=== PATIENT | female | born 2000 | race Caucasian/White ===

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

== ENCOUNTER 2022-02-21 20:14 | Outpatient (REF) | payer BC, SELFPAY ==
[2022-02-21 19:06] LABS: HCT 40.5 % (36.0-46.0); HGB 13.3 g/dL (11.2-15.7); MCH 30.9 pg (27.0-33.0); MCHC 32.8 % (32.0-36.0); MCV 94 fL (80-95); MPV 10.6 fL (8.0-11.0); Platelet Count 267 10^3/uL (130-400); RBC 4.31 10^6/uL (3.93-5.22); RDW 12.2 % (11.7-14.6); RDW-SD 42.4 fL; WBC 7.74 10^3/uL (4.4-10.8)
[2022-02-21 19:49] LABS: Folate 14.8 ng/mL (8.6-20.0); Vitamin B12 447 pg/mL (193-986)
== END 2022-02-21 20:15 | disposition home or self-care (01) ==
LOC: NCHCN 20:14
PROVIDERS: Visit Provider Nurse Practitioner Family
DX: D75.89 Other specified diseases of blood and blood-forming organs (principal); N93.8 Other specified abnormal uterine and vaginal bleeding
CPT/HCPCS: 85027; 82607; 82746

== ENCOUNTER 2023-11-19 12:51 | Outpatient (REF) | payer BC, SELFPAY ==
--- NOTE | 2023-11-19 10:20 | PAPFT_PTH ---
PATIENT: Mariama Jarvis LOC: [facility] U#:[id number] AGE/SX: 23/F ROOM: RE11/19/[address]: Laura Henriquez : 2000 BED: DIS: 11/19/2023 SPEC #: [id number] RECD: 11/19/23 18:15 STATUS: ALONDRA REQ #: [id number] KEVIN: 11/19/23 10:[address]: Laura Henriquez DEPT: [facility] Cytology RECD BY: Meme Alcantar ENTERED: 11/19/23 18:15 SP TYPE: PAPFT OTHR DR: Unknown,Unknown Tissues: 1 - CX/ENDOCX FOR PAP SMEARS Procedures: PAP THIN PREP/[facility] Screening Comments: [id number] (CHLAMYDIA/GC)
[2023-11-20 13:06] LABS: Chlamydia Result Negative (Negative); GC Result Negative (Negative)
== END 2023-11-19 12:52 | disposition home or self-care (01) ==
LOC: NCHCN 12:51
PROVIDERS: Visit Provider Nurse Practitioner Family
DX: Z00.00 Encounter for general adult medical examination without abnormal findings (principal); Z12.4 Encounter for screening for malignant neoplasm of cervix; Z11.51 Encounter for screening for human papillomavirus (HPV)
CPT/HCPCS: 87491; 87591; 88142

== ENCOUNTER 2024-01-12 11:15 | Emergency (ER) | payer BC, SELFPAY ==
[2024-01-12 11:19] VITALS: BP 120/75; PULSE 57; RESP 16; TEMP 36.8; O2SAT 98
--- OUTSIDE RECORDS SUMMARY | 2024-01-12 11:35 | XMS_ITS | Encounter Summary ---
Author Organization [facility] [place] [address] Care Team Providers Care Paid Search Marketing Strategist Name Role Phone Markos Brewer DNP Primary Care Provider [phone] Encounter Details Date Type Department Care Team (Latest Contact Info) Description 12/29/2019 9:00 AM EDT TH Visit (TeleHealth) Psychiatry and [place]al [place] [address] Gisselle Hauser, PhD AWILDA (generalized anxiety disorder); Depression, unspecified depression type Social History Tobacco Use Types Packs/Day Years Used Date Smoking Tobacco: Never Assessed Sex and Gender Information Value Date Recorded Sex Assigned at Not on file Gender Identity Not on file Sexual Orientation Not on file documented as of this encounter Progress Notes * Gisselle Hauser, PhD - 12/29/2019 9:00 AM EDT INDIVIDUAL??THERAPY PROGRESS NOTE [id number] ?? Location:?Video? Time Spent:??50??minutes ? SUBJECTIVE: ?? Chief Complaint and Diagnosis:??Pt is a 19 year old female with depression and anxiety that interferes with her interpersonal and academic functioning. ?? Interval History:?Pt reported that her mood has continued to improve and she enjoys spending time with her boyfriend.? OBJECTIVE: ?? Patient's verbal /interpersonal exchanges with??this curriculum writer:??Pt??was responsive to this curriculum writer's questions and she was engaged in the session.? Interventions and patient's??responses:??Pt processed her thoughts and feelings about??some stessors.??This curriculum writer introduced some DBT emotion regulation skills and Pt demonstrated an understanding of how to use these skills during a practice exercise. This curriculum writer reinforced Pt's use of the mindfulness and distress tolerance DBT skills, and Pt responded well to this intervention.??Pt completed her homework assignment. ?? Pertinent Mental Status Exam: General appearance:??Age appropriate, well groomed, and good eye contact Speech:??Clear Mood:??Anxious Affect:??Normal range Associations:??Intact Judgment:??Good Thought process:??Linear Oriented to person, place and time:??Yes Attention:??Intact ?? ASSESSMENT:??Pt is a kind, 19 year old female with Generalized Anxiety Disorder and unspecified depression. Pt's anxiety and depressive symptoms interfere with academic and interpersonal functioning.Pt's parents are supportive of Pt and they are willing to engage in Pt's treatment. Pt's parents reported that Pt currently takes 10 mg of Buspar??and 5 mg of Lexapro, prescribed by Dr. Burns, psychiatrist at [facility]. ?? PLAN: Revised Goals: 1) Improve emotion regulation; and 2) Establish healthy boundaries? No change in estimated length of treatment. ?? Safety Risk Management:??Pt did not report any??thoughts of ,??suicidal thoughts or suicidal ideation in the session. Pt did not report any homicidal ideation in the session. Pt??did not report any thoughts of self-harm??or??self-harm in??the session.??In the 09/21/19 session, this curriculum writer assisted Pt and Pt's parents in developing the following safety plan: Pt's parents locked up all of the sharps so that Pt cannot access sharps, Pt agreed to use the DBT TIPP skills each evening before bedtime (Pt's emotional outbursts typically occur in the evening) to prevent emotional outbursts, Pt alsoagreed to remove triggers (e.g., social media) in the evenings, Pt's parents agreed to call the police if Pt is physically violent towards them or she is unwilling to go to the ED for self-harm so that the police can take Pt to the local ED for a psychiatric evaluation.??In the 09/22/19 session, the following activity was added to the safety plan: Pt's mother will monitor Pt's use of a razor for shaving.? Assigned Homework:??Pt plans to??continue to??use the TIPP skills??as needed,??and??to??practice the mindfulness skills??as well as the distress tolerance skills.??Pt's parent(s)??plan to reinforce Pt's use of these DBT??skills.??Pt also plans to continue to practice the first set of DBT emotion regulation skills. Pt plans to practice the second set of DBT emotion regulation skills. ? Patient Instruction/Education Provided:??Pt plans??to follow up with this curriculum writer for therapy next week. ?? Attendee(s)??understand the plan???Yes. documented in this encounter Plan of Treatment Not on file documented as of this encounter Visit Diagnoses Diagnosis AWILDA (generalized anxiety disorder) Generalized anxiety disorder Depression, unspecified depression type documented in this encounter Care Teams Paid Search Marketing Strategist Relationship Specialty Start Date End Date Markos Brewer DNP PCP - General Family Medicine 07/08/19 08/31/23 documented as of this encounter
--- OUTSIDE RECORDS SUMMARY | 2024-01-12 11:35 | XMS_ITS | Encounter Summary ---
Author Organization [facility] Address [facility] [place] [address] Care Team Providers Care Manager Web Application Name Role Phone Laura Henriquez APRN Primary Care Provider [phone] Reason for Visit * Reason Onset Date Comments Medication Refill 01/09/2024 Encounter Details Date Type Department Care Team (Late st Contact Info) Description 01/09/2024 Refill Dermatology at [address] [address] Marcelo Galarza MD [facility] [place] [address] Hyperhidrosis Social History Tobacco Use Types Packs/Day Years Used Date Smoking Tobacco: Never Assessed Sex and Gender Information Value Date Recorded Sex Assigned at Not on file Gender Identity Not on file Sexual Orientation Not on file documented as of this encounter Miscellaneous Notes * Telephone Encounter - Meme Schmidt LPN - 01/09/2024 10:32 AM EDT Script not sent at time of visit documented in this encounter Plan of Treatment Not on file documented as of this encounter Visit Diagnoses Diagnosis Hyperhidrosis Primary focal hyperhidrosis documented in this encounter Care Teams Manager Web Application Relationship Specialty Start Date End Date Laura Henriquez APRN [address] [place] [address] PCP - General Family Medicine 09/01/23 documented as of this encounter
--- OUTSIDE RECORDS SUMMARY | 2024-01-12 11:35 | XMS_ITS | Encounter Summary ---
Author Organization [facility] Address [facility] [place] [address] Care Team Providers Care Deputy Controller Name Role Phone Markos Brewer DNP Primary Care Provider [phone] Reason for Visit * Reason Comments Medication Refill Encounter Details Date Type Department Care Team (Late st Contact Info) Description 04/12/2020 Refill Psychiatry [place] [address] Sigifredo Burns MD [facility] [place] [address] Social History Tobacco Use Types Packs/Day Years Used Date Smoking Tobacco: Never Assessed Sex and Gender Information Value Date Recorded Sex Assigned at Not on file Gender Identity Not on file Sexual Orientation Not on file documented as of this encounter Plan of Treatment Not on file documented as of this encounter Visit Diagnoses Not on filedocumented in this encounter Care Teams Deputy Controller Relationship Specialty Start Date End Date Markos Brewer DNP PCP - General Family Medicine 07/08/19 08/31/23 documented as of this encounter
--- OUTSIDE RECORDS SUMMARY | 2024-01-12 11:35 | XMS_ITS | Encounter Summary ---
Author [place] [address] Care Team Providers Care Locomotive Supervisor Name Role Phone Markos Brewer DNP Primary Care Provider Encounter Details Date Type Department Care Team (Late st Contact Info) Description 02/15/2020 Telephone Psychiatry [place] [address] Gisselle Hauser, PhD Social History Tobacco Use Types Packs/Day Years Used Date Smoking Tobacco: Never Assessed Sex and Gender Information Value Date Recorded Sex Assigned at Not on file Gender Identity Not on file Sexual Orientation Not on file documented as of this encounter Plan of Treatment Not on file documented as of this encounter Visit Diagnoses Not on filedocumented in this encounter Care Teams Locomotive Supervisor Relationship Specialty Start Date End Date Markos Brewer DNP PCP - General Family Medicine 07/08/19 08/31/23 documented as of this encounter
--- OUTSIDE RECORDS SUMMARY | 2024-01-12 11:35 | XMS_ITS | Clinical Summary ---
Author Organization [facility] Address [facility] [place] [address] Care Team Providers Care Latex Ribbon Machine Operator Name Role Phone Laura Henriquez APRN Primary Care Provider [phone] Medications Medication Sig Dispensed Refills Start Date End Date Status busPIRone (BUSPAR) 10 mg Tablet Take 1 tablet by mouth 2 times daily. 60 tablet 3 07/08/2019 Active norethindrone-e.estr adioL-iron 1 mg-20 mcg(24) /75 mg (4) Tablet, Chewable CHEW AND SWALLOW 1 TABLET BY MOUTH ONCE DAILY 12/20/2019 Active escitalopram (Lexapro) 10 mg Tablet TAKE 1 TABLET BY MOUTH ONCE DAILY 30 tablet 04/13/2020 Active glycopyrrolate (Robinul) 1 mg tabletIndications:Hy perhidrosis Take 1 tablet by mouth 2 times daily. 180 tablet 2 01/09/2024 Active Active Problems Problem Noted Date Diagnosed Date Migraine headache 02/22/2020 Dysmenorrhea in adolescent 02/22/2020 Menorrhagia with irregular cycle 02/22/2020 Depression with anxiety 09/26/2017 Encounters Date Type Department Care Team Description 01/09/2024 Refill Dermatology at [facility] [address] [place] [phone] Marcelo Galarza MD Hyperhidrosis 01/09/2024 Telephone Dermatology at [facility] [address] [place] [id number] Marcelo Galarza MD 01/06/2024 4:00 PM EDT TH Visit (TeleHealth) Dermatology at [facility] [address] [place] [address] Marcelo Galarza MD Hyperhidrosis 10/31/2023 10:40 AM EDT Office Visit Dermatology at [facility] [address] [place] [address] Sukhdev Avila MD Hyperhidrosis (Primary Dx) 10/31/2023 Travel from Last 3 Months Social History Tobacco Use Types Packs/Day Years Used Date Smoking Tobacco: Never Assessed Sex and Gender Information Value Date Recorded Sex Assigned at Not on file Gender Identity Not on file Sexual Orientation Not on file Plan of Treatment Health Maintenance Due Date Last Done Comments Chlamydia Screening 2017 HPV vaccine (1 - 3-dose series) 2017 HIV screen 02/21/2020 Hepatitis C Screening 02/21/2020 Hepatitis B vaccine (0-59 yrs) (1) 2021 Tdap adult 2021 Tetanus vaccine 2021 Covid-19 Vaccine (1 - 2022-24 season) 2023 PAP Smear 2023 Influenza (Flu) vaccine (1 o f 1 - Influenza standard series) 01/18/2024 Care Teams Latex Ribbon Machine Operator Relationship Specialty Start Date End Date [place] [address] PCP - General Family Medicine 09/01/23
--- OUTSIDE RECORDS SUMMARY | 2024-01-12 11:35 | XMS_ITS | Encounter Summary ---
Author Organization [facility] Address [facility] [place] [address] Care Team Providers Care Autism Motor Specialist Name Role Phone MartinezLaura Jennifer SMITH Primary Care Provider [phone] Encounter Details Date Type Department Care Team (Late st Contact Info) Description 01/09/2024 Telephone Dermatology at [facility] [address] [place] [address] Marcelo Galarza MD [facility] [place] [address] Social History Tobacco Use Types Packs/Day Years Used Date Smoking Tobacco: Never Assessed Sex and Gender Information Value Date Recorded Sex Assigned at Not on file Gender Identity Not on file Sexual Orientation Not on file documented as of this encounter Miscellaneous Notes * Telephone Encounter - Beatriz Pollard - 01/09/2024 10:06 AM EDT I received a phone call from Mariama Jarvis stating Pham rukhsana told her they did not have a new Rx for her glycopyrrolate (Robinul) 1 mg tablet. I told her I would send a note to the nurse to see if she can re send it. documented in this encounter Plan of Treatment Not on file documented as of this encounter Visit Diagnoses Not on filedocumented in this encounter Care Teams Autism Motor Specialist Relationship Specialty Start Date End Date Laura Henriquez, APPLIED PSYCHOLOGY TEACHER [address] [place] [address] PCP - General Family Medicine 09/01/23 documented as of this encounter
--- OUTSIDE RECORDS SUMMARY | 2024-01-12 11:35 | XMS_ITS | Encounter Summary ---
Author Organization [place] [address] Care Team Providers Care Annual Giving Officer Name Role Phone Markos Brewer DNP Primary Care Provider [phone] Encounter Details Date Type Department Care Team (Latest Contact Info) Description 04/11/2020 3:00 PM EST TH Visit (TeleHealth) Psychiatry [place] [address] Gisselle Hauser, PhD AWILDA (generalized anxiety disorder); Depression, unspecified depression type Social History Tobacco Use Types Packs/Day Years Used Date Smoking Tobacco: Never Assessed Sex and Gender Information Value Date Recorded Sex Assigned at Not on file Gender Identity Not on file Sexual Orientation Not on file documented as of this encounter Progress Notes * Gisselle Hauser, PhD - 04/11/2020 3:00 PM EST INDIVIDUAL??THERAPY PROGRESS NOTE [id number] ?? Location:?Video? Time Spent:??50 minutes ? SUBJECTIVE: ?? Chief Complaint and Diagnosis:??Pt is an 20 year old female with depression and anxiety that interferes with her interpersonal and academic functioning. ?? Interval History:?Pt reported??that she has been eating healthy and has not purged since the last therapy session. Pt reported that she is failing several classes due to poor time management butthat she is working with her teachers on strategies to improve her grades. ? OBJECTIVE: ?? Patient's verbal /interpersonal exchanges with??this conventional underwriter:??Pt??was responsive to this conventional underwriter's questions and she was engaged in the session.? Interventions and patient's??responses:??Pt processed her thoughts and feelings about??some stressors. Cognitive-behavioral interventions were used to assist Pt with recognizing the importance of time management, and Pt was responsive to these interventions. This conventional underwriter reinforced Pt's use of the??m indfulness,??distress tolerance, and emotion regulation??DBT skills, and Pt responded well to this intervention.??Pt completed her homework assignment. ?? Pertinent Mental Status Exam: General appearance:??Age appropriate, well groomed, and good eye contact Speech:??Clear Mood:??Anxious Affect:??Blunted Associations:??Intact Judgment:??Good Thought process:??Linear Oriented to person, place and time:??Yes Attention:??Intact ?? ASSESSMENT:??Pt is an 20 year old female with Generalized Anxiety Disorder and unspecified depression. Pt's anxiety and depressive symptoms primarily interfere with interpersonal and academic functioning. Pt's parents are supportive of Pt and they are willing to engage in Pt's treatment. Pt's parents reported that Pt currently takes 10 mg of Buspar??and 5 mg of Lexapro, prescribed by ??Lisa??Chhaya, psychiatrist at [facility].??Pt is making progress in successfully using her coping skills and her mood has improved as a result of using these skills. 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 Shaver is also aware of Pt's symptoms. In the 04/11/20 session, Pt reported that she has not binged or purged since the end of January 2020. ?? PLAN: Revised Goals: 1) Improve emotion regulation; and 2) Establish healthy boundaries? No change in estimated length of treatment. ?? Safety Risk Management:??Pt did not report any??thoughts of ,??suicidal thoughts, or suicidal ideation in the session. Pt did not report any homicidal ideation in the session. Pt??did not reportany thoughts of self-harm??or??self-harm in??the session.??In the 09/21/19 session, this conventional underwriter assisted Pt and Pt's parents in developing the following safety plan: Pt's parents locked up all of the sharps so that Pt cannot access sharps, Pt agreed to use the DBT TIPP skills each evening before bedtime (Pt's emotional outbursts typically occur in the evening) to prevent emotional outbursts, Pt also agreed to remove triggers (e.g., social media) in the evenings, Pt's parents agreed to call the police if Pt is physically violent towards them or she is unwilling to go to the ED for self-harm so that the police can take Pt to the local ED for a psychiatric evaluation.??In the 09/22/19 session, thefollowing activity was added to the safety plan: Pt's mother will monitor Pt's use of a razor for shaving.? Assigned Homework:??Pt plans to??continue to??use the??DBT??mindfulness skills??and??distress tolerance skills.??Pt also plans to??continue??to??practice the DBT emotion regulation skills??to challenge negative thoughts to improve her self-confidence.? Patient Instruction/Education Provided:??Pt??has a follow up appointment scheduled with this conventional underwriter. ?? Attendee(s)??understand the plan???Yes. documented in this encounter Plan of Treatment Not on file documented as of this encounter Visit Diagnoses Diagnosis AWILDA (generalized anxiety disorder) Generalized anxiety disorder Depression, unspecified depression type documented in this encounter Care Teams Annual Giving Officer Relationship Specialty Start Date End Date Markos Brewer DNP PCP - General Family Medicine 07/08/19 08/31/23 documented as of this encounter
--- OUTSIDE RECORDS SUMMARY | 2024-01-12 11:35 | XMS_ITS | Encounter Summary ---
Author Organization [facility] [place] [address] Care Team Providers Care Search Engine Optimization Strategist Name Role Phone Markos Brewer DNP Primary Care Provider [phone] Encounter Details Date Type Department Care Team (Latest Contact Info) Description 04/26/2020 2:00 PM EST TH Visit (TeleHealth) Psychiatry [place] [address] Gisselle Hauser, PhD AWILDA (generalized anxiety disorder); Depression, unspecified depression type Social History Tobacco Use Types Packs/Day Years Used Date Smoking Tobacco: Never Assessed Sex and Gender Information Value Date Recorded Sex Assigned at Not on file Gender Identity Not on file Sexual Orientation Not on file documented as of this encounter Progress Notes * Gisselle Hauser, PhD - 04/26/2020 2:00 PM EST INDIVIDUAL??THERAPY PROGRESS NOTE [id number] ?? Location:?Video? Time Spent:??30??minutes ? SUBJECTIVE: ?? Chief Complaint and Diagnosis:??Pt is an??20??year old female with depression and anxiety that interferes with her interpersonal and academic functioning. ?? Interval History:?Pt reported??that??she has been eating healthy and has not purged since the last therapy session. Pt reported that she is no longer failing any classes.? OBJECTIVE: ?? Patient's verbal /interpersonal exchanges with??this singer songwriter:??Pt??was responsive to this singer songwriter's questions and she was engaged in the session.? Interventions and patient's??responses:??Pt processed her thoughts and feelings about??her progress. This singer songwriter reinforced Pt's use of the??DBT skills, and Pt responded well to this intervention.??Pt completed her homework assignment.? Pertinent Mental Status Exam: General appearance:??Age appropriate, well groomed, and good eye contact Speech:??Clear Mood:??Euthymic Affect:??Normal range Associations:??Intact Judgment:??Good Thought process:??Linear Oriented to person, place and time:??Yes Attention:??Intact ?? ASSESSMENT:??Pt is an??20??year old female with Generalized Anxiety Disorder and unspecified depression. Pt's anxiety and depressive symptoms primarily??interfere with interpersonal and academic functioning. Pt's parents are supportive of Pt and they are willing to engage??in Pt's treatment. Pt's pa petey reported that Pt currently takes 10 mg of Buspar??and 5 mg of Lexapro, prescribed by ??Lisa??Chhaya, psychiatrist at [facility].??Pt is making progress in successfully using her coping skills and her mood has improved as a result of using these skills. 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 PLAN: Revised Goals: 1) maintain emotion regulation; and 2) maintain healthy boundaries? No change in estimated length of treatment. ?? Safety Risk Management:??Pt did not report any??thoughts of ,??suicidal thoughts, or suicidal ideation in the session. Pt did not report any homicidal ideation in the session. Pt??did not reportany thoughts of self-harm??or??self-harm in??the session.??In the 09/21/19 session, this singer songwriter assisted Pt and Pt's parents in developing [...] a follow up appointment scheduled with this singer songwriter. ?? Attendee(s)??understand the plan???Yes. documented in this encounter Plan of Treatment Not on file documented as of this encounter Visit Diagnoses Diagnosis AWILDA (generalized anxiety disorder) Generalized anxiety disorder Depression, unspecified depression type documented in this encounter Care Teams Search Engine Optimization Strategist Relationship Specialty Start Date End Date Markos Brewer DNP PCP - General Family Medicine 07/08/19 08/31/23 documented as of this encounter
--- OUTSIDE RECORDS SUMMARY | 2024-01-12 11:35 | XMS_ITS | Encounter Summary ---
Author Organization [facility] [place] [address] Care Team Providers Care Day Camp Counselor Name Role Phone Laura Henriqeuz APRN Primary Care Provider [phone] Encounter Details Date Type Department Care Team (Latest Contact Info) Description 10/31/2023 Travel Social History Tobacco Use Types Packs/Day Years Used Date Smoking Tobacco: Never Assessed Sex and Gender Information Value Date Recorded Sex Assigned at Not on file Gender Identity Not on file Sexual Orientation Not on file documented as of this encounter Plan of Treatment Not on file documented as of this encounter Visit Diagnoses Not on filedocumented in this encounter Care Teams Day Camp Counselor Relationship Specialty Start Date End Date Laura Henriquez APRN [place] [facility] [place] [address] PCP - General Family Medicine 09/01/23 documented as of this encounter
--- OUTSIDE RECORDS SUMMARY | 2024-01-12 11:35 | XMS_ITS | Encounter Summary ---
Author Organization [facility] Address [facility] [place] [address] Care Team Providers Care Automotive Service Consultant Name Role Phone Laura Henriquez APRN Primary Care Provider [phone] Reason for Visit * Consultation (Routine) - Closed Specialty Diagnoses / Procedures Referred By Jelly che Referred To Contact Dermatology Diagnoses Generalized hyperhidrosis Laura Henriquez APRN [address] [place] [address] [facility] Dermatology [address] [place] [address] Referral ID Status Reason Start Date Expiration Date V isits Requested Visits Authorized [id number] Closed Consult, Test & Treat PCP Updated and/or Approved 09/01/2023 08/31/2024 1 1 Encounter Details Date Type Department Care Team (Latest Contact Info) Description 10/31/2023 10:40 AM EDT Office Visit Dermatology at [facility] [address] [place] [address] Sukhdev Aivla MD [facility] [address] [place] [address] Hyperhidrosis (Primary Dx) Social History Tobacco Use Types Packs/Day Years Used Date Smoking Tobacco: Never Assessed Sex and Gender Information Value Date Recorded Sex Assigned at Not on file Gender Identity Not on file Sexual Orientation Not on file documented as of this encounter Progress Notes * Sukhdev Avila MD - 10/31/2023 10:40 AM EDT Images from the original note were not included. DEPARTMENT OF DERMATOLOGY Medical Dermatology Clinic Provider: Sukhdev Avila MD Patient's preferred name Mariama Preferred contact method for results [x]Phone []myD-H []Letter Detailed phone message OK? N Are there any other people with whom we may discuss your care? 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 Patient is new and self-referred to the clinic for hyperhidrosis, patient reports: -new to us for hyperhidrosis, present ~10+ years, for which she has been given both OTC and prescription meds without benefit. -sweating is worst in axillae and palms -sweating interferes with activities of daily living -has not previously tried an oral medication to address this. -no additional concerns today. Medications: Reviewed in eD-H Allergies: Reviewed in eD-H Skin Examination: Focused skin examination of the bilateral axilla and hands was normal with the exception of the findings below. Assessment/Plan #. Primary hyperhidrosis of palms and axillae - Glistening appearance of bilateral palms consistentwith hyperhidrosis. She reports hyperhidrosis of her axillae as well. - Discussed etiology and tx options. - Reassured benign condition for which no treatment is necessary, however given that this is interfering with patient's activities of daily living and decreasing her quality of life, she elects to treat. - Joint decision to treat w/ PO glycopyrrolate. - Start RX: Glycopyrrolate 1mg PO: - start glycopyrrolate at a dosage of 1 mg once daily - after 1 week, if needed increase to 1mg twice daily - after 1 week, if needed increase to 1mg in the morning and 2mg (2 tabs) in the evening - after 1 week, if needed increase to 2mg in the morning and 2mg in the evening - Common side effects discussed including dry mouth, dry eyes, blurry visions, and palpitations. Significant improvement is seen in approximately 90% of patients taking oral glycopyrrolate (70% of patient report major improvement) and side effects are generally mild. Other: N/A RTC: 2/3 months for Hyperhidrosis []Note routed to admin secretary []Recall placed in scheduling system [x]Appointment scheduled at checkout Scribe attestation: Negar Adler [facility] has performed the documentation for this encounter inthe presence of and acting as a scribe for Sukhdev Avila MD. I performed the above scribed service and agree with the accuracy of the documentation in this encounter. Reviewed and signed by: Sukhdev Avila MD Dermatology [facility] Staff hunting sales leader: Porsha Sanchez MD Dermatology [facility] * Porsha Sanchez MD - 10/31/2023 10:40 AM EDT I was the supervising physician working with the Dermatology resident, Sukhdev Avila MD, in the care of this Dermatology patient in person. For the purposes of billing, the resident provided the care. I have reviewed the encounter note details and level of service. PORSHA SANCHEZ MD Staff Heavy Equipment Service Manager Department of Dermatology [facility] documented in this encounter Plan of Treatment Not on file documented as of this encounter Visit Diagnoses Diagnosis Hyperhidrosis- Primary Primary focal hyperhidrosis documented in this encounter Care Teams Automotive Service Consultant Relationship Specialty Start Date End Date Laura Henriquez, LUIS [place] [facility] [address] PCP - General Family Medicine 09/01/23 documented as of this encounter
--- OUTSIDE RECORDS SUMMARY | 2024-01-12 11:35 | XMS_ITS | Encounter Summary ---
Author Organization [facility] [place] [address] Care Team Providers Care Buhr Dresser Name Role Phone Markos Brewer DNP Primary Care Provider [phone] Encounter Details Date Type Department Care Team (Latest Contact Info) Description 02/15/2020 4:00 PM EDT TH Visit (TeleHealth) Psychiatry [place] [address] Gisselle Hauser, PhD AWILDA (generalized anxiety disorder); Depression, unspecified depression type Social History Tobacco Use Types Packs/Day Years Used Date Smoking Tobacco: Never Assessed Sex and Gender Information Value Date Recorded Sex Assigned at Not on file Gender Identity Not on file Sexual Orientation Not on file documented as of this encounter Progress Notes * Gisselle Hauser, PhD - 02/15/2020 4:00 PM EDT INDIVIDUAL??THERAPY PROGRESS NOTE [id number] ?? Location:?Video? Time Spent:??50??minutes ? SUBJECTIVE: ?? Chief Complaint and Diagnosis:??Pt is a 19 year old female with depression and anxiety that interferes with her interpersonal and academic functioning. ?? Interval History:?Pt reported??that her mood has been depressed over the past 3 weeks and that she has been starving herself during the day and vomiting after dinner on a daily basis. Pt specifically said I can't keep food down because a voice tells me to get it out of my body. 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 Pt reported that her parents and boyfriend know about her bulimic behavior and that they have told her to stop vomiting after meals. Pt reported that her relationship with her boyfriend is going well. ?? OBJECTIVE: ?? Patient's verbal /interpersonal exchanges with??this remote mortgage underwriter:??Pt??was responsive to this remote mortgage underwriter's questions and she was engaged in the session.? 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 This remote mortgage underwriter educated Pt on the harmful consequences of bulimia and Pt demonstrated an understanding of this information. This writeralso encouraged Pt to use the DBT distress tolerance skills to reduce and eliminate urges to vomit after meals, and Pt agreed. This remote mortgage underwriter reinforced Pt's use of the??mindfulness,??distress tolerance, and emotion regulation??DBT skills, and Pt responded well to this intervention.??Pt completed her homework assignment. ?? Pertinent Mental Status Exam: General appearance:??Age appropriate, well groomed, and good eye contact Speech:??Clear Mood:??Mildly depressed Affect:??Restricted Associations:??Intact Judgment:??Good Thought process:??Linear Oriented to person, [...] 5 mg of Lexapro, prescribed by Dr. Sigifredo Burns, psychiatrist at [facility].??Pt is making progress in successfully using her coping skills and her mood has improved as a result of using these skills. 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 In the 02/15/20 session, Pt disclosed bulimia symptoms and this remote mortgage underwriter sent Dr. Burns a Staff Message in eD-H about Pt's symptoms (e.g., includingthe voice that tells Pt to get rid of food) after the session and requested for him to contact Pt's parent(s) to schedule an appointment to review Pt's medication and per Pt's request, this remote mortgage underwriter requested for Dr. Burns to enter a referral for Pt to see a dog control officer at [facility]. ?? PLAN: Revised Goals: 1) Improve emotion regulation; and 2) Establish healthy boundaries? No change in estimated length of treatment. ?? Safety Risk Management:??Pt did not report any??thoughts of ,??suicidal thoughts or suicidal ideation in the session. Pt did not report any homicidal ideation in the session. Pt??did not report any thoughts of self-harm??or??self-harm in??the session.??In the 09/21/19 session, this remote mortgage underwriter assisted Pt and Pt's parents in [...] shaving.? Assigned Homework:??Pt plans to??continue to??use the DBT mindfulness skills??and distress tolerance skills.??Pt's parent(s)??plan to reinforce Pt's use of these DBT??skills.??Pt also plans to??continue??to??practice the DBT emotion regulation skills to challenge negative thoughts to improve her rachel f-confidence.? Patient Instruction/Education Provided:??Pt has a follow up appointment scheduled with this remote mortgage underwriter. ?? Attendee(s)??understand the plan???Yes. documented in this encounter Plan of Treatment Not on file documented as of this encounter Visit Diagnoses Diagnosis AWILDA (generalized anxiety disorder) Generalized anxiety disorder Depression, unspecified depression type documented in this encounter Care Teams Buhr Dresser Relationship Specialty Start Date End Date Markos Brewer DNP PCP - General Family Medicine 07/08/19 08/31/23 documented as of this encounter
--- OUTSIDE RECORDS SUMMARY | 2024-01-12 11:35 | XMS_ITS | Encounter Summary ---
Author Organization [facility] [place] [address] Care Team Providers Care Retail Wireless Associate Name Role Phone Markos Brewer DNP Primary Care Provider [phone] Encounter Details Date Type Department Care Team (Latest Contact Info) Description 12/07/2019 1:00 PM EDT TH Visit (TeleHealth) Psychiatry [place] [address] Gisselle Hauser, PhD AWILDA (generalized anxiety disorder); Depression, unspecified depression type Social History Tobacco Use Types Packs/Day Years Used Date Smoking Tobacco: Never Assessed Sex and Gender Information Value Date Recorded Sex Assigned at Not on file Gender Identity Not on file Sexual Orientation Not on file documented as of this encounter Progress Notes * Gisselle Hauser, PhD - 12/07/2019 1:00 PM EDT INDIVIDUAL??THERAPY PROGRESS NOTE [id number] ?? Location:?[place]? Time Spent:??43??minutes ? SUBJECTIVE: ?? Chief Complaint and Diagnosis:??Pt is a 19 year old female with depression and anxiety that interferes with her interpersonal and academic functioning. ?? Interval History:??Pt??reported that she has a new boyfriend and that she enjoys spending time withhim. Pt also reported that she has been successfully using her DBT skills. Pt reported that she hasnot received any other disturbing text messages since she changed her cell phone number. Pt reported that she has continued to adhere to this commercial loan underwriter's recommendations for safety precautions (e.g.,Pt walks her puppy with a parent) since she thinks the person who sent her the disturbing text messagesa few weeks ago might know her home address. ?? OBJECTIVE: ?? Patient's verbal /interpersonal exchanges with??this commercial loan underwriter:??Pt??was responsive to this commercial loan underwriter's questions and she was engaged in the session.? Interventions and patient's??responses:??Pt processed her thoughts and feelings about??a recent stressor and??her progress.??Cognitive restructuring was used to assist Pt with challenging negative thoughts. This commercial loan underwriter reinforced Pt's use of the DBT skills, and Pt responded well to this intervention. Pt??completed the homework assignment. ?? Pertinent Mental Status Exam: [...] Lexapro, prescribed by Dr. Burns, psychiatrist at [facility]. ?? PLAN: Revised Goals: 1) Improve emotion regulation; and 2) Establish healthy boundaries? No change in estimated length of treatment. ?? Safety Risk Management:??Pt did not report any??thoughts of ,??suicidal thoughts or suicidal ideation in the session. Pt did not report any homicidal ideation in the session. Pt??did not report any thoughts of self-harm??or??self-harm in??the session.??In the 09/21/19 session, this commercial loan underwriter assisted Pt and Pt's parents in [...] monitor Pt's use of a razor for shaving.?? In the 12/07/19 session, Pt mentioned that her feet hurt after standing for several hours at work and that it is difficult for her to walk after her shifts. This commercial loan underwriter recommended for Pt to ask her parent(s) to check her calves and ankles for edema and to contact Pt's psychiatrist if they discover any edema, and Pt agreed to this commercial loan underwriter's recommendation. ?? Assigned Homework:??Pt plans to??continue to??use the TIPP skills??as needed,??and??to??practice the mindfulness skills??as well as the distress tolerance skills.??Pt's parent(s)??plan to reinforce Pt's use of these DBT??skills.??Pt also plans to practice the first set of DBT emotion regulation skills, pleasant activities. ? Patient Instruction/Education Provided:??Pt plans??to follow up with this commercial loan underwriter for therapy. ?? Attendee(s)??understand the plan???Yes. documented in this encounter Plan of Treatment Not on file documented as of this encounter Visit Diagnoses Diagnosis AWILDA (generalized anxiety disorder) Generalized anxiety disorder Depression, unspecified depression type documented in this encounter Care Teams Retail Wireless Associate Relationship Specialty Start Date End Date Markos Brewer DNP PCP - General Family Medicine 07/08/19 08/31/23 documented as of this encounter
--- OUTSIDE RECORDS SUMMARY | 2024-01-12 11:35 | XMS_ITS | Encounter Summary ---
Author Organization [facility] Address [facility] [place] [address] Care Team Providers Care Commercial Diver Name Role Phone Laura Henriquez LUIS Primary Care Provider [phone] Encounter Details Date Type Department Care Team (Late st Contact Info) Description 01/06/2024 4:00 PM EDT TH Visit (TeleHealth) Dermatology at [address] [address] Marcelo Galarza MD [facility] [address] Hyperhidrosis Social History Tobacco Use Types Packs/Day Years Used Date Smoking Tobacco: Never Assessed Sex and Gender Information Value Date Recorded Sex Assigned at Not on file Gender Identity Not on file Sexual Orientation Not on file documented as of this encounter Progress Notes * Marcelo Galarza MD - 01/06/2024 4:00 PM EDT Images from the original note were not included. 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 Patient is new and self-referred to the clinic for hyperhidrosis, patient reports: - Significant improvement with oral glycopyrrolate 1mg BID Medications: Reviewed in eD-H Allergies: Reviewed in eD-H Skin Examination: TeleHealth examination. Patient is aware that assessment may be limited by the TeleHealth video resolution. Assessment/Plan #. Primary hyperhidrosis of palms and axillae - Limited exam through telehealth, patient reports overall significant improvement of symptoms on current regimen - Started on oral glycopyrrolate on 10/31/23, titrated up to 1mg BID - Tolerating very well without side effects and significant improvement of symptoms - Continue RX: Glycopyrrolate 1mg BID - Common side effects discussed including dry mouth, dry eyes, blurry visions, and palpitations. Significant improvement is seen in approximately 90% of patients taking oral glycopyrrolate (70% of patient report major improvement) and side effects are generally mild. Other: N/A RTC: 1 year follow-up as needed []Note routed to scientific software engineer []Recall placed in scheduling system [x]Appointment scheduled at checkout Scribe attestation: Marcleo Galarza MD has performed the documentation for this encounter in the presence of and acting as a scribe for Marceol Galarza MD. I performed the above scribed service and agree with the accuracy of the documentation in this encounter. Reviewed and signed by: Marcelo Galarza MD Dermatology [facility] Staff software developer intern: Ira Altman MD Dermatology [facility] documented in this encounter Plan of Treatment Not on file documented as of this encounter Visit Diagnoses Diagnosis Hyperhidrosis Primary focal hyperhidrosis documented in this encounter Care Teams Commercial Diver Relationship Specialty Start Date End Date Laura Henriquez [place] [address] PCP - General Family Medicine 09/01/23 documented as of this encounter
--- OUTSIDE RECORDS SUMMARY | 2024-01-12 11:35 | XMS_ITS | Encounter Summary ---
[place] [address] Care Team Providers Care Unemployment Inspector Name Role Phone Markos Brewer DNP Primary Care Provider Encounter Details Date Type Department Care Team (Late st Contact Info) Description 02/15/2020 Telephone Psychiatry [place] [address] Gisselle Hauser, PhD Social History Tobacco Use [...] on filedocumented in this encounter Care Teams Unemployment Inspector Relationship Specialty Start Date End Date Markos Brewer DNP PCP - General Family Medicine 07/08/19 08/31/23 documented as of this encounter
--- OUTSIDE RECORDS SUMMARY | 2024-01-12 11:35 | XMS_ITS | Encounter Summary ---
Author Organization Count Includes [facility] [address] Care Team Providers Care Force Variation Equipment Tender Name Role Phone Markos Brewer DNP Primary Care Provider [phone] Encounter Details Date Type Department Care Team (Latest Contact Info) Description 11/30/2019 1:00 PM EDT TH Visit (TeleHealth) Psychiatry [place] [address] Gisselle Hauser, PhD AWILDA (generalized anxiety disorder); Depression, unspecified depression type Social History Tobacco Use Types Packs/Day Years Used Date Smoking Tobacco: Never Assessed Sex and Gender Information Value Date Recorded Sex Assigned at Not on file Gender Identity Not on file Sexual Orientation Not on file documented as of this encounter Progress Notes * Gisselle Hauser, PhD - 11/30/2019 1:00 PM EDT INDIVIDUAL??THERAPY PROGRESS NOTE [id number] ?? Location:?Telephone ? Time Spent:??20??minutes (This investigative writer experienced a power outage and was unable to access eD-H or reach 5D staff to obtain Pt's phone number until 1:40 pm) ? SUBJECTIVE: ?? Chief Complaint and Diagnosis:??Pt is a 19 year old female with depression and anxiety that interferes with her interpersonal and academic functioning. ?? Interval History:??Pt??reported that she had to change her cell phone number after receiving threatening text messages (e.g., wrote she should kill herself) from an unknown person (she thinks the person might be a peer from her high school) last week. Pt reported that she did not respond to thesetext messages. Pt reported that her parents called her cell phone provider and they told them to change Pt's cell phone number and to call the police if the unknown person obtains Pt's new cell phonenumber. Pt reported that they are adhering to the advice provided by their cell phone provider and decided not to call the police. 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 ?? OBJECTIVE: ?? Patient's verbal /interpersonal exchanges with??this investigative writer:??Pt??was responsive to this investigative writer's questions and she was engaged in the session.? Interventions and patient's??responses:??Pt processed her thoughts and feelings about??the recent stressors and her progress.??Pt reported that if the peer from school sent her the threatening text messages, then the peer knows her home address. Pt reported that she will complete her coursework online for her senior year and will not attend any in-person classes at the high school beginning for the academic year 5106-0210. Pt reported that she will not have to interact with the peer who she thinks might have sent her the threatening text messages. This investigative writer recommended for Pt to consider reporting the threatening text messages to the local police and for Pt to take safety precautions (e.g., walk her dogs with a parent(s), have a parent meet her at work if she has to close the facility by herself), and Pt reported that she is walking her dogs with a parent and will talk with her parents about this investigative writer's other recommendations. This investigative writer reinforced Pt's use of the DBT skills, [...] Lexapro, prescribed by Dr. Burns, psychiatrist at [facility]. ?? PLAN: Revised Goals: 1) Improve emotion regulation; and 2) Establish healthy boundaries? No change in estimated length of treatment. ?? Safety Risk Management:??Pt did not report any??thoughts of ,??suicidal thoughts or suicidal ideation in the session. Pt did not report any homicidal ideation in the session. Pt??did not report any thoughts of self-harm??or??self-harm in??the session.??In the 09/21/19 session, this investigative writer assisted Pt and Pt's parents in [...] of a razor for shaving.? Assigned Homework:??Pt agreed to talk with her parents about this investigative writer's safety recommendations. Pt plans to??continue to??use the TIPP skills??as needed,??and??to??practice the mindfulness skills??as well as the distress tolerance skills.??Pt's parent(s)??plan to reinforce Pt's use of these DBT?? skills.??Pt also plans to practice the first set of DBT emotion regulation skills, pleasant activities. ? Patient Instruction/Education Provided:??Pt plans to follow up with this investigative writer for therapy. ?? Attendee(s) understand the plan???Yes. documented in this encounter Plan of Treatment Not on file documented as of this encounter Visit Diagnoses Diagnosis AWILDA (generalized anxiety disorder) Generalized anxiety disorder Depression, unspecified depression type documented in this encounter Care Teams Force Variation Equipment Tender Relationship Specialty Start Date End Date Markos Brewer DNP PCP - General Family Medicine 07/08/19 08/31/23 documented as of this encounter
--- OUTSIDE RECORDS SUMMARY | 2024-01-12 11:35 | XMS_ITS | Encounter Summary ---
Author Organization [place] [address] Care Team Providers Care Farm Mechanic Name Role Phone Markos Brewer DNP Primary Care Provider [phone] Encounter Details Date Type Department Care Team (Latest Contact Info) Description 03/01/2020 4:00 PM EDT TH Visit (TeleHealth) Psychiatry [place] [address] Gisselle Hauser, PhD AWILDA (generalized anxiety disorder); Depression, unspecified depression type Social History Tobacco Use Types Packs/Day Years Used Date Smoking Tobacco: Never Assessed Sex and Gender Information Value Date Recorded Sex Assigned at Not on file Gender Identity Not on file Sexual Orientation Not on file documented as of this encounter Progress Notes * Gisselle Hauser, PhD - 03/01/2020 4:00 PM EDT INDIVIDUAL??THERAPY PROGRESS NOTE [id number] ?? Location:?Video? Time Spent:??65 minutes ?? Attendees: This web content writer met with only Pt for about 50 minutes and then Pt's father joined the remaining 15 minutes of the session. ?? SUBJECTIVE: ?? Chief Complaint and Diagnosis:??Pt is an 20 year old female with depression and anxiety that interferes with her interpersonal and academic functioning. ?? Interval History:?Pt reported??that she met with Dr. Lisa Shaver [facility] psychiatrist, lastweek to discuss her eating disorders symptoms and that Dr. Shaver referred her to a corporate physical security supervisor. Pt reported that she has not binged or purged since the last session. Pt's father reported that he found a vape pipe with cannabis oil in Pt's bedroom about a week ago and he disposed of it, and Pt is currently grounded for vaping cannabis with her friend. Pt reported that she has not had any urges to use cannabis and only vaped a few times with her friend because her friend. Pt's father reported that he and Pt's mother no longer allow Pt to spend time with the friend who vapes cannabis, and Pt hasaccepted their decision. ?? OBJECTIVE: ?? Patient's verbal /interpersonal exchanges with??this web content writer:??Pt??was responsive to this web content writer's questions and she was engaged in the session.? Interventions and patient's??responses:??This web content writer met with only Pt for 50 minutes. Pt processed her thoughts and feelings about some stressors. This web content writer also encouraged Pt to use the DBT distress tolerance skills to reduce and eliminate urges to vomit after meals, and Pt agreed. This web content writer reinforced Pt's use of the??mindfulness,??distress tolerance, and emotion regulation??DBT skills, andPt responded well to this intervention.??Pt completed her homework assignment. Pt's father joined the remaining 15 minutes of the session. Cognitive-behavioral family therapeutic interventions were used and they responded well to these interventions. This web content writer reiterated the harmful consequences of cannabis and Pt demonstrated an understanding of this information. ?? Pertinent Mental Status Exam: General appearance:??Age appropriate, well groomed, and good eye contact Speech:??Clear Mood:??Mildly depressed Affect:??Blunted Associations:??Intact Judgment:??Good Thought process:??Linear Oriented to person, place and time:??Yes Attention:??Intact ?? ASSESSMENT:??Pt is an 20 year old female with Generalized Anxiety Disorder and unspecified depression. Pt's anxiety and depressive symptoms primarily interfere with interpersonal functioning. Pt's parents are supportive of Pt and they are engaged in Pt's treatment. Pt's parents reported that Pt currently takes 10 mg of Buspar??and 5 mg of Lexapro, prescribed by Dr. Lisa Shaver, psychiatrist at [facility].??Pt is making progress in successfully using her coping skills and her mood has improved as a result of using these skills. 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 Shaver is also aware of Pt's symptoms. In the 03/01/20 session, Pt reported that she has not [...] self-harm??or??self-harm in??the session.??In the 09/21/19 session, this web content writer assisted Pt and Pt's parents in [...] Homework:??Pt plans to??continue to??use the??DBT??mindfulness skills??and??distress tolerance skills.??Pt's parent(s)??plan to reinforce Pt's use of these DBT??skills.??Pt also plans to??continue??to??practice the DBT emotion regulation skills to challenge negative thoughts to improve her self-confidence.? Patient Instruction/Education Provided:??Pt??has a follow up appointment scheduled with this web content writer. ?? Attendee(s)??understand the plan???Yes. documented in this encounter Plan of Treatment Not on file documented as of this encounter Visit Diagnoses Diagnosis AWILDA (generalized anxiety disorder) Generalized anxiety disorder Depression, unspecified depression type documented in this encounter Care Teams Farm Mechanic Relationship Specialty Start Date End Date Markos Brewer DNP PCP - General Family Medicine 07/08/19 08/31/23 documented as of this encounter
--- OUTSIDE RECORDS SUMMARY | 2024-01-12 11:35 | XMS_ITS | Encounter Summary ---
Author Organization [facility] [place] [address] Care Team Providers Care Inspector Material Disposition Name Role Phone Laura Henriquez APRN Primary Care Provider Reason for Referral * Consultation (Routine) - Closed Specialty Diagnoses / Procedures Referred By Jelly che Referred To Contact Dermatology Diagnoses Generalized hyperhidrosis Laura Henriquez APRN [address] [place] [address] [facility] Dermatology [address] [place] [address] Referral ID Status Reason Start Date Expiration Date V isits Requested Visits Authorized [id number] Closed Consult, Test & Treat PCP Updated and/or Approved 09/01/2023 08/31/2024 1 1 Encounter Details Date Type Department Care Team (Latest Contact Info) Description 09/01/2023 Transcribe Orders eDH Incoming Referrals [phone] Laura Henriquez APRN [address] [place], [place] [id number] Generalized hyperhidrosis Social History Tobacco Use Types Packs/Day Years Used Date Smoking Tobacco: Never Assessed Sex and Gender Information Value Date Recorded Sex Assigned at Not on file Gender Identity Not on file Sexual Orientation Not on file documented as of this encounter Plan of Treatment Scheduled Referrals Name Type Priority Associated Diagnoses Orde r Schedule Referral to Dermatology Outpatient Referral Routine Generalized hyperhidrosis Ordered: 09/01/2023 documented as of this encounter Visit Diagnoses Diagnosis Generalized hyperhidrosis documented in this encounter Care Teams Inspector Material Disposition Relationship Specialty Start Date End Date Laura [place] [address] PCP - General Family Medicine 09/01/23 documented as of this encounter
--- OUTSIDE RECORDS SUMMARY | 2024-01-12 11:35 | XMS_ITS | Encounter Summary ---
Author Organization [facility] [place] [address] Care Team Providers Care Short Order Fry Cook Name Role Phone Markos Brewer DNP Primary Care Provider [phone] Encounter Details Date Type Department Care Team (Latest Contact Info) Description 01/04/2020 9:00 AM EDT TH Visit (TeleHealth) Psychiatry [place] [address] Gisselle Hauser, PhD AWILDA (generalized anxiety disorder); Depression, unspecified depression type Social History Tobacco Use Types Packs/Day Years Used Date Smoking Tobacco: Never Assessed Sex and Gender Information Value Date Recorded Sex Assigned at Not on file Gender Identity Not on file Sexual Orientation Not on file documented as of this encounter Progress Notes * Gisselle Hauser, PhD - 01/04/2020 9:00 AM EDT INDIVIDUAL??THERAPY PROGRESS NOTE [id number] ?? Location:?Video? Time Spent:??16??minutes ??- Pt had to end the session early due to an obligation. ?? SUBJECTIVE: ?? Chief Complaint and Diagnosis:??Pt is a 19 year old female with depression and anxiety that interferes with her interpersonal and academic functioning. ?? Interval History:?Pt reported that her mood has continued to improve and she enjoys spending time with her boyfriend.??Pt reported feeling very happy that she has an upcoming interview for a new job. Pt reported that she has not had any negative thoughts or unpleasant emotions since the last session. ?? OBJECTIVE: ?? Patient's verbal /interpersonal exchanges with??this bond writer:??Pt??was responsive to this bond writer's questions and she was engaged in the session.? Interventions and patient's??responses:??Pt processed her thoughts and feelings about??her progress.??This bond writer reinforced Pt's use of the mindfulness, distress tolerance, and emotion regulation DBT skills, and Pt responded well to this intervention.??Pt completed her homework assignment. ?? Pertinent Mental Status Exam: General appearance:??Age appropriate, well groomed, and good eye contact Speech:??Clear Mood:??Mildly Anxious Affect:??Normal range Associations:??Intact Judgment:??Good Thought process:??Linear Oriented [...] Lexapro, prescribed by Dr. Burns, psychiatrist at [facility].??Pt is making progress in successfully using her coping skills and her mood has improved as a result of using these skills. Pt reported that she will return to high school in Fall 2019 but she will only attend virtual classes. ?? PLAN: Revised Goals: 1) Improve emotion regulation; and 2) Establish healthy boundaries? No change in estimated length of treatment. ?? Safety Risk Management:??Pt did not report any??thoughts of ,??suicidal thoughts or suicidal ideation in the session. Pt did not report any homicidal ideation in the session. Pt??did not report any thoughts of self-harm??or??self-harm in??the session.??In the 09/21/19 session, this bond writer assisted Pt and Pt's parents in [...] Pt's use of these DBT??skills.??Pt also plans to??continue??to practice the first set of DBT emotion regulation skills. Pt plans to practice the second set of DBT emotion regulation skills, if needed. ? Patient Instruction/Education Provided:??Pt plans??to follow up with this bond writer for therapy next week. ?? Attendee(s)??understand the plan???Yes. documented in this encounter Plan of Treatment Not on file documented as of this encounter Visit Diagnoses Diagnosis AWILDA (generalized anxiety disorder) Generalized anxiety disorder Depression, unspecified depression type documented in this encounter Care Teams Short Order Fry Cook Relationship Specialty Start Date End Date Markos Brewer DNP PCP - General Family Medicine 07/08/19 08/31/23 documented as of this encounter
--- OUTSIDE RECORDS SUMMARY | 2024-01-12 11:35 | XMS_ITS | Encounter Summary ---
Author Organization [facility] [place] [address] Care Team Providers Care J2Ee Android Developer Name Role Phone Markos Brewer DNP Primary Care Provider [phone] Encounter Details Date Type Department Care Team (Latest Contact Info) Description 02/01/2020 4:00 PM EDT TH Visit (TeleHealth) Psychiatry [place] [address] Gisselle Hauser, PhD AWILDA (generalized anxiety disorder); Depression, unspecified depression type Social History Tobacco Use Types Packs/Day Years Used Date Smoking Tobacco: Never Assessed Sex and Gender Information Value Date Recorded Sex Assigned at Not on file Gender Identity Not on file Sexual Orientation Not on file documented as of this encounter Progress Notes * Gisselle Hauser, PhD - 02/01/2020 4:00 PM EDT INDIVIDUAL??THERAPY PROGRESS NOTE [id number] ?? Location:?Video? Time Spent:??45??minutes ? SUBJECTIVE: ?? Chief Complaint and Diagnosis:??Pt is a 19 year old female with depression and anxiety that interferes with her interpersonal and academic functioning. ?? 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 Pt reported that she currently enrolled in all virtual classes at her high school with the exception of the cosmetology class that requires in-person attendance. ?? OBJECTIVE: ?? Patient's verbal /interpersonal exchanges with??this advertising copywriter:??Pt??was responsive to this advertising copywriter's questions and she was engaged in the session.? Interventions and patient's??responses:??Pt processed her thoughts and feelings about??her progress.??This advertising copywriter reinforced Pt's use of the??mindfulness, distress tolerance, and emotion regulation??DBT skills, and Pt [...] prescribed by Dr. Burns, psychiatrist at [facility].??Pt is making progress in successfully using her coping skills and her mood has improved as a result of using these skills. Pt is currently a full-time high school senior and she works part-time at a local [employer]. ?? PLAN: Revised Goals: 1) Improve emotion regulation; and 2) Establish healthy boundaries? No change in estimated length of treatment. ?? Safety Risk Management:??Pt did not report any??thoughts of ,??suicidal thoughts or suicidal ideation in the session. Pt did not report any homicidal ideation in the session. Pt??did not report any thoughts of self-harm??or??self-harm in??the session.??In the 09/21/19 session, this advertising copywriter assisted Pt and Pt's parents in developing [...] also plans to??continue??to??practice the DBT emotion regulation skills.? Patient Instruction/Education Provided:??Pt has a follow up appointment scheduled with this advertising copywriter. ?? Attendee(s)??understand the plan???Yes. documented in this encounter Plan of Treatment Not on file documented as of this encounter Visit Diagnoses Diagnosis AWILDA (generalized anxiety disorder) Generalized anxiety disorder Depression, unspecified depression type documented in this encounter Care Teams J2Ee Android Developer Relationship Specialty Start Date End Date Markos Brewer DNP PCP - General Family Medicine 07/08/19 08/31/23 documented as of this encounter
--- OUTSIDE RECORDS SUMMARY | 2024-01-12 11:35 | XMS_ITS | Encounter Summary ---
Author Organization [facility] [place] [address] Care Team Providers Care Sports Recruiter Name Role Phone Markos Brewer DNP Primary Care Provider [phone] Encounter Details Date Type Department Care Team (Latest Contact Info) Description 11/10/2019 2:00 PM EDT TH Visit (TeleHealth) Psychiatry [place] [address] Gisselle Hauser, PhD AWILDA (generalized anxiety disorder); Depression, unspecified depression type Social History Tobacco Use Types Packs/Day Years Used Date Smoking Tobacco: Never Assessed Sex and Gender Information Value Date Recorded Sex Assigned at Not on file Gender Identity Not on file Sexual Orientation Not on file documented as of this encounter Progress Notes * Gisselle Hauser, PhD - 11/10/2019 2:00 PM EDT INDIVIDUAL THERAPY PROGRESS NOTE [id number] ?? Location:?Video?Time Spent:??45??minutes ? SUBJECTIVE: ?? Chief Complaint and Diagnosis:??Pt is a 19 year old female with depression and anxiety that interferes with her interpersonal and academic functioning. ?? Interval History:??Pt??reported that her mood has improved and she is enjoying her time with her new puppy. Pt reported that she broke up with her boyfriend and she lost her job but that the DBT skills have been helpful for her in effectively managing her emotions.??Pt reported that she is currently looking for another summer job. OBJECTIVE: ?? Patient's verbal /interpersonal exchanges with this customs entry writer:??Pt was responsive to this customs entry writer's questions and she was engaged in the session.? Interventions and patient's responses:??Pt processed her thoughts and feelings about??some stressors and her progress. The DBT mindfulness and distress tolerance skills were reinforced and Pt responded well to these interventions.This customs entry writer introduced??the firt set of DBT emotion regulation skills, and Pt demonstrated an understanding of these skills. Pt completed the homework assignment. ?? Pertinent Mental Status [...] Lexapro, prescribed by Dr. Burns, psychiatrist at [facility]. ?? PLAN: Revised Goals: 1) Improve emotion regulation; and 2) Establish healthy boundaries? No change in estimated length of treatment. ?? Safety Risk Management:??Pt did not report any??thoughts of , suicidal thoughts or suicidal ideation in the session. Pt did not report any homicidal ideation in the session. Pt??did not report any thoughts of self-harm??or??self-harm in??the session.??In the 09/21/19 session, this customs entry writer assisted Pt and Pt's parents in [...] mindfulness skills??as well as the distress tolerance skills. Pt's parent(s)??plan to reinforce Pt's use of these DBT skills.??Pt also plans to practice the first set of DBT emotion regulation skills, pleasant activities. ? Patient Instruction/Education Provided:??Pt plans to follow up with this customs entry writer for therapy next week. ?? Attendee(s) understand the plan???Yes. documented in this encounter Plan of Treatment Not on file documented as of this encounter Visit Diagnoses Diagnosis AWILDA (generalized anxiety disorder) Generalized anxiety disorder Depression, unspecified depression type documented in this encounter Care Teams Sports Recruiter Relationship Specialty Start Date End Date Markos Brewer DNP PCP - General Family Medicine 07/08/19 08/31/23 documented as of this encounter
--- OUTSIDE RECORDS SUMMARY | 2024-01-12 11:35 | XMS_ITS | Encounter Summary ---
Author Organization [facility] Address [facility] [place] [address] Care Team Providers Care Actuary Clerk Name Role Phone Markos Brewer DNP Primary Care Provider [phone] Encounter Details Date Type Department Care Team (Late st Contact Info) Description 02/18/2020 9:00 AM EDT TH Visit (TeleHealth) Psychiatry [place] [address] Art Woodard MD [facility] [place] [address] AWILDA (generalized anxiety disorder) Social History Tobacco Use Types Packs/Day Years Used Date Smoking Tobacco: Never Assessed Sex and Gender Information Value Date Recorded Sex Assigned at Not on file Gender Identity Not on file Sexual Orientation Not on file documented as of this encounter Progress Notes * Art Woodard MD - 02/18/2020 9:00 AM EDT ESTABLISHED CHILD and ADOLESCENT PSYCHIATRY TELEHEALTH VISIT NOTE (CPT 67161, [id number], [id number]) [facility] 02/18/2020 Patient Name: Mariama Jarvis : 2000 Age: 20 y.o. Address: [facility] [address] Legal Guardian: parents Primary Care Provider: Markos Brewer APRN Examining Provider: Art Woodard MD (resident) Manisha Shaver MD (attending) Attendees: Mariama mother CHIEF CONCERN Current Diagnoses/Problems: Generalized Anxiety Disorder Today's Chief Concern: Ongoing anxiety HISTORY OF PRESENT ILLNESS () Last Visit: 10/28/19 Changes/recommendations made: Increase Lexapro to 10 mg daily Continue Buspirone 10 mg BID Current psychiatric medications: Buspirone 10 mg QHS Lexapro 10 mg daily Compliance with medications: compliance all of the time Therapist/Support Team: Dr. Hauser, PhD Mariama Jarvis gave permission for today's telehealth visit. During this visit she was located [facility]. Mariama Jarvis is aware that for any urgent matter she can call [phone]. Mariama and the family report the following: Mariama is a 19 year old female with a h/o ADHD, anxiety, and learning disability, presenting in follow up. 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 and attends those classeson and Fridays every week. Is not sure if she wants to do this as a career. She also has always wanted to work with special needs kids - no physical complaints aside from feeling tired all the time. Notes that this is not a new problem, although seems to have gotten worse recently - Mariama does endorse purging behaviors that started around a month ago. Family and boyfriend were aware at first, but now she does not think that anyone is noticing any longer. At first, was purging after dinner, her largest meal, but over the past week, she has been purging daily. Purging is related to a negative body image, and she endorses a history of being bullied for her weight and height. Has noticed that if she stands up too fast, she gets lightheaded. Does suspect that this may be why she has been more fatigued - denies SI or urge to engage in NSSIBx - after the conversation with Mariama, mom joins the Zoom call alone. She states that Mariama had told her about the purging behaviors but that she has not noticed any purging behaviors. Is concerned nonetheless and would like to find Mariama a high speed warper tender Psychometrics reviewed or newly obtained: none Review of Systems and Potential Side Effects (05/20/09) Review of Systems Constitutional: Positive for fatigue. Gastrointestinal: Positive for vomiting. Negative for nausea. Neurological: Positive for light-headedness. All other systems reviewed and are negative. PAST, FAMILY, and SOCIAL HISTORY () Information Previously Obtained PSYCHIATRIC, MEDICAL, and DEVELOPMENTAL HISTORY ?? Psychiatric and Treatment History: Prior diagnoses: Mariama has previously been diagnosed with ADHD and AWILDA. ?? Psychotherapy: Current Psychotherapy: Gisslele Hauser, PhD ?? Prior Psychotherapy: Aysha Landaverde ?? Prior hospitalizations: [facility] hosp diversion program - two days in Jan 2019 ?? Suicide Attempts: Took knife to wrists, did not actually cut ?? Medication Trials: Current Psychiatric Medications: 1. Buspirone 10 mg BID 2. lexapro 10mg daily ?? Prior Psychiatric Medication Trials: 1. Ritalin 5 or 10 mg age 7-9 - good response in combination with therapy ? Medical History: Medical history, including assessing for a history of neurological, cardiac, and disorders and symptomatology, was reviewed. Two prior shoulder reconstructions. No chronic medical conditions. and No acute serious illnesses or injuries. ?? Development History: Pre- trauma: 1st trimester mom bit by a dog. 3rd trimester mom fell down stairs - started going into labor - on bed rest for several weeks. Mariama was born at term. and labor were complicated by above. In utero exposures or significant maternal illnesses during : See above ?? Early developmental milestones, including first words, first sentences, walking, and toilet training, were all reached within normal limits: Yes. Though had some difficulty bonding early on. ? SOCIAL HISTORY ?? Family Profile & Living Situation: ?? Mariama lives in [facility] [address] with her mom, dad, and 20 yr old brother. Peer Relationships: Spends time with boyfriend and another close friend. School History: School: [employer] Grade: Going into senior year 504/IEP: 504 ?? Extracurriculars: Works at a [employer] ?? Trauma/Abuse History and Significant Life Stressors: Mariama was assessed for a history of neglect and emotional, physical, or sexual abuse. This review was negative. ? BIOLOGICAL FAMILY HISTORY Review of extended family history included: mood disorders, schizophrenia/psychosis, attention problems, substance use disorders, and completed suicides. Family history was notable for the following: ?? Maternal Family: Anxiety ?? Paternal Family: Substance use ?? Additionally, medical review for a family history of sudden unexplained deaths, cardiac disease, seizures, and diabetes was negative Interim History Reviewed: Relevant Updates: Psychiatry and Treatment History: Yes Now on Lexapro 5 mg daily, in addition to Buspar 10 mg qhs. Continues in weekly therapy with Dr. Darwin Wilson. Medical History: Yes none Family Profile & Living Situation: Yes none Family Psychiatric and Medical History: Yes none School situation/issues: Yes On summer break now MEDICATIONS, ALLERGIES, and LABS Current Medications: Buspirone 10 mg QHS Lexapro 5 mg daily Allergies: Not on File Fasting Labs: not indicated (if on an atypical) Results: N/A Date: N/A EXAMINATION () Vitals: n/a Musculoskeletal Exam: Muscle Strength/Tone: No atrophy, No abnormal movements, no tics and no tremors Gait and Station: Deferred AIMS (score, date): Not Indicated Mental Status Examination: Mental Status Exam Well appearing female, with good grooming and hygiene. Calm and cooperative with interview, brighter. Speech non-pressured with appropriate volume and prosody. Language fluent in Bahamian. Mood: morestable. Affect mood congruent, bright, good range. No thoughts of self harm or suicide and no thoughts of violence or homicide. Thoughts linear, logical, and goal oriented. Associations intact. No AVH, paranoia, or delusions. Fund of knowledge average for age and education. Memory and cognition intact. Attention and concentration grossly intact. Alert and oriented x4. Insight fair and judgement fair. ASSESSMENT and RECOMMENDATIONS Assessment and Formulation: Mariama Jarvis is a 20 y.o. female being treated for anxiety. Mariama's anxiety and depressive symptoms appears well-controlled with her current psychotropic regimen. However, she now endorses purging behaviors occurring at least once a day and up to three times a day, which raises concern for bulimia nervosa. Mom dose raise some concern that Mariama is perhaps not purging that often as she has yet to find any evidence or purging. Regardless, it does appear that Mariama has unhealthy eating patterns irrespective of any purging behaviors. We have encouraged Mariama to engage with a tool or die drawing checker to work on improving her eating habits, as well as discussing her self-image. We have also recommended that they attend an appt with their PCP for a medical evaluation as well as lab work to ensure there are no medical concerns or metabolic derangements from any purging episodes. While her anxiety and depressive symptoms are currently controlled, there is evidence for SSRI medications in the treatment of bulimia nervosa. We did discuss this with Mariama and her mother, and theywere in agreement to increase the dose to 15mg daily. SAFETY: No evidence of imminent risk to self or others. No current thoughts of self harm or suicide. Though chronically elevated above general population, risk appears to be low at this time. DSM 5 Diagnoses: AWILDA R/o bulimia nervosa Recommendations and Plan: 1. Psychosocial Interventions ?? Continue weekly therapy with Dr. Hauser ?? Recommended to start treatment with a high speed warper tender. Provided names of Yara Vega (preferred), Sarina Guzmán, and Jenny Valentino 2. Medications ?? Continue buspirone 10mg BID ?? Increase Lexapro to 15mg daily 3. Suggested Academic Interventions TBD once school back in session 4. Other ?? Patient to see PCP SEKOU for medical evaluation and labs to ensure no metabolic derangements frompurging episodes Recommended Follow-Up: 3-4 weeks * Manisha Shaver MD - 02/18/2020 9:00 AM EDT I met with Mariama and her mother along with Art Woodard MD via telehealth technology (video+audio) . I have reviewed the history and read Dr. Woodard's note and I agreed with the details as written. The assessment and plan were formulated in discussion with me and I agree with them as documented. During this visit the family was located in [place]. Psychiatric Medication Provider: [facility] PGY3 [facility], Art Woodard MD Pertinent History and Major Issues Addressed: Mariama is a 19 year old (almost 20) female with history of generalized anxiety disorder currently treated with psychotherapy and pharmacological interventions (escitalopram 10mg PO qAM and buspirone 10mg PO BID). Mariama reports good tolerance of medications and feels like medications have been helpful for anxiety. Reports mild-moderate anxiety symptoms and endorses new onset body image concerns with restriction and purging behaviors. Denies SI and SIB. I met with Mariama's mother alone for an extended period of time to provide psychoeducation regardingbody image and disordered eating. Mariama's mother questions the accuracy of Mariama's reports regarding disordered eating and suspects that there might be an underlying motivation for reporting these sym ptoms. We reviewed behaviors associated with eating disorders, potential medical complications, andneed to address both the disordered behaviors and underlying medical and mental health concerns. Inaddition to continuing in individual therapy and medication management services, we discussed the importance close medical monitoring and working with an eating disorder specialized high speed warper tender. Plan: 1. Will increase escitalopram to 15mg PO qAM to target some persistent anxiety symptoms. SSRIs may also have a role in the pharmacological treatment of bulimia nervosa. 2. Will continue buspirone 10mg PO BID without change for now. 3. Strongly encouraged medical appointment with PCP to evaluate for any medical complications associated with restricting and purging. A copy of this note will be forwarded to the PCP, Markos Brewer APRN. 4. Strongly recommended establishing care with a high speed warper tender with expertise in eating disorder. Provided the names of several skilled dieticians in the area. 5. Additional parental resources provided including recommended books and websites. 6. Follow-up in 3-4 weeks. This visit was notable for interactive complexity due to high reactivity and family disagreement. CPT code (75227). documented in this encounter Miscellaneous Notes * Addendum Note - Manisha Shaver MD - 02/18/2020 9:00 AM EDTAddended by: MANISHA SHAVER on: 02/28/2020 11:11 AM Modules accepted: Level of Service documented in this encounter Plan of Treatment Not on file documented as of this encounter Visit Diagnoses Diagnosis AWILDA (generalized anxiety disorder) Generalized anxiety disorder documented in this encounter Care Teams Actuary Clerk Relationship Specialty Start Date End Date Markos Brewer DNP PCP - General Family Medicine 07/08/19 08/31/23 documented as of this encounter
--- OUTSIDE RECORDS SUMMARY | 2024-01-12 11:35 | XMS_ITS | Encounter Summary ---
Author Organization [facility] [place] [address] Care Team Providers Care Director Of Housing Name Role Phone Markos Brewer DNP Primary Care Provider [phone] Encounter Details Date Type Department Care Team (Latest Contact Info) Description 12/15/2019 12:00 PM EDT TH Visit (TeleHealth) Psychiatry [place] [address] Gisselle Hauser, PhD AWILDA (generalized anxiety disorder); Depression, unspecified depression type Social History Tobacco Use Types Packs/Day Years Used Date Smoking Tobacco: Never Assessed Sex and Gender Information Value Date Recorded Sex Assigned at Not on file Gender Identity Not on file Sexual Orientation Not on file documented as of this encounter Progress Notes * Gisselle Hauser, PhD - 12/15/2019 12:00 PM EDT INDIVIDUAL??THERAPY PROGRESS NOTE [id number] ?? Location:?Video? Time Spent:??40??minutes ? SUBJECTIVE: ?? Chief Complaint and Diagnosis:??Pt is a 19 year old female with depression and anxiety that interferes with her interpersonal and academic functioning. ?? Interval History:?? Pt reported that she decided to smoke marijuana for the first time on Friday and reported that she had a seizure, which resulted in an ED visit. She also reported that her parentsknow about her ED visit. She reported that she has not taken the Lexapro and Buspar since she had aseizure on Friday and she said that the ED doctor did not give her any instructions on whether or not to resume this medication. ?? OBJECTIVE: ?? Patient's verbal /interpersonal exchanges with??this television script writer:??Pt??was responsive to this television script writer's questions and she was engaged in the session.? Interventions and patient's??responses:??Pt processed her thoughts and feelings about??the incidentwith the marijuana.??This television script writer educated Pt about the harmful consequences of marijuana use and Ptreported that she will never smoke it again. Pt also reported that her parents have removed all marijuana from her and disposed of it. Pt reported that her parents grounded her and they are making her pay the ED bill, and Pt reported that she agrees with these consequences. This television script writer reinforcedPt's use of the DBT skills, and Pt responded well to this intervention.? Pertinent Mental Status Exam: General appearance:??Age appropriate, [...] Lexapro, prescribed by Dr. Burns, psychiatrist at [facility]. After the 12/15/19 session, this television script writer sent Dr. Burns a Staff Message to inform him that Pt had a seizure after smoking marijuana on Friday and requested for him to contact Pt's parent(s) to discuss whether or not Pt should continue taking her psychiatric medication. On 12/15/19, Dr. Burns reported that he contacted Pt's parent(s) and told them that Pt should continue taking her psychiatric medication. ?? PLAN: Revised Goals: 1) Improve emotion regulation; and 2) Establish healthy boundaries? No change in estimated length of treatment. ?? Safety Risk Management:??Pt did not report any??thoughts of ,??suicidal thoughts or suicidal ideation in the session. Pt did not report any homicidal ideation in the session. Pt??did not report any thoughts of self-harm??or??self-harm in??the session.??In the 09/21/19 session, this television script writer assisted Pt and Pt's parents in [...] of these DBT??skills.??Pt also plans to continue practice the first set of DBT emotion regulation skills. ? Patient Instruction/Education Provided:??Pt plans??to follow up with this television script writer for therapy. ?? Attendee(s)??understand the plan???Yes. documented in this encounter Plan of Treatment Not on file documented as of this encounter Visit Diagnoses Diagnosis AWILDA (generalized anxiety disorder) Generalized anxiety disorder Depression, unspecified depression type documented in this encounter Care Teams Director Of Housing Relationship Specialty Start Date End Date Markos Brewer DNP PCP - General Family Medicine 07/08/19 08/31/23 documented as of this encounter
--- OUTSIDE RECORDS SUMMARY | 2024-01-12 11:36 | XMS_ITS | Encounter Summary ---
Author Organization [facility], [facility] Address [facility] [place] [address] Care Team Providers Care Secondary Market Manager Name Role Phone Markos Brewer DNP Primary Care Provider [phone] Reason for Visit * Psychiatric (Routine) - Closed Specialty Diagnoses / Procedures Referred By Jelly che Referred To Contact Psychiatry Diagnoses AWILDA (generalized anxiety disorder) Sigifredo Burns MD [facility] [place] [address] Mikhail Ray, PhD [facility] [place] [address] Referral ID Status Reason Start Date Expiration Date V isits Requested Visits Authorized [id number] Closed Consult, Test & Treat 06/14/2019 06/13/2020 1 1 Encounter Details Date Type Department Care Team (Latest Contact Info) Description 09/01/2019 9:00 AM EDT TH Visit (TeleHealth) Psychiatry and Behavioral Health at [place] [phone] Gisselle Hauser, PhD AWILDA (generalized anxiety disorder); Depression, unspecified depression type Social History Tobacco Use Types Packs/Day Years Used Date Smoking Tobacco: Never Assessed Sex and Gender Information Value Date Recorded Sex Assigned at Not on file Gender Identity Not on file Sexual Orientation Not on file documented as of this encounter Progress Notes * Gisselle Hauser, PhD - 09/01/2019 9:00 AM EDT DIAGNOSTIC INTERVIEW [id number] THIS NOTE IS ALSO LOCATED IN THE 09/01/19 Unscheduled ENCOUNTER ? Location: [facility] Time Spent: 45 minutes School/Grade: [employer], 11th grade Information Source: Kana (Pt's father), Mahi (Pt's mother) and Pt ?? History of Present Illness: Pt is a 19 year old female with a history of ADHD and current diagnosisof Generalized Anxiety Disorder. Pt's parents reported that Pt was diagnosed with ADHD when she wasabout 9 years old by a pediatric psychiatrist in [place], Dr. Palmira Soler. Pt's parents reported that Pt took Ritalin for the ADHD for 2 years but discontinued because she did not think it was helpful. Pt's parents reported that Pt also received play therapy for ADHD in [place] for about 2 years, which also reduced her symptoms. Pt's mother reported that Pt had an IEP from kindergarten through 7th grade fora sensory processing disorder and math disorder and that it was changed to a 504 b plan when Pt wasin 8th grade. Pt has current accommodations for testing and small group work. Pt reported that her anxiety manifests as daily worries about being judged by peers and being alone, which began in 7th grade. Pt's anxiety worsened over the past year to the degree that she had pseudo-seizures in [id number] following shoulder surgery and she fainted a few times, felt nauseas, and vomitted. Pt's mother reported that Pt was admitted to a [place] hospital diversion program for pseudo-seizures, self-harm (cutting arms, stomach, and legs), and suicidal thoughts in January 2019 for 1 day. Pt reported thatschool stress precipitated this admission in that peers were calling her mental on social media. Pt saw a DBT therapist, Andrae Garland, in [place], [place] twice for anxiety in Fall 2018. Prior to seeing Andrae, Pt saw Miley Dugan in [place] for a year for anxiety but Pt did not find benefit from the therapy. Pt reported that social functioning is hard because she doesn't have many friends and it is difficult for her to talk in classes because she is concerned the other students will project management analyst her. Pt rep orted having difficulty making friends and keeping friends. Pt reported that she thinks her friendsare fake and she buys them food and other things but she does not think her friends are there forher when she needs them. Pt reported having one close friend who she trusts and does not use her.Pt's father reported that she saw Dr. Burns at [facility] in June 2019 for anxiety and heprescribed her Buspar for anxiety, and the pseudo-seizures resolved. Pt's parents reported that Pt is less anxious since doing school from home due to the novel coronavirus pandemic. Pt reported having difficulty managing emotions at home, especially when she is bored. Pt endorsed the following depressive symptoms that have occurred on more than half of the days over the past 2 weeks: Depressed mood with irritability and arguments,increased appetite, and decreased sleep (mid-nocturnal insomnia). Pt endorsed the following depressive symptoms that have occurred on less than half of the days over the past 2 weeks: feelings of worthlessness and hopelessness, and low energy. Pt reported that shehas not had any thoughts of or suicidal thoughts since January 2019. Pt reported that she was cutting her arms, stomach, and legs on and off for at least a year, [id number], but Pt reported that she has had no thoughts of cutting and she has not engaged in any self-harm since January 2019.Pt's parents reported that they removed all sharps so Pt does not have access to sharps. Pt's parents want Pt to learn DBT skills to effectively regulate her emotions. ?? Psychiatric and Treatment History: Pt's parents reported that Pt was diagnosed with ADHD when she was about 9 years old by a pediatric psychiatrist in [place], Dr. Palmira Soler. Pt's parents reported that Pt took Ritalin for the ADHD for 2 years but discontinued because she did not think this medication was helpful. Pt's parents reported that Pt also received play therapy for ADHD in [place] for about 2 years, beginning at age 9, which also reduced her symptoms. Pt's parents reported that Pt saw Dr. Favian Burns, psychiatrist, at [facility] for anxiety in June 2019 and that he prescribed Pt 10 mgof Buspar, twice per day, but Pt only takes it at night because it makes her tired and dizzy in the morning. Pt saw a DBT therapist, Andrae Garland, in [place], [place] twice for anxiety in Fall 2018. Prior to seeing Andrae, Pt saw Miley Dugan in [place] for a year for anxiety but Pt did not find benefit from the therapy. ?? Family Profile & Living Situation: Pt lives with parents, and brother (20 years old) and pt hasclose relationships with family members. ?? Development History: : Pt's mother reported that she was attacked by a dog in her first trimester of and she had a tetnus shot. Pt's mother also reported that she fell down stairs and broke her tailbonewhen she was 8 months and she was on bed rest for the remainder of the . Pt's mother reported that she got strep late into her third trimester of but she did not take antibiotics for it. ?? Delivery: Pt's mother reported that Pt was born with strep and cold, and Pt was in the NICU for 10 hours. ?? Infancy: Pt's mother reported that Pt achieved all milestones on time. ?? Toddlerhood: Pt's mother reported that Pt achieved all milestones on time. ?? Preschool: Pt's parents reported that Pt achieved all milestones on time with the exception of somespeech and motor delays. Pt's mother reported that Pt got speech therapy, OT (gross and fine motor skills), and physical therapy. Pt's mother reported that Pt had an IEP from kindergarten for a sensory processing disorder and math disorder. ?? School Age: Pt's mother reported that Pt was diagnosed with ADHD when she was 9 years old by Palmira Soler, psychiatrist in [place], and Pt took Ritalin for 2 years but discontinued it because she didn't think it worked. Pt's mother reported that Pt also did play therapy for 2 years, beginning at age 9, for the ADHD in [place], which reduced her ADHD symptoms. Pt's mother reported that Pt had an IEP from [employer] through 7th grade for a sensory processing disorder and math disorder and that it was changed to a 504 b plan when Pt was in 8th grade. Pt has current accommodations for testing and small group work. ?? Adolescence: Pt's parents that Pt is currently completing all of her coursework. Pt reported that she likes online learning because she does not have to worry about being judged by peers at school. Pt reported that she has received some detentions for missing classes due to worries about being judged by her peers. ?? Mental Status Examination: ?? Appearance: Age appropriate, well groomed, and good eye contact ?? Speech: Clear ?? Affect: Blunted ?? Mood: Anxious ?? Sensorium: Oriented to person, place and time: Yes Attention: Intact Memory: Intact ?? Intelligence/Fund of Knowledge: Appeared to be age appropriate ?? Thought Process: Linear ?? Thought Content: Auditory Hallucinations: None reported Visual Hallucinations: None reported Suicidal Ideation/Intent/History: Pt reported that she had thoughts of and suicidal thoughts in January 2019 but has not had any of these thoughts since that time. Pt did not report a historyof or current suicidal ideation. Self-Injurious Behavior History: Pt reported that she cut her stomach, arms, and legs from [id number] but she has not had any thoughts of self-harm and she has not engaged in any self-harm since January 2019. Homicidal Ideation/Intent: Pt did not report a history of or current homicidal ideation. ?? Trauma/Abuse History: No history of trauma or abuse was reported by Pt or her parents. ?? Neurovegetative Function: Sleep: Pt reported that she has had difficulty sleeping through the night nearly every night over the past 2 weeks. Appetite: Pt reported having an increased appetite on more than half of the days over the past 2 weeks. Energy: Pt reported having low energy on less than half of the days over the past 2 weeks. ?? Review of Systems-Pertinent Negatives: Enuresis: None Encopresis: None Eating Disorder Symptoms: In 9th grade, Pt reported that she only ate a few pickles due to peer pressure from a friend to challenge her to lose weight. Pt's father reported that Pt lost about 10 pounds. Pt reported that her eating returned to normal in 10th grade because she stopped communicating with the friend who pressured her to lose weight. Conduct problems: Pt received some in-school detentions due to skipping classes because she was tooanxious about going to school due to anticipatory anxiety about being judged by peers. ?? Assessment/Formulation: Pt is a kind, 19 year old female with Generalized Anxiety Disorder and unspecified depression. Pt's anxiety and depressive symptoms interfere with academic and interpersonal functioning. This clinical writer explained the treatment plan, family-oriented DBT skills training, to Pt andher parents and they agreed to the treatment plan. Pt's parents are supportive of Pt and they are willing to engage in Pt's treatment. Pt's parents reported that Pt currently takes 10 mg of Buspar, prescribed by Dr. Burns, psychiatrist at [facility]. ?? DSM IV Diagnoses: AXIS I Generalized Anxiety Disorder; unspecified depression AXIS II Deferred AXIS III Deferred AXIS IV Deferred Life Treatment Target Symptoms: Healthy emotion regulation ?? Patient Stated Goals: 1) Be able to manage anxiety; 2) set healthy boundaries with peers. ?? Recommendations, Treatment Goals & Plan: ?? Psychotherapeutic: Family therapy Academic: N/A ?? Psychosocial: Family therapy is indicated so that Pt's parents can reinforce Pt's use of the DBT skills. ?? Safety risk Management Plan: Pt reported that she had thoughts of and suicidal thoughts in January 2019 but she has not had any of these thoughts since that time. Pt did not report a history of or current suicidal ideation. Pt reported that she cut her stomach, arms, and legs from 2017-2018but she has not had any thoughts of self-harm and she has not engaged in any self-harm since January 2019. Pt did not report a history of or current homicidal ideation. ?? Estimated Length of Treatment: 10-15 sessions beginning with weekly sessions. ?? Patient Instruction/Education Provided: They plan to follow up with this clinical writer for video-deliveredfamily therapy. ?? Patient understands the plan? Yes. documented in this encounter Plan of Treatment Scheduled Referrals Name Type Priority Associated Diagnoses Order Schedule Referral to Child and Adolescent Psychiatry Outpatient Referral Routine AWILDA (generalized anxiety disorder) Ordered: 06/14/2019 documented as of this encounter Visit Diagnoses Diagnosis AWILDA (generalized anxiety disorder) Generalized anxiety disorder Depression, unspecified depression type documented in this encounter Care Teams Secondary Market Manager Relationship Specialty Start Date End Date Markos Brewer DNP PCP - General Family Medicine 07/08/19 08/31/23 documented as of this encounter
--- OUTSIDE RECORDS SUMMARY | 2024-01-12 11:36 | XMS_ITS | Encounter Summary ---
Author Organization [place] [place] [address] Care Team Providers Care Sebd Teacher Name Role Phone Markos Brewer DNP Primary Care Provider [phone] Encounter Details Date Type Department Care Team (Latest Contact Info) Description 09/29/2019 4:00 PM EDT TH Visit (TeleHealth) Psychiatry [place] [address] Gisselle Hauser, PhD Anxiety; Depression, unspecified depression type Social History Tobacco Use Types Packs/Day Years Used Date Smoking Tobacco: Never Assessed Sex and Gender Information Value Date Recorded Sex Assigned at Not on file Gender Identity Not on file Sexual Orientation Not on file documented as of this encounter Progress Notes * Gisselle Hauser, PhD - 09/29/2019 4:00 PM EDT FAMILY THERAPY PROGRESS NOTE [id number] ?? Location:?[place]?Time Spent:??60??minutes ?? Attendee(s):?Pt,?Pt's mother and Pt's father ?? SUBJECTIVE: ?? Chief Complaint and Diagnosis:??Pt is a 19 year old female with depression and anxiety that interferes with her interpersonal and academic functioning. ?? Interval History:??Pt's parents reported that Pt did not have any emotional outbursts since the last session. Pt reported that the DBT skills have been helpful for her. ?? OBJECTIVE: ?? Patient's verbal /interpersonal exchanges with attendees:??Pt had constructive interactions with her??parents. ? Interventions and patient/family responses: Cognitive-behavioral family therapeutic interventions were used, and they responded well to these interventions.??This engineering technical writer introduced??more??DBT??mindfulness skills,??and Pt demonstrated an understanding of how to use the skills in conjunction with other mindfulness skills during practice exercises, and Pt's parents demonstrated an understanding of how to reinforce Pt's skill use.??This engineering technical writer reinforced Pt's continued use of the TIPP skills. They completed the homework assignment. ?? Pertinent Mental [...] Buspar, prescribed by Dr. Burns, psychiatrist at [facility]. ?? PLAN: Revised Goals: 1) Improve emotion regulation; and 2) Establish healthy boundaries? No change in estimated length of treatment. ?? Safety Risk Management:??Pt did not report any??suicidal thoughts or suicidal ideation in the session. Pt did not report any homicidal ideation in the session. Pt??did not report any thoughts of self-harm or self-harm in the session. In the 09/21/19 session, this engineering technical writer assisted Pt and Pt's parents in [...] unwilling to go to the ED for self- harm so that the police can take Pt to the local ED for a psychiatric evaluation. In the 09/22/19 session, the following activity was added to the safety plan: Pt's mother will monitor Pt's use of a razor for shaving. ?? Assigned Homework:??Pt plans to continue to??use the TIPP skills and to practice the existing and new mindfulness skills, and Pt's parents plan to reinforce Pt's use of these skills. ?? Patient Instruction/Education Provided:??They plan to follow up with this engineering technical writer for family therapy. ?? Attendees understand the plan???Yes. documented in this encounter Plan of Treatment Not on file documented as of this encounter Visit Diagnoses Diagnosis Anxiety Anxiety state, unspecified Depression, unspecified depression type documented in this encounter Care Teams Sebd Teacher Relationship Specialty Start Date End Date Markos Brewer DNP PCP - General Family Medicine 07/08/19 08/31/23 documented as of this encounter
--- OUTSIDE RECORDS SUMMARY | 2024-01-12 11:36 | XMS_ITS | Encounter Summary ---
Author Organization [facility] Address [address] [place] [address] Care Team Providers Care Plastic Press Operator Name Role Phone Scooby Powell MD, Lashonda Primary Care Provider [phone] Encounter Details Date Type Department Care Team (Latest Contact Info) Description 01/27/2019 Travel Social History Tobacco Use Types Packs/Day Years Used Date Smoking Tobacco: Never Sex and Gender Information Value Date Recorded Sex Assigned at Not on file Gender Identity Female 02/23/2021 10:29 EDT Sexual Orientation Not on file documented as of this encounter Plan of Treatment Not on file documented as of this encounter Visit Diagnoses Not on filedocumented in this encounter Care Teams Plastic Press Operator Relationship Specialty Start Date End Date Lashonda Almodovar MD [address] [place] [address] PCP - General 02/11/14 documented as of this encounter
--- OUTSIDE RECORDS SUMMARY | 2024-01-12 11:36 | XMS_ITS | Encounter Summary ---
Author Organization [facility] Address [address] [place] [address] Care Team Providers Care Filler Picker Name Role Phone Scooby Powell MD, Lashonda Primary Care Provider [phone] Encounter Details Date Type Department Care Team (Latest Contact Info) Description 02/23/2021 Travel Social History Tobacco Use Types Packs/Day Years Used Date Smoking Tobacco: Never Smokeless Tobacco: Never Interpersonal Safety Answer Date Record ed Physically Hurt Never 12/19/2019 Verbally Threaten Not on file 12/19/2019 Sex and Gender Information Value Date Recorded Sex Assigned at Not on file Gender Identity Female 02/23/2021 10:29 EDT Sexual Orientation Not on file COVID-19 Exposure Response Date Recorded In the last month, have you been in contact with someone who was confirmed or suspected to have Coronavirus / COVID-19? No / Unsure 02/23/2021 10:38 EDT documented as of this encounter Plan of Treatment Not on file documented as of this encounter Visit Diagnoses Not on filedocumented in this encounter Care Teams Filler Picker Relationship Specialty Start Date End Date Lashonda [place] [address] PCP - General 02/11/14 documented as of this encounter
--- OUTSIDE RECORDS SUMMARY | 2024-01-12 11:36 | XMS_ITS | Encounter Summary ---
Author Organization [facility] Address [address] [place] [address] Care Team Providers Care Media Consultant Outside Sales Name Role Phone Scooby Powell MD, Lashonda Primary Care Provider [phone] Reason for Visit * Reason Comments Loss of Consciousness Arrives accompanie d by parents with concern for syncope, nausea and vomitng. Seen in ED overnight for same symptoms with medical clearance performed, discharged with PRN medications back to [facility] institute. Dad informs patients symptoms persist, with another syncopal episode experienced (per staff). Requesting re-eval and clearance performed for higher level of care, as [facility] states they don't believe they can accomodate. Encounter Details Date Type Department Care Team (Late st Contact Info) Description 01/28/2019 11:33 EDT - 01/28/2019 19:23 EDT Emergency [facility] Emergency Department - Main [address] [id number] Melissa Ngo PA-C [address] [place] [phone] Asha Bruner PA-C [address] [place] [phone] Emergency, MD Dania Syncope, unspecified syncope type (Primary Dx) Discharge Disposition: Home or Self Care Social History Tobacco Use Types Packs/Day Years Used Date Smoking Tobacco: Never Smokeless Tobacco: Never Sex and Gender Information Value Date Recorded Sex Assigned at Not on file Gender Identity Female 02/23/2021 10:29 EDT Sexual Orientation Not on file documented as of this encounter Last Filed Vital Signs Vital Sign Reading Time Taken Comments Blood Pressure 122/62 01/28/20191911 EDT Pulse 100 01/28/2019 1325 EDT Temperature 37 ??C (98.6 ??F) 01/28/2019 1138 EDT Respiratory Rate 16 01/28/20191911 EDT Oxygen Saturation 100% 01/28/20191912 EDT Inhaled Oxygen Concentration - - Weight 65.8 kg (145 lb) 01/28/2019 1138 EDT Height - - Body Mass Index 20.81 01/27/20192036 EDT Body Mass Index Percentile 49.33% 01/28/2019 113 8 EDT Growth Chart: [facility] (Girls, 2- 20 Years) documented in this encounter Discharge Diagnoses Diagnosis R55 Syncope and collapse-R55[ICD-10-CM] R10.9 Unspecified abdominal pain-R10.9[ICD-10-CM] documented in this encounter Discharge Instructions * Discharge Instructions* Asha Villa PA-C - 01/28/2019 19:11 EDT Follow up with your PCP regarding your syncope/fainting. You were seen by first call and with parents have made a safety plan to discharge home. May call first call at [phone] at any time for worsening symptoms of depression, hopelessness, or suicidal thoughts, or return to the ED if you need to be seen immediately. documented in this encounter Discharge Disposition Disposition Code Departure Means Destination Home or Self Care documented in this encounter ED Notes * Melissa Milan PA - 01/28/2019 1923 EDT DOS: 01/28/2019 Chief Complaint Patient presents with ??? Loss of Consciousness Arrives accompanied by parents with concern for syncope, nausea and vomitng. Seen in ED overnight for same symptoms with medical clearance performed, discharged with PRN medications back to [facility] institute. Dad informs patients symptoms persist, with another syncopal episode experienced (per staff). R equesting re-eval and clearance performed for higher level of care, as [facility] states they don't believe they can accomodate. HPI The patient is a 18 y.o. female who presents today with Loss of Consciousness (Arrives accompanied by parents with concern for syncope, nausea and vomitng. Seen in ED overnight for same symptoms withmedical clearance performed, discharged with PRN medications back to [facility] institute. Dad informs patients symptoms persist, with another syncopal episode experienced (per staff). Requesting re-eval and clearance performed for higher level of care, as [facility] states they don't believe they can accomodate. ) HPI Patient is a 18-year-old female with past medical history significant for depression, who presents to the ED for evaluation of syncope. Patient and her mother state that she is currently staying at [facility] after having had suicidal ideations. While at [facility] she developed nausea, vomiting, and generalizedabdominal pain. She had many episodes of emesis, followed by several episodes of syncope, they believe 6 total. Mother and patient both note that under times of stress or pain, the patient has a history of syncopal episodes. They note that in August she had shoulder surgery, and had several postoperative syncopal episode secondary to discomfort. There was seen in the ED overnight, she was rehydrated, given Zofran, had a pelvic ultrasound secondary to some generalized abdominal pain which was unremarkable. She returned to [facility] feeling improved, however did have one additional syncopal episode and was directed back to the ED. Mother states that the [facility] staff have told her that they will not accept her back due to her medical concerns. Patient states that she feels significantly improved from last night, she does have some abdominal pain that she feels this is related to hunger and is askingto eat. She denies headache, dizziness, chest pain, shortness of breath, urinary symptoms, vaginal bleeding or discharge. No history of exertional syncope. No prior evaluation by cardiology for any reason, no family history of sudden . She denies palpitations, denies leg pain or swelling, pleuritic pain, recent immobilization, surgery, trauma, travel. Patient's mother is adamant that she is not concerned for the syncope, but is more concerned with disposition as they are apparently not going to be able to return to [facility] Review of Systems Review of Systems See above No Known Allergies Vital Signs Vitals Reassessment?: Yes Temp: 37 ??C (98.6 ??F) Temp src: Temporal Pulse: 100 Heart Rate: 67 BPM Resp: 16 SpO2: 100 % BP: 122/62 BP MAP: 75 mm Hg BP Device: BP Machine Patient Position: Sitting BP Cuff Location: Right arm O2 Device: None (Room air) Physical Exam Constitutional: She is oriented to person, place, and time. She appears well- developed and well-nourished. HENT: Head: Normocephalic and atraumatic. Right Ear: External ear normal. Left Ear: External ear normal. Eyes: Conjunctivae and EOM are normal. Neck: Normal range of motion. Cardiovascular: Normal rate, regular rhythm and normal heart sounds. Pulmonary/Chest: Effort normal and breath sounds normal. Abdominal: Soft. Bowel sounds are normal. There is generalized tenderness. There is no rigidity, norebound, no guarding, no CVA tenderness, no tenderness at McBurney's point and negative Renae's sign. Musculoskeletal: Normal range of motion. Neurological: She is alert and oriented to person, place, and time. Skin: Skin is warm and dry. Psychiatric: She has a normal mood and affect. RESULTS EKG orders: EKG 12-LEAD ECG Reviewed: Findings include: normal EKG, normal sinus rhythm. The study has been independently viewed by me. The study has been interpreted independently and contemporaneously by me. The EKG appears to be a good tracing. Attending integrated program teacher not immediately available for acute interpretation. Radiology orders: None Procedures ED COURSE A medical screening exam was performed. Patient is a 18-year-old female who presents to the ED for evaluation of syncope I reviewed labs from last night which were largely unremarkable. EKG was reviewed by NANCY Pope, unremarkable, no evidence of Brugada, WPW, prolonged QT, hypertrophy She ate two puddings, a large soda, among other things in the emergency department without difficulty Plan for patient to be evaluated by crisis services to help determine a disposition Supervising physician: Niko Signed out to Asha Bruner at 1600 Final diagnoses: Syncope, unspecified syncope type DISPOSITION: Discharged The patient's pain was managed to an adequate level weighing risk vs. benefit of further medications. Upon departure from the Emergency Department, the patient's pain was 0 on a zero to ten scale. Any further pain treatment will be at the discretion of the provider following up with the patient based on their clinical assessment. Condition at departure from the Emergency Department: Improved PCP: Lashonda Almodovar [facility] 02/01/2019 14:27 No flowsheet data found. * Jin Bourgeois - 01/28/2019 1923 EDT Infection Control Manager Initial Assessment Note Admit Date: 01/28/2019 Date of Consult: 01/28/2019 Suicidal Presenting Information: Mariama is a 18yo SWF presenting today after having syncopal episodes at [facility] for 2 days. [facility] reports that client has been vomitting and passing out for episodes. Client indicates that this is normal for her, and that when she is anxious, this occurs. She states that she was anxious at [facility] because I didn't want to be there. It is explained to this assembly instructions writer that client wasbrought to [facility] ~one week ago, after reporting to her parents that she didn't want to be alive anymore. CT states that she understands that this was a suicidal statement, but endorses that she Didn't mean it, and just wanted to get more help. Client explains that she does not have suicidal thoughts, but does sometimes think of self-harming via cutting. She states that she feels [facility] helped teach her new coping skills, and that she feels no desire to cut right now, and additionally feels comfortable contacting her mother and father if she begins having thoughts of SI or self harm. Refuses hospitalization, refuses hospital diversion, and wishes to go home to her parents. Is willing to meet with a psychiatrist, and is willing to see her counselor, Miley Zhao, more frequently at this time. Education Rn meets with [facility] father, Thor, separately. Kana explains that he Does not know why [facility] brought Mariama here, states that he does not want Mariama to go inpatient at or [facility] because he has heard bad things about both, and refuses to have his daughter wait for placement. He states that he wants a referral for child psychiatry, and a safety plan in place, and to take his daughter home. Together, CC and Kana come up with a plan. Kana explains that he and his lizz locked all sharps and pills in a safe, he has taken time off work for the rest of the week and part of next week, already communicated with Mariama's counselor, and will have 09/12 supervision. Education Rn states that this safety plan is strong. Education Rn agrees to communicate with psychiatry to persue a child psych referral to speed up the process (according to Kana). Education Rn then leaves a voicemail for Miley requesting an increase in support and provides first call and personal cell number for support as needed. Education Rn provides family with [facility] info and tips on keeping the home safe. Psychiatric team at [facility] agree with this plan. CT is D/C home with family. Substance Use (if applicable): none Relevant Psychosocial Information: ct lives with her parents and pets. Mental Status Appearance: Well groomed Attitude: Cooperative Behavior: No Distubance Noted Normal Rate / Rhythm / Tone Mood: Euthymic Sleep Pattern: No Disturbance Noted Appetite: No Disturbance Noted Affect: Mood Congruent Thought Process: Clear, Coherent, Organized and Goal-Directed Perception: No Disturbance Noted Cognitions: Alert and Oriented Insight: Poor Judgement: Poor Concentration: Good Orientation: Oriented times three Risk Assessment Suicidality: ct denies. Endorses h/x statements were with the intent of receiving more care. Homicidality: none Clinical Interpretation: Client appears to be struggling with difficulty regulating her emotions. She endorses that during her stay at [facility], she feels she did learn coping skills and feels safe maintaining safety at home with her parents. SHe does not wish to return to [facility] (And they will not accept her back at this time due to her medical concerns), and she does not meet criteria for HLOC, nor is she or her parents voluntary. They wish to have a referral for child psychiatry, which assembly instructions writer supports. Client will benefit from increasing her outpatient supports at this time. Plan: The plan for this patient is: Discharge from ED to Follow Up Provider and Discharge from ED with Outpatient Safety Plan Consultation with: MD JIN Horton Infection Control Manager First Call for [facility] * Chantelle Gore, RN - 01/28/2019 1920 EDT Pts father seems to be confused at what he plan is for his daughter that he and first call created together. First call informed and will be back in to speak with pt and father again. * Asha Villa PA-C - 01/28/2019 1728 EDT Received signout from GALA Ngo at 1600. Patient is 18-year-old female who presents from [facility], with 12 hours of nausea and vomiting now resolved now with 6 syncopal episodes in the last 24 hours. Seen initially last night and had reassuring labs, received IV hydration, and was discharged home. Had an additional syncopal episode this morning and [facility] returned her to the ED for evaluation and stated she was not medically safe to be at [facility]. Prior to signout patient had EKG and discussion withmom and states that patient frequently has syncopal episodes when acute stress or illness, and mother is not concerned about her symptoms. EKG reviewed by prior provider and attending Dr. Pope without any concerning findings. First call was consulted about placement given that she is no longer able to return to [facility]. Seen by first call, safety plan in place, discharged with dad home. * Chantelle Gore RN - 01/28/2019 1650 EDT Pt and father informed that pt needs to speak with crisis/first call to find placement and at this point pt is medically cleared. * Chantelle Gore RN - 01/28/2019 1339 EDT 12 Lead EKG Performed by CHANTELLE GORE RN and shown to Melissa Ngo PA and shakeel Pope MD. * Heidy Sutton RN - 01/28/2019 1138 EDT Chief Complaint Patient presents with ??? Loss of Consciousness Arrives accompanied by parents with concern for syncope, nausea and vomitng. Seen in ED overnight for same symptoms with medical clearance performed, discharged with PRN medications back to [facility]. Dad informs patients symptoms persist, with another syncopal episode experienced (per staff). R equesting re-eval and clearance performed for higher level of care, as [facility] states they don't believe they can accomodate. documented in this encounter Plan of Treatment Not on file documented as of this encounter Procedures Procedure Name Priority Date/Time Associated Diagnosis Comments ECG REPORT - SCANNED 01/28/2019 18:03 EDT EKG 12-LEAD STAT 01/28/2019 13:36 EDT documented in this encounter Results * ECG REPORT - SCANNED (01/28/2019 18:03 EDT) 01/28/2019 18:0 3 EDT Scan 2 Engine Mechanic PROCEDURE/MINOR CHUCKY GICAL ORDERABLES * EKG 12-LEAD (01/28/2019 13:36 EDT) 01/28/2019 13:3 6 EDT Narrative [facility] EKG - 01/28/2019 18:00 EDT ? [facility] ? Test Date: ?2019-01-28 Pat Name: ? MARIAMA MARCIAL ? Department: ?? ED ? Room: ? GT24 Gender: ? Female ? Printer Technician: ?? [id number] : ?2000 ? Requested By: SAIRA Urbano Order Number: [id number] ? Reading MD: ?? ELI DUMONT MD ? Measurements Intervals ?[place] ? Rate: ? 51 ? P: ?57 UT: ? 167 ?QRS: ?83 QRSD: ? 83 ? T: ?75 QT: ? 443 ? QTc: ?410 ? Interpretive Statements SINUS BRADYCARDIA WITH SINUS ARRHYTHMIA Normal [place] POSSIBLE RIGHT VENTRICULAR CONDUCTION DELAY Normal ECG for age. No previous ECG available for comparison I reviewed the tracing and have either agreed or edited the findings in this report. Electronically Signed On 01-28-2019 18:00:23 EDT by ELI DUMONT MD. Procedure Note Eli Dumont MD, MD - 01/28/2019 [facility] Test Date: 2019-01-28 Pat Name: MARIAMA MARCIAL Department: ED Room: [facility] Gender: Female Printer Technician: [id number] : 2000 Requested By: SAIRA Urbano Order Number: [id number] Reading MD: ELI DUMONT MD Measurements Intervals [place] Rate: 51 P: 57 UT: 167 QRS: 83 QRSD: 83 T: 75 QT: 443 QTc: 410 Interpretive Statements SINUS BRADYCARDIA WITH SINUS ARRHYTHMIA Normal [place] POSSIBLE RIGHT VENTRICULAR CONDUCTION DELAY Normal ECG for age. No previous ECG available for comparison I reviewed the tracing and have either agreed or edited the findings inthis report. Electronically Signed On 01-28-2019 18:00:23 EDT by ELI MORROW. Melissa Ngo PA-C CARDIAC ECG ORDERABLES [facility] EKG documented in this encounter Visit Diagnoses Diagnosis Syncope, unspecified syncope type- Primary documented in this encounter Orders Nursing Count Last Ordered Date First Orde red Date ORTHOSTATIC VITAL SIGNS 1 01/28/2019 documented in this encounter Care Teams Media Consultant Outside Sales Relationship Specialty Start Date End Date Lashonda Almodovar [place] [address] PCP - General 02/11/14 documented as of this encounter
--- OUTSIDE RECORDS SUMMARY | 2024-01-12 11:36 | XMS_ITS | Encounter Summary ---
Author Organization [facility] Address [facility] [place] [address] Care Team Providers Care Septic Tank Cleaner Name Role Phone Markos Brewer DNP Primary Care Provider Encounter Details Date Type Department Care Team (Latest Contact Info) Description 09/07/2019 10:30 AM EDT TH Visit (TeleHealth) Psychiatry [place] [address] Gisselle Hauser, PhD Depression, unspecified depression type; AWILDA (generalized anxiety disorder) Social History Tobacco Use Types Packs/Day Years Used Date Smoking Tobacco: Never Assessed Sex and Gender Information Value Date Recorded Sex Assigned at Not on file Gender Identity Not on file Sexual Orientation Not on file documented as of this encounter Progress Notes * Gisselle Hauser, PhD - 09/07/2019 10:30 AM EDT FAMILY THERAPY PROGRESS NOTE [id number] Location: [facility] Time Spent: 60 minutes Attendee(s): Pt and Pt's mother SUBJECTIVE: Chief Complaint and Diagnosis: Pt is a 19 year old female with depression and anxiety that interferes with her interpersonal and academic functioning. Interval History: Pt's mother reported that Pt had some emotional outbursts since the last session. OBJECTIVE: Patient's verbal /interpersonal exchanges with attendees: Pt had constructive interactions with hermother. Interventions and patient/family responses: Pt processed her thoughts and feelings about her recentemotional outbursts. This continuity writer introduced DBT mindfulness concepts and Pt identified signs of emotional mind. Pertinent Mental Status Exam: General appearance: Age appropriate, well groomed, and good eye contact Speech: Clear Mood: Depressed Affect: Restricted Associations: Intact Judgment: Good Thought process: Linear Oriented to person, place and time: Yes Attention: Intact ASSESSMENT: Pt is a kind, 19 year old female with Generalized Anxiety Disorder and unspecified depression. Pt's anxiety and depressive symptoms interfere with academic and interpersonal functioning. Pt's parents are supportive of Pt and they are willing to engage in Pt's treatment. Pt's parents reported that Pt currently takes 10 mg of Buspar, prescribed by Dr. Burns, psychiatrist at [facility]. PLAN: Revised Goals: 1) Improve emotion regulation; and 2) Establish healthy boundaries No change in estimated length of treatment. Safety Risk Management: Pt did not report any suicidal thoughts or suicidal ideation in the session. Pt did not report any homicidal ideation in the session. Pt did not report any thoughts of self-harm or self-harm in the session. Assigned Homework: Pt plans to identify specific triggers for emotion mind. Patient Instruction/Education Provided: They plan to follow up with this continuity writer for family therapy. Attendees understand the plan? Yes. documented in this encounter Plan of Treatment Not on file documented as of this encounter Visit Diagnoses Diagnosis Depression, unspecified depression type AWILDA (generalized anxiety disorder) Generalized anxiety disorder documented in this encounter Care Teams Septic Tank Cleaner Relationship Specialty Start Date End Date Markos Brewer DNP PCP - General Family Medicine 07/08/19 08/31/23 documented as of this encounter
--- OUTSIDE RECORDS SUMMARY | 2024-01-12 11:36 | XMS_ITS | Encounter Summary ---
[facility] Organization [facility] [place] [address] Care Team Providers Care Rate Inserter Name Role Phone Lashonda Almodovar MD Primary Care Provider [phone] Reason for Visit * Consultation (Routine) - Closed Specialty Diagnoses / Procedures Referred By Jelly che Referred To Contact Psychiatry Diagnoses ANXIETY, DEPRESSION, SUICIDAL IDEATIONS Lashonda [place] [address] [facility] [address] [place] [address] Referral ID Status Reason Start Date Expiration Date V isits Requested Visits Authorized [id number] Closed Consult, [facility] PCP Updated and/or Approved 02/10/2019 02/10/2020 1 1 Encounter Details Date Type Department Care Team (Late st Contact Info) Description 05/20/2019 2:15 PM EST Office Visit Psychiatry [place] [address] Sigifredo Burns MD [facility] [place] [address] AWILDA (generalized anxiety disorder) Social History Tobacco Use Types Packs/Day Years Used Date Smoking Tobacco: Never Assessed Sex and Gender Information Value Date Recorded Sex Assigned at Not on file Gender Identity Not on file Sexual Orientation Not on file documented as of this encounter Progress Notes * Sigifredo Burns MD - 05/20/2019 2:15 PM EST PSYCHIATRIC DIAGNOSTIC EVALUATION WITH MEDICAL SERVICES (CPT 50380) [facility] 05/20/2019 Patient Name: Mariama Jarvis : 2000 Age: 19 y.o. 3 m.o. Address: [facility] [address] Guardian: Mother, Father Primary Care Provider: Lashonda Almodovar MD Referring Provider: Lashonda Almodovar Reason for Referral: Further evaluation of anxiety and depression Examining Provider: Sigifredo Burns MD (resident) Cory Martino MD (attending) Attendees: Patient parents Additional Information Sources: EMR and Completed C&E Packet HISTORY OF PRESENT ILLNESS Mariama is a 19 year old female with a h/o ADHD, anxiety, and learning disability, presenting for further evaluation of anxiety and intermittent depressed moods. She was hospitalized briefly at [facility] in January with suicidal ideation, but developed several somatic symptoms -- including syncope -- and had to be evaluated in the local ER twice, culminating in her early discharge from [facility]. Since then SI has resolved, though parents have continued to watch her closely at home, and have limited any access to potentially dangerous objects. Mariama and her parents report she is here due to anxiety. The anxiety has caused her to miss many days of school this year, and to experience many physical symptoms, including abdominal pain, vomiting, and syncope. She has had a relatively broad medical work-up, including head imaging and 24-hr EEG m onitoring, with identifiable cause of syncopal events. 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 She has been in and out of therapy since age 9, though is not currently with a therapist. In elementary school she also did two years of dyadic attachment therapy with her dad. In pre-school she needed speech therapy, OT, and PT, and struggled with attention. She is currently on a 504 plan for learning disability (math) and information processing disorder. These were both identified during an independent evaluation at [facility] with Mariama was in 4th grade. In elementary school she wasalso on low dose Ritalin, though has not been on any medications for many years. Despite Mariama missing many days of school this year, the school has remained supportive. Mariama getseasily overwhelmed in school, even by minor incidents. It seems Mariama is having a more difficult time this school year, and Mariama has begged her parents to pull her out of school, which parents refuse to do. They've noticed she does better with clear structure and limitations. Parents report a long h/o emotional dysregulation. Dad even highlights her inability to regulate her temperature as a and her subsequent colicky symptoms as an infant. She has always struggled with interpersonal relationships. She has major reactions/tantrums when things don't go her way wit h friends. Dad says she seems to lack insight, especially into symptoms. She tends to externalize problems and look for external solutions. Parents suspect that Mariama sees herself as damaged, no good, not smart and that she has a fear of failure and avoids most challenges. This despite years of therapy and mindfulness practice. Both parents feel DBT would be helpful for her. Parents are currently applying for a [facility] waiver to see if Mariama can qualify for home services. Parents do not suspect that Mariama has any sustained depression. They suspect that intermittent periods of depression are situational, usually in the context of anxiety or interpersonal conflicts. Lichasleeps well, seems to enjoy life. 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 There is no suspicion of any substance use. Mariama is very open with her parents, and is typically a rule-follower. Mom feels that Mariama exhibits many of the same symptoms and behaviors that she exhibited herself atthe same age. Mom is now on low doses of Buspar with significant success. Per Mariama: Mariama acknowledges she gets particularly anxious in social situations. She goes to great lengths toavoid giving presentations in class, and will also avoid eating lunch in the cafeteria with other students. She is not self conscious about eating, or using the bathroom, or writing while others are watching, for example. The anxiety is mostly occurring in the school setting, where she experiences constant anxiety for the duration of the day. At home, her anxiety is, on average, less than an houra day. She and her parents acknowledge that the transition from a small, intimate K-8 school to a larger high school was difficult. She began worrying about being judged, and she struggled in group ac tivities. She experiences racing heart, sweatiness, clammy skin, nausea and vomiting. She misses school due to panic attacks, which occur 3-4 times per week. Syncopal events began at the end of her sophomore year of school. These occur a few times per month, usually when very anxious or emotional or in the context of shoulder pain. She has had two prior shoulder reconstructions due to a history of dislocations. She is not doing very well in school, particularly because she has missed so many school days. After high school she would like to be a hair machine operator. She reports she has one best friend in school christiano boyfriend, though no other friends. She reports chronic feelings of emptiness. She has little interest in going out with friends or participating in previously enjoyable activities. She does continue to enjoy art class in school. Appetite is ok and she stays active, though energy is low at times.She denies any current thoughts of self harm or suicide. She has a history of self injurious behaviors, mainly by cutting. She reports one prior suicide attempt -- self-interrupted -- by starting to cut her wrists. This was last January, at which time she was hospitalized at [facility]. There are guns in the home, but these are locked and she has no access to them. She struggles to pay attention in school. She has a hard time sitting still in class, often fidgeting with her hands and legs, and doodling. She is respectful of peers and authority figures at school. She is often in conflict with her mom, with arguments and shouting matches, though she insists sheand her mom and love and care about each other. History taking covered symptoms of sustained depressed and irritable mood, manic symptoms, temper outbursts, anxiety, obsessions/compulsions, disordered eating, enuresis, encopresis, abnormal and involuntary movements, psychosis, and sleep disturbance. No symptoms were endorsed other than those noted in this HPI. PSYCHIATRIC, MEDICAL, and DEVELOPMENTAL HISTORY Psychiatric and Treatment History: Prior diagnoses: Mariama has previously been diagnosed with ADHD. Psychotherapy: Current Psychotherapy: None Prior Psychotherapy: [facility] in [place], [place] Prior hospitalizations: [facility] hosp diversion program - two days in Jan 2019 Suicide Attempts: Took knife to wrists, did not actually cut Medication Trials: Current Psychiatric Medications: 1. None Prior Psychiatric Medication Trials: 1. Ritalin 5 or 10 mg age 7-9 - good response in combination with therapy Medical History: Medical history, including assessing for a history of neurological, cardiac, and disorders and symptomatology, was reviewed. Two prior shoulder reconstructions. No chronic medical conditions. and No acute serious illnesses or injuries. Development History: Pre- trauma: 1st trimester mom bit by a dog. 3rd trimester mom fell down stairs - started going into labor - on bed rest for several weeks. Mariama was born at term. and labor were complicated by above. In utero exposures or significant maternal illnesses during : See above Early developmental milestones, including first words, first sentences, walking, and toilet training, were all reached within normal limits: Yes. Though had some difficulty bonding early on. SOCIAL HISTORY Family Profile & Living Situation: Mariama lives in [facility] [address] with her mom, dad, and 20 yr old brother. Peer Relationships: One friend at school. Also a boyfriend. School History: School: [employer] Grade: 11 504/IEP: 504 Extracurriculars: Works at a [employer] Trauma/Abuse History and Significant Life Stressors: Mariama was assessed for a history of neglect and emotional, physical, or sexual abuse. This review was negative. BIOLOGICAL FAMILY HISTORY Review of extended family history included: mood disorders, schizophrenia/psychosis, attention problems, substance use disorders, and completed suicides. Family history was notable for the following: Maternal Family: Anxiety Paternal Family: Substance use Additionally, medical review for a family history of sudden unexplained deaths, cardiac disease, seizures, and diabetes was negative. MEDICATIONS and ALLERGIES Current Medications: No outpatient medications have been marked as taking for the 05/20/19 encounter (Office Visit) with Sigifredo Burns MD. Allergies: Allergies not on file EXAMINATION Vitals: BP: 152/77 mmHg HR: 79 bpm Wt: 147.6 lbs BMI% for age: No height and weight on file for this encounter. Musculoskeletal Exam: Muscle Strength/Tone: No atrophy, No abnormal movements, No tics and No tremors Gait and Station: Normal gait, Normal balance and Age-appropriate coordination AIMS (score, date): Not Indicated Mental Status Examination: ?? Appearance: Age appropriate female; casually dressed; appropriately groomed ?? Behavior: no psychomotor retardation or agitation; calm and cooperative; appropriate eye contact ?? Speech: non-pressured; spontaneous; conversational volume and prosody ?? Language: fluent; non-profane ?? Mood: depressed ?? Affect: euthymic, appropriate range ?? Thought Process: linear, goal-directed ?? Associations: clear; intact; no EKTA ?? Thought Content: denies SI and HI; denies thoughts of self harm. Future oriented. ?? Perception: Not seen responding to internal stimuli; denies AVH ?? Orientation: AAOx4 (person, place, time, and situation) ?? Attention/Concentration: intact to conversation ?? Cognition: appropriate ?? Memory: recent and remote recall intact ?? Fund of Knowledge: age appropriate ?? Insight: limited ?? Judgment: fair SCREENING ASSESSMENTS Parent Responses: [place] Initial (Parent) 05/20/2019 PARENT: No. of questions scored 2 or 3 in questons 1 to 9 (ADD inattentive) 5 PARENT: No. of questions scored 2 or 3 in questions 10 to 18 (ADD hyperactive) 3 PARENT: No. of questions scored 2 or 3 in questions 19 to 26 (opp. def. d/o) 3 PARENT: No. of questions scored 2 or 3 in questions 27 to 40 (conduct d/o) 0 PARENT: No. of questions scored 2 or 3 in questions 41 to 47 (anxiety/depression) 5 PARENT: No. of questions scored 4 or 5 in questions 48 to 50 (performance) 1 PARENT: No. of questions scored 4 or 5 in questions 51 to 54 (performance) 3 Melrose Initial (Parent) - Raw Scores 05/20/2019 Raw Scores 1-9 17 Raw Scores 10-18 13 Raw Scores 19-26 11 Raw Scores 27-40 Incomplete Raw Scores 41-47 18 Raw Scores 48-50 11 Raw Scores 51-54 16 No flowsheet data found. Short Mood and Feelings Response (Parent 1) 05/20/2019 SMFQ Score 5 [place] miserable or unhappy Sometimes Didn't enjoy anything at all Sometimes [place] tired; sat around and did nothing Sometimes Was very restless Not true [place] s/he was no good any more Not true Cried a lot Not true Found it hard to think properly or concentrate Not true Hated him/herself Not true [place] s/he was a bad person Not true [place] lonely Not true Thought nobody really loves him/her Not true Thought s/he could never be as good as other kid True [place] did everything wrong Not true Child/Adolescent Scores: Adolescent Psychiatry Responses 05/20/2019 PHQ-9A Score 15 (Moderately Severe Depression) AWILDA-7 Score 17 (Severe Anxiety) SCOFF Score 0 (No indicaion of eating disorder) CRAFFT Score 5 (Potential of a significant problem; Assessment required) SMFQ Score 24 ASSESSMENT and RECOMMENDATIONS Assessment and Formulation: Mariama Jarvis is a 19 y.o. 3 m.o. female with a h/o ADHD, anxiety, and learning disability, presenting for further evaluation of anxiety and intermittent depressed moods. Appears to be experiencing high levels of anxiety impairing school functioning and social relationships, with related somatoform manifestations, including nausea, vomiting, and syncope. She has an extensive history of psychotherapy interventions, though prior medication trials are limited to low dose Ritalin at ages 7-9. She has a history of self injurious behaviors, and a brief admission to [facility] in Jan 2019, though currently she has no thoughts of self harm or suicide. There is no obvious trauma history, though parentsreport pre- traumas -- dog bite during first trimester; fall down stairs during third trimester -- and some difficulty with attachment in infancy. Presentation possibly complicated as well by a history of significant anxiety in the mother. For now, will attempt to target anxiety with the addition of Buspar, given that mom's anxiety has had a very positive response to the same medication. If unsuccessful, next step will be to consider an SSRI or SNRI. In the meantime, Mariama will also continue to pursue therapy options, and to that end we will make a referral for therapy at [facility] as well.She would likely benefit from DBT, especially given history of emotional reactivity, self injurious behaviors, low self esteem, and chronic feelings of emptiness. Lastly, will send Mariama with severalVanderbilt scales to give to teachers at school. Anxiety may also be, in part, a manifestation of untreated ADHD, and it will be helpful to gather more data from the school in order to consider appropriate further treatments. DSM 5 Diagnoses: Generalized Anxiety Disorder Recommendations and Plan: 1. Psychosocial Interventions ?? Referral to Dr. Darling for psychotherapy, as family also pursues options in the community ?? Connect with school resource officer - Sharon - for help finding additional resources, particularly for DBT, in the community ?? Ruiz rating scales to be dispensed to teachers 2. Medications ?? Buspar 5 mg BID -- can titrate as tolerated over time to 20 mg TID 3. Academic Interventions ?? Cont with 504 ?? Melrose rating scales to be dispensed to teachers 4. Other ?? N/a ?? Recommended Follow-Up: Mariama will follow-up in this clinic in 8 weeks for additional psychoeducation related to diagnosis and treatment options. Additional treatment recommendations will be provided at the follow-up visit,which will complete the consultation. * Cory Martino MD - 05/20/2019 2:15 PM EST I have examined Mariama and interviewed her parent with Dr Burns and agree with his formulation and plan as documented, My MWE confirms his. I agree with using Buspar as a first measure to target anxiety given Mother's robust response and then following, if necessary, with an SNRI/SSRI as he has detailed in his note. documented in this encounter Plan of Treatment Not on file documented as of this encounter Visit Diagnoses Diagnosis AWILDA (generalized anxiety disorder) Generalized anxiety disorder documented in this encounter Care Teams Rate Inserter Relationship Specialty Start Date End Date Lashonda Almodovar MD [address] [place] [address] [place] [address] PCP - General 04/10/10 07/07/19 documented as of this encounter
--- OUTSIDE RECORDS SUMMARY | 2024-01-12 11:36 | XMS_ITS | Encounter Summary ---
Author Organization [facility] [place] [address] Care Team Providers Care [employer]cre[employer] Name Role Phone Markos Brewer DNP Primary Care Provider [phone] Encounter Details Date Type Department Care Team (Latest Contact Info) Description 10/05/2019 10:00 AM EDT TH Visit (TeleHealth) Psychiatry and [place] [address] Gisselle Hauser, PhD Depression, unspecified depression type; Anxiety Social History Tobacco Use Types Packs/Day Years Used Date Smoking Tobacco: Never Assessed Sex and Gender Information Value Date Recorded Sex Assigned at Not on file Gender Identity Not on file Sexual Orientation Not on file documented as of this encounter Progress Notes * Gisselle Hauser, PhD - 10/05/2019 10:00 AM EDT FAMILY THERAPY PROGRESS NOTE [id number] ?? Location:?[facility]?Time Spent:??60??minutes ?? Attendee(s):?Pt and Pt's mother; Pt's father attended the last 15 minutes of the session. ?? SUBJECTIVE: ?? Chief Complaint and Diagnosis:??Pt is a 19 year old female with depression and anxiety that interferes with her interpersonal and academic functioning. ?? Interval History:??Pt's parents reported that Pt did not have any emotional outbursts since the last session. Pt??reported that she ended her 2 year relationship with her boyfriend because she thought he was too controlling. Pt's mother reported that Pt effectively managed her emotions. ?? OBJECTIVE: ?? Patient's verbal /interpersonal exchanges with attendees:??Pt had??constructive??interactions with her??parents. ? Interventions and patient/family responses: Pt processed her thoughts and feelings about ending herrelationship with her boyfriend. Cognitive-behavioral family therapeutic interventions were used, and they responded well to these interventions. This inspector automatic typewriter introduced??more??DBT??mindfulness??skills,??and Pt demonstrated an understanding of how to use the skills??in conjunction with other mindfulness skills during practice exercises. Pt's??parents demonstrated an understanding of how to reinforce Pt's skill use.??This inspector automatic typewriter reinforced Pt's continued use of the TIPP skills. They completed thehomework assignment. ?? Pertinent Mental Status Exam: General [...] that Pt currently takes 10 mg of Buspar and 5 mg of Lexapro, prescribed by Dr. Burns, psychiatrist at [facility]. ?? PLAN: Revised Goals: 1) Improve emotion regulation; and 2) Establish healthy boundaries? No change in estimated length of treatment. ?? Safety Risk Management:??Pt did not report any??suicidal thoughts or suicidal ideation in the session. Pt did not report any homicidal ideation in the session. Pt??did not report any thoughts of self-harm??or self-harm in the session.??In the 09/21/19 session, this inspector automatic typewriter assisted Pt and Pt's parentsin developing the following safety plan: Pt's parents locked up all of the sharps so that Pt cannotaccess sharps, Pt agreed to use the DBT [...] self- harm so that the police can takePt to the local ED for a psychiatric evaluation.??In the 09/22/19 session, the following activity wasadded to the safety plan: Pt's mother will monitor Pt's use of a razor for shaving.? Assigned Homework:??Pt plans to??continue to??use the TIPP skills and??to practice the existing andnew mindfulness skills, and Pt's parents plan to reinforce Pt's use of these skills.? Patient Instruction/Education Provided:??They plan to follow up with this inspector automatic typewriter for family therapy. ?? Attendees understand the plan???Yes. documented in this encounter Plan of Treatment Not on file documented as of this encounter Visit Diagnoses Diagnosis Depression, unspecified depression type Anxiety Anxiety state, unspecified documented in this encounter Care Teams [employer] Relationship Specialty Start Date End Date Markos Brewer DNP PCP - General Family Medicine 07/08/19 08/31/23 documented as of this encounter
--- OUTSIDE RECORDS SUMMARY | 2024-01-12 11:36 | XMS_ITS | Encounter Summary ---
Author Organization [facility] [place] [address] Care Team Providers Care Report Developer Name Role Phone Markos Brewer DNP Primary Care Provider [phone] Encounter Details Date Type Department Care Team (Late st Contact Info) Description 09/01/2019 TH Visit (TeleHealth) Psychiatry [place] [address] Gisselle Hauser, PhD Generalized anxiety disorder; Depression, unspecified depression type Social History Tobacco Use Types Packs/Day Years Used Date Smoking Tobacco: Never Assessed Sex and Gender Information Value Date Recorded Sex Assigned at Not on file Gender Identity Not on file Sexual Orientation Not on file documented as of this encounter Progress Notes * Gisselle Hauser, PhD - 09/01/2019 9:12 AM EDT DIAGNOSTIC INTERVIEW Location: [facility] Time Spent: 45 minutes School/Grade: [employer], 11th grade Information Source: Kana (Pt's father), Mahi (Pt's mother) and Pt History of Present Illness: Pt is a 19 year old female with a history of ADHD and current diagnosisof Generalized Anxiety Disorder. Pt's parents reported that Pt was diagnosed with ADHD when she wasabout 9 years old by a pediatric psychiatrist in [place], Dr. Palmira Soler. Pt's parents reported that Pt took Ritalin for the ADHD for 2 years but discontinued because she did not think it was helpful. Pt's parents reported that Pt also received play therapy for ADHD in [place] for about 2 years, which also reduced [...] the degree that she had pseudo-seizures in [id number] following shoulder surgery and she fainted a few times, felt nauseas, and vomitted. Pt's mother reported that Pt was admitted to a [place] hospital diversion program for pseudo-seizures, self-harm (cutting arms, stomach, and legs), and suicidal thoughts in January 2019 for 1 day. Pt reported thatschool stress precipitated this admission in that peers were calling her mental on social media. Pt saw a DBT therapist, Andrae Garland, in [place], [place] twice for anxiety in Fall 2018. Prior to seeing Andrae, Pt saw Miley Friasrett in [place] for a year for anxiety but Pt did not find benefit from the therapy. Pt reported that social functioning is hard because she doesn't have many friends and it is difficult for her to talk in classes because she is concerned the other students will mix mill tender her. Pt rep orted having difficulty making friends and keeping friends. Pt reported that she thinks her friendsare fake and she buys them food and other things but she does not think her friends are there forher when she needs them. Pt reported having one close friend who she trusts and does not use her.Pt's father reported that she saw Dr. Burns at [facility] in June 2019 for anxiety and heprescribed [...] and off for at least a year, [id number], but Pt reported that she has had no thoughts of cutting and she has not engaged in any self-harm since January 2019.Pt's parents reported that they removed all sharps so Pt does not have access to sharps. Pt's parents want Pt to learn DBT skills to effectively regulate her emotions. Psychiatric and Treatment History: Pt's parents reported that Pt was diagnosed with ADHD when she was about 9 years old by a pediatric psychiatrist in [place], Dr. Palmira Soler. Pt's parents reported that Pt took Ritalin for the ADHD for 2 years but discontinued because she did not think this medication was helpful. Pt's parents reported that Pt also received play therapy for ADHD in [place] for about 2 years, beginning at age 9, which also reduced her symptoms. Pt's parents reported that Pt saw Dr. Favian Burns, psychiatrist, at [facility] for anxiety in June 2019 and that he prescribed Pt 10 mgof Buspar, twice per day, but Pt only takes it at night because it makes her tired and dizzy in the morning. Pt saw a DBT therapist, Andrae Garland, in [place], [place] twice for anxiety in Fall 2018. Prior to seeing Andrae, Pt saw Miley Dugan in [place] for a year for anxiety but Pt did not find benefit from the therapy. Family Profile & Living Situation: Pt lives with parents, and brother (20 years old) and pt hasclose relationships with family members. Development History: : Pt's mother reported that [...] she did not take antibiotics for it. Delivery: Pt's mother reported that Pt was born with strep and cold, and Pt was in the NICU for 10 hours. Infancy: Pt's mother reported that Pt achieved all milestones on time. Toddlerhood: Pt's mother reported that Pt achieved all milestones on time. Preschool: Pt's parents reported that Pt achieved all milestones on time with the exception of somespeech and motor delays. Pt's mother reported that Pt got speech therapy, OT (gross and fine motor skills), and physical therapy. Pt's mother reported that Pt had an IEP from kindergarten for a sensory processing disorder and math disorder. School Age: Pt's mother reported that Pt was diagnosed with ADHD when she was 9 years old by Palmira Soler psychiatrist in [place], and Pt took Ritalin for 2 years but discontinued it because she didn't think it worked. Pt's mother reported that Pt also did play therapy for 2 years, beginning at age 9, for the ADHD in [place], which reduced her ADHD symptoms. Pt's mother reported that Pt had an [facility]EP [facility] 7th grade for a sensory processing disorder and math disorder and that it was changed to a 504 b plan when Pt was in 8th grade. Pt has current accommodations for testing and small group work. Adolescence: Pt's parents that Pt is currently completing all of her coursework. Pt reported that she likes online learning because she does not have to worry about being judged by peers at school. Pt reported that she has received some detentions for missing classes due to worries about being judged by her peers. Mental Status Examination: Appearance: Age appropriate, well groomed, and good eye contact Speech: Clear Affect: Blunted Mood: Anxious Sensorium: Oriented to person, place and time: Yes Attention: Intact Memory: Intact Intelligence/Fund of Knowledge: Appeared to be age appropriate Thought Process: Linear Thought Content: Auditory Hallucinations: None reported Visual Hallucinations: None reported Suicidal Ideation/Intent/History: Pt reported that she had thoughts of and suicidal thoughts in January 2019 but has not had any of these thoughts since that time. Pt did not report a historyof or current suicidal ideation. Self-Injurious Behavior History: Pt reported that she cut her stomach, arms, and legs from [id number] but she has not had any thoughts of self-harm and she has not engaged in any self-harm since January 2019. Homicidal Ideation/Intent: Pt did not report a history of or current homicidal ideation. Trauma/Abuse History: No history of trauma or abuse was reported by Pt or her parents. Neurovegetative Function: Sleep: Pt reported that she has had difficulty sleeping through the night nearly every night over the past 2 weeks. Appetite: Pt reported having an increased appetite on more than half of the days over the past 2 weeks. Energy: Pt reported having low energy on less than half of the days over the past 2 weeks. Review of Systems-Pertinent Negatives: Enuresis: None Encopresis: [...] anticipatory anxiety about being judged by peers. Assessment/Formulation: Pt is a kind, 19 year old female with Generalized Anxiety Disorder and unspecified depression. Pt's anxiety and depressive symptoms interfere with academic and interpersonal functioning. This film writer explained the treatment plan, family-oriented DBT skills training, to Pt andher parents and they agreed to the treatment plan. Pt's parents are supportive of Pt and they are willing to engage in Pt's treatment. Pt's parents reported that Pt currently takes 10 mg of Buspar, prescribed by Dr. Burns, psychiatrist at [facility]. DSM IV Diagnoses: AXIS I Generalized Anxiety Disorder; unspecified depression AXIS II Deferred AXIS III Deferred AXIS IV Deferred Life Treatment Target Symptoms: Healthy emotion regulation Patient Stated Goals: 1) Be able to manage anxiety; 2) set healthy boundaries with peers. Recommendations, Treatment Goals & Plan: Psychotherapeutic: Family therapy Academic: N/A Psychosocial: Family therapy is indicated so that Pt's parents can reinforce Pt's use of the DBT skills. Safety risk Management Plan: Pt reported that [...] a history of or current homicidal ideation. Estimated Length of Treatment: 10-15 sessions beginning with weekly sessions. Patient Instruction/Education Provided: They plan to follow up with this film writer for video-deliveredfamily therapy. Patient understands the plan? Yes. documented in this encounter Plan of Treatment Not on file documented as of this encounter Visit Diagnoses Diagnosis Generalized anxiety disorder Depression, unspecified depression type documented in this encounter Care Teams Report Developer Relationship Specialty Start Date End Date Markos Brewer DNP PCP - General Family Medicine 07/08/19 08/31/23 documented as of this encounter
--- OUTSIDE RECORDS SUMMARY | 2024-01-12 11:36 | XMS_ITS | Encounter Summary ---
Author Organization [facility] Address [address] [place] [address] Care Team Providers Care Supervisor Broadloom Name Role Phone Scooby Powell MD, Lashonda Primary Care Provider [phone] Reason for Visit * Reason Comments Pain Encounter Details Date Type Department Care Team (Late st Contact Info) Description 02/28/2021 14:15 EDT Office Visit [facility] Orth[facility]ics & Podiatry [address], [address] [place], [place] [id number] [facility] [address] [place] [address] Ingrown nail of great toe of left foot (Primary Dx) Social History Tobacco Use Types [...] have Coronavirus / COVID-19? No / Unsure 02/28/2021 13:53 EDT documented as of this encounter Last Filed Vital Signs Vital Sign Reading Time Taken Comments Blood Pressure - - Pulse - - Temperature 36.4 ??C (97.5 ??F) 02/28/2021 1354 EDT Respiratory Rate - - Oxygen Saturation - - Inhaled Oxygen Concentration - - Weight - - Height - - Body Mass Index - - documented in this encounter Ordered Prescriptions Prescription Sig Dispensed Refills Start Date End Da te cwkpmetn-zkojoxxnv-hsgtu cortisone (CORTISPORIN) otic solution Place 1-2 Drops into affected ear(s) 2 times daily for [address] to affected area 3.8 mL 02/28/2021 03/14/2021 sulfamethoxazole-trimeth oprim (BACTRIM/CO-TRIMOXAZOLE DS) 800-160 mg per tablet Take 1 Tablet by mouth 2 times daily for 5 days. 10 Tablet 02/28/2021 03/05/2021 documented in this encounter Progress Notes * Susan Barros, DPM - 02/28/2021 1415 EDTAssociated Order(s): Medication Only Injection Post-Procedure Diagnose(s): Ingrown nail of great toe of left foot CHIEF COMPLAINT: No chief complaint on file. SUBJECTIVE: Mariama Jarvis is a 21 y.o. female who presents today for a nail matrix to left great toenail,continued pain without active redness, swelling, warmth. ROS: denies fevers, chills, nausea, vomiting. OBJECTIVE: There were no vitals taken for this visit. Dermatological: Left hallux there is some scattered regrowth of the nailat the central aspect and at the left hallux most medial border. localized incurvation at the most lateral border. Vascular: Palpable pedal pulses. Cap refill time less than 3 seconds all digits Neurological: Protective sensation grossly intact to light touch ASSESSMENT/PLAN: Recurrent ingrown nail to left hallux The procedure and alternative treatments were discussed with the patient. Due to the chronic natureof the incurvated nail edge, recommended a matrixectomy. The risks of the procedure, which can include but are not limited to infection, slow healing, recurrent ingrowing of the nail, need for additional procedures, etc. are understood by the patient. Verbal and written informed consent has been giv en Procedure: Medication Only Injection on 02/28/2021 14:15 Medications: 4 mL bupivacaine (PF) 0.5% Matrixectomy left great toe Patient identity and site verification were confirmed by me. Patient was placed in a supine or semisupine position. Skin prep with alcohol. Digital block performed of the left great toe with 4 mL of a 0.5% Marcaine plain. Betadine prep of the toe was then performed. Once anesthesia was adequate, tourniquet was applied to base of toe. Nail plate was split longitudinally back to the proximal nail under the proximal nail fold utilizing an Yakut anvil. The offending ingrown portion of the nail was removed in total. This included a small amount on the dorsal footand a larger spike along the dorsomedial aspect. The excised nail plate was approximately 5-6 mm inwidth. This nail fold was curetted, and it was found that there were no spicules remaining. Phenol was then applied to the appropriate portion of the nail matrix, 3x30 seconds. isopropyl alcohol was then utilized to flush the wound. Dressing was placed of gauze and coban. The tourniquet was released. There was an hyperemic response with rapid capillary refill noted. The procedure and local anesthesia were tolerated well. The patient was given printed and oral instructions for postoperative care, which includes twice daily wound care. Each morning, cleanse thoroughly with warm soapy water. Place a few drops of cortisporin, cover with a dry bandage. Each evening will soak the foot in warm water with Epsom salts for 10 minutes a few drops of cortisporin, dry thoroughly, and then dress with a bandage again. Tylenol or Advil should be adequate for any post-procedure pain. Patient should call if there are any problems or questions. Signs and symptoms of infection were explained. This note was prepared using voice recognition software and the EMR. There may be inadvertent errors and omissions. Susan Barros DPM 02/28/2021 documented in this encounter Plan of Treatment Not on file documented as of this encounter Procedures Procedure Name Priority Date/Time Associated Diagnosis Comments MEDICATION ONLY INJECTION Routine 02/28/2021 14:15 EDT Ingrown nail of great toe of left foot documented in this encounter Results * Medication Only Injection (02/28/2021 14:15 EDT) Narrative [facility] POINT OF CARE - 02/28/2021 14:15 EDT Susan Barros DPM ? 02/28/2021 14:58 Medication Only Injection on 02/28/2021 14:15 Medications: 4 mL bupivacaine (PF) 0.5% Susan Barros DPM PROCEDURE/MINOR CHUCKY GICAL ORDERABLES [facility] POINT OF CARE documented in this encounter Visit Diagnoses Diagnosis Ingrown nail of great toe of left foot- Primary documented in this encounter Administered Medications Inactive Administered Medications - up to 3 most recent administrations Medication Order MAR Action Action Date Dose Rate Site bupivacaine (PF) (MARCAINE) 0.5% injection 4 mL 4 mL, intra-articular, Once PRN Procedure, 1 dose, Starting on Fri02/28/21 at 1415, Until Fri02/28/21 at 1415, Routine Given 02/28/2021 14:15 EDT 4 mL documented in this encounter Care Teams Supervisor Broadloom Relationship Specialty Start Date End Date Lashonda Almodovar MD [address] [place] [address] PCP - General 02/11/14 documented as of this encounter
--- OUTSIDE RECORDS SUMMARY | 2024-01-12 11:36 | XMS_ITS | Encounter Summary ---
Author Organization [facility] [place] [address] Care Team Providers Care Farm Service Consultant Name Role Phone Markos Brewer DNP Primary Care Provider [phone] Encounter Details Date Type Department Care Team (Latest Contact Info) Description 09/22/2019 4:00 PM EDT TH Visit (TeleHealth) Psychiatry [place] [address] Gisselle Hauser, PhD Depression, unspecified depression type; Anxiety Social History Tobacco Use Types Packs/Day Years Used Date Smoking Tobacco: Never Assessed Sex and Gender Information Value Date Recorded Sex Assigned at Not on file Gender Identity Not on file Sexual Orientation Not on file documented as of this encounter Progress Notes * Gisselle Hauser, PhD - 09/22/2019 4:00 PM EDT FAMILY THERAPY PROGRESS NOTE [id number] ?? Location:?[place]?Time Spent:??60minutes ?? Attendee(s):?Pt, Pt's mother and Pt's father SUBJECTIVE: ?? Chief Complaint and Diagnosis:??Pt is a 19 year old female with depression and anxiety that interferes with her interpersonal and academic functioning. ?? Interval History:??Pt reported that she used the DBT TIPP skills last night and that she felt calm and the skills were very helpful. Pt's mother that Pt did a good job using the TIPP skills and that these skills helped Pt regulate her emotions. ?? OBJECTIVE: ?? Patient's verbal /interpersonal exchanges with attendees:??Pt had positive interactions with her parents. ? Interventions and patient/family responses:?Pt processed her thoughts and feelings about her progress in using the TIPP skills. This ad copy writer reinforced the importance of Pt continuing to use the TIPP skills each night to prevent emotional outbursts. This ad copy writer introduced??more DBT mindfulness skills, and Pt demonstrated an understanding of how to use the skills during practice exercises, and Pt's parents demonstrated an understanding of how to reinforce Pt's skill use.??They responded well to these interventions. They completed the homework assignment. ?? Pertinent [...] Buspar, prescribed by Dr. Burns, psychiatrist at [facility]. ?? PLAN: Revised Goals: 1) Improve emotion regulation; and 2) Establish healthy boundaries? No change in estimated length of treatment. ?? Safety Risk Management:??Pt did not report any current suicidal thoughts or suicidal ideation in the session. Pt did not report any homicidal ideation in the session. Pt did not report any thoughts of self-harm since the last session and Pt did not report any self-harm since the last session. In the 09/21/19 session, this ad copy writer assisted Pt and Pt's parents in developing the following safety plan: Pt's parents locked up all of the sharps so that Pt cannot access sharps, Pt agreed to use the DBT TIPP skills each evening before bedtime (Pt's emotional outbursts typically occur in the evening) to prevent emotional outbursts, Pt also agreed to remove triggers (e.g., social media) in the evenings,Pt's parents agreed to call the police if Pt is physically violent towards them or she is unwillingto go to the ED for self-harm so that the police can take Pt to the local ED for a psychiatric evaluation. In the 09/22/19 session, the following activity was added to the safety plan: Pt's mother willmonitor Pt's use of a razor for shaving. ?? Assigned Homework:??Pt plans to continue to use the TIPP skills and she will practice the new mindfulness skills, and Pt's parents plan to reinforce Pt's use of these skills. ?? Patient Instruction/Education Provided:??They plan to follow up with this ad copy writer for family therapy. ?? Attendees understand the plan???Yes. documented in this encounter Plan of Treatment Not on file documented as of this encounter Visit Diagnoses Diagnosis Depression, unspecified depression type Anxiety Anxiety state, unspecified documented in this encounter Care Teams Farm Service Consultant Relationship Specialty Start Date End Date Markos Brewer DNP PCP - General Family Medicine 07/08/19 08/31/23 documented as of this encounter
--- OUTSIDE RECORDS SUMMARY | 2024-01-12 11:36 | XMS_ITS | Encounter Summary ---
Author Organization [facility] [place] [address] Care Team Providers Care Firmware Architect Name Role Phone Markos Brewer DNP Primary Care Provider [phone] Encounter Details Date Type Department Care Team (Late st Contact Info) Description 09/13/2019 TH Visit (TeleHealth) Psychiatry [place] [address] Gisselle Hauser, PhD Depression, unspecified depression type; AWILDA (generalized anxiety disorder) Social History Tobacco Use Types Packs/Day Years Used Date Smoking Tobacco: Never Assessed Sex and Gender Information Value Date Recorded Sex Assigned at Not on file Gender Identity Not on file Sexual Orientation Not on file documented as of this encounter Progress Notes * Gisselle Hauser, PhD - 09/13/2019 10:47 AM EDT FAMILY THERAPY PROGRESS NOTE [id number] ?? Location: [facility] Time Spent: 50 minutes ?? Attendee(s): Pt and Pt's mother SUBJECTIVE: ?? Chief Complaint and Diagnosis: Pt is a 19 year old female with depression and anxiety that interferes with her interpersonal and academic functioning. ?? Interval History: Pt's mother reported that Pt had fewer emotional outbursts since the last session. ?? OBJECTIVE: ?? Patient's verbal /interpersonal exchanges with attendees: Pt had constructive interactions with hermother. ? Interventions and patient/family responses: Pt processed her thoughts and feelings about her recentemotional outbursts. This blog writer introduced more DBT mindfulness concepts and Pt identified signs of dwyer mind. Pt completed her homework assignment. ?? Pertinent Mental Status Exam: General appearance: Age appropriate, well groomed, and good eye contact Speech: Clear Mood: Depressed Affect: Blunted Associations: Intact Judgment: Good Thought process: Linear Oriented to person, place and time: Yes Attention: Intact ?? ASSESSMENT: Pt is a kind, 19 year old female with Generalized Anxiety Disorder and unspecified depression. Pt's anxiety and depressive symptoms interfere with academic and interpersonal functioning. Pt's parents are supportive of Pt and they are willing to engage in Pt's treatment. Pt's parents reported that Pt currently takes 10 mg of Buspar, prescribed by Dr. Burns, psychiatrist at [facility]. PLAN: Revised Goals: 1) Improve emotion regulation; and 2) Establish healthy boundaries ?? No change in estimated length of treatment. ?? Safety Risk Management: Pt did not report any suicidal thoughts or suicidal ideation in the session. Pt did not report any homicidal ideation in the session. Pt did not report any thoughts of self-harm or self-harm in the session. ?? Assigned Homework: Pt plans to identify indicators of dwyer mind. Patient Instruction/Education Provided: They plan to follow up with this blog writer for family therapy. Attendees understand the plan? Yes. documented in this encounter Plan of Treatment Not on file documented as of this encounter Visit Diagnoses Diagnosis Depression, unspecified depression type AWILDA (generalized anxiety disorder) Generalized anxiety disorder documented in this encounter Care Teams Firmware Architect Relationship Specialty Start Date End Date Markos Brewer DNP PCP - General Family Medicine 07/08/19 08/31/23 documented as of this encounter
--- OUTSIDE RECORDS SUMMARY | 2024-01-12 11:36 | XMS_ITS | Referral Summary ---
Author Organization [facility] Address [address] [place] [address] Care Team Providers Care Furniture Mechanic Name Role Phone Scooby Powell MD, Lashonda Primary Care Provider [phone] Encounters Date Type Department Care Team Description 11/21/2023 Lab Requisition [facility] [address] [address] Laura Henriquez FNP Encounter for screening for human papillomavirus (HPV); Encounter for screening for malignant neoplasm of cervix; Encounter for general adult medical examination without abnormal findings 11/19/2023 Lab Requisition [facility] [address] [address] Outr Resulting Lab, Provider from Last 3 Months Allergies No known active allergies Medications No known medications Active Problems Problem Noted Date Diagnosed Date Attention deficit hyperactivity disorder (ADHD) 02/23/2021 Dysmenorrhea in adolescent 02/22/2020 Menorrhagia with irregular cycle 02/22/2020 Migraine headache 02/22/2020 Depression with anxiety 09/26/2017 Social History Tobacco Use Types Packs/Day Years Used Date Smoking Tobacco: Never Smokeless Tobacco: Never Interpersonal Safety Answer Date Record ed Physically Hurt Never 12/19/2019 Verbally Threaten Not on file 12/19/2019 Sex and Gender Information Value Date Recorded Sex Assigned at Not on file Gender Identity Female 02/23/2021 10:29 EDT Sexual Orientation Not on file Last Filed Vital Signs Vital Sign Reading Time Taken Comments Blood Pressure 122/62 01/28/2019 1912 EDT Pulse 100 01/28/2019 1325 EDT Temperature 36.4 ??C (97.5 ??F) 02/28/2021 1354 EDT Respiratory Rate 16 01/28/2019 191 EDT Oxygen Saturation 100% 01/28/20191912 EDT Inhaled Oxygen Concentration - - Weight 65.8 kg (145 lb) 01/28/2019 1138 EDT Height 177.8 cm (5' 10) 01/27/20192036 EDT Body Mass Index 20.81 01/27/20192036 EDT Plan of Treatment Not on file Procedures Procedure Name Priority Date/Time Associated Diagnosis Comments PAP TEST Today 11/19/2023 10:20 EDT Encounter for screening for human papillomavirus (HPV) Encounter for screening for malignant neoplasm of cervix Encounter for general adult medical examination without abnormal findings CHLAMYDIA/N. GONORRHOEAE AMPLIFIED NUCLEIC ACID, THINPREP Routine 11/19/2023 10:20 EDT from Last 3 Months Results * PAP TEST (11/19/2023 10:20 EDT) Specimens A. Cervix and/or Endocervix , ThinPrep Imaging System with Manual Evaluation 11/25/2023 12:26 EDT [facility] Specimen Adequacy Satisfactory for Evaluation - transformation zone component present 11/25/2023 12:26 EDT [facility] General Categorization Negative for intraepithelial lesion or malignancy 11/25/2023 12:26 EDT [facility] Attestation . 11/25/2023 12:26 T [facility] at 1226 Clinical History See below 11/25/19 12:26 EDT [facility] Performing Lab [facility] 11/25/2023 12:26 T [facility] Scanned Images 11/25/2023 12:26 EDT [facility] Pap Test CERVIX UTERI STRUCTURE / Unknown 11/19/2023 10:20 EDT 11/21/2023 13:43 EDT Laura Henriquez [facility] ORDERABLES [facility] [address] [place] [address] * CHLAMYDIA/N. GONORRHOEAE AMPLIFIED NUCLEIC ACID, THINPREP (11/19/2023 10:20 EDT) Neisseria gonorrhoeae Result Negative Negative 11/20/2023 13:01 EDT [facility] Chlamydia trachomatis Result Negative Negative 11/20/2023 13:01 EDT [facility] Pap Test CERVIX UTERI STRUCTURE / Unknown 11/19/2023 10:20 EDT 11/20/2023 8:47 EDT Provider Outr Resulting Lab MICROBIOLOGY - GENERAL ORDERABLES [facility] [address] [place] [address] from Last 3 Months Care Teams Furniture Mechanic Relationship Specialty Start Date End Date Lashonda Almodovar MD [address] [place] [address] PCP - General 02/11/14
--- OUTSIDE RECORDS SUMMARY | 2024-01-12 11:36 | XMS_ITS | Encounter Summary ---
Author Organization [facility] Address [address] [place] [address] Care Team Providers Care Scraper Burrer Name Role Phone Scooby Powell MD, Lashonda Primary Care Provider [phone] Reason for Visit * Reason Comments Abdominal Pain Pt arrives via EMS f rom [facility] (staff present at bedside) with complaints of LLQ pain that started yesterday and got worse tonight after eating pizza and salad she was naseous and vomited. Pt dry heaving in route per EMS. Pt denies past medical hx other than previous shoulder surgeries. Encounter Details Date Type Department Care Team (Late st Contact Info) Description 01/27/2019 20:30 EDT - 01/28/2019 0:50 EDT [facility] - [address] [address] Mikhail Yeager, PA-C [address] [place] [address], [address] [place] [address] Emergency, MD Dania Lower abdominal pain (Primary Dx) Discharge Disposition: Home or Self [...] Sign Reading Time Taken Comments Blood Pressure 114/52 01/28/2019 0041 EDT Pulse 65 01/28/2019 0041 EDT Temperature 36.8 ??C (98.3 ??F) 01/28/2019 0041 EDT Respiratory Rate 18 01/28/201939 EDT Oxygen Saturation 100% 01/28/201939 EDT Inhaled Oxygen Concentration - - Weight 65.8 kg (145 lb) 01/27/20192036 EDT Height 177.8 cm (5' 10) 01/27/20192036 EDT Body Mass Index 20.81 01/27/20192036 EDT Body Mass Index Percentile 49.34% 01/27/2019 EDT Growth Chart: [facility] (Girls, 2- 20 Years) documented in this encounter Discharge Diagnoses Diagnosis R10.30 Lower abdominal pain, unspecified-R10.30[ICD-10-CM] M54.9 Dorsalgia, unspecified-M54.9[ICD-10-CM] R42 Dizziness and giddiness-R42[ICD-10-CM] R55 Syncope and collapse-R55[ICD-10-CM] R53.1 Weakness-R53.1[ICD-10-CM] R11.0 Nausea-R11.0[ICD-10-CM] R11.10 Vomiting, unspecified-R11.10[ICD-10-CM] documented in this encounter Discharge Instructions * Discharge Instructions* Mikhail Granger PA - 01/28/2019 0:36 EDT No clear indication of cause for abdominal pain tonight. Pelvic ultrasound is essentially normal aswell as labs and urinalysis. You may use Zofran 4 mg as needed if nausea persist recommend anti-inflammatory such as ibuprofen or Tylenol follow-up with your doctor tomorrow if symptoms worsen * Attachments The following attachments cannot be sent through Care Everywhere. * Abdominal Pain: Pediatric (Hungarian) documented in this encounter Discharge Disposition Disposition Code Departure Means Destination Home or Self Care Car documented in this encounter ED Notes * Art Zaidi RN - 01/27/2019 2320 EDT Pt provided PO fluids at request of US and per provider OK. * Alda Mehta RN - 01/27/2019 2303 EDT Blood drawn via saline lock per protocol, Souris and lavender tube(s) sent to lab per order. * Toy Oro, GALA Weiss - 01/27/2019 2205 EDT DOS: 01/27/2019 Chief Complaint Patient presents with ??? Abdominal Pain Pt arrives via EMS from [facility] (staff present at bedside) with complaints of LLQ pain that started yesterday and got worse tonight after eating pizza and salad she was naseous and vomited. Pt dry heaving in route per EMS. Pt denies past medical hx other than previous shoulder surgeries. HPI The history is provided by the patient, medical records and a parent (and [facility] staff). I, Fidelina Ibarra, am scribing for Mikhail Yeager PA while he/she is personally performing the service. Fidelina Ibarra 01/27/2019 22:06 Mariama Jarvis is a 18 y.o. female with no pertinent PMH who presents to the ED from [facility] (staff present at bedside on arrival) for LLQ abdominal pain. Patient reports that the pain started yesterday and worsened tonight after eating pizza and salad. She describes pain that is continuing now, has not improved, and is worse when pressing on the area and with motion. She endorses associated nausea and vomiting (per parents, emesis was observed by [facility] staff who described it as projectile vomiting), and was dry heaving per EMS (EMS note VSS en route). No one else around her was ill. Fatherreports that she was screened for SI yesterday before going to [facility], and at that time her temperature was measured once at 100F before being measured again with a different device, WNL. Per mother, patient's periods were previously irregular but have become more regular since she began taking OCPs. Father notes that last period was 2 weeks ago, and patient reports heavy bleeding lasting for 3 weeks at that time. Per mother, patient has been complaining of intermittent lower back pain for about 2weeks, which parents attribute to heavy backpack. Patient endorses dizziness and weakness when sitting up. Per [facility] staff member, patient had syncopal episodes 6 times today. One of the episodes occurred while standing when patient turned to a staff member and fell into their arms. Per RN, patient was reported to have passed out in the ED and was awake in bed upon his entry into the room. RN reports that patient had full recall of events, color normal. Mother notes that patient has had syncopal episodes secondary to pain in the past. Patient denies history of abdominal problems, sensitivity tocertain foods, or abdominal surgeries. She denies chest pain, difficulty breathing, leg pain or swelling, dysuria, or increased urinary frequency. Review of Systems Review of Systems Constitutional: Negative. Negative for chills and fever. HENT: Negative. Negative for congestion, sore throat and trouble swallowing. Eyes: Negative. Negative for visual disturbance. Respiratory: Negative. Negative for chest tightness and shortness of breath. Cardiovascular: Negative. Negative for chest pain, palpitations and leg swelling. Gastrointestinal: Positive for abdominal pain, nausea and vomiting. Negative for abdominal distention. Endocrine: Negative. Genitourinary: Negative. Negative for dysuria and frequency. Musculoskeletal: Positive for back pain. Negative for arthralgias and myalgias. Skin: Negative. Negative for rash. Allergic/Immunologic: Negative. Negative for immunocompromised state. Neurological: Positive for dizziness, syncope and weakness. Negative for headaches. Hematological: Negative. Negative for adenopathy. Does not bruise/bleed easily. Psychiatric/Behavioral: Negative. Negative for confusion. All other systems reviewed and are negative. The patient???s past medical, family, and social history was reviewed and updated as needed. No Known Allergies Vital Signs Temp: 37 ??C (98.6 ??F) Temp src: Oral Pulse: 67 Resp: 18 SpO2: 99 % BP: 127/77 BP MAP: 88 mm Hg O2 Device: None (Room air) Physical Exam Constitutional: She is oriented to person, place, and time. She appears well- developed and well-nourished. Non-toxic appearance. She does not have a sickly appearance. Patient appears quiet, giving minimal information. HENT: Head: Normocephalic and atraumatic. Eyes: Pupils are equal, round, and reactive to light. Conjunctivae and EOM are normal. Right eye exhibits no discharge. Left eye exhibits no discharge. Neck: Normal range of motion. Neck supple. No tracheal deviation present. Cardiovascular: Normal rate, regular rhythm and normal heart sounds. No murmur heard. Pulmonary/Chest: Effort normal and breath sounds normal. No respiratory distress. Abdominal: Soft. Bowel sounds are normal. She exhibits no distension. There is tenderness (mainly in LLQ to periumbilical area). +/- Rovsing's sign Musculoskeletal: Normal range of motion. She exhibits no edema. Neurological: She is alert and oriented to person, place, and time. Skin: Skin is warm and dry. No rash noted. Psychiatric: She has a normal mood and affect. Nursing note and vitals reviewed. RESULTS EKG orders: None Radiology orders: RAD US PELVIS TRANSABDOMINAL WITH DOPPLER Patient had a pelvis transabdominal ultrasound with doppler, significant for normal pelvic ultrasound with normal ovaries. The appendix was not definitively visualized. Obtained, reviewed, and interpreted by the radiologist. Please see radiology report for further details. Patient had labs that were reviewed independently by myself, significant for no acute abnormality including normal UA. Labs Reviewed COMPLETE BLOOD COUNT AND DIFFERENTIAL - Abnormal Result Value Status WBC 5.84 Final RBC 4.08 (*) Final Hemoglobin 12.8 Final HCT 37.1 Final MCV 91 Final MCH 31.4 Final MCHC 34.5 Final RDW-CV 12.3 Final RDW-SD 40.8 Final PLT 218 Final MPV 10.1 Final Neutrophils 49.9 Final Lymphocytes 39.9 Final Monocytes 8.4 Final Eosinophils 0.9 Final Basophils 0.7 Final Immature Grans 0.2 Final ABS Neutrophils 2.92 Final ABS Lymphs 2.33 Final ABS Monocytes 0.49 Final ABS Eosinophils 0.05 Final ABS Basophils 0.04 Final ABS Immature Grans 0.01 Final Type of Diff: Automated Final COMPREHENSIVE METABOLIC PANEL (CMP) - Abnormal Potassium 3.8 Final Sodium 138 Final Chloride 106 Final CO2 23 Final Total Alkaline Phosphatase 44 (*) Final Bilirubin, Total 1.1 (*) Final AST 23 Final ALT 19 Final Albumin 4.5 Final Total Protein 6.9 Final Creatinine 0.58 Final GFR, Calculated Age <18 Final BUN 11 Final Calcium 9.2 Final Calculated Calcium 8.8 (*) Final Glucose, Serum 87 Final Fasting? Unknown Final C REACTIVE PROTEIN C Reactive Protein <7.0 Final POCT TEST, CLINITEK UPT Result Neg Final Tech ID [id number] Final POCT URINE DIPSTICK, CLINITEK Color YELLOW Final Clarity, UA Clear Final Glucose Neg Final Bilirubin Neg Final Ketones Neg Final Specific Coleman 1.020 Final Blood Neg Final pH 7.0 Final Protein Neg Final Urobilinogen 1.0 Final Nitrite Neg Final Leuk Esterase Neg Final Tech ID [id number] Final Procedures ED COURSE A medical screening exam was performed. Mariama Jarvis is a 18 y.o. female with no pertinent PMH who presents to the ED from [facility] (staff present at bedside on arrival) for LLQ abdominal pain since yesterday. On exam, patient was noted to have RRR, no murmurs. She had abdominal tenderness mainly LLQ to periumbilical, +/- Rovsing's sign. Patient appeared quiet, giving minimal information but non toxic and non sickly appearing. Shewas administered 4 mg IV Zofran for nausea, 15 mg IV Toradol, and hydrated with 1L LR. Labs and US were reassuring. On reevaluation, patient stated that she had not been vomiting and pain and nausea were improved. Patient was discharged with Zofran starter pack to use PRN and advised to use ibuprofen and Tylenol for pain management and f/u with PCP tomorrow if symptoms worsen. 0024: Reevaluation. Due to extenuating circumstances, I provided the patient with a starter pack of necessary medication prior to discharge. I reviewed the patients chart and outpatient medication list, counseled the patient about use of the medication, and provided adequate time for questions. I answered all questions regarding the medication prior to dispensing. Prior to discharge usual and customary precautions were reviewed with the patient and/or family including follow-up instructions and reasons to return to the Emergency Department if condition worsens, does not improve as expected, or other new concerns arise. Final diagnoses: Lower abdominal pain DISPOSITION: Discharged The patient's pain was managed to an adequate level weighing risk vs. benefit of further medications. Upon departure from the Emergency Department, the patient's pain was 3 on a zero to ten scale. Any further pain treatment will be at the discretion of the provider following up with the patient based on their clinical assessment. Condition at departure from the Emergency Department: Improved PCP: Lashonda Almodovar [facility] 01/27/2019 22:05 No flowsheet data found. This documentation is recorded by Fidelina Ibarra acting as Scribe under the direction and presence ofMikhail Yeager PA. Mikhail Yeager PA: I personally performed the services recorded by the scribe in my presence. I confirm the scribe's documentation has been reviewed by me to accurately and completely record my work, treatment, procedures, and medical decision making. Dr. Siddiqui was available for supervision. * Art Zaidi RN - 01/27/2019 2157 EDT RN called to room by friend who states, Quick! She passed out again! Upon entry to room, pt was awake in bed. Friend states, She was just mid laugh and she said she had a cramp and went out like alight. When asked pt for her recall of events, pt states, I passed out again. A+Ox3, full recallof events, color normal. Alda RN notified. Parents now in room. documented in this encounter Plan of Treatment Not on file documented as of this encounter Procedures Procedure Name Priority Date/Time Associated Diagnosis Comments RAD US PELVIS TRANSABDOMINAL WITH DOPPLER STAT 01/28/2019 0:10 EDT COMPLETE BLOOD COUNT AND DIFFERENTIAL STAT 01/27/2019 22:52 EDT C REACTIVE PROTEIN Routine 01/27/2019 22 :52 EDT COMPREHENSIVE METABOLIC PANEL (CMP) STAT 01/27/2019 22:52 EDT POCT TEST, CLINITEK STAT 01/27/2019 22:29 EDT POCT URINE DIPSTICK, CLINITEK STAT 01/27/2019 22:26 EDT documented in this encounter Results * RAD US PELVIS TRANSABDOMINAL WITH DOPPLER (01/28/2019 0:10 EDT) Anatomical Region Laterality Modality Other 01/28/2019 0:10 EDT 01/28/2019 8:59 EDT Narrative 01/28/2019 8:59 EDT RAD US PELVIS TRANSABDOMINAL WITH DOPPLER ??01/28/2019 12:10 AM Signs and Symptoms/Comments: ?? Lower abdominal and adnexal pain. Comparison: None Technique: Grayscale, color Doppler, and cine ultrasound images of the pelvis were obtained from a transabdominal approach. Findings: The uterus is anteverted and demonstrates normal uterine echotexture. It measures 7.2 x 3.1 x 4.6 cm. The endometrium is 3 mm thick and and normal in appearance. The cervix is normal with no nabothian cysts. The right ovary measures 3.0 x 1.3 x 1.9 cm with a volume of 3.7 mL and demonstrates normal arterial and venous waveforms. The left ovary measures 3.1 x 1.6 x 2.2 cm with a volume of 5.7 mL and demonstrates normal arterial and venous waveforms. There is no free fluid in the cul-de-sac. The right lower quadrant was also examined for the purposes of identifying the appendix. The appendix was not definitively visualized. ??There is no right lower quadrant free fluid or lymphadenopathy. There is no tenderness during any portion of the examination. Impression: Normal transabdominal pelvic ultrasound with normal ovaries. The appendix was not ??visualized. I have personally reviewed the images and the above interpretation and agree with the findings. Procedure Note Enid Weaver MD, - 01/28/2019 RAD US PELVIS TRANSABDOMINAL WITH DOPPLER 01/28/2019 12:10 AM Signs and Symptoms/Comments: Lower abdominal and adnexal pain. Comparison: None Technique: Grayscale, color Doppler, and cine ultrasound images of the pelvis were obtained from a transabdominal approach. Findings: The uterus is anteverted and demonstrates normal uterine echotexture. It measures 7.2 x 3.1 x 4.6 cm. The endometrium is 3 mm thick and and normal in appearance. The cervix is normal with no nabothian cysts. The right ovary measures 3.0 x 1.3 x 1.9 cm with a volume of 3.7 mL and demonstrates normal arterial and venous waveforms. The left ovary measures 3.1 x 1.6 x 2.2 cm with a volume of 5.7 mL and demonstrates normal arterial and venous waveforms. There is no free fluid in the cul-de-sac. The right lower quadrant was also examined for the purposes of identifying the appendix. The appendix was not definitively visualized. There is no right lower quadrant free fluid or lymphadenopathy. There is no tenderness during any portion of the examination. Impression: Normal transabdominal pelvic ultrasound with normal ovaries. The appendix was not visualized. I have personally reviewed the images and the above interpretation and agree with the findings. Mikhail Yeager PA-C IMG US ORDERABLES * C REACTIVE PROTEIN (01/27/2019 22:52 EDT) Pathologist [facility] C Reactive Protein <7.0 <10.0 mg/L 01/27/2019 23:34 [facility] Blood specimen (specimen) BLOOD SPECIMEN / Unknown 01/27/2019 22:52 EDT 01/27/2019 23:03 EDT Mikhail Yeager PA-C CHEMISTRY & BLOOD GA S ORDERABLES [facility] [address] [place] [address] * (ABNORMAL) COMPREHENSIVE METABOLIC PANEL (CMP) (01/27/2019 22:52 EDT) Potassium 3.8 3.3 - 4.6 mEq/L 01/27/2019 23:34 [facility] Sodium 138 136 - 145 mEq/L 01/27/2019 23:34 [facility] Chloride 106 96 - 110 mEq/L 01/27/2019 23:34 [facility] CO2 23 22 - 32 mEq/L 01/27/2019 23:34 [facility] Total Alkaline Phosphatase 44(L) 45 - 116 U/L 01/27/2019 23:34 [facility] Bilirubin, Total 1.1(H) <1.0 mg/dl 01/28/20 23:34 [facility] AST 23 5 - 30 U/L 01/27/2019 23:34 [facility] ALT 19 <36 U/L 01/27/2019 23:34 [facility] Albumin 4.5 3.7 - 5.6 g/dl 01/27/2019 23:34 [facility] Total Protein 6.9 6.3 - 8.6 g/dl 01/27/2019 23:34 [facility] Creatinine 0.58 0.50 - 1.00 mg/dl 01/27/2019 23:34 [facility] GFR, Calculated Age <18 ml/min/1.7 3m2 01/27/2019 23:34 [facility] BUN 11 8 - 21 mg/dl 01/27/2019 23:34 [facility] Calcium 9.2 8.9 - 10.7 mg/dl 01/27/2019 23:34 [facility] Calculated Calcium 8.8(L) 8.9 - 10.7 mg/dl 01/27/2019 23:34 [facility] Glucose, Serum 87 70 - 100 mg/dl 01/27/2019 23:34 [facility] Fasting? Unknown 01/27/2019 23:03 [facility] Blood specimen (specimen) BLOOD SPECIMEN / Unknown 01/27/2019 22:52 EDT 01/27/2019 23:03 EDT Mikhail Yeager PA-C CHEMISTRY & BLOOD GA S ORDERABLES [facility] [address] [place] [address] * (ABNORMAL) COMPLETE BLOOD COUNT AND DIFFERENTIAL (01/27/2019 22:52 EDT) WBC 5.84 4.6 - 11.2 K/cmm 01/27/2019 23:12 [facility] RBC 4.08(L) 4.10 - 5.10 M/cmm 01/27/2019 23:12 [facility] Hemoglobin 12.8 12.0 - 16.0 gm/dl 01/27/2019 23:12 [facility] HCT 37.1 36.0 - 46.0 % 01/27/2019 23:12 [facility] MCV 91 78 - 102 fl 01/27/2019 23:12 [facility] MCH 31.4 pg 01/27/2019 23:12 [facility] MCHC 34.5 gm/dl 01/27/2019 23:12 [facility] RDW-CV 12.3 % 01/27/2019 23:12 [facility] RDW-SD 40.8 fl 01/27/2019 23:12 [facility] PLT 218 156 - 312 K/cmm 01/27/2019 23:12 [facility] MPV 10.1 fl 01/27/2019 23:12 [facility] % Neutrophils 49.9 % 01/27/2019 23:12 [facility] % Lymphocytes 39.9 % 01/27/2019 23:12 [facility] % Monocytes 8.4 % 01/27/2019 23:12 [facility] % Eosinophils 0.9 % 01/27/2019 23:12 [facility] % Basophils 0.7 % 01/27/2019 23:12 [facility] % Immature Grans 0.2 % 01/27/2019 23:12 [facility] ABS Neutrophils 2.92 K/cmm 9 23:12 [facility] ABS Lymphs 2.33 K/cmm 01/27/2019 23:12 [facility] ABS Monocytes 0.49 K/cmm 01/27/2019 23:12 [facility] ABS Eosinophils 0.05 K/cmm 9 23:12 [facility] ABS Basophils 0.04 K/cmm 01/27/2019 23:12 [facility] ABS Immature Grans 0.01 K/cmm 01/27/2019 23:12 [facility] Type of Diff: Automated 01/27/2019 23:12 EDT [facility] Blood specimen (specimen) BLOOD SPECIMEN / Unknown 01/27/2019 22:52 EDT 01/27/2019 23:03 EDT Mikhail ORO-C PACKAGES & DNA PROBE ORDERABLES Performing Organization Address [facility] Co de Phone Number [facility] [address] [place] [address] * POCT TEST, CLINITEK (01/27/2019 22:29 EDT) UPT Result Neg Neg 01/27/2019 22:36 EDT [facility] traffic court referee ID [id number] 01/27/2019 22:36 EDT [facility] Comment:Test performed at Em ergency Department Urine specimen (specimen) URINE / Unknown 01/27/2019 22:29 EDT 01/27/2019 22:36 EDT Mikhail LEIVAC POINT OF CARE TEST O RDERABLES Performing Organization Address City/[facility] Co de Phone Number [facility] [address] [place] [address] * POCT URINE DIPSTICK, CLINITEK (01/27/2019 22:26 EDT) Color YELLOW Yellow 01/27/2019 22:31 EDT [facility] Clarity, UA Clear Clear 01/27/2019 22:31 EDT [facility] Glucose Neg Neg 01/27/2019 22:31 EDT [facility] Bilirubin Neg Neg 01/27/2019 22:31 EDT [facility] Ketones Neg Neg 01/27/2019 22:31 T [facility] Specific Coleman 1.020 1.001 - 1.035 01/27/2019 22:31 EDT [facility] Blood Neg Neg 01/27/2019 22:31 EDT [facility] pH 7.0 4.6 - 8.0 01/27/2019 22:31 EDT [facility] Protein Neg Neg 01/27/2019 22:31 EDT [facility] Urobilinogen 1.0 0.2 - 1.0 mg/dL 01/27/2019 22:31 EDT [facility] Nitrite Neg Neg 01/27/2019 22:31 EDT [facility] Leuk Esterase Neg Neg 01/27/2019 22:31 [address] [facility] traffic [facility] referee ID [id number] 01/27/2019 22:31 EDT [facility] Comment:Test performed at Em ergency Department Urine specimen (specimen) URINE / Unknown 01/27/2019 22:26 EDT 01/27/2019 22:31 EDT Mikhail eYager PA-C POINT OF CARE TEST O RDERABLES Performing Organization Address City/State/[facility] Co de Phone Number [facility] [address] [place] [address] documented in this encounter Visit Diagnoses Diagnosis Lower abdominal pain- Primary Abdominal pain, other specified site documented in this encounter Administered Medications Inactive Administered Medications - up to 3 most recent administrations Medication Order MAR Action Action Date Dose Rate Site ketOROLAC (TORADOL) injection 15 mg 15 mg, intravenous, NOW X1, 1 dose, On Fri01/27/19 at 2300, STAT Given 01/27/2019 23:12 EDT 15 mg lactated ringers BOLUS 1,000 mL 1,000 mL, intravenous, NOW X1, 1 dose, On Fri01/27/19 at 2300, STAT New Bag 01/27/2019 23:03 EDT 1,000 mL ondansetron (PF) (ZOFRAN) injection 4 mg 4 mg, intravenous, NOW X1, 1 dose, On Fri01/27/19 at 2300, STAT Given 01/27/2019 23:13 EDT 4 mg ondansetron 4 mg ODT tab STARTER PACK 1 Package, oral, NOW X1, 1 dose, On Chantel 01/28/19 at 0045, STAT Given 01/28/2019 0:48 EDT 1 Package ondansetron 4 mg tab Starter Pack 1 dose, Starting on Chantel 01/28/19 at 0042, Until Chantel 01/28/19 at 0048 documented in this encounter Active and Recently Administered Medications Times are shown in EDT. Scheduled Medication Order 01/26/2019 01/27/2019 01/28/2019 ketOROLAC (TORADOL) injection 15 mg (COMPLETED) 15 mg, intravenous, NOW X1, 1 dose, On Fri01/27/19 at 2300, STAT 2312 (Given - Provider: Alda Mehta, RN) lactated ringers BOLUS 1,000 mL (COMPLETED) 1,000 mL, intravenous, NOW X1, 1 dose, On Fri01/27/19 at 2300, STAT 2303 (New Bag - Provider: Alda Mehta, RN) 0021 (Completed - Provider: Delma Herniquez, CHRISTINA) ondansetron (PF) (ZOFRAN) injection 4 mg (COMPLETED) 4 mg, intravenous, NOW X1, 1 dose, On Fri01/27/19 at 2300, STAT 2313 (Given - Provider: Alda Mehta, CHRISTINA) ondansetron 4 mg ODT tab STARTER PACK (COMPLETED) 1 Package, oral, NOW X1, 1 dose, On Chantel 01/28/19 at 0045, STAT 0048 (Given - Provid er: Art Zaidi RN) documented in this encounter Care Teams Scraper Burrer Relationship Specialty Start Date End Date Lashonda [place] [address] PCP - General 02/11/14 documented as of this encounter
--- OUTSIDE RECORDS SUMMARY | 2024-01-12 11:36 | XMS_ITS | Encounter Summary ---
Author Organization [facility] Address [address] [place] [address] Care Team Providers Care Right Of Way Worker Name Role Phone Scooby Powell MD, Lashonda Primary Care Provider [phone] Encounter Details Date Type Department Care Team (Late st Contact Info) Description 07/05/2020 Lab Requisition [facility] Pathology & Laboratory Medicine - [facility] [address] [place] [address] Outr Resulting Lab, Provider Social History Tobacco Use Types Packs/Day Years [...] Procedure Name Priority Date/Time Associated Diagnosis Comments CHLAMYDIA/N. GONORRHOEAE AMPLIFIED NUCLEIC ACID Routine 07/05/2020 11:00 EST documented in this encounter Results * CHLAMYDIA/N. GONORRHOEAE AMPLIFIED RNA (07/05/2020 11:00 EST) Neisseria gonorrhoeae Result Negative Negative 07/06/2020 14:16 EST [facility] Chlamydia trachomatis Result Negative Negative 07/06/2020 14:16 EST [facility] Swab ENTIRE VAGINA / Unknown 07/05/2020 11:00 EST 07/05/2020 21:27 EST Provider Outr Resulting Lab MICROBIOLOGY - GENERAL ORDERABLES [facility] [address] [place] [address] documented in this encounter Visit Diagnoses Not on filedocumented in this encounter Care Teams Right Of Way Worker Relationship Specialty Start Date End Date Lashonda Almodovar MD [address] [place], [place] [id number] PCP - General 02/11/14 documented as of this encounter
--- OUTSIDE RECORDS SUMMARY | 2024-01-12 11:36 | XMS_ITS | Encounter Summary ---
Author Organization [facility] [place] [address] Care Team Providers Care Veterinary Attendant Name Role Phone Markos Brewer DNP Primary Care Provider [phone] Encounter Details Date Type Department Care Team (Latest Contact Info) Description 10/13/2019 4:00 PM EDT TH Visit (TeleHealth) Psychiatry [place] [address] Gisselle Hauser, PhD AWILDA (generalized anxiety disorder); Depression, unspecified depression type Social History Tobacco Use Types Packs/Day Years Used Date Smoking Tobacco: Never Assessed Sex and Gender Information Value Date Recorded Sex Assigned at Not on file Gender Identity Not on file Sexual Orientation Not on file documented as of this encounter Progress Notes * Gisselle Hauser, PhD - 10/13/2019 4:00 PM EDT FAMILY THERAPY PROGRESS NOTE [id number] ?? Location:?[place]?Time Spent:??60??minutes ?? Attendee(s):?Pt and Pt's mother. ?? SUBJECTIVE: ?? Chief Complaint and Diagnosis:??Pt is a 19 year old female with depression and anxiety that interferes with her interpersonal and academic functioning. ?? Interval History:??Pt reported that her mood has improved and she has a new boyfriend. Pt's mother reported that Pt has used her DBT skills to regulate her emotions. ?? OBJECTIVE: ?? Patient's verbal /interpersonal exchanges with attendees:??Pt had??constructive??interactions with her??mother. ? Interventions and patient/family responses:??Pt processed her thoughts and feelings about her progress. Cognitive-behavioral family therapeutic interventions were used, and they responded well to these interventions. This story writer introduced??the first set of DBT distress tolerance skills, and Pt demo nstrated an understanding of these skills. This story writer also discussed the importance of Pt's using the DBT??mindfulness??skills in conjunction with the distress tolerance skills, and they demonstrated an understanding of this information. Pt's??mother demonstrated an understanding of how to reinforce Pt's skill use.??This story writer reinforced Pt's continued use of the TIPP skills.??They completed the homework assignment. ?? Pertinent Mental [...] by Dr. Burns, psychiatrist at [facility]. ?? PLAN: Revised Goals: 1) Improve emotion regulation; and 2) Establish healthy boundaries? No change in estimated length of treatment. ?? Safety Risk Management:??Pt did not report any??suicidal thoughts or suicidal ideation in the session. Pt did not report any homicidal ideation in the session. Pt??did not report any thoughts of self-harm??or??self-harm in??the session.??In the 09/21/19 session, this story writer assisted Pt and Pt's parents in [...] to call the police if Pt is physical ly violent towards them or she is unwilling to go to the ED for self-harm so that the police can take Pt to the local ED for a psychiatric evaluation.??In the 09/22/19 session, the following activity was added to the safety plan: Pt's mother will monitor Pt's use of a razor for shaving.? Assigned Homework:??Pt plans to??continue to??use the TIPP skills as needed, and??to??practice the mindfulness skills as well as the new distress tolerance skills, and Pt's parent(s) plan to reinforce Pt's use of these skills.? Patient Instruction/Education Provided:??They plan to follow up with this story writer for family therapy. ?? Attendees understand the plan???Yes. documented in this encounter Plan of Treatment Not on file documented as of this encounter Visit Diagnoses Diagnosis AWILDA (generalized anxiety disorder) Generalized anxiety disorder Depression, unspecified depression type documented in this encounter Care Teams Veterinary Attendant Relationship Specialty Start Date End Date Markos Brewer DNP PCP - General Family Medicine 07/08/19 08/31/23 documented as of this encounter
--- OUTSIDE RECORDS SUMMARY | 2024-01-12 11:36 | XMS_ITS | Encounter Summary ---
Author Organization [facility] Address [address] [place] [address] Care Team Providers Care Chassis Wirer Name Role Phone Scooby Powell MD, Lashonda Primary Care Provider [phone] Reason for Visit * Reason Comments Pain Pain * Referral (Routine) - Authorization Not Required Specialty Diagnoses / Procedures Referred By Jelly che Referred To Contact Orthopedic Surgery Diagnoses Ingrowing nail Ranjit Bowles, [facility] [address] [place] [address] [place] [id number] [facility] [address] [place] [address] Referral ID Status Reason Start Date Expiration Date Visits Requested Visits Authorized [id number] Authorization Not Required 1 1 Encounter Details Date Type Department Care Team (Late st Contact Info) Description 02/23/2021 10:30 EDT Office Visit [facility] Orthopedics & Podiatry [address] [place], [place] [address] Susan Barros, [facility] [address] [facility] [address] [place], [place] [id number] Ingrown nail of great toe of left foot (Primary Dx); History of ingrown nail Social History Tobacco Use Types Packs/Day Years [...] 10:38 EDT documented as of this encounter Last Filed Vital Signs Vital Sign Reading Time Taken Comments Blood Pressure - - Pulse - - Temperature 36.4 ??C (97.6 ??F) 02/23/2021 1038 EDT Respiratory Rate - - Oxygen Saturation - - Inhaled Oxygen Concentration - - Weight - - Height - - Body Mass Index - - documented in this encounter Progress Notes * Susan Barros, JOHN - 02/23/2021 1030 EDT CHIEF COMPLAINT: Chief Complaint Patient presents with ??? Left Great Toe - Pain ??? Right Great Toe - Pain SUBJECTIVE: Mariama Jarvis is a 21 y.o. female who presents today as a new patient with her mother for chronic ingrown toenails. She has had multiple procedures done by her primary care office over the last few years. Initially started with bilateral borders of bilateral toes, started with an avulsion and then attempted matrixectomy. Due to continued pain underwent bilateral great toe full total nail matrixectomy's. Most recently from our records had a right great toenail matrixectomy performedon 08/14/2020. Patient mother states that her post procedure courses were complicated every single time with MRSA infections. States that the left great toenail was performed a few months after that and has had a gradual recurrence of portions of the nail. These do curve into her skin in cause her pain. There is no current active infection. I have reviewed the medication list. Pertinent changes noted. ROS: Dermatological: Positive for ingrown nail OBJECTIVE: Temp 36.4 ??C (97.6 ??F) Gen: A+Ox3, NAD Lower extremity examination Dermatologic:. Right hallux nail bed with no recurrent nail growth. No surrounding erythema edema or warmth. Left hallux there is some scattered regrowth at the central aspect and at the left hallux most medial border. There is no surrounding erythema edema or warmth. Vascular: Palpable pedal pulses. Cap refill time less than 3 seconds all digits Neurological: Protective sensation grossly intact to light touch ASSESSMENT/PLAN: Ingrown nail, left great toe Unfortunately she has failed multiple attempted courses of matrixectomy procedures. Most recently for her left great toe has had partial regrowth. A due to the regrowth with continued pain I did recommended an additional matrixectomy procedure. I did discuss that we utilize a different chemical forthis procedure that may be more successful. Patient has underwent for procedures on bilateral toenails and has developed MRSA infections after each 1 of these so I did recommend a short course of p.o. Bactrim after this procedure. Patient mother agrees to this We did discuss postop course. Due to having some events over the next few days patient would like to return for the appointment at a later date. In the meantime, digital gel sleeve was dispensed for the patient. Can trim and file as needed. If develops an infection needs to contact the clinic promptly. Otherwise follow-up for procedure history of ingrown nail right great toe: appears resolved. Procedures were successful, no current regrowth, or signs of infection. This note was prepared using voice recognition software and the EMR. There may be inadvertent errors and omissions. Susan Barros DPM 02/23/2021 documented in this encounter Plan of Treatment Not on file documented as of this encounter Visit Diagnoses Diagnosis Ingrown nail of great toe of left foot- Primary History of ingrown nail Personal history of diseases of skin and subcutaneous tissue documented in this encounter Care Teams Chassis Wirer Relationship Specialty Start Date End Date Lashonda Almodovar MD [address] [place] [address] PCP - General 02/11/14 documented as of this encounter
--- OUTSIDE RECORDS SUMMARY | 2024-01-12 11:36 | XMS_ITS | Encounter Summary ---
Author Organization [facility] Address [facility] [place] [address] Care Team Providers Care Paper Folder Name Role Phone Markos Brewer ROSA M Primary Care Provider [phone] Reason for Referral * Psychiatric (Routine) - Closed Specialty Diagnoses / Procedures Referred By Jelly che Referred To Contact Psychiatry Diagnoses AWILDA (generalized anxiety disorder) Sigifredo Burns MD [facility] [place] [address] [place] [address] Mikhail Ray, PhD [facility] [place] [address] Referral ID Status Reason Start Date Expiration Date V isits Requested Visits Authorized [id number] Closed Consult, Test & Treat 06/14/2019 06/13/2020 1 1 Encounter Details Date Type Department Care Team (Late st Contact Info) Description 06/14/2019 Orders Only Psychiatry [place] [phone] Sigifredo Burns MD [facility] [place] [address] [place] [address] AWILDA (generalized anxiety disorder) (Primary Dx) Social History Tobacco Use Types [...] encounter Visit Diagnoses Diagnosis AWILDA (generalized anxiety disorder)- Primary Generalized anxiety disorder documented in this encounter Care Teams Paper Folder Relationship Specialty Start Date End Date Markos Brewer DNP PCP - General Family Medicine 07/08/19 08/31/23 documented as of this encounter
--- OUTSIDE RECORDS SUMMARY | 2024-01-12 11:36 | XMS_ITS | Encounter Summary ---
Author Organization [facility] Address [address] [place] [address] Care Team Providers Care Wallpaper Scraper Name Role Phone Scooby Powell MD, Lashonda Primary Care Provider [phone] Encounter Details Date Type Department Care Team (Latest Contact Info) Description 11/21/2023 Lab Requisition [facility] Pathology & Laboratory Medicine - [facility] [address] [place] [address] Laura Henriquez FNP [address] [facility] [address] [place] [address] Encounter for screening for human papillomavirus (HPV); Encounter for screening for malignant neoplasm of cervix; Encounter for general adult medical examination without abnormal findings Social History Tobacco Use Types Packs/Day Years [...] general adult medical examination without abnormal findings documented in this encounter Results * PAP TEST (11/19/2023 10:20 EDT) Specimens A. Cervix and/or Endocervix , ThinPrep Imaging System with Manual Evaluation 11/25/2023 12:26 EDT [facility] Specimen Adequacy Satisfactory for Evaluation - transformation zone component present 11/25/2023 12:26 EDT [facility] General Categorization Negative for intraepithelial lesion or malignancy 11/25/2023 12:26 EDT [facility] Attestation . 11/25/2023 12:26 EDT [facility] at 1226 Clinical History See below 11/25/19 12:26 EDT [facility] Performing Lab [facility] 11/25/2023 12:26 EDT [facility] Scanned Images 11/25/2023 12:26 EDT [facility] Pap Test CERVIX UTERI STRUCTURE / Unknown 11/19/2023 10:20 EDT 11/21/2023 13:43 EDT Laura Henriquez OPHTHALMOLOGY SURGICAL TECHNICIAN PATHOLOGY ORDERABLES [facility] [address] [place] [address] documented in this encounter Visit Diagnoses Diagnosis Encounter for screening for human papillomavirus (HPV) Special screening examination for human papillomavirus (HPV) Encounter for screening for malignant neoplasm of cervix Screening for malignant neoplasm of the cervix Encounter for general adult medical examination without abnormal findings Unspecified general medical examination documented in this encounter Care Teams Wallpaper Scraper Relationship Specialty Start Date End Date Lashonda Almodovar MD [address] [place] [address] PCP - General 02/11/14 documented as of this encounter
--- OUTSIDE RECORDS SUMMARY | 2024-01-12 11:36 | XMS_ITS | Encounter Summary ---
Author Organization [facility] Address [facility] [place] [address] Care Team Providers Care Account Maintenance Representative Name Role Phone Lashonda Almodovar MD Primary Care Provider [phone] Encounter Details Date Type Department Care Team (Latest Contact Info) Description 08/13/2018 12:46 PM EDT - 08/13/2018 12:48 PM EDT Hospital Encounter XRay at [address] [place] [address] Kelly Nowak PA [address] [place] [address] Instability of right shoulder joint Discharge Disposition: Home Social History Tobacco Use Types Packs/Day Years Used Date Smoking Tobacco: Never Assessed Sex and Gender Information Value Date Recorded Sex Assigned at Not on file Gender Identity Not on file Sexual Orientation Not on file documented as of this encounter Plan of Treatment Not on file documented as of this encounter Procedures Procedure Name Priority Date/Time Associated Diagnosis Comments XR FLUORO ARTHROGRAM INJECTION SHOULDER RIGHT Routine 08/13/2018 1:36 PM EDT Instability of right shoulder joint documented in this encounter Results * XR Fluoro Arthrogram Injection Shoulder Right (08/13/2018 1:36 PM EDT) Anatomical Region Laterality Modality Shoulder Right Radio Fluoroscop y Impressions 08/13/2018 3:51 PM EDT Uneventful arthrogram Resident/Fellow: None Attending: There was no attending present for this procedure Procedure performed by Isabel Bowles APRN Thank you for letting us participate in the care of this patient. For questions regarding this report, please contact the number below. ? Electronically signed by: Isabel Bowles [facility] ([phone]), at 08/13/2018 3:51 PM Narrative 08/13/2018 3:51 PM EDT HISTORY: ??instability of right shoulder joint, MR arthrogram of right shoulder joint space. Arthrogram For Injection Of Contrast TECHNIQUE: After an extensive conversation with the patient and father regarding risks and benefits, oral and written consent ( father signed consent form)were obtained.? A pre- procedural time-out was performed, including review of the patient's relevant electronic medical record and allergies, as per [facility] protocol. The patient was positioned prone on the fluoroscopic table. ??The skin overlying the right posterior shoulder was prepped and draped in the usual aseptic manner. 1% Lidocaine was used to achieve local anesthesia. ??Under fluoroscopic guidance, a 22 gauge 3.5 inch spinal needle was advanced into the joint space. After confirmation of intra-articular location of needle tip by using a small injection of the contrast mixture, a total of 10 ml of the contrast mixture was injected. All needles removed at end of procedure. FINDINGS: 1. Contrast in right shoulder joint space 2. Additional post-contrast injection images were obtained in different projections. MEDICATIONS: Lidocaine 1% - <5 ml, for subcutaneous anesthesia CONTRAST: 20cc mixture of the following were prepared: Dotarem- 0.2ml in Normal Saline - 10ml Omnipaque 300-Utilized: 5 mL Normal Saline - 5ml Only 10 ml of this mixture injected into joint space. FLUORO TIME: 0.47 minutes COMPLICATIONS: ??None immediate. POST-PROCEDURE CARE: Instructions regarding monitor of infection and management of post-procedural pain were reviewed with the patient. Procedure Note Isabel Bowles APRN - 08/13/2018 HISTORY: instability of right shoulder joint, MR arthrogram of rightshoulder joint space. Arthrogram For Injection Of Contrast TECHNIQUE: After an extensive conversation with the patient and father regardingrisks and benefits, oral and written consent ( father signed consent form)wereobtained.? A pre- procedural time-out was performed, including review of thepatient's relevant electronic medical record and allergies, as per [facility] protocol. The patient was positioned prone on the fluoroscopic table. The skinoverlying the right posterior shoulder was prepped and draped in the usual asepticmanner. 1% Lidocaine was used to achieve local anesthesia. Under fluoroscopic guidance, a 22 gauge 3.5 inch spinal needle was advanced into the jointspace. After confirmation of intra-articular location of needle tip by using asmall injection of the contrast mixture, a total of 10 ml of the contrastmixture was injected. All needles removed at end of procedure. FINDINGS: 1. Contrast in right shoulder joint space 2. Additional post-contrast injection images were obtained in different projections. MEDICATIONS: Lidocaine 1% - <5 ml, for subcutaneous anesthesia CONTRAST: 20cc mixture of the following were prepared: Dotarem- 0.2ml in Normal Saline - 10ml Omnipaque 300-Utilized: 5 mL Normal Saline - 5ml Only 10 ml of this mixture injected into joint space. FLUORO TIME: 0.47 minutes COMPLICATIONS: None immediate. POST-PROCEDURE CARE: Instructions regarding monitor of infection andmanagement of post-procedural pain were reviewed with the patient. IMPRESSION Uneventful arthrogram Resident/Fellow: None Attending: There was no attending present for this procedure Procedure performed by Isabel Bowles APRN Thank you for letting us participate in the care of this patient. Forquestions regarding this report, please contact the number below. Electronically signed by: Isabel Bowles [facility]([phone]), at 08/13/2018 3:51 PM Kelly CEDEÑO IMG FLUORO ORDERABLE S documented in this encounter Visit Diagnoses Diagnosis Instability of right shoulder joint Other joint derangement, not elsewhere classified, shoulder region documented in this encounter Administered Medications Inactive Administered Medications - up to 3 most recent administrations Medication Order MAR Action Action Date Dose Rate Site sodium chloride 10 mL with lidocaine 10 mg/mL (1 %) 50 mg, iohexol 300 mg/mL 5 mL, gadoterate meglumine 0.5 mmol/mL (376.9 mg/mL) 0.2 mL injection Intra-articular, ONCE, 1 dose, On Chantel 08/13/18 at 1345 Given 08/13/2018 1:25 PM EDT documented in this encounter Care Teams Account Maintenance Representative Relationship Specialty Start Date End Date Lashonda Almodovar MD [address] [place] [address] PCP - General 04/10/10 07/07/19 documented as of this encounter
--- OUTSIDE RECORDS SUMMARY | 2024-01-12 11:36 | XMS_ITS | Encounter Summary ---
Author Organization [facility] Address [address] [place] [address] Care Team Providers Care Gore Maker Name Role Phone Scooby Powell MD, Lashonda Primary Care Provider [phone] Encounter Details Date Type Department Care Team (Late st Contact Info) Description 09/22/2020 Lab Requisition [facility] Pathology & Laboratory Medicine - [facility] [address] [place] [address] Outr Resulting Lab, Provider Social History Tobacco [...] Procedure Name Priority Date/Time Associated Diagnosis Comments ZZCOVID-19 TEST [facility] PCR Today 09/21/2020 9:59 EDT COVID-19 TESTING Routine 09/21/2020 9:59 EDT documented in this encounter Results * COVID-19 TEST [facility] PCR (09/21/2020 9:59 EDT) Swab ENTIRE NASOPHARYNX / Unknown 09/21/2020 9:59 EDT 09/22/2020 15:31 EDT Provider Outr Resulting Lab MICROBIOLOGY - GENERAL ORDERABLES Performing Organization Address City/State/[facility] Co de Phone Number [facility] [address] [place] [address] * COVID-19 TESTING (09/21/2020 9:59 EDT) COVID-19 rt-PCR Result Negative Negative 09/23/2020 14:43 EDT [facility] Comment: This test has not been FDA cleared or approved. This test has been authorized by FDA under an EUA for use by authorized laboratories. This test has been authorized only for detection of nucleic acid from 2019-nCoV, not for any other viruses or pathogens. This test is only authorized for the duration of the declaration that circumstances exist justifying the authorization of emergency use of in vitro diagnostic tests for detection and/or diagnosis of 2019-nCoV under section 564(b)(1) of Act, 21 U.S.C ?? 360bbb-3(b) (1), unless the authorization is terminated or revoked sooner. Negative results do not preclude 2019-nCoV infection and should not be used as the sole basis for treatment or other patient management decisions. Negative results must be combined with clinical observations, patient history, and epidemiological information. This test was developed and its performance characteristics determined by [facility]. It has not been cleared or approved by the US Food and Drug Administration. FDA does not require this test to go through premarket FDA review. This test is used for clinical purposes. It should not be regarded as investigational or for research. This laboratory is certified under the Clinical Laboratory Improvement Amendments (CLIA) as qualified to perform high complexity clinical laboratory testing. This test is based on the [facility] COVID-19 Emergency Use Authorization (EUA) assay, with minor modification as defined by the FDA Performed on the Cantargiao 7 Flex RT-PCR System. Performing Lab [facility] Lab 09/23/2020 14:43 EDT [facility] Swab 09/21/2020 9:59 EDT 09/22/2020 15:31 EDT Provider Outr Resulting Lab MICROBIOLOGY - GENERAL ORDERABLES Performing Organization Address City/[facility] Co de Phone Number [facility] [address] [place] [address] documented in this encounter Visit Diagnoses Not on filedocumented in this encounter Care Teams Gore Maker Relationship Specialty Start Date End Date Lashonda Almodovar MD [address] [place] [address] PCP - General 02/11/14 documented as of this encounter
--- OUTSIDE RECORDS SUMMARY | 2024-01-12 11:36 | XMS_ITS | Encounter Summary ---
Author Organization [facility] Address [facility] [place] [address] Care Team Providers Care Cloth Covered Helmet Puller Name Role Phone Markos Brewer DNP Primary Care Provider Encounter Details Date Type Department Care Team (Late st Contact Info) Description 07/08/2019 3:30 PM EST Office Visit Psychiatry [place] [address] Sigifredo Burns MD [facility] [place] [address] AWILDA (generalized anxiety disorder) Social History Tobacco Use Types Packs/Day Years Used Date Smoking Tobacco: Never Assessed Sex and Gender Information Value Date Recorded Sex Assigned at Not on file Gender Identity Not on file Sexual Orientation Not on file documented as of this encounter Patient Instructions * Patient Instructions* Sigifredo Burns MD - 07/08/2019 3:30 PM EST You have been diagnosed with Generalized Anxiety Disorder. We will continue to review data and continue work-up for possible ADHD. Current Medications: Buspirone 10 mg by mouth twice a day. documented in this encounter Progress Notes * Sigifredo Burns MD - 07/08/2019 3:30 PM EST ESTABLISHED CHILD and ADOLESCENT PSYCHIATRY OFFICE VISIT NOTE (CPT 29741, [id number], [id number]) [facility] 07/08/2019 Patient Name: Mariama Jarvis : 2000 Age: 19 y.o. 4 m.o. Address: [facility] [place] [address] Legal Guardian: parents Primary Care Provider: Markos Brewer APRN Examining Provider: Sigifredo Burns MD (resident) Rafa Yanez (attending) Attendees: Mariama father CHIEF CONCERN Current Diagnoses/Problems: Generalized Anxiety Disorder Today's Chief Concern: Follow up to discuss response to Buspar HISTORY OF PRESENT ILLNESS () Last Visit: 05/20/19 Changes/recommendations made: Start Buspirone 5 mg BID Current psychiatric medications: Buspirone 10 mg BID Compliance with medications: compliance all of the time Therapist/Support Team: Aysha Landaverde (DBT) Mariama and the family report the following: Mariama is a 19 year old female with a h/o ADHD, anxiety, and learning disability, presenting in follow up. Mariama reports things are really good. Currently on Buspar 10 mg BID.States, I can definitely tell meds are working. Feels more comfortable answering questions in class. Mariama also connected with Aysha Landaverde for DBT -- has had two sessions and so far seems to be going well. School is going well -- states she is not missing as many school days and grades are solid. Dad says her motivation has improved as well. Continues to procrastinate, but without as much worryand with improved focus. Denies any side effects from Buspar. Mood has been normal. Dad feels she is cycling through emotional points quicker and not gettingstuck in emotions and not having as many intense meltdowns. Denies any thoughts of self harm or suicide. Dad states she is no longer making impulsive statements. Wants to do hair technical school after high school. 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 Mariama is not getting as sick anymore. No recent abd pain, nausea, vomiting or syncope. Currently on 504, which is being reviewed currently. Teachers still have Eagle scales; will have them faxed to [facility]. Psychometrics reviewed or newly obtained: Awaiting Eagle scales from teachers. Review of Systems and Potential Side Effects (05/20/09) Review of Systems Constitutional: Negative for activity change, appetite change, fatigue and fever. HENT: Negative for congestion, sore throat and trouble swallowing. Eyes: Negative for pain and visual disturbance. Respiratory: Negative for shortness of breath and wheezing. Cardiovascular: Negative for chest pain. Gastrointestinal: Negative for abdominal pain, diarrhea, nausea and vomiting. Genitourinary: Negative for difficulty urinating. Musculoskeletal: Negative for arthralgias and myalgias. Skin: Negative for rash. Neurological: Negative for syncope and weakness. PAST, FAMILY, and SOCIAL HISTORY () Information Previously Obtained PSYCHIATRIC, MEDICAL, and DEVELOPMENTAL HISTORY ?? Psychiatric and Treatment History: Prior diagnoses: Mariama has previously been diagnosed with ADHD. ?? Psychotherapy: Current Psychotherapy: None ?? Prior Psychotherapy: [facility] in [place], [place] ?? Prior hospitalizations: [facility] hosp diversion program - two days in Jan 2019 ?? Suicide Attempts: Took knife to wrists, did not actually cut ?? Medication Trials: Current Psychiatric Medications: 1. None ?? Prior Psychiatric Medication Trials: 1. Ritalin 5 or 10 mg age 7-9 - good response in combination with therapy ? Medical History: Medical history, including assessing for a history of neurological, cardiac, and disorders and symptomatology, was reviewed. Two prior shoulder reconstructions. No chronic medical conditions. and No acute serious illnesses or injuries. ?? Development History: Pre-rox trauma: 1st trimester mom bit by a [...] & Living Situation: ?? Mariama lives in [facility] [place] [address] with her mom, dad, and 20 yr old brother. Peer Relationships: One friend at school. Also a boyfriend. ?? School History: School: [employer] Grade: 11 504/IEP: 504 ?? Extracurriculars: Works at a [employer] ?? Trauma/Abuse History and Significant Life Stressors: [...] Psychiatry and Treatment History: Yes Now on Buspar 10 mg BID. Also started DBT with Aysha Landaverde. Medical History: Yes none Family Profile & Living Situation: Yes none Family Psychiatric and Medical History: Yes none School situation/issues: Yes Improved performance and participation MEDICATIONS, ALLERGIES, and LABS Current Medications: Outpatient Medications Marked as Taking for the 07/08/19 encounter (Office Visit) with Sigifredo Burns MD Medication Sig Dispense Refill ??? busPIRone (BUSPAR) 10 mg Tablet Take 1 tablet by mouth 2 times daily. 60 tablet 3 ??? [DISCONTINUED] busPIRone (BUSPAR) 10 mg Tablet Take 0.5 tablets by mouth 2 times daily. Take 1/2 tablet twice a day for one week. If tolerating well, you may increase to 1 full tab twice a day. 30 tablet 3 Allergies: Allergies not on file Fasting Labs: not indicated (if on an atypical) Results: N/A Date: N/A EXAMINATION () Vitals: Wt: 147 lbs BP: 117/66 mmHg HR: 77 bpm Musculoskeletal Exam: Muscle Strength/Tone: No atrophy, No abnormal movements, no tics and no tremors Gait and Station: Normal gait, Normal balance and Age-appropriate coorindation AIMS (score, date): Not Indicated Mental Status Examination: Mental Status Exam Well appearing female, with good grooming and hygiene. Calm and cooperative with interview with good eye contact. Speech non-pressured with appropriate volume and prosody. Language fluent in [place].Mood normal and affect mood congruent with appropriate range. No thoughts of self harm or suicideand no thoughts of violence or homicide. Thoughts linear, logical, and goal oriented. Associations intact. No AVH, paranoia, or delusions. Fund of knowledge average for age and education. Memory and cognition intact. Alert and oriented x4. Insight fair and judgement fair. ASSESSMENT and RECOMMENDATIONS Assessment and Formulation: Mariama Jarvis is a 19 y.o. 4 m.o. female being treated for anxiety. The focus of today's appointment was on positive response to Buspar. It appears from the information detailed above that Mariama has thus far responded well to Buspar, with improvements in mood, anxiety, and behaviors, and improved performance and participation in school. She also recently started dialectical behavioral therapy.There have been no recent safety concerns and no recent somatization. Both Mariama and family pleasedwith response so far. Will continue with Buspar 10 mg BID as Mariama continues to establish with DBT therapist -- she has had two sessions already and it is going well. Teachers at the school have the Eagle scales, andparents will have them fax the completed forms to [facility], as we continue to consider the possibility of ADHD. Safety and risk assessments were reviewed and assessed. Relevant updates or planning: No acute safety concerns. . DSM 5 Diagnoses: Generalized Anxiety Disorder Recommendations and Plan: 1. Psychosocial Interventions ?? Continue with DBT with Aysha Landaverde 2. Medications ?? Cont Buspar 10 mg BID ?? Consider increasing dose as needed in the future 3. Suggested Academic Interventions ?? Cont with 504 ?? Follow up Ruiz scales from teachers 4. Other ?? n/a Recommended Follow-Up: 12 weeks * Rafa Yanez MD - 07/08/2019 3:30 PM EST I have examined Mariama and interviewed the parent with Dr. Burns. My MSE confirms the resident'sfindings, and I agree with his formulation and plan for this patient as documented. documented in this encounter Plan of Treatment Not on file documented as of this encounter Visit Diagnoses Diagnosis AWILDA (generalized anxiety disorder) Generalized anxiety disorder documented in this encounter Care Teams Cloth Covered Helmet Puller Relationship Specialty Start Date End Date Markos Brewer DNP PCP - General Family Medicine 07/08/19 08/31/23 documented as of this encounter
--- OUTSIDE RECORDS SUMMARY | 2024-01-12 11:36 | XMS_ITS | Encounter Summary ---
Author Organization [facility] [place] [address] Care Team Providers Care Travel Specialist Name Role Phone Lashonda Almodovar MD Primary Care Provider [phone] Encounter Details Date Type Department Care Team (Late st Contact Info) Description 06/15/2019 Telephone [place] [address] [place] [address] Social History Tobacco Use Types Packs/Day Years Used Date Smoking Tobacco: Never Assessed Sex and Gender Information Value Date Recorded Sex Assigned at Not on file Gender Identity Not on file Sexual Orientation Not on file documented as of this encounter Miscellaneous Notes * Telephone Encounter - Sigifredo Burns MD - 06/15/2019 12:57 PM EST Spoke with mom, Ana, who reports Mariama has had a positive response to Buspar 5 mg BID. They both feel that Mariama might benefit further from a higher dose. Additionally, Mariama will start weekly DBT in [place]. Plan: Increase Buspar to 10 mg BID F/u here on Jul 08 2019 documented in this encounter Plan of Treatment Not on file documented as of this encounter Visit Diagnoses Not on filedocumented in this encounter Care Teams Travel Specialist Relationship Specialty Start Date End Date Lashonda Almodovar MD [address] [place] [address] PCP - General 04/10/10 07/07/19 documented as of this encounter
--- OUTSIDE RECORDS SUMMARY | 2024-01-12 11:36 | XMS_ITS | Encounter Summary ---
[place] [address] Care Team Providers Care Manager Business Management Name Role Phone Lashonda Almodovar MD Primary Care Provider [phone] Encounter Details Date Type Department Care Team (Late st Contact Info) Description 06/11/2019 Telephone Psychiatry [place] [id number] Corinne Ascencio, RN Social History Tobacco Use Types Packs/Day Years Used Date Smoking Tobacco: Never Assessed Sex and Gender Information Value Date Recorded Sex Assigned at Not on file Gender Identity Not on file Sexual Orientation Not on file documented as of this encounter Miscellaneous Notes * Telephone Encounter - Corinne Ascencio RN - 06/11/2019 4:30 PM EST Mom called, would like to discuss bumping buspar dose up if possible. Mariama reports it's helping but limited. documented in this encounter Plan of Treatment Not on file documented as of this encounter Visit Diagnoses Not on filedocumented in this encounter Care Teams Manager Business Management Relationship Specialty Start Date End Date Lashonda Almodovar MD [address] [place] [address] [place] [address] PCP - General 04/10/10 07/07/19 documented as of this encounter
--- OUTSIDE RECORDS SUMMARY | 2024-01-12 11:36 | XMS_ITS | Encounter Summary ---
Author Organization [facility] Address [address] [place] [address] Care Team Providers Care Appraisal Analyst Name Role Phone Unavailable Primary Care Provider Unavailabl e Encounter Details Date Type Department Care Team (Latest Contact Info) Description 2002 0:11 EDT - 2002 11:59 EDT Hospital Encounter [facility] [address], [place] [address] Aide Padgett MD [address] [place] [id number] Discharge Disposition: Home or Self Care Social History Tobacco Use Types Packs/Day Years Used Date Smoking Tobacco: Never Assessed Sex and Gender Information Value Date Recorded Sex Assigned at Not on file Gender Identity Female 02/23/2021 10:29 EDT Sexual Orientation Not on file documented as of this encounter Discharge Disposition Disposition Code Departure Means Destination Home or Self Care documented in this encounter Plan of Treatment Not on file documented as of this encounter Visit Diagnoses Not on filedocumented in this encounter
--- OUTSIDE RECORDS SUMMARY | 2024-01-12 11:36 | XMS_ITS | Encounter Summary ---
Author Organization [facility] Address [address] [place] [address] Care Team Providers Care Clerk Of Court Name Role Phone Scooby Powell MD, Lashonda Primary Care Provider [phone] Encounter Details Date Type Department Care Team (Latest Contact Info) Description 02/28/2021 Travel Social History Tobacco Use Types Packs/Day [...] 13:53 EDT documented as of this encounter Plan of Treatment Not on file documented as of this encounter Visit Diagnoses Not on filedocumented in this encounter Care Teams Clerk Of Court Relationship Specialty Start Date End Date Lashonda [place] [address] PCP - General 02/11/14 documented as of this encounter
--- OUTSIDE RECORDS SUMMARY | 2024-01-12 11:36 | XMS_ITS | Encounter Summary ---
[place] [address] Care Team Providers Care Android Framework Developer Name Role Phone Lashonda Almodovar MD Primary Care Provider [phone] Encounter Details Date Type Department Care Team (Late st Contact Info) Description 06/15/2019 Telephone Psychiatry [place] [address] Lea Trujillo Social History Tobacco Use Types Packs/Day Years Used Date Smoking Tobacco: Never Assessed Sex and Gender Information Value Date Recorded Sex Assigned at Not on file Gender Identity Not on file Sexual Orientation Not on file documented as of this encounter Miscellaneous Notes * Telephone Encounter - Lea Trujillo - 06/15/2019 1:19 PM EST Called and spoke to Mahi PENDLETON to give her a list of DBT therapists in her local area. [facility] stated that she already found a DBT therapist for this patient today in [place], [place]. [facility] stated she does not need any other assistance at this time. documented in this encounter Plan of Treatment Not on file documented as of this encounter Visit Diagnoses Not on filedocumented in this encounter Care Teams Android Framework Developer Relationship Specialty Start Date End Date Lashonda Almodovar MD [address] [place] [address] [place] [address] PCP - General 04/10/10 07/07/19 documented as of this encounter
--- OUTSIDE RECORDS SUMMARY | 2024-01-12 11:36 | XMS_ITS | Encounter Summary ---
Author Organization [facility] Address [facility] [place] [address] Care Team Providers Care Lead Generation Marketing Manager Name Role Phone Markos Brewer DNP Primary Care Provider [phone] Encounter Details Date Type Department Care Team (Late st Contact Info) Description 10/28/2019 2:30 PM EDT TH Visit (TeleHealth) Psychiatry and [place] [address] Sigifredo Burns MD [facility] [place] [address] Anxiety disorder, unspecified type Social History Tobacco Use Types Packs/Day Years Used Date Smoking Tobacco: Never Assessed Sex and Gender Information Value Date Recorded Sex Assigned at Not on file Gender Identity Not on file Sexual Orientation Not on file documented as of this encounter Progress Notes * Sigifredo Burns MD - 10/28/2019 2:30 PM EDT ESTABLISHED CHILD and ADOLESCENT PSYCHIATRY TELEHEALTH VISIT NOTE (CPT 64162, [id number], [id number]) [facility] 10/28/2019 Patient Name: Mariama Jarvis : 2000 Age: 19 y.o. 8 m.o. Address: [facility] [address] Legal Guardian: parents Primary Care Provider: Markos Brewer APRN Examining Provider: Sigifredo Burns MD (resident) Rafa Yanez (attending) Attendees: Mariama jo CHIEF CONCERN Current Diagnoses/Problems: Generalized Anxiety Disorder Today's Chief Concern: Ongoing anxiety HISTORY OF PRESENT ILLNESS () Last Visit: 07/08/19 Changes/recommendations made: Start Lexapro 5 mg daily Continue Buspirone 10 mg BID Current psychiatric medications: Buspirone 10 mg QHS Lexapro 5 mg daily Compliance with medications: compliance all of the time Therapist/Support Team: Dr. Hauser, PhD Mariama Jarvis gave permission for today's telehealth visit. During this visit she was located [facility]. Mariama Jarvis is aware that for any urgent matter she can call [phone]. Mariama and the family report the following: Mariama is a 19 year old female with a h/o ADHD, anxiety, and learning disability, presenting in follow up. We added Lexapro 5 mg at last visit to target worsening depression while also continuing Buspar 10 mg nightly for anxiety. Depression now largely resolved -- I haven't been sad or depressed -- though anxiety has been more of a problem. States she has anxiety about everything, particularly in social settings. Recent had to wait to go into a gas station because there were peers her age in the gas station and she felttoo anxious to go in. When anxious she has sweaty palms and feels on edge. She continues to meet with her therapist weekly -- Dr Hauser at [facility]. She has found therapyvery helpful and is getting along well with therapist. She says she has learned many helpful copingskills. She and her dad report there have been no recent episodes of emotional dysregulation. She has not had any thoughts of self harm or suicide. She is looking forward to getting a new puppy at the end of the month -- this puppy will be her responsibility within the home. 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 This fall she will enter her senior year of high school. No thoughts of self harm or suicide. Psychometrics reviewed or newly obtained: Awaiting Ruiz scales from teachers. Review of Systems and [...] ADHD and AWILDA. ?? Psychotherapy: Current Psychotherapy: Gisselle Hauser, PhD ?? Prior Psychotherapy: Aysha Landaverde ?? Prior hospitalizations: [facility] hosp diversion program - two days in Jan 2019 ?? Suicide Attempts: Took knife to wrists, did not actually cut ?? Medication Trials: Current Psychiatric Medications: 1. Buspirone 10 mg nightly 2. lexapro 5 mg daily ?? Prior Psychiatric Medication Trials: 1. [...] & Living Situation: ?? Mariama lives in [facility] [address] with her mom, dad, and 20 yr old brother. Peer Relationships: Spends time with boyfriend and another close friend. School History: School: [employer] Grade: Going into senior year 504/IEP: 504 ?? 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 Trauma/Abuse History and Significant Life Stressors: [...] appropriate volume and prosody. Language fluent in Armenian. Mood: I haven't been sad or depressed. Affect mood congruent, bright, good range. No thoughts of self harm orsuicide and no thoughts of violence or homicide. Thoughts linear, logical, and goal oriented. Associations intact. No AVH, paranoia, or delusions. Fund of knowledge average for age and education. Memory and cognition intact. Attention and concentration grossly intact. Alert and oriented x4. Insightfair and judgement fair. ASSESSMENT and RECOMMENDATIONS Assessment and Formulation: Mariama Jarvis is a 19 y.o. 8 m.o. female being treated for anxiety. She had an initial positive response to Buspar, followed by a period of worsening mood. We started Lexapro last visit, now at 5 mg daily, and depression has resolved. Anxiety seems to be more problematic recently, particularly in social settings. We discussed the risks and benefits of increasing Lexapro to 10 mg daily to target anxiety as well as intermittent periods of depressed mood. She continues in weekly therapy with Dr. Darwin Wilson, and this has been going very well. Periods of severe emotional dysregulation have remained in remission. She has not had any recent thoughts of self harmor suicide, and continues to employ DBT skills she's learning in therapy. SAFETY: No evidence of imminent risk to self or others. No current thoughts of self harm or suicide. Thoughchronically elevated above general population, risk appears to be low at this time. DSM 5 Diagnoses: Unspecified Anxiety Recommendations and Plan: 1. Psychosocial Interventions ?? Continue weekly therapy with Dr. Hauser 2. Medications ?? Cont Buspar 10 mg QHS ?? INCREASE Escitalopram to 10 mg daily 3. Suggested Academic Interventions TBD once school back in session 4. Other ?? n/a Recommended Follow-Up: 6-8 weeks * Rafa Yanez MD - 10/28/2019 2:30 PM EDT I have examined Mariama and interviewed the parent with Dr. Burns. My MSE confirms the resident'sfindings, and I agree with his formulation and plan for this patient as documented. documented in this encounter Plan of Treatment Not on file documented as of this encounter Visit Diagnoses Diagnosis Anxiety disorder, unspecified type documented in this encounter Care Teams Lead Generation Marketing Manager Relationship Specialty Start Date End Date Markos Brewer DNP PCP - General Family Medicine 07/08/19 08/31/23 documented as of this encounter
--- OUTSIDE RECORDS SUMMARY | 2024-01-12 11:36 | XMS_ITS | Encounter Summary ---
Author Organization [facility] Address [facility] [place] [address] Care Team Providers Care Equipment Operator Intermodal Yard Name Role Phone Lashonda Almodovar MD Primary Care Provider [phone] Encounter Details Date Type Department Care Team (Late st Contact Info) Description 08/06/2018 Unscheduled Encounter XRay at [address] [place] [address] Jesenia Fischer Social History Tobacco Use Types Packs/Day Years Used Date Smoking Tobacco: Never Assessed Sex and Gender Information Value Date Recorded Sex Assigned at Not on file Gender Identity Not on file Sexual Orientation Not on file documented as of this encounter Plan of Treatment Not on file documented as of this encounter Visit Diagnoses Not on filedocumented in this encounter Care Teams Equipment Operator Intermodal Yard Relationship Specialty Start Date End Date Lashonda Almodovar MD [address] [place] [address] [place] [address] PCP - General 04/10/10 07/07/19 documented as of this encounter
--- OUTSIDE RECORDS SUMMARY | 2024-01-12 11:36 | XMS_ITS | Clinical Summary ---
Author Organization [facility] Address [address] [place] [address] Care Team Providers Care Assignment Editor Name Role Phone Scooby Powell MD, Lashonda Primary Care Provider [phone] Allergies No known active allergies Medications No known medications Active Problems Problem Noted Date Diagnosed Date Attention deficit hyperactivity disorder (ADHD) 02/23/2021 Dysmenorrhea in adolescent 02/22/2020 Menorrhagia with irregular cycle 02/22/2020 Migraine headache 02/22/2020 Depression with anxiety 09/26/2017 Encounters Date Type Department Care Team Description 11/21/2023 Lab Requisition [facility] Pathology & Laboratory Medicine [address] [address] Laura Henriquez FNP Encounter for screening for human papillomavirus (HPV); Encounter for screening for malignant neoplasm of cervix; Encounter for general adult medical examination without abnormal findings 11/19/2023 Lab Requisition [facility] Pathology & Laboratory [address] [address] Outr Resulting Lab, Provider from Last 3 Months Social History Tobacco Use Types Packs/Day Years Used Date Smoking Tobacco: Never Smokeless Tobacco: Never Interpersonal Safety Answer Date Record ed Physically Hurt Never 12/19/2019 Verbally Threaten Not on file 12/19/2019 Sex and Gender Information Value Date Recorded Sex Assigned at Not on file Gender Identity Female 02/23/2021 10:29 EDT Sexual Orientation Not on file Obstetrics History Last Filed Vital Signs Vital Sign Reading Time Taken Comments Blood Pressure 122/62 01/28/2019 1912 EDT Pulse 100 01/28/2019 1325 EDT Temperature 36.4 ??C (97.5 ??F) 02/28/2021 1354 EDT Respiratory Rate 16 01/28/20191911 EDT Oxygen Saturation 100% 01/28/20191912 EDT Inhaled Oxygen Concentration - - Weight 65.8 kg (145 lb) 01/28/2019 1138 EDT Height 177.8 cm (5' 10) 01/27/20192036 EDT Body Mass Index 20.81 01/27/20192036 EDT Plan of Treatment Health Maintenance Due Date Last Done Comments Hepatitis C Screen 2000 Hepatitis B Vaccine (1 of 3 - 19+ 3-dose series) 02/20 COVID-19 Vaccine (2022- season) 2023 Procedures Procedure Name Priority Date/Time Associated Diagnosis [...] Imaging System with Manual Evaluation 11/25/2023 12:26 [facility] Specimen Adequacy Satisfactory for Evaluation - transformation zone component present 11/25/2023 12:26 [facility] General Categorization Negative for intraepithelial lesion or malignancy 11/25/2023 12:26 [facility] Attestation . 11/25/2023 12:26 [facility] at 1226 Clinical History See below 11/25/19 12:26 [facility] Performing Lab [facility] 11/25/2023 12:26 [facility] Scanned Images 11/25/2023 12:26 [facility] Pap Test CERVIX UTERI STRUCTURE / Unknown 11/19/2023 10:20 EDT 11/21/2023 13:43 EDT Laura Henriquez PHARMACY INFORMATICS MANAGER PATHOLOGY ORDERABLES Performing Organization Address City/[facility]/ZIP Co de Phone Number [facility] [address] [place] [address] * CHLAMYDIA/N. GONORRHOEAE AMPLIFIED NUCLEIC ACID, THINPREP (11/19/2023 10:20 EDT) Neisseria gonorrhoeae Result Negative Negative 11/20/2023 13:01 EDT [facility] Chlamydia trachomatis Result Negative Negative 11/20/2023 13:01 EDT [facility] Pap Test CERVIX UTERI STRUCTURE / Unknown 11/19/2023 10:20 EDT 11/20/2023 8:47 EDT Provider Outr Resulting Lab MICROBIOLOGY - GENERAL ORDERABLES [facility] [address] [place] [address] from Last 3 Months Care Teams Assignment Editor Relationship Specialty Start Date End Date Lashonda Almodovar MD [address] [place] [address] PCP - General 02/11/14
--- OUTSIDE RECORDS SUMMARY | 2024-01-12 11:36 | XMS_ITS | Encounter Summary ---
[place] [address] Care Team Providers Care Aquatic Performer Name Role Phone Lashonda Almodovar MD Primary Care Provider [phone] Reason for Referral * Diagnostic Test (Routine) - Closed Specialty Diagnoses / Procedures Referred By Contac t Referred To Contact Radiology Diagnoses Instability of right shoulder joint Procedures MRI Arthrogram Shoulder Right MRI Shoulder w Contrast Right Kelly Nowak PA [address] [place] [address] [place] [address] Referral ID Status Reason Start Date Expiration Date V isits Requested Visits Authorized [id number] Closed Specialty Service Requested 08/04/2018 10/02/2018 1 1 Reason for Visit * Diagnostic Test (Routine) - Closed Specialty Diagnoses / Procedures Referred By Contac t Referred To Contact Radiology Diagnoses Instability of right shoulder joint Procedures MRI Arthrogram Shoulder Right MRI Shoulder w Contrast Right Kelly Nowak PA [address] [place] [address] [place] [address] Referral ID Status Reason Start Date Expiration Date V isits Requested Visits Authorized [id number] Closed Specialty Service Requested 08/04/2018 10/02/2018 1 1 Encounter Details Date Type Department Care Team (Latest Contact Info) Description 08/13/2018 12:49 PM EDT - 08/13/2018 11:59 PM EDT Hospital Encounter MRI at [facility] [place], operated [place] [facility] [address] Kelly Nowak PA [address] [place] [address] Instability of right shoulder joint Discharge Disposition: [...] Procedure Name Priority Date/Time Associated Diagnosis Comments MRI ARTHROGRAM SHOULDER RIGHT Routine 08/13/2018 2:26 PM EDT Instability of right shoulder joint documented in this encounter Results * MRI Arthrogram Shoulder Right (08/13/2018 2:26 PM EDT) Anatomical Region Laterality Modality Shoulder Right Magnetic Resonan ce Impressions 08/13/2018 2:45 PM EDT 1. ??No Hill-Sachs impaction injury or bony Bankart lesion. 2. ??Labral findings are suggestive of multidirectional shoulder instability. There is deficiency of the anterior-inferior labrum, but no displaced labral fragment or labral material tethered to periosteal is seen to suggest a Bankart variant lesion. This appearance of the anterior inferior labrum may contribute to some degree of anterior shoulder instability. Furthermore, there is fraying and irregularity of the posterior inferior labrum, without a definite reverse Bankart lesion. This appearance of the posterior inferior labrum may reflect sequela of or contribute to posterior shoulder instability. Thank you for letting us participate in the care of this patient. For questions regarding this report, please contact the number below. ? Narrative 08/13/2018 2:45 PM EDT EXAMINATION: MRI ARTHROGRAM SHOULDER RIGHT CLINICAL HISTORY: Instability of right shoulder joint TECHNIQUE: MRI arthrogram of the right shoulder was performed without IV contrast using a routine protocol. COMPARISON: Pre-MRI fluoroscopic images 08/13/2018. FINDINGS: Rotator cuff: ??T1 hyperintense material within the infraspinatus and teres minor likely represents extravasation of gadolinium contrast from a posterior approach fluoroscopic injection for MRI arthrogram. There is no disruption of the rotator cuff tendons. With the exception of extravasated hyperintense contrast in the infraspinatus and teres minor, the muscle bulk and signal of the supraspinatus and subscapularis are noted. Labrum: There is deficiency of the anterior inferior labrum (series 7, image 22), although no displaced labral fragment or labral material tethered to the adjacent periosteum is identified, to suggest a Bankart-variant lesion. There is irregularity and fraying of the posterior inferior labrum (series 5, image 21 and series 7, image 21). Bones, cartilage, joint: No large chondral defects. No Hill-Sachs impaction injury. No bony Bankart lesion. The glenohumeral joint is distended with gadolinium-based contrast. Normal fat signal in the rotator interval is preserved. No abnormal thickening of the axillary recess. There is a high insertion of the superior glenohumeral ligament. No disruption of the middle glenohumeral ligament (series 6, image 10). Biceps tendon: The extra articular long head of biceps tendon is intact and normally located within the bicipital groove. Intra-articular long head of the biceps tendon is intact. Acromioclavicular joint:The acromioclavicular joint is normal. Bursae and fluid:Minimal fluid in the subacromial bursa may be physiologic. Other extra articular: No solid or cystic compressive lesion in the suprascapular or spinoglenoid notches. No compressive lesion in the quadrilateral space. Procedure Note Melissa Morales MD - 08/13/2018 EXAMINATION: MRI ARTHROGRAM SHOULDER RIGHT CLINICAL HISTORY: Instability of right shoulder joint TECHNIQUE: MRI arthrogram of the right shoulder was performed without IV contrastusing a routine protocol. COMPARISON: Pre-MRI fluoroscopic images 08/13/2018. FINDINGS: Rotator cuff: T1 hyperintense material within the infraspinatus and teresminor likely represents extravasation of gadolinium contrast from a posteriorapproach fluoroscopic injection for MRI arthrogram. There is no disruption of the rotator cuff tendons. With the exceptionof extravasated hyperintense contrast in the infraspinatus and teres minor,the muscle bulk and signal of the supraspinatus and subscapularis are noted. Labrum: There is deficiency of the anterior inferior labrum (series 7,image 22), although no displaced labral fragment or labral material tethered tothe adjacent periosteum is identified, to suggest a Bankart-variant lesion.There is irregularity and fraying of the posterior inferior labrum (series 5, image21 and series 7, image 21). Bones, cartilage, joint: No large chondral defects. No Hill-Sachsimpaction injury. No bony Bankart lesion. The glenohumeral joint is distended with gadolinium-based contrast. Normal fat signal in the rotator interval is preserved. No abnormal thickening of the axillary recess. There is a high insertion of the superior glenohumeral ligament. Nodisruption of the middle glenohumeral ligament (series 6, image 10). Biceps tendon: The extra articular long head of biceps tendon is intactand normally located within the bicipital groove. Intra-articular long head ofthe biceps tendon is intact. Acromioclavicular joint:The acromioclavicular joint is normal. Bursae and fluid:Minimal fluid in the subacromial bursa may bephysiologic. Other extra articular: No solid or cystic compressive lesion in the suprascapular or spinoglenoid notches. No compressive lesion in the quadrilateral space. IMPRESSION 1. No Hill-Sachs impaction injury or bony Bankart lesion. 2. Labral findings are suggestive of multidirectional shoulderinstability. There is deficiency of the anterior-inferior labrum, but no displacedlabral fragment or labral material tethered to periosteal is seen to suggest aBankart variant lesion. This appearance of the anterior inferior labrum maycontribute to some degree of anterior shoulder instability. Furthermore, there isfraying and irregularity of the posterior inferior labrum, without a definitereverse Bankart lesion. This appearance of the posterior inferior labrum mayreflect sequela of or contribute to posterior shoulder instability. Thank you for letting us participate in the care of this patient. Forquestions regarding this report, please contact the number below. Kelly [facility] MRI ORDERABLES documented in this encounter Visit Diagnoses Diagnosis Instability of right shoulder joint Other joint derangement, not elsewhere classified, shoulder region documented in this encounter Care Teams Aquatic Performer Relationship Specialty Start Date End Date Lashonda Almodovar MD [address] [place] [address] PCP - General 04/10/10 07/07/19 documented as of this encounter
--- OUTSIDE RECORDS SUMMARY | 2024-01-12 11:36 | XMS_ITS | Encounter Summary ---
Author Organization [facility] Address [address] [place] [address] Care Team Providers Care Business Solutions Director Name Role Phone Scooby Powell MD, Lashonda Primary Care Provider [phone] Encounter Details Date Type Department Care Team (Late st Contact Info) Description 05/08/2020 Lab Requisition [facility] Pathology & Laboratory Medicine - [facility] [address] [place] [address] Outr Resulting Lab, Provider Social History Tobacco [...] Procedure Name Priority Date/Time Associated Diagnosis Comments DO NOT ORDER STANDALONE - [facility] COVID TEST Today 05/08/2020 12:25 EST COVID-19 TESTING Routine 05/08/2020 12:2 5 EST documented in this encounter Results * DO NOT ORDER STANDALONE - [facility]OAD COVID TEST (05/08/2020 12:25 EST) COVID-19 rt-PCR Result NEGATIVE Negative 05/10/2020 10:27 EST [facility] Comment: 2019-novel Coronavirus (2019-nCoV) not detected by the qRT-PCR assay. Consider testing for other respiratory viruses or re-collecting for 2019-nCoV testing. Note: Optimum timing for peak viral levels during infections caused by 2019-nCoV have not been determined. Collection of multiple specimens from the same patient may be necessary to detect the virus. Limitations Positive results are indicative of active infection with SARS-CoV-2 but do not rule out bacterial infection or co-infection with other viruses. The agent detected may not be the definite cause of disease. In addition, detection of viral RNA may not indicate the presence of infectious virus or that SARS-CoV-2 is the causative agent for clinical symptoms. Negative results do not preclude SARS-CoV-2 infection and should not be used as the sole basis for patient management decisions. Negative results must be combined with clinical observations, patient history, and epidemiological information. False negative results may also occur if amplification inhibitors are present in the specimen or if inadequate numbers of organisms are present in the specimen. Optimum specimen types and timing for peak viral levels during infections caused by SARS-CoV-2 have not been fully determined. Collection of multiple specimens (types and time points) from the same patient may be necessary to detect the virus. The test was validated for use with upper respiratory specimens obtained via nasopharyngeal or oropharyngeal swabs in VTM, UTM, M4, M5, M6, saline, and MTM media. The performance of this test has not been established for other specimens. Specimens collected using other FDA recommended Specimen Collection Materials listed in the FDA COVID-19 [employer] communication (August 12, 2019) are processed with the caveat that they were not all validated for use with this test and the result must be interpreted in this context. Furthermore, a false negative results may occur if a specimen is improperly collected, transported or handled. If the virus mutates in the RT-PCR target region, SARS-CoV-2 may not be detected or may be detected less predictably. Inhibitors or other types of interference may produce a false negative result. An interference study evaluating the effect of common cold medications was not performed. This test is not FDA-cleared but its performance characteristics were established by our CLIA-certified, CAP-accredited, high complexity laboratory in accordance with CLIA regulations, College [employer] (CAP) guidelines (Aug 05, 2019), and FDA guidance (Jul 17, 2019). This test is only for use under the Food and Drug Administration's Emergency Use Authorization. Swab ENTIRE NASOPHARYNX / Unknown 05/08/2020 12:25 EST 05/08/2020 20:47 EST Provider Outr Resulting Lab MICROBIOLOGY - GENERAL ORDERABLES [facility] [place], [place] * COVID-19 TESTING (05/08/2020 12:25 EST) COVID-19 rt-PCR Result NEGATIVE Negative 05/10/2020 12:[address] [facility] Comment: 2019-novel Coronavirus (2019-nCoV) not detected by the qRT-PCR assay. Consider testing for other respiratory viruses or re-collecting for 2019-nCoV testing. Note: Optimum timing for peak viral levels during infections caused by 2019-nCoV have not been determined. Collection of multiple specimens from the same patient may be necessary to detect the virus. Limitations Positive results are indicative of active infection with SARS-CoV-2 but do not rule out bacterial infection or co-infection with other viruses. The agent detected may not be the definite cause of disease. In addition, detection of viral RNA may not indicate the presence of infectious virus or that SARS-CoV-2 is the causative agent for clinical symptoms. Negative results do not preclude SARS-CoV-2 infection and should not be used as the sole basis for patient management decisions. Negative results must be combined with clinical observations, patient history, and epidemiological information. False negative results may also occur if amplification inhibitors are present in the specimen or if inadequate numbers of organisms are present in the specimen. Optimum specimen types and timing for peak viral levels during infections caused by SARS-CoV-2 have not been fully determined. Collection of multiple specimens (types and time points) from the same patient may be necessary to detect the virus. The test was validated for use with upper respiratory specimens obtained via nasopharyngeal or oropharyngeal swabs in VTM, UTM, M4, M5, M6, saline, and MTM media. The performance of this test has not been established for other specimens. Specimens collected using other FDA recommended Specimen Collection Materials listed in the FDA COVID-19 [employer] communication (August 12, 2019) are processed with the caveat that they were not all validated for use with this test and the result must be interpreted in this context. Furthermore, a false negative results may occur if a specimen is improperly collected, transported or handled. If the virus mutates in the RT-PCR target region, SARS-CoV-2 may not be detected or may be detected less predictably. Inhibitors or other types of interference may produce a false negative result. An interference study evaluating the effect of common cold medications was not performed. This test is not FDA-cleared but its performance characteristics were established by our CLIA-certified, CAP-accredited, high complexity laboratory in accordance with CLIA regulations, College [employer] (CAP) guidelines (Aug 05, 2019), and FDA guidance (Jul 17, 2019). This test is only for use under the Food and Drug Administration's Emergency Use Authorization. Performing Lab [facility] 05/10/2020 12:50 EST [facility] Swab 05/08/2020 12:2 5 EST 05/08/2020 20:47 EST Provider Outr Resulting Lab MICROBIOLOGY - GENERAL ORDERABLES [facility] [address] [place] [address] [facility] [place], [place] documented in this encounter Visit Diagnoses Not on filedocumented in this encounter Care Teams Business Solutions Director Relationship Specialty Start Date End Date Lashonda Almodovar MD [address] [place] [address] PCP - General 02/11/14 documented as of this encounter
--- OUTSIDE RECORDS SUMMARY | 2024-01-12 11:36 | XMS_ITS | Encounter Summary ---
Author Organization [facility] Address [address] [place] [address] Care Team Providers Care Pharmacy Picking Technician Name Role Phone Scooby Powell MD, Lashonda Primary Care Provider [phone] Encounter Details Date Type Department Care Team (Late st Contact Info) Description 11/19/2023 Lab Requisition [facility] Pathology & Laboratory Medicine - [facility] [address] [place] [address] Outr Resulting Lab, Provider Social History Tobacco [...] Associated Diagnosis Comments CHLAMYDIA/N. GONORRHOEAE AMPLIFIED NUCLEIC ACID, THINPREP Routine 11/19/2023 10:20 EDT documented in this encounter Results * CHLAMYDIA/N. GONORRHOEAE AMPLIFIED NUCLEIC ACID, THINPREP [...] [facility] [address], [place] [id number] documented in this encounter Visit Diagnoses Not on filedocumented in this encounter Care Teams Pharmacy Picking Technician Relationship Specialty Start Date End Date Lashonda Almodovar MD [address] [place] [address] PCP - General 02/11/14 documented as of this encounter
--- OUTSIDE RECORDS SUMMARY | 2024-01-12 11:36 | XMS_ITS | Encounter Summary ---
Author Organization [facility] [place] [address] Care Team Providers Care Senior Portfolio Analyst Name Role Phone Markos Brewer DNP Primary Care Provider [phone] Encounter Details Date Type Department Care Team (Latest Contact Info) Description 09/13/2019 9:00 AM EDT TH Visit (TeleHealth) Psychiatry [place] [address] Gisselle Hauser, PhD AWILDA (generalized anxiety disorder); Depression, unspecified depression type Social History Tobacco Use Types Packs/Day Years Used Date Smoking Tobacco: Never Assessed Sex and Gender Information Value Date Recorded Sex Assigned at Not on file Gender Identity Not on file Sexual Orientation Not on file documented as of this encounter Progress Notes * Gisselle Hauser, PhD - 09/13/2019 9:00 AM EDT FAMILY THERAPY PROGRESS NOTE - This encounter is the same as the 09/13/19 unscheduled encounter and includes the same progress note. [address] ?? Location:?[place]?Time Spent:??50minutes ?? Attendee(s):?Pt and Pt's mother SUBJECTIVE: ?? Chief Complaint and Diagnosis:??Pt is a 19 year old female with depression and anxiety that interferes with her interpersonal and academic functioning. ?? Interval History:??Pt's mother reported that Pt had fewer emotional outbursts since the last session. ?? OBJECTIVE: ?? Patient's verbal /interpersonal exchanges with attendees:??Pt had constructive interactions with her mother. ? Interventions and patient/family responses:?Pt processed her thoughts and feelings about her recent emotional outbursts. This commercial insurance underwriter introduced more DBT mindfulness concepts and Pt identified signs of dwyer mind.??Pt completed her homework assignment. ?? Pertinent Mental Status Exam: General appearance:??Age appropriate, well groomed, and good eye contact Speech:??Clear Mood:??Depressed Affect:??Blunted Associations:??Intact Judgment:??Good Thought process:??Linear Oriented to [...] Buspar, prescribed by Dr. Burns, psychiatrist at [facility]. PLAN: Revised Goals: 1) Improve emotion regulation; and 2) Establish healthy boundaries? No change in estimated length of treatment. ?? Safety Risk Management:??Pt did not report any suicidal thoughts or suicidal ideation in the session. Pt did not report any homicidal ideation in the session. Pt did not report any thoughts of self-harm or self-harm in the session. ?? Assigned Homework:??Pt plans to identify indicators of dwyer mind.?? Patient Instruction/Education Provided:??They plan to follow up with this commercial insurance underwriter for family therapy. Attendees understand the plan???Yes. documented in this encounter Plan of Treatment Not on file documented as of this encounter Visit Diagnoses Diagnosis AWILDA (generalized anxiety disorder) Generalized anxiety disorder Depression, unspecified depression type documented in this encounter Care Teams Senior Portfolio Analyst Relationship Specialty Start Date End Date Markos Brewer DNP PCP - General Family Medicine 07/08/19 08/31/23 documented as of this encounter
--- OUTSIDE RECORDS SUMMARY | 2024-01-12 11:36 | XMS_ITS | Encounter Summary ---
Author Organization [facility] [place] [address] Care Team Providers Care Inventory Management Specialist Name Role Phone Lashonda Almodovar MD Primary Care Provider [phone] Encounter Details Date Type Department Care Team (Late st Contact Info) Description 06/14/2019 Telephone Psychiatry [place] [address] Lea Trujillo Social History Tobacco Use Types Packs/Day Years Used Date Smoking Tobacco: Never Assessed Sex and Gender Information Value Date Recorded Sex Assigned at Not on file Gender Identity Not on file Sexual Orientation Not on file documented as of this encounter Miscellaneous Notes * Telephone Encounter - Lea Trujillo S - 06/14/2019 1:01 PM EST Mahi PENDLETON and left a VM for this underwriter on Friday, 06/11 in regards to resources. This underwriter called and spoke to MO on Friday, 06/11. MOC stated that the patient saw Dr. Burns earlier this month and suggested that the patient receive DBT. MO also stated that Dr. Burns was going to put in a referral for a therapist here at [facility] in Child Psychiatry. MO stated that no one has called her about this. MO stated that they are looking for a therapist in the [place], [place] area. [facility] also stated that family has [employer] as insurance. This underwriter informed [facility] she will comply a list of DBT therapists and call her back. documented in this encounter Plan of Treatment Not on file documented as of this encounter Visit Diagnoses Not on filedocumented in this encounter Care Teams Inventory Management Specialist Relationship Specialty Start Date End Date Lashonda Almodovar MD [address] [place] [address] PCP - General 04/10/10 07/07/19 documented as of this encounter
--- OUTSIDE RECORDS SUMMARY | 2024-01-12 11:36 | XMS_ITS | Encounter Summary ---
Author Organization [facility] Address [address] [place] [address] Care Team Providers Care Supervisor Refractory Products Name Role Phone Scooby Powell MD, Lashonda Primary Care Provider [phone] Encounter Details Date Type Department Care Team (Late st Contact Info) Description 01/18/2020 Lab Requisition [facility] Pathology & Laboratory Medicine - [facility] [address], [place] [address] Outr Resulting Lab, Provider Social History Tobacco [...] Procedure Name Priority Date/Time Associated Diagnosis Comments VARICELLA ZOSTER VIRUS MOLECULAR DETECTION, PCR Routine 01/17/2020 13:46 EDT HSV (HERPES SIMPLEX VIRUS) MOLECULAR DETECTION, PCR Routine 01/17/2020 13:46 EDT documented in this encounter Results * VARICELLA ZOSTER VIRUS MOLECULAR DETECTION, PCR (01/17/2020 13:46 EDT) VARICELLA ZOSTER VIRUS MOLECULAR DETECTION, PCR Negative Negative 01/19/2020 15:06 EDT [facility] Comment:This test was devayesha langley and its performance characteristics determined by [facility]. It has not been cleared or approved by the US Food and Drug Administration. FDA does not require this test to go through premarket FDA review. This test is used for clinical purposes. It should not be regarded as investigational or research. This laboratory is certified under the Clinical Laboratory Improvement Amendments (CLIA) as qualified to perform high complexity clinical laboratory testing. Swab ENTIRE ANKLE REGION / Unknown 01/17/2020 13:46 EDT 01/18/2020 17:21 EDT Provider Outr Resulting Lab MICROBIOLOGY - GENERAL ORDERABLES Performing Organization Address City/[facility] Co de Phone Number [facility] [address] [place] [address] * HERPES SIMPLEX VIRUS MOLECULAR DETECTION, PCR (01/17/2020 13:46 EDT) Herpes Simplex Virus Molecular Detection 1, PCR Negative Negative 01/19/2020 15:06 EDT [facility] Herpes Simplex Virus Molecular Detection 2, PCR Negative Negative 01/19/2020 15:06 EDT [facility] Swab ENTIRE ANKLE REGION / Unknown 01/17/2020 13:46 EDT 01/18/2020 17:21 EDT Provider Outr Resulting Lab MICROBIOLOGY - GENERAL ORDERABLES Performing Organization Address City/[facility] Co de Phone Number [facility] [address] [place] [address] documented in this encounter Visit Diagnoses Not on filedocumented in this encounter Care Teams Supervisor Refractory Products Relationship Specialty Start Date End Date Lashonda Almodovar MD [address] [place] [address] PCP - General 02/11/14 documented as of this encounter
--- OUTSIDE RECORDS SUMMARY | 2024-01-12 11:36 | XMS_ITS | Encounter Summary ---
Author Organization [facility] Address [facility] [place] [address] Care Team Providers Care Screw Machine Tender Name Role Phone Markos Brewer DNP Primary Care Provider Encounter Details Date Type Department Care Team (Late st Contact Info) Description 09/23/2019 1:30 PM EDT TH Visit (TeleHealth) Psychiatry [place] [address] Sigifredo Burns MD [facility] [place] [address] [place] [address] Depression, unspecified depression type Social History Tobacco Use Types Packs/Day Years Used Date Smoking Tobacco: Never Assessed Sex and Gender Information Value Date Recorded Sex Assigned at Not on file Gender Identity Not on file Sexual Orientation Not on file documented as of this encounter Progress Notes * Sigifredo Burns MD - 09/23/2019 1:30 PM EDT ESTABLISHED CHILD and ADOLESCENT PSYCHIATRY TELEHEALTH VISIT NOTE (CPT 04534, [id number], [id number]) [facility] 09/23/2019 Patient Name: Mariama Jarvis : 2000 Age: 19 y.o. 7 m.o. Address: [facility] [address] Legal Guardian: parents Primary Care Provider: Markos Brewer APRN Examining Provider: Sigifredo Burns MD (resident) Dr. Shaver (attending) Attendees: Mariama mother CHIEF CONCERN Current Diagnoses/Problems: Generalized Anxiety Disorder Today's Chief Concern: Worsening depression HISTORY OF PRESENT ILLNESS () Last Visit: 07/08/19 Changes/recommendations made: Continue Buspirone 10 mg BID Current psychiatric medications: Buspirone 10 mg QHS Compliance with medications: compliance all of the time Therapist/Support Team: Dr. Hauser, PhD Mariama Jarvis gave permission to be seen and treated by telehealth today. During this visit she was located in [place]. Mariama Jarvis is aware that for any urgent matter she can call [phone]. Mariama and the family report the following: Mariama is a 19 year old female with a h/o ADHD, anxiety, and learning disability, presenting in follow up. With the addition of Buspar earlier this year, anxiety has been largely well controlled. Today the principal concern is worsening depression in the last two months. Per Mom, Mariama seems shala more in her head and gets sad about what's going on internally and externally. There have been several significant outbursts and complete meltdowns, including three nights ago when Mariama grabbed a knife and threatened to cut her wrist. Mariama reports she's had thoughts of self harm for several weeks, though denies any intent or plan to take her own life. Mood seemed to worsen initially when a close friendship dissolved in early July, and has been further complicated by an increasing sense of social isolation during the coronavirus pandemic. Mariama denies any major changes in sleep patterns, though reports low energy, little motivation, anhedonia, and passive thoughts of being . She denies problems with concentration or attention, and has ebenable to keep up with her school supervisor fireworks assembly. She maintains a strong appetite but has been eatingmostly junk food. Previous psychosomatic symptoms, such as headaches, GI complaints, and syncopal episodes, have largely resolved since being out of school. Mariama recently disclosed to her parents that she was experiencing significant bullying at school and on social media, but bullying has stoppedsince school has been out. Since last visit, Mariama has connected with a new therapist, [place]. Haus[place] [facility] and therapyhas been going well. Mariama reports she has learned some really good techniques to help cope with overwhelming feelings, and that she has used these in the last few days with positive results. Mom is concerned that worsening mood is similar to a pattern that occurred last year, wherein Mariama's mood continued to worsen for several months, culminating in increasing suicidal behaviors and admission to [facility] hospital diversion program. Mariama and her mom are open to considering pharmacologic options to target depression before things worsen further. Psychometrics reviewed or newly obtained: Awaiting [place] scales from teachers. Review of Systems and [...] Prior Psychotherapy: Aysha Landaverde ?? Prior hospitalizations: [facility] diversion program - two days in Jan 2019 ?? Suicide Attempts: Took knife to wrists, did not actually cut ?? Medication Trials: Current Psychiatric Medications: 1. Buspirone 10 mg nightly ?? Prior Psychiatric Medication Trials: 1. Ritalin [...] & Living Situation: ?? Mariama lives in [facility] [address] with her mom, dad, and 20 yr old brother. Peer Relationships: One friend at school--friendship recently dissolved. ?? School History: School: [employer] Grade: 11 504/IEP: 504 ?? Extracurriculars: Works at a [employer] (no longer working due to pandemic) ?? Trauma/Abuse History and Significant Life Stressors: [...] History: Yes Now on Buspar 10 mg QHS as morning dose was causing nausea and lightheadedness. She has also connected with a new therapsit, Dr. Hauser [place] [facility]. Medical History: Yes none Family Profile & Living Situation: Yes none Family Psychiatric and Medical History: Yes none School situation/issues: Yes Remote learning due to virus pandemic MEDICATIONS, ALLERGIES, and LABS Current Medications: Buspirone 10 mg QHS Allergies: Not on File Fasting Labs: not indicated (if on an atypical) Results: N/A Date: N/A EXAMINATION () Vitals: n/a Musculoskeletal Exam: Muscle Strength/Tone: No atrophy, No abnormal movements, no tics and no tremors Gait and Station: Deferred AIMS (score, date): Not Indicated Mental Status Examination: Mental Status Exam Well appearing female, with good grooming and hygiene. Calm and cooperative with interview, though somewhat more withdrawn today. Speech non-pressured with appropriate volume and prosody. Language fluent in Ukrainian. Mood has been unhappy, sad, mad and affect somewhat constricted. No thoughts of self harm or suicide and no thoughts of violence or homicide, though has been having intermittent thoughts of self harm as well as twice-weekly thoughts of wishing she were not alive. No intent or planfor suicide. Thoughts linear, logical, and goal oriented. Associations intact. No AVH, paranoia, ordelusions. Fund of knowledge average for age and education. Memory and cognition intact. Attention and concentration grossly intact. Alert and oriented x4. Insight fair and judgement fair. ASSESSMENT and RECOMMENDATIONS Assessment and Formulation: Mariama Jarvis is a 19 y.o. 7 m.o. female being treated for anxiety. Anxiety has been well controlled on Buspar, currently at 10 mg qhs (as additional 10 mg dose in themorning was causing nausea and lightheadedness). Mood has been more depressed in recent months, with low energy, anhedonia, and increasing self injurious behaviors, as well as intermittent wishes to be . She had similar problems with mood last year, which worsened over many months, culminating in increasingly dangerous suicidal behaviors, psychosomatic symptoms, and admission to a hospital diversion program at [facility]. We discussed risks and benefits of a trial of Lexapro to target depression. We specifically discussed the risk of worsening mood and worsening SI, and both Mariama and her mom agree to monitor closely for these symptoms. Will start at 2.5 mg daily for five days then increase to 5 mg daily. Will plan close follow up and adjust dose based on response and tolerability. Risk of self harm and suicide is elevated above general population, but currently there is no indication of imminent risk. Pt well engaged in DBT therapy and has been utilizing coping mechanisms she's learning in therapy. She agrees to reach out to her mom, her therapist, and/or our crisis servicesshould SI return or SIBs become more intense. DSM 5 Diagnoses: Unspecified Depression Recommendations and Plan: 1. Psychosocial Interventions ?? Continue weekly therapy with Dr. Hauser 2. Medications ?? Cont Buspar 10 mg QHS ?? START Escitalopram 2.5 mg daily for five days, then 5 mg daily thereafter 3. Suggested Academic Interventions ?? Cont with 504 Follow up [place] scales from teachers once school back in session 4. Other ?? n/a Recommended Follow-Up: 4-6 weeks * Manisha Shaver MD - 09/23/2019 1:30 PM EDT I met with Mariama and her mother along with Sigifredo Burns MD via telephone. I have reviewed the history and read Dr. Burns's note and I agreed with the details as written. The assessment and plan were formulated in discussion with me and I agree with them as documented. During this visitthe family was located in [place]. Psychiatric Medication Provider[place] [facility], Sigifredo Burns MD Pertinent History and Major Issues Addressed: Mariama is a 19 y.o. 7 m.o. female with history of generalized anxiety and ADHD. Mariama is currently prescribed Buspar which has been moderately helpful, however, she was unable to tolerate a higher dose. The primary focus of today's visit was increased depressed mood and associated neurovegetative symptoms of depression. Working diagnosis is major depressive disorder. In addition to ongoing psychotherapy (DBT focus), we discussed initiation of an SSRIto target mood and anxiety symptoms. Reviewed indications, expected benefits, and possible adverse effects (including the FDA black box warning). Experiencing urges for SIB although reports utilization of coping skills and use of supports. Denies any SI, intent, or plan. Plan: 1. Continue medications: Buspar 10mg PO qHS 2. Medication changes: Begin trial with Lexapro as detailed in Dr. Burns's note. Given previoussensitivity to medications, will initiate Lexapro at a very low dose but with planned titration. 3. Continue in individual therapy with DBT focus. Reviewed DBT skills. 4. Follow-up in 3-4 weeks. documented in this encounter Plan of Treatment Not on file documented as of this encounter Visit Diagnoses Diagnosis Depression, unspecified depression type documented in this encounter Care Teams Screw Machine Tender Relationship Specialty Start Date End Date Markos Brewer DNP PCP - General Family Medicine 07/08/19 08/31/23 documented as of this encounter
--- OUTSIDE RECORDS SUMMARY | 2024-01-12 11:36 | XMS_ITS | Encounter Summary ---
Author Organization [facility] Address [address] [place] [address] Care Team Providers Care Rate And Cost Analyst Name Role Phone Scooby Powell MD, Lashonda Primary Care Provider [phone] Reason for Visit * Reason Comments Fever pt arrives to triage with family who report pt was sent home from school today with a fever of 102F. pt started with a sore throat this AM. pt also vomiting, has been unable to keep anything down. Dry heaving in triage. Encounter Details Date Type Department Care Team (Late st Contact Info) Description 02/11/2014 22:33 EDT - 02/12/2014 0:35 EDT Emergency [facility] Emergency Department - [address] [id number] Omar Govea MD [address] [facility], [address] [place] [id number] Emergency, MD Dania Sore throat (Primary Dx) Discharge Disposition: Home or Self Care Social History Tobacco Use Types Packs/Day Years Used Date Smoking Tobacco: Never Sex and Gender Information Value Date Recorded Sex Assigned at Not on file Gender Identity Female 02/23/2021 10:29 EDT Sexual Orientation Not on file documented as of this encounter Last Filed Vital Signs Vital Sign Reading Time Taken Comments Blood Pressure 113/58 02/12/2014 0029 EDT Pulse 111 02/12/2014 0029 EDT Temperature 39.6 ??C (103.3 ??F) 02/12/2014 0029 EDT Respiratory Rate 20 02/12/2014 0029 EDT Oxygen Saturation 100% 02/12/2014 0029 EDT Inhaled Oxygen Concentration - - Weight 45.8 kg (101 lb) 02/11/2014 2240 EDT Height - - Body Mass Index - - documented in this encounter Discharge Instructions * Discharge Instructions* Dontae Mayo MD - 02/11/2014 23:55 EDT Images from the original note were not included. We will call if the throat culture turns up positive for strep and antibiotics should be started. Use Zofran at home up to every 6 hours as needed. Try to stay hydrated with frequent sips of fluids. Be sure that some fluids contain sugar - this will help with nausea. [facility] Patient Instructions Sore Throat: After Your Child's Visit Your Care Instructions Infection by bacteria or a virus causes most sore throats. Cigarette smoke, dry air, air pollution,allergies, or yelling also can cause a sore throat. Sore throats can be painful and annoying. Fortunately, most sore throats go away on their own. Home treatment may help your child feel better sooner. Antibiotics are not needed unless your childhas a strep infection. Follow-up care is a garcia part of your child's treatment and safety. Be sure to make and go to all appointments, and call your doctor if your child is having problems. It's also a good idea to know your child's test results and keep a list of the medicines your child takes. How can you care for your child at home? ?? If the doctor prescribed antibiotics for your child, give them as directed. Do not stop using them just because your child feels better. Your child needs to take the full course of antibiotics. ?? If your child is old enough to do so, have him or her gargle with warm salt water at least once each hour to help reduce swelling and relieve discomfort. Use 1 teaspoon of salt mixed in 8 ounces of warm water. Most children can gargle when they are 6 to 8 years old. ?? Give acetaminophen (Tylenol) or ibuprofen (Advil, Motrin) for pain. Read and follow all instructions on the label. Do not give aspirin to anyone younger than 20. It has been linked to Esequiel syndrome, a serious illness. ?? Have your child drink plenty of fluids, enough so that his or her urine is light yellow or clearlike water. Drinks such as warm water or warm lemonade may ease throat pain. Frozen ice treats, icecream, scrambled eggs, gelatin dessert, and sherbet can also soothe the throat. If your child has kidney, heart, or liver disease and has to limit fluids, talk with your doctor before you increase the amount of fluids your child drinks. ?? Keep your child away from smoke. Do not smoke or let anyone else smoke around your child or in your house. Smoke irritates the throat. ?? Place a humidifier by your child's bed or close to your child. This may make it easier for your child to breathe. Follow the directions for cleaning the machine. When should you call for help? Call 911 anytime you think your child may need emergency care. For example, call if: ?? Your child is confused, does not know where he or she is, or is extremely sleepy or hard to wakeup. Call your doctor now or seek immediate medical care if: ?? Your child has a new or higher fever. ?? Your child has a fever with a stiff neck or a severe headache. ?? Your child has any trouble breathing. ?? Your child cannot swallow or cannot drink enough because of throat pain. ?? Your child coughs up discolored or bloody mucus. Watch closely for changes in your child's health, and be sure to contact your doctor if: ?? Your child has any new symptoms, such as a rash, an earache, vomiting, or nausea. ?? Your child is not getting better as expected. Where can you learn more? Go to www.[facility] [employer] [facility].net/fahc Enter V819 in the search box to learn more about Sore Throat: After Your Child's Visit. ?? [id number] [employer]. Care instructions adapted under license by [facility] This care instruction is for use with your licensed healthcare professional. If you have questions about a medical condition or this instruction, always ask your healthcare professional. [employer] disclaims any warranty or liability for your use of this information. Content Version: 10.0.122296; Last Revised: September 23, 2012 * Attachments The following attachments cannot be sent through Care Everywhere. * SORE THROAT : PEDIATRIC ([place]) documented in this encounter Discharge Disposition Disposition Code Departure Means Destination Home or Self Care Wheelchair Home documented in this encounter ED Notes * Homero Schneider, RN - 02/14/2014 0855 EDT Mom called looking for test results and reports child is not feeling better and will f/u with PMD * Verito Sharif RN - 02/12/2014 0034 EDT DC instructions and starter pack reviewed with pt and mother. Verbalized understanding, denies questions. Pt dc'd to home in stable condition with mother. * Verito Sharif RN - 02/12/[address] Govea notified of pt temp. No new orders. OK to DC home. * Omar Govea MD - 02/11/2014 2325 EDT DOS: 02/11/2014 Chief Complaint Patient presents with ??? Fever pt arrives to triage with family who report pt was sent home from school today with a fever of 102F. pt started with a sore throat this AM. pt also vomiting, has been unable to keep anything down. Dry heaving in triage. The patient is a 13 y.o. female who presents today with Fever HPI Comments: I, Teodoro Mayer, am scribing for Dr. Govea while he/she is personally performing theservice. Teodoro Mayer 02/11/2014 23:26 I performed a history and exam of Mariama Jarvis and discussed the case with the resident, Dontae Mayo. I reviewed this individual's note and I concur with the documented findings and plan of care. The patient is a 13 y.o. female who presents for fevers. The patient has past medical history significant for prior hospitalization for dehydration secondary to GI illness. This morning the patient woke up with sore throat. At 12:00 she developed fevers up to 102.7. She was given tylenol and took a nap. The patient woke up later and developed nausea and vomiting. The patient was vomiting for 2 hours before developing dry retching. Tylenol did not improve sore throat but did improve fevers. No aggravating factors, no radiation of pain. The patient is complaining of associated abdominal pain and headaches. The patient denies having cough, congestion, rhinorrhea. Sick contacts present at school. Fever Associated symptoms: headaches, nausea, sore throat and vomiting Associated symptoms: no congestion, no cough and no rhinorrhea The history is provided by the patient and the mother. Review of Systems Constitutional: Positive for fever. HENT: Positive for sore throat. Negative for congestion and rhinorrhea. Respiratory: Negative for cough. Gastrointestinal: Positive for nausea, vomiting and abdominal pain. Neurological: Positive for headaches. History reviewed. No pertinent past medical history. History reviewed. No pertinent past surgical history. No Known Allergies History Substance Use Topics ??? Smoking status: Never Smoker ??? Smokeless tobacco: Not on file ??? Alcohol Use: Not on file History reviewed. No pertinent family history. Vital Signs Vitals Reassessment?: Yes Temp: 39.6 ??C (103.3 ??F) Temp src: Oral Pulse: 111 Resp: 20 SpO2: 100 % BP: 113/58 mmHg BP Device: BP Machine Patient Position: Sitting BP Cuff Location: Left arm O2 Device: None (Room air) Physical Exam Nursing note and vitals reviewed. Constitutional: She appears well-developed and well-nourished. No distress. HENT: Mouth/Throat: Mucous membranes are moist. No tonsillar exudate. Oropharynx is clear. Posterior oropharyngeal erythema. Cardiovascular: Normal rate and regular rhythm. Neurological: She is alert. Skin: She is not diaphoretic. Radiology orders: None Imaging Results None Procedures ED Course: A medical screening exam was performed. Improved with zofran Tolerated PO. Strept culture obtained. Discussed pros/cons starting abx and mother prefers wait for culture resutls Follow up PCP. Prior to discharge usual and customary precautions were reviewed with the patient and/or family including follow-up instructions and reasons to return to the Emergency Department if condition worsens, does not improve as expected, or other new concerns arise. I, Omar Govea MD, have utilized a scribe to help in the preparation of this note. I have reviewed and agree with the scribe's note and I have made modifications as necessary. Disposition: Discharged The patient's pain was managed to an adequate level weighing risk vs. benefit of further medications. Upon departure from the Emergency Department, the patient's pain was 2 on a zero to ten scale. Condition at departure from the Emergency Department: Improved ED Current Prescriptions None MDM Number of Diagnoses or Management Options Sore throat: Diagnosis management comments: 3 Amount and/or Complexity of Data Reviewed Clinical lab tests: ordered Obtain history from someone other than the patient: yes Patient Progress Patient progress: improved Final diagnoses: Sore throat PCP: Lashonda Powell MD 02/12/2014 8:00 No flowsheet data found. * Verito Sharif RN - 02/11/2014 2315 EDT Report received from CHRISTINA Coleman. Assumed care of pt. * Dontae Mayo MD - 02/11/2014 2311 EDT [facility] ED Note Mariama Jarvis 2000 13 y.o. female Today's Date 02/11/2014 CC: vomiting HPI: Mariama Jarvis is a 13 y.o. female with no significant PMH who was sick this morning with sore throat, came home from school at noon with fever to 102.7. She had chicken broth for dinner and started vomiting. She tried some Gatorade but could not keep it down. She continued to vomit, NBNB, for 2 hours, transitioning to dry heaving, and came to the ED for relief. She has been admitted to the hospital once before for dehydration with a GI illness. With this illness she as not had RN, cough, diarrhea, rash, MERAZ. Her father has a URI with ST but no vomiting. No known sick contacts at school. ROS Constitutional: chills, fever, decreased energy, decreased appetite. HEENT: sore throat Resp: neg CV: neg GI: vomiting, neg for diarrhea : neg MSK: neg Neuro: neg Heme: neg Skin: no rash PMH: No past medical history on file. Physical Exam: BP 107/69 Pulse 95 Temp(Src) 36.4 ??C (97.5 ??F) (Tympanic) Resp 16 Wt 45.813 kg (101 lb) SpO2 100% General: Well-developed, well-nourished. Appears uncomfortable in ER bed wrapped in jacket and blanket. HEENT: Normocephalic/atraumatic. PERRLA, EOMI. External canals clear, TMs normal, no fluid in middle ears bilaterally. Nares patent, no crusting or discharge. Tacky. No tonsillar exudate. Erythematous OP. Neck: Supple without lymphadenopathy. Full ROM. Lungs: CTAB, good aeration, no increased WOB. Cardiac: RRR, normal S1/S2, no murmurs, rubs, or gallops. Distal pulses 2+, brisk cap refill. Abdomen: S/NT/ND, bowel sounds normal, no masses or organomegaly. /Rectal: deferred Extremities: Warm and well perfused without clubbing, cyanosis, or edema. Musculoskeletal: Normal bulk and tone. Moves all extremities symmetrically, full ROM. Skin: Warm and dry. No rashes, jaundice, or lesions. Neuro: Awake, alert, moving all extremities. Labs: No results found for this or any previous visit (from the past 4 hour(s)). Imaging: none Assessment/Plan: 13 yo generally healthy female presenting with fever and vomiting. Will need intervention to cease vomiting and be able to take PO. Given 4 mg sublingual Zofran. May have Strep throat but scores 2 onCentor (unlikely). Culture sent. PO challenged. Discharged to home. Will call if culture positive. Phone number in chart. Dontae Mayo MD MPH Pediatrics, PGY-3 PCP: Lashonda Powell MD documented in this encounter Plan of Treatment Not on file documented as of this encounter Procedures Procedure Name Priority Date/Time Associated Diagnosis Comments GROUP A STREP CULTURE Routine 02/11/2014 23:48 EDT documented in this encounter Results * PHARYNGITIS CULTURE (02/11/2014 23:48 EDT) Specimen Description Throat [facility] Result No group A beta streptococci isolated. Usual eliza-pharyngeal santiago. [facility] Report Status 02/14/2014 Final [facility] Specimen of unknown material (specimen) ENTIRE THROAT / Unknown 02/11/2014 23:48 EDT 02/12/2014 8:01 EDT Dontae Mayo MD MICROBIOLOGY - GENER AL ORDERABLES Performing Organization Address City/State/[facility] Co de Phone Number [facility] [address] [place] [address] documented in this encounter Visit Diagnoses Diagnosis Sore throat- Primary Acute pharyngitis documented in this encounter Administered Medications Inactive Administered Medications - up to 3 most recent administrations Medication Order MAR Action Action Date Dose Rate Site ibuprofen (ADVIL;MOTRIN) suspension 400 mg 400 mg, oral, NOW X1, 1 dose, On 02/12/14 at 0015, STAT Given 02/12/2014 0:20 EDT 400 mg ondansetron (ZOFRAN-ODT) disintegrating tablet 4 mg 4 mg, oral, NOW X1, 1 dose, On 02/11/14 at 2315, STAT Given 02/11/2014 23:31 EDT 4 mg ondansetron 4 mg ODT tab STARTER PACK 1 Package, oral, NOW X1, 1 dose, On 02/12/14 at 0000, STAT Given 02/12/2014 0:19 EDT 1 Package documented in this encounter Active and Recently Administered Medications Times are shown in EDT. Scheduled Medication Order 02/10/2014 02/11/2014 02/12/2014 ibuprofen (ADVIL;MOTRIN) suspension 400 mg (COMPLETED) 400 mg, oral, NOW X1, 1 dose, On 02/12/14 at 0015, STAT 0020 (Given - Provid er: Steacy L Suddaby, RN) ondansetron (ZOFRAN-ODT) disintegrating tablet 4 mg (COMPLETED) 4 mg, oral, NOW X1, 1 dose, On 02/11/14 at 2315, STAT 2331 (Given - Provider: Verito Sharif RN) ondansetron 4 mg ODT tab STARTER PACK (COMPLETED) 1 Package, oral, NOW X1, 1 dose, On 02/12/14 at 0000, STAT 0019 (Given - Provid er: Verito Sharif RN) documented in this encounter Care Teams Rate And Cost Analyst Relationship Specialty Start Date End Date Lashonda Almodovar MD [address] [place] [address] PCP - General 02/11/14 documented as of this encounter
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
--- OUTSIDE RECORDS SUMMARY | 2024-01-12 11:36 | XMS_ITS | Encounter Summary ---
Author Organization [facility] [place] [address] Care Team Providers Care Metaphysicist Name Role Phone Markos Brewer DNP Primary Care Provider [phone] Encounter Details Date Type Department Care Team (Latest Contact Info) Description 10/20/2019 4:00 PM EDT TH Visit (TeleHealth) Psychiatry [place] [address] Gisselle Hauser, PhD Depression, unspecified depression type; AWILDA (generalized anxiety disorder) Social History Tobacco Use Types Packs/Day Years Used Date Smoking Tobacco: Never Assessed Sex and Gender Information Value Date Recorded Sex Assigned at Not on file Gender Identity Not on file Sexual Orientation Not on file documented as of this encounter Progress Notes * Gisselle Hauser, PhD - 10/20/2019 4:00 PM EDT INDIVIDUAL THERAPY PROGRESS NOTE [id number] ?? Location:?[place]?Time Spent:??60??minutes ? SUBJECTIVE: ?? Chief Complaint and Diagnosis:??Pt is a 19 year old female with depression and anxiety that interferes with her interpersonal and academic functioning. ?? Interval History:??Pt reported that her mood has improved and she is excited about getting a new puppy soon. Pt also reported that the DBT skills have been helpful for her.?? OBJECTIVE: ?? Patient's verbal /interpersonal exchanges with this short story writer:??Pt was responsive to this short story writer's questions and she was engaged in the session.? Interventions and patient's responses:??Pt processed her thoughts and feelings about her progress. This short story writer introduced??the second set of DBT distress tolerance skills, and Pt demonstrated an understanding of these skills. This short story writer also discussed the importance of Pt's using the DBT??mindfulness??skills in conjunction with the distress tolerance skills, and she demonstrated an understandingof this information. Pt completed the homework assignment. ?? Pertinent [...] Lexapro, prescribed by Dr. Burns, psychiatrist at [facility]. ?? PLAN: Revised Goals: 1) Improve emotion regulation; and 2) Establish healthy boundaries? No change in estimated length of treatment. ?? Safety Risk Management:??Pt did not report any??thoughts of , suicidal thoughts or suicidal ideation in the session. Pt did not report any homicidal ideation in the session. Pt??did not report any thoughts of self-harm??or??self-harm in??the session.??In the 09/21/19 session, this short story writer assisted Pt and Pt's parents [...] the mindfulness skills as well as the distress tolerance skills. Pt's parent(s) plan to reinforce Pt's use of these DBT skills.? Patient Instruction/Education Provided:??They plan to follow up with this short story writer for family therapy. ?? Attendees understand the plan???Yes. documented in this encounter Plan of Treatment Not on file documented as of this encounter Visit Diagnoses Diagnosis Depression, unspecified depression type AWILDA (generalized anxiety disorder) Generalized anxiety disorder documented in this encounter Care Teams Metaphysicist Relationship Specialty Start Date End Date Markos Brewer DNP PCP - General Family Medicine 07/08/19 08/31/23 documented as of this encounter
[2024-01-12] MEDS: Ketorolac 15 MG/ML VIAL IM (12:34)
[2024-01-12] MEDS: Dexamethasone 10 MG/ML VIAL PO (12:34)
--- NOTE | 2024-01-12 12:50 | DI.RAD_ITS ---
Exam(s) XR ELBOW RT COMPLETE EXAM: XR ELBOW RT COMPLETE CLINICAL HISTORY: atraumatic elbow pain, swelling. TECHNIQUE: 2D digital imaging was performed. COMPARISON: No exams were available for comparison FINDINGS: Four views No evidence of obvious fracture but there is a prominent joint effusion noted. No swelling of the ol ecranon bursa. No evidence of osteochondral defect. No evidence of epicondylitis. Some subcutaneou s soft tissue stranding is noted on the medial aspect of the elbow and lower arm. There is no radiop aque foreign body. IMPRESSION: No fracture evident. However, there is a prominent joint effusion noted. In setting of trauma this may indicate an occult fracture. Other possibilities include septic joint. Correlation with history recommended here. Discussed with ER physician DATA REPOSITORY: RADIATION DOSE DELIVERED:
--- NOTE | 2024-01-12 13:53 | W.ED.GENAD ---
Discharge Plan Disposition Patient Disposition: Home Condition: Improving Discharge Details Clinical Impression: Effusion of elbow joint Primary Care Provider: Robbi Warren ED Provider: Robbi Warren Home Meds and New Rx's Prescriptions: New doxycycline hyclate 100 mg capsule 100 mg PO BID 28 Days Qty: 56 0RF prednisone 20 mg tablet 20 mg PO DAILY 3 Days Qty: 3 0RF No Action escitalopram oxalate [Lexapro] 20 mg tablet 20 mg PO DAILY albuterol sulfate 90 mcg/actuation HFA aerosol inhaler 2 puff inhalation Q6H PRN (Reason: shortness of breath or wheezing) Qty: 8.5 0RF (DME) Aerochamber MV Spacer See Rx Instructions .Route Qty: 1 0RF Rx Instructions: As directed ibuprofen 200 mg Capsule 200 mg PO PRN PRN buspirone 10 mg Tablet 10 mg PO HS Discharge Instructions Instructions: Arthrocentesis, Swollen Joints Additional Instructions: Please followup closely with orthopedic team and your primary care doctor. We are starting you on doxycyline to treat potential lyme arthritis. We are starting you on a short course of prednisone to treat inflammation. Please return to the emergency department for any worsening symptoms or poor healing. If your tests come back as normal, consider discontinuing the doxycycline antibiotic after discussion with orthopedic team and primary care Stand Alone Forms: Work Release HPI General Date/Time Provider Initiated Documentation: 01/12/24 11:52. HPI Narrative: 23-year-old female presents with atraumatic right elbow pain over the last week, was diagnosed with tendinitis given a special wrap and sling had some initial improvement however worsening symptoms over the last couple of days worsening swelling and pain decreased range of motion. Denies fevers chills sweats nausea or other systemic signs of illness. Patient does endorse a remote history of MRSA bacteremia after sustaining an injury to her foot in 2019 treated with antibiotics. Related Data Home Medications ?Medication ?Instructions ?Recorded ?Confirmed ibuprofen 200 mg capsule 200 mg PO PRN PRN 10/05/18 01/12/24 buspirone 10 mg tablet 10 mg PO HS 12/12/19 01/12/24 albuterol sulfate 90 mcg/actuation 2 puff inhalation Q6H PRN 04/17/23 01/12/24 aerosol inhaler shortness of breath or wheezing #8.5 grams escitalopram oxalate 20 mg tablet 20 mg PO DAILY 04/17/23 01/12/24 (Lexapro) inhalational spacing device #1 ea 04/17/23 01/12/24 (Aerochamber MV spacer) doxycycline hyclate 100 mg capsule 100 mg PO BID 28 days #56 caps 01/12/24 prednisone 20 mg tablet 20 mg PO DAILY 3 days #3 tabs 01/12/24 Previous Rx's ?Medication ?Instructions ?Recorded albuterol sulfate 90 mcg/actuation 2 puff inhalation Q6H PRN 04/17/23 aerosol inhaler shortness of breath or wheezing #8.5 grams inhalational spacing device #1 ea 04/17/23 (Aerochamber MV spacer) doxycycline hyclate 100 mg capsule 100 mg PO BID 28 days #56 caps 01/12/24 prednisone 20 mg tablet 20 mg PO DAILY 3 days #3 tabs 01/12/24 Allergies Allergy/AdvReac Type Severity Reaction Status Date / Time No Known Allergies Allergy Unverified 01/06/24 09:20 General Stated Complaint: Orthopedic FIONA: 4 Exam Narrative Exam Narrative: alert oriented resting comfortably, no acute distress normal speech, tolerating secretions, no respiratory distress large joint effusion to right elbow, no bursitis, very poor range of motion, holding elbow flexed at 90 degrees due to pain, slight warmth, no erythema or induration, medial radial and ulnar nerve distribution intac, full range of fingers, wrist and shoulder, soft compartment Course Vital Signs Vital signs: Vital Signs Temperature 36.8 C 01/12/24 11:19 Pulse 57 L 01/12/24 11:19 Respiratory Rate 16 01/12/24 11:19 Blood Pressure 120/75 01/12/24 11:19 Pulse Oximetry 98 01/12/24 11:19 Temperature 36.8 C 01/12/24 11:19 Pulse 57 L 01/12/24 11:19 Respiratory Rate 16 01/12/24 11:19 Respiratory Effort Normal 01/12/24 11:22 Blood Pressure 120/75 01/12/24 11:19 Pulse Oximetry 98 01/12/24 11:19 Pain Level 8 01/12/24 13:48 Lab/Test Results Lab/Test Results: 01/12/24 13:28 Blood Blood Culture - Pending 01/12/24 13:28 Blood Blood Culture - Pending Procedures Joint Aspiration/Injection Joint Asp./Inject. 1: Time Out Performed: Yes Side of body: right Joint Aspirated: elbow Ultrasound Guidance: No Skin Prep: Chlorhexidene Local Anesthetic: other anesthetic (LET) Needle Size Used: 22G Fluid Obtained: turbid Total fluid obtained (mL): 30 Patient Tolerated Procedure: well Complications: none Additional Comments: cloudy yellow synovial fluid, 30 cc removed; neurovascular exam intact post procedure Procedural Sedation ASA Class: I Preparation: cardiac cath lab manager applied, pulse oximeter, suction/airway equipment at bedside and IV secured Patient Tolerated Procedure: well Complications: none Additional Comments: IV lorazepam 0.5mg for sedation and anxiolysis Medical Decision Making 23-year-old female presents with atraumatic right elbow pain over the last week, was diagnosed with tendinitis given a special wrap and sling had some initial improvement however worsening symptoms over the last couple of days worsening swelling and pain decreased range of motion. Denies fevers chills sweats nausea or other systemic signs of illness. Patient does endorse a remote history of MRSA bacteremia after sustaining an injury to her foot in 2019 treated with antibiotics. Large joint effusion to right elbow, no bursitis, very poor range of motion, holding elbow flexed at 90 degrees due to pain, slight warmth, no erythema or induration, medial radial and ulnar nerve distribution intac, full range of fingers, wrist and shoulder, soft compartment. Must consider septic joint v inflammatory arthritis v crystal arthropathy v Lyme arthritis, lower suspicion for hemarthrosis given atraumatic, lower suspicion for tendonitis given hx and physical, exam not consistent with bursitis. Xray showing large effusion without fracture, labs obtained, no leukocytosis, relatively normal inflammatory markers, however given severe range of motion limitations arthrocentis was performed revealing cloudy yellow synovial fluid, approx 30 cc removed. Pending results of gram stain, culture, cell coutn, crystals, LDH, protein, tick panel sent; contacted Dr. Chávez of orthopedic surgery who will advise pending results of synovial fluid; patient resting comfortably currently, neurovascular exam intact post arthrocentesis 17:20 range of motion greatly improved after arthrocentesis; resting comfortably no acute distress, back to baseline post ativan. Dr Chávez to follow up synovial results and contact patient for further treatment as need. Will start empiric doxy to cover for possible Lyme in interim given regional prevalence; home care and strict return precautions given Quality:SDOH Health Related Social Needs: No Data to Display PFSH All Active Problems (Updated 01/12/24 @ 17:23 by Robbi Warren MD) Effusion of elbow joint (Acute) Postural orthostatic tachycardia syndrome (Acute) Shoulder pain, right (Acute) Seizure-like activity (Acute) Hypermobile joints (Acute) Spells of decreased attentiveness (Acute) Migraine headache (Chronic) Menorrhagia with irregular cycle (Acute) given h/o migraine w/ aura need to consider alternatives to the common OCPs - pt may be interested in the nexplenon Dysmenorrhea in adolescent (Chronic) Well adolescent visit without abnormal findings (Acute 08/13/16) Routine child health exam (Acute 07/28/12) Epistaxis (Acute 06/17/16) Depression with anxiety (Acute 09/26/17) BMI (body mass index), pediatric, 5% to less than 85% for age (Acute 08/10/15) Attention deficit hyperactivity disorder (Acute 07/28/12) Medical History Migraine Depression Anxiety ADHD Surgical History S/P arthroscopy of shoulder bilateral ORAL SURGERY Family History Mother Healthy adult on routine physical examination Anxiety Father Healthy adult on routine physical examination Brother Healthy adult on routine physical examination Social History Smoking/Tobacco Use Status: Current every day Tobacco Type: e-cigarettes Smoking risk assessment performed?: Yes Alcohol Intake: current Alcohol Intake frequency: holidays/special occasions only Drug use: Never Substance use type: marijuana Details: daily mj use Housing: apartment Do you feel safe at home: Yes Do you feel safe in your relationship?: Yes
[2024-01-12 14:08] LABS: Abs Immature Grans 0.01 10^3/uL (0.0-0.06); Absolute Basophil Count 0.04 10^3/uL (0.0-0.2); Absolute Eosinophil Count 0.13 10^3/uL (0.0-0.7); Absolute Lymphocyte Count 1.48 10^3/uL (1.2-3.4); Absolute Monocyte Count 0.43 10^3/uL (0.1-0.8); Absolute Neutrophil Count 5.25 10^3/uL (1.2-6.7); Basophils % 0.5 %; Eosinophils % 1.8 %; HCT 39.3 % (36.0-46.0); HGB 13.1 g/dL (11.2-15.7); Immature Grans % 0.1 %; Lymphocytes % 20.2 %; MCH 31.4 pg (27.0-33.0); MCHC 33.3 % (32.0-36.0); MCV 94 fL (80-95); MPV 10.2 fL (8.0-11.0); Monocytes % 5.9 %; Neutrophils % 71.5 %; Platelet Count 279 10^3/uL (130-400); RBC 4.17 10^6/uL (3.93-5.22); RDW 12.6 % (11.7-14.6); RDW-SD 43.6 fL; WBC 7.34 10^3/uL (4.4-10.8)
[2024-01-12 14:10] LABS: ESR 7 mm/hr (0-20)
[2024-01-12 14:31] LABS: ALT 21 U/L (14-59); AST 14 U/L (15-37); Albumin 4.6 g/dL (3.4-5.0); Alkaline Phosphatase 75 U/L (46-116); Anion Gap 9.5 mmol/L (3-11); BUN 16 mg/dL (7-18); Bilirubin, Total 1.11 mg/dL (0.2-1.0); CO2 27.5 mmol/L (21.0-32.0); CREATININE 0.7 mg/dL (0.55-1.02); Calcium 9.6 mg/dL (8.5-10.1); Chloride 102 mmol/L (98-107); Estimated GFR 126.11 (mL/min/1.73m2); Glucose 85 mg/dL (74-106); Potassium 3.7 mmol/L (3.5-5.1); Sodium 139 mmol/L (136-145); Total Protein 8.4 g/dL (6.4-8.2)
[2024-01-12 14:48] LABS: Procalcitonin < 0.1 ng/mL
[2024-01-12] MEDS: Lidocaine/Epinephri/Tetracaine Topical Gel 3 ML TP (15:47)
[2024-01-12] MEDS: LORazepam 2 MG/ML VIAL 0.5 MG IVP (15:47)
[2024-01-12 17:24] LABS: Clarity Cloudy; Mononuclear Cells 17 %; Polynuclear Cells 83 %
[2024-01-12 18:08] LABS: Crystals (BF) No Crystals seen
[2024-01-14 09:09] LABS: Lyme Ab w Rflx to Lyme Confirm Negative (Negative)
[2024-01-14 16:03] LABS: Lactate Dehydrogenase (LD), BF 626 U/L
[2024-01-14 16:48] LABS: Protein,Total, BF 5.8 g/dL
[2024-01-16 14:14] LABS: Anaplasma phagocytophilum Negative (Negative); B. miyamotoi PCR Negative (Negative); Babesia divergens/MO-1 Negative (Negative); Babesia duncani Negative (Negative); Babesia microti Negative (Negative); Ehrlichia chaffeensis Negative (Negative); Ehrlichia ewingii/canis Negative (Negative); Ehrlichia muris eauclairensis Negative (Negative)
== END 2024-01-12 17:52 | disposition home or self-care (01) ==
PROVIDERS: Emergency Provider Emergency Medicine; PCP Emergency Medicine
DX: M25.521 Pain in right elbow (principal); M25.421 Effusion, right elbow; F17.290 Nicotine dependence, other tobacco product, uncomplicated
CPT/HCPCS: 20605; 36415; 80053; 84145; 85652; 87040; 87798; 96372; 96374; 99284; 73080; 83615; 84157; 85025; 86140; 86618; 87070; 87205; 89051; 89060; J1100; J1885; J2060

== ENCOUNTER 2024-01-15 07:56 | Emergency (ER) | payer BC, SELFPAY ==
[2024-01-15 08:04] VITALS: BP 125/85; PULSE 75; RESP 15; TEMP 36.4; O2SAT 99
--- NOTE | 2024-01-15 09:30 | DI.MRI_ITS ---
Exam(s) MR UPPER JOINT RT WO EXAM: MR UPPER JOINT RT WO CLINICAL HISTORY: effusion. TECHNIQUE: Multiplanar multisequence MRI was performed. COMPARISON: Plain films 12 January 2024 FINDINGS: Elbow joint: A large joint effusion is present. No loose bodies. Bones: There is no fracture or contusion pattern. Biceps tendon: Intact. No tendinosis. Brachialis tendon: Intact. No tendinosis. Common flexor tendons: Intact. No tendinosis. Common extensor tendons: Intact. No tendinosis. Soft tissues: Mild edema in the subcutaneous fat at the level of the elbow joint.. IMPRESSION: Large joint effusion. No bony abnormality. No tendon tear or tendinitis. DATA REPOSITORY:
[2024-01-15 09:56] LABS: Abs Immature Grans 0.03 10^3/uL (0.0-0.06); Absolute Basophil Count 0.04 10^3/uL (0.0-0.2); Absolute Eosinophil Count 0.03 10^3/uL (0.0-0.7); Absolute Lymphocyte Count 0.97 10^3/uL (1.2-3.4); Absolute Monocyte Count 0.45 10^3/uL (0.1-0.8); Absolute Neutrophil Count 7.04 10^3/uL (1.2-6.7); Basophils % 0.5 %; Eosinophils % 0.4 %; HCT 38.7 % (36.0-46.0); HGB 12.5 g/dL (11.2-15.7); Immature Grans % 0.4 %; Lymphocytes % 11.3 %; MCH 31.2 pg (27.0-33.0); MCHC 32.3 % (32.0-36.0); MCV 97 fL (80-95); MPV 9.6 fL (8.0-11.0); Monocytes % 5.3 %; Neutrophils % 82.1 %; Platelet Count 260 10^3/uL (130-400); RBC 4.01 10^6/uL (3.93-5.22); RDW 12.3 % (11.7-14.6); RDW-SD 44.2 fL; WBC 8.56 10^3/uL (4.4-10.8)
[2024-01-15 09:57] LABS: ESR 4 mm/hr (0-20)
--- NOTE | 2024-01-15 10:05 | NUR.NOTE ---
Nursing Note:This RN received report and transfer of care from Isabela Burrell RN at this time
--- NOTE | 2024-01-15 10:26 | W.ORTHOCONSU ---
Date of service: 01/15/24 Time of Service: 12:30 Assessment and Plan Assessment and plan (1) Effusion of elbow joint, right: Status: Acute Assessment and plan: 23-year-old female with large right elbow effusion due to unknown cause, probably reactive or autoimmune arthritis. Significant time spent reviewing chart, examining, and discussing with patient and her father. Brief summary here. Atraumatic right elbow effusion and limited range of motion. Urgent care initially braced for tendinitis. Emergency room subsequently with aspiration cell count high at 56,000, but left shift only 83%, with normal infectious inflammatory markers. Now about 2 weeks later Floyd presents to the emergency room due to persistent elbow swelling and discomfort. Mild to moderate limited extension and flexion. Relatively comfortable at rest. Repeat WBC ESR and CRP all perfectly normal today. Was started on doxycycline and steroids after last visit although Lyme testing is negative and neither has provided much relief. Medical and family history negative for rheumatologic disease although father has had numerous joints replaced and patient has hypermobility diagnosis. Right elbow exam largely reassuring. No erythema or warmth. Quite comfortable at rest. Modestly restricted range of motion although absolutely no short arc discomfort with active or passive motion. Aspiration cultures remain negative, follow-up final Lyme disease and tick results, consider continuing doxycycline in the meanwhile. May probably discontinue steroids as there has been no clear benefit for complete current course. MRI done in the emergency room shows a large effusion with some synovitis but no structural abnormalities, no injuries, no infection loose body necrotic material or synovial disease. Previous only done x-rays were normal except for the effusion anteriorly and posteriorly as well. Reviewed with patient, father, and emergency room provider. Recommend rheumatoid labs: YUAN, rheumatoid factor, and CCP. Consider gonorrhea testing. Follow-up with primary care doctor in about 1 week. Discussed potential future utility of right elbow diagnostic arthroscopy with synovial biopsy to obtain tissue diagnosis if necessary in the future for this problem. Separate orthopedic follow-up will be arranged depending on results of additional lab work. Consider referral to retail field merchandiser. Really not consistent with acute septic arthritis. PFSH All Active Problems (Updated 01/15/24 @ 12:46 by Micah Strong MD) Effusion of elbow joint, right (Acute) Effusion of elbow joint (Acute) Postural orthostatic tachycardia syndrome (Acute) Shoulder pain, right (Acute) Seizure-like activity (Acute) Hypermobile joints (Acute) Spells of decreased attentiveness (Acute) Migraine headache (Chronic) Menorrhagia with irregular cycle (Acute) given h/o migraine w/ aura need to consider alternatives to the common OCPs - pt may be interested in the nexplenon Dysmenorrhea in adolescent (Chronic) Well adolescent visit without abnormal findings (Acute 08/13/16) Routine child health exam (Acute 07/28/12) Epistaxis (Acute 06/17/16) Depression with anxiety (Acute 09/26/17) BMI (body mass index), pediatric, 5% to less than 85% for age (Acute 08/10/15) Attention deficit hyperactivity disorder (Acute 07/28/12) Medical History Migraine Depression Anxiety ADHD Surgical History S/P arthroscopy of shoulder bilateral ORAL SURGERY Family History Mother Healthy adult on routine physical examination Anxiety Father Healthy adult on routine physical examination Brother Healthy adult on routine physical examination Social History Smoking/Tobacco Use Status: Current every day Tobacco Type: e-cigarettes Smoking risk assessment performed?: Yes Alcohol Intake: current Alcohol Intake frequency: holidays/special occasions only Drug use: Never Substance use type: marijuana Details: daily mj use Housing: apartment Do you feel safe at home: Yes Do you feel safe in your relationship?: Yes Results Last Vital Signs Temp 97.6 F 01/15/24 08:04 Pulse 75 01/15/24 08:04 Resp 15 01/15/24 08:04 BP 125/85 01/15/24 08:04 Pulse Ox 99 01/15/24 08:04 Labs 01/15/24 09:48 01/15/24 09:48 Labs: Laboratory Results - last 24 hr 01/15/24 09:48 WBC 8.56 RBC 4.01 Hgb 12.5 Hct 38.7 MCV 97 H MCH 31.2 MCHC 32.3 RDW 12.3 Plt Count 260 MPV 9.6 Immature Gran % 0.4 Neutrophils % 82.1 Lymphocytes % 11.3 Monocytes % 5.3 Eosinophils % 0.4 Basophils % 0.5 Nucleated RBC % 0.0 Absolute Neutrophils 7.04 H Absolute Lymphocytes 0.97 L Absolute Monocytes 0.45 Absolute Eosinophils 0.03 Absolute Basophils 0.04 ESR 4
[2024-01-15 10:27] LABS: ALT 21 U/L (14-59); AST 10 U/L (15-37); Alkaline Phosphatase 69 U/L (46-116); Anion Gap 8.2 mmol/L (3-11); BUN 16 mg/dL (7-18); Bilirubin, Total 0.52 mg/dL (0.2-1.0); CO2 28.8 mmol/L (21.0-32.0); CREATININE 0.8 mg/dL (0.55-1.02); Calcium 9.3 mg/dL (8.5-10.1); Chloride 103 mmol/L (98-107); Estimated GFR 107.44 (mL/min/1.73m2); Glucose 79 mg/dL (74-106); Potassium 3.6 mmol/L (3.5-5.1); Sodium 140 mmol/L (136-145); Total Protein 7.8 g/dL (6.4-8.2)
[2024-01-15 10:28] LABS: C-Reactive Protein < 0.50 mg/dL (<or=0.5)
--- NOTE | 2024-01-15 10:45 | W.ED.GENAD ---
Discharge Plan Disposition Patient Disposition: Home Discharge Details Clinical Impression: Effusion of right elbow Primary Care Provider: Robbi Warren ED Provider: Meme Leon Home Meds and New Rx's Prescriptions: Continued escitalopram oxalate [Lexapro] 20 mg tablet 20 mg PO DAILY albuterol sulfate 90 mcg/actuation HFA aerosol inhaler 2 puff inhalation Q6H PRN (Reason: shortness of breath or wheezing) Qty: 8.5 0RF (DME) Aerochamber MV Spacer See Rx Instructions .Route Qty: 1 0RF Rx Instructions: As directed ibuprofen 200 mg Capsule 200 mg PO PRN PRN buspirone 10 mg Tablet 10 mg PO HS doxycycline hyclate 100 mg capsule 100 mg PO BID 28 Days Qty: 56 0RF Discharge Instructions Instructions: Swollen Joints Additional Instructions: continue on doxycycline f/u with your doctor tomorrow to schedule an appointment within the next week Use elbow as tolerated Ibuprofen and Tylenol as needed for pain With redness, fever, or with any new or worsening complaints please return We will call you regarding your test results if they are abnormal Stand Alone Forms: Work Release Referrals: Micah Strong MD [ [facility] STAFF PHYSICIAN] - HPI General Date/Time Provider Initiated Documentation: 01/15/24 08:00. HPI Narrative: This 23-year-old female presents 2 days after being evaluated for an elbow effusion. No overlying erythema or warmth. Being treated with prednisone and Doxy empirically after aspiration and cultures being sent 2 days prior to her reassessment today. Denies any fever or chills. States pain is returned post arthrocentesis despite taking prednisone and doxycycline. Related Data Home Medications ?Medication ?Instructions ?Recorded ?Confirmed ibuprofen 200 mg capsule 200 mg PO PRN PRN 10/05/18 01/15/24 buspirone 10 mg tablet 10 mg PO HS 12/12/19 01/15/24 albuterol sulfate 90 mcg/actuation 2 puff inhalation Q6H PRN 04/17/23 01/15/24 aerosol inhaler shortness of breath or wheezing #8.5 grams escitalopram oxalate 20 mg tablet 20 mg PO DAILY 04/17/23 01/15/24 (Lexapro) inhalational spacing device #1 ea 04/17/23 01/15/24 (Aerochamber MV spacer) doxycycline hyclate 100 mg capsule 100 mg PO BID 28 days #56 caps 01/12/24 01/15/24 Previous Rx's ?Medication ?Instructions ?Recorded albuterol sulfate 90 mcg/actuation 2 puff inhalation Q6H PRN 04/17/23 aerosol inhaler shortness of breath or wheezing #8.5 grams inhalational spacing device #1 ea 04/17/23 (Aerochamber MV spacer) doxycycline hyclate 100 mg capsule 100 mg PO BID 28 days #56 caps 01/12/24 Allergies Allergy/AdvReac Type Severity Reaction Status Date / Time No Known Allergies Allergy Unverified 01/15/24 08:09 General Stated Complaint: Orthopedic FIONA: 3 Exam Narrative Exam Narrative: 23-year-old female with right elbow pain, mildly diminished extension of her elbow, no overlying erythema or warmth, effusion palpated on assessment, neurovascularly intact without any evidence of prior trauma, no lymphangitis or overlying cellulitis Course Vital Signs Vital signs: Vital Signs Temperature 36.4 C 01/15/24 08:04 Pulse 75 01/15/24 08:04 Respiratory Rate 15 01/15/24 08:04 Blood Pressure 125/85 01/15/24 08:04 Pulse Oximetry 99 01/15/24 08:04 Temperature 36.4 C 01/15/24 08:04 Temperature Source Temporal Artery Scan 01/15/24 08:04 Pulse 75 01/15/24 08:04 Respiratory Rate 15 01/15/24 08:04 Respiratory Effort Normal 01/15/24 08:08 Blood Pressure 125/85 01/15/24 08:04 Blood Pressure Position Sitting 01/15/24 08:04 Pulse Oximetry 99 01/15/24 08:04 Oxygen Delivery Method Room Air 01/15/24 08:04 Oxygen Flow Rate 0 01/15/24 08:04 Pain Level 9 01/15/24 08:04 Lab/Test Results Lab/Test Results: Laboratory Tests Range/Units 01/15/24 09:48 WBC (4.4-10.8) 10^3/uL 8.56 RBC (3.93-5.22) 10^6/uL 4.01 Hgb (11.2-15.7) g/dL 12.5 Hct (36.0-46.0) % 38.7 MCV (80-95) fL 97 H MCH (27.0-33.0) pg 31.2 MCHC (32.0-36.0) % 32.3 RDW (11.7-14.6) % 12.3 Plt Count (130-400) 10^3/uL 260 MPV (8.0-11.0) fL 9.6 Immature Gran % % 0.4 Neutrophils % % 82.1 Lymphocytes % % 11.3 Monocytes % % 5.3 Eosinophils % % 0.4 Basophils % % 0.5 Nucleated RBC % (0.0-0.3) % 0.0 Absolute Neutrophils (1.2-6.7) 10^3/uL 7.04 H Absolute Lymphocytes (1.2-3.4) 10^3/uL 0.97 L Absolute Monocytes (0.1-0.8) 10^3/uL 0.45 Absolute Eosinophils (0.0-0.7) 10^3/uL 0.03 Absolute Basophils (0.0-0.2) 10^3/uL 0.04 ESR (0-20) mm/hr 4 Sodium (136-145) mmol/L 140 Potassium (3.5-5.1) mmol/L 3.6 Chloride (98-107) mmol/L 103 Carbon Dioxide (21.0-32.0) mmol/L 28.8 Anion Gap (3-11) mmol/L 8.2 BUN (7-18) mg/dL 16 Creatinine (0.55-1.02) mg/dL 0.8 Est GFR (CKD-EPI 2020) (mL/min/1.73m2) 107.44 Glucose (74-106) mg/dL 79 Calcium (8.5-10.1) mg/dL 9.3 Total Bilirubin (0.2-1.0) mg/dL 0.52 AST (15-37) U/L 10 L ALT (14-59) U/L 21 Alkaline Phosphatase (46-116) U/L 69 C-Reactive Protein (<or=0.5) mg/dL < 0.50 Total Protein (6.4-8.2) g/dL 7.8 Albumin (3.4-5.0) g/dL 4.0 Medical Decision Making 23-year-old female in no acute distress, right elbow with documented effusion on x-ray 2 days prior to arrival currently taking prednisone and doxycycline pending tick panel. Cultures of synovial fluid negative for infectious etiology without any overt evidence of cellulitis. Case is discussed with Dr. Strong and Christophera recommendation for MRI and diagnostic blood work. Blood work is reassuring. I did order rheumatoid panel for further evaluation. Patient will continue the doxycycline until tick panel returns and follow-up with orthopedics next week. She is discharged home in stable condition with stable vitals. Work note supplied. I reviewed all labs and note from assessment in the emergency room 2 days prior to arrival. Quality:SDOH Health Related Social Needs: No Data to Display [facility] All Active Problems (Updated 01/15/24 @ 12:46 by Micah Strong MD) Effusion of elbow joint, right (Acute) Effusion of elbow joint (Acute) Postural orthostatic tachycardia syndrome (Acute) Shoulder pain, right (Acute) Seizure-like activity (Acute) Hypermobile joints (Acute) Spells of decreased attentiveness (Acute) Migraine headache (Chronic) Menorrhagia with irregular cycle (Acute) given h/o migraine w/ aura need to consider alternatives to the common OCPs - pt may be interested in the nexplenon Dysmenorrhea in adolescent (Chronic) Well adolescent visit without abnormal findings (Acute 08/13/16) Routine child health exam (Acute 07/28/12) Epistaxis (Acute 06/17/16) Depression with anxiety (Acute 09/26/17) BMI (body mass index), pediatric, 5% to less than 85% for age (Acute 08/10/15) Attention deficit hyperactivity disorder (Acute 07/28/12) Medical History Migraine Depression Anxiety ADHD Surgical History S/P arthroscopy of shoulder bilateral ORAL SURGERY Family History Mother Healthy adult on routine physical examination Anxiety Father Healthy adult on routine physical examination Brother Healthy adult on routine physical examination Social History Smoking/Tobacco Use Status: Current every day Tobacco Type: e-cigarettes Smoking risk assessment performed?: Yes Alcohol Intake: current Alcohol Intake frequency: holidays/special occasions only Drug use: Never Substance use type: marijuana Details: daily mj use Housing: apartment Do you feel safe at home: Yes Do you feel safe in your relationship?: Yes
[2024-01-15 10:56] VITALS: BP 137/75; PULSE 61; TEMP 36.1; O2SAT 99
[2024-01-15 22:41] LABS: Rheumatoid Factor <8.6 IU/mL (<12.0)
[2024-01-16 09:32] LABS: Cyclic Citrullinated Peptide <2.5 U/mL (<5.0)
[2024-01-16 15:20] LABS: ANA Interpretation Negative (Negative)
== END 2024-01-15 13:00 | disposition home or self-care (01) ==
PROVIDERS: Emergency Provider Physician Assistant; PCP Emergency Medicine
DX: M25.421 Effusion, right elbow (principal)
CPT/HCPCS: 80053; 85652; 86200; 87491; 87591; 99284; 73221; 85025; 86038; 86140; 86431

== ENCOUNTER 2024-01-17 19:53 | Emergency (ER) | payer BC, SELFPAY ==
[2024-01-17 19:55] VITALS: BP 127/87; PULSE 90; RESP 16; TEMP 36.7; O2SAT 98
--- OUTSIDE RECORDS SUMMARY | 2024-01-17 19:59 | XMS_ITS | Encounter Summary ---
Author Organization [facility] [place] [address] Care Team Providers Care Wildlife Enforcement Major Name Role Phone Markos Brewer DNP Primary Care Provider [phone] Encounter Details Date Type Department Care Team (Latest Contact Info) Description 09/22/2019 4:00 PM EDT TH Visit (TeleHealth) Psychiatry and [place]al [place] [address] Gisselle Hauser, PhD Depression, unspecified depression type; [...] 4:00 PM EDT FAMILY THERAPY PROGRESS NOTE [id number] ?? Location:?[place]?Time Spent:??60minutes ?? Attendee(s):?Pt, Pt's mother [...] progress in using the TIPP skills. This leader writer reinforced the importance of Pt continuing to use the TIPP skills each night to prevent emotional outbursts. This leader writer introduced??more DBT mindfulness skills, and Pt [...] Buspar, prescribed by Dr. Burns, psychiatrist at [facility]. ?? PLAN: Revised Goals: 1) Improve [...] last session. In the 09/21/19 session, this leader writer assisted Pt and Pt's parents in [...] Provided:??They plan to follow up with this leader writer for family therapy. ?? Attendees understand the plan???Yes. documented in this encounter Plan of Treatment Not on file documented as of this encounter Visit Diagnoses Diagnosis Depression, unspecified depression type Anxiety Anxiety state, unspecified documented in this encounter Care Teams Wildlife Enforcement Major Relationship Specialty Start Date End Date Markos Brewer DNP PCP - General Family Medicine 07/08/19 08/31/23 documented as of this encounter
--- OUTSIDE RECORDS SUMMARY | 2024-01-17 19:59 | XMS_ITS | Encounter Summary ---
[place] [address] Care Team Providers Care Exit Booth Agent Name Role Phone Lashonda Almodovar MD Primary Care Provider [phone] Encounter Details Date Type Department Care Team (Late st Contact Info) Description 06/15/2019 Telephone Psychiatry and [place] [address] Lea Trujillo Social History Tobacco Use Types [...] of DBT therapists in her local area. [facility] stated that she already found a DBT therapist for this patient today in [place], [place]. [facility] stated she does not need any other assistance at this time. documented in this encounter Plan of Treatment Not on file documented as of this encounter Visit Diagnoses Not on filedocumented in this encounter Care Teams Exit Booth Agent Relationship Specialty Start Date End Date Lashonda Almodovar MD [address] [place] [address] [place] [address] PCP - General 04/10/10 07/07/19 documented as of this encounter
--- OUTSIDE RECORDS SUMMARY | 2024-01-17 19:59 | XMS_ITS | Encounter Summary ---
Author Organization [facility] [place] [address] Care Team Providers Care Hris Manager Name Role Phone Laura Henriquez APRN Primary Care Provider [phone] Reason for Referral * Consultation (Routine) - Closed Specialty Diagnoses / Procedures Referred By Jelly che Referred To Contact Dermatology Diagnoses Generalized hyperhidrosis Laura Henriquez APRN [address] [place] [address] [facility] [address] [place] [address] Referral ID Status Reason Start Date Expiration Date V isits Requested Visits Authorized [id number] Closed Consult, Test & Treat PCP Updated and/or Approved 09/01/2023 08/31/2024 1 1 Encounter Details Date Type Department Care Team (Latest Contact Info) Description 09/01/2023 Transcribe Orders eDH Incoming Referrals [phone] Laura Henriquez APRN [address] [place], [place] [id number] Generalized hyperhidrosis Social History Tobacco Use Types [...] hyperhidrosis documented in this encounter Care Teams Hris Manager Relationship Specialty Start Date End Date Laura Henriquez [place] [address] PCP - General Family Medicine 09/01/23 documented as of this encounter
--- OUTSIDE RECORDS SUMMARY | 2024-01-17 19:59 | XMS_ITS | Encounter Summary ---
Author Organization [facility] Address [facility] [place] [address] Care Team Providers Care Soldering Machine Operator Helper Name Role Phone Laura Henriquez APRN Primary Care Provider [phone] Reason for Visit * Reason Onset Date Comments Medication Refill 01/09/2024 Encounter Details Date Type Department Care Team (Late st Contact Info) Description 01/09/2024 Refill Dermatology at [address] [address] Marcelo Galarza MD [facility] DR [facility]OM[place] [address] Hyperhidrosis Social History Tobacco Use Types Packs/Day [...] hyperhidrosis documented in this encounter Care Teams Soldering Machine Operator Helper Relationship Specialty Start Date End Date Laura Henriquez APRN [address] [place] [address] PCP - General Family Medicine 09/01/23 documented as of this encounter
--- OUTSIDE RECORDS SUMMARY | 2024-01-17 19:59 | XMS_ITS | Encounter Summary ---
Author Organization [facility] Address [facility] [place] [address] Care Team Providers Care Direct Mail Manager Name Role Phone Markos Brewer DNP Primary Care Provider [phone] Encounter Details Date Type Department Care Team (Latest Contact Info) Description 10/20/2019 4:00 PM EDT TH Visit (TeleHealth) Psychiatry [place] [address] Gisselle Hauser, PhD Depression, unspecified depression type; [...] 4:00 PM EDT INDIVIDUAL THERAPY PROGRESS NOTE [id number] ?? Location:?[place]?Time Spent:??60??minutes ? SUBJECTIVE: ?? Chief [...] ?? Patient's verbal /interpersonal exchanges with this copy writer:??Pt was responsive to this copy writer's questions and she was engaged in the session.? Interventions and patient's responses:??Pt processed her thoughts and feelings about her progress. This copy writer introduced??the second set of DBT distress tolerance skills, and Pt demonstrated an understanding of these skills. This copy writer also discussed the importance of Pt's [...] Lexapro, prescribed by Dr. Burns, psychiatrist at [facility]. ?? PLAN: Revised Goals: 1) Improve emotion regulation; and 2) Establish healthy boundaries? No change in estimated length of treatment. ?? Safety Risk Management:??Pt did not report any??thoughts of , suicidal thoughts or suicidal ideation in the session. Pt did not report any homicidal ideation in the session. Pt??did not report any thoughts of self-harm??or??self-harm in??the session.??In the 09/21/19 session, this copy writer assisted Pt and Pt's parents [...] Provided:??They plan to follow up with this copy writer for family therapy. ?? Attendees understand the plan???Yes. documented in this encounter Plan of Treatment Not on file documented as of this encounter Visit Diagnoses Diagnosis Depression, unspecified depression type AWILDA (generalized anxiety disorder) Generalized anxiety disorder documented in this encounter Care Teams Direct Mail Manager Relationship Specialty Start Date End Date Markos Brewer DNP PCP - General Family Medicine 07/08/19 08/31/23 documented as of this encounter
--- OUTSIDE RECORDS SUMMARY | 2024-01-17 19:59 | XMS_ITS | Encounter Summary ---
Author Organization [facility] [place] [address] Care Team Providers Care Laminated Plastics Assembler And Gluer Name Role Phone Markos Brewer DNP Primary Care Provider [phone] Encounter Details Date Type Department Care Team (Late st Contact Info) Description 09/13/2019 TH Visit (TeleHealth) Psychiatry [place] [address] Gisselle Hauser, PhD Depression, unspecified depression type; [...] 10:47 AM EDT FAMILY THERAPY PROGRESS NOTE [id number] ?? Location: [facility] Time Spent: 50 minutes ?? Attendee(s): Pt [...] and feelings about her recentemotional outbursts. This consumer loan underwriter introduced more DBT mindfulness concepts and [...] Buspar, prescribed by Dr. Burns, psychiatrist at [facility]. PLAN: Revised Goals: 1) Improve emotion [...] They plan to follow up with this consumer loan underwriter for family therapy. Attendees understand the plan? Yes. documented in this encounter Plan of Treatment Not on file documented as of this encounter Visit Diagnoses Diagnosis Depression, unspecified depression type AWILDA (generalized anxiety disorder) Generalized anxiety disorder documented in this encounter Care Teams Laminated Plastics Assembler And Gluer Relationship Specialty Start Date End Date Markos Brewer DNP PCP - General Family Medicine 07/08/19 08/31/23 documented as of this encounter
--- OUTSIDE RECORDS SUMMARY | 2024-01-17 19:59 | XMS_ITS | Encounter Summary ---
Author Organization [facility] [place] [address] Care Team Providers Care Photoengraving Finisher Name Role Phone Markos Brewer DNP Primary Care Provider [phone] Encounter Details Date Type Department Care Team (Latest Contact Info) Description 12/15/2019 12:00 PM EDT TH Visit (TeleHealth) Psychiatry [place] [address] Gisselle Hauser, PhD AWILDA (generalized anxiety disorder); [...] 12/15/2019 12:00 PM EDT INDIVIDUAL??THERAPY PROGRESS NOTE [id number] ?? Location:?Video? Time Spent:??40??minutes ? SUBJECTIVE: ?? [...] OBJECTIVE: ?? Patient's verbal /interpersonal exchanges with??this adjusto writer operator:??Pt??was responsive to this adjusto writer operator's questions and she was engaged in the session.? Interventions and patient's??responses:??Pt processed her thoughts and feelings about??the incidentwith the marijuana.??This adjusto writer operator educated Pt about the harmful consequences of marijuana use and Ptreported that she will never smoke it again. Pt also reported that her parents have removed all marijuana from her and disposed of it. Pt reported that her parents grounded her and they are making her pay the ED bill, and Pt reported that she agrees with these consequences. This adjusto writer operator reinforcedPt's use of the DBT skills, and [...] prescribed by Dr. Burns, psychiatrist at [facility]. After the 12/15/19 session, this adjusto writer operator sent Dr. Burns a Staff Message to [...] self-harm??or??self-harm in??the session.??In the 09/21/19 session, this adjusto writer operator assisted Pt and Pt's parents in developing [...] Instruction/Education Provided:??Pt plans??to follow up with this adjusto writer operator for therapy. ?? Attendee(s)??understand the plan???Yes. documented in this encounter Plan of Treatment Not on file documented as of this encounter Visit Diagnoses Diagnosis AWILDA (generalized anxiety disorder) Generalized anxiety disorder Depression, unspecified depression type documented in this encounter Care Teams Photoengraving Finisher Relationship Specialty Start Date End Date Markos Brewer DNP PCP - General Family Medicine 07/08/19 08/31/23 documented as of this encounter
--- OUTSIDE RECORDS SUMMARY | 2024-01-17 19:59 | XMS_ITS | Encounter Summary ---
Author [facility] [place] [address] Care Team Providers Care Chart Picker Name Role Phone Laura Henriquez APRN Primary Care Provider [phone] Encounter Details Date Type Department Care Team [...] on filedocumented in this encounter Care Teams Chart Picker Relationship Specialty Start Date End Date Laura Henriquez APRN [place] [address] PCP - General Family Medicine 09/01/23 documented as of this encounter
--- OUTSIDE RECORDS SUMMARY | 2024-01-17 19:59 | XMS_ITS | Encounter Summary ---
[place] [address] Care Team Providers Care Book Reviewer Name Role Phone Lashonda Almodovar MD Primary Care Provider [phone] Reason for Referral * Diagnostic Test (Routine) - Closed Specialty Diagnoses / Procedures Referred By Contac t Referred To Contact Radiology Diagnoses Instability of right shoulder joint Procedures MRI Arthrogram Shoulder Right MRI Shoulder w Contrast Right Kelly Nowak PA [address] [place] [address] [place] [address] Referral ID Status Reason Start Date Expiration Date V isits Requested Visits Authorized [id number] Closed Specialty Service Requested 08/04/2018 10/02/2018 1 1 Reason for Visit * Diagnostic Test (Routine) - Closed Specialty Diagnoses / Procedures Referred By Contac t Referred To Contact Radiology Diagnoses Instability of right shoulder joint Procedures MRI Arthrogram Shoulder Right MRI Shoulder w Contrast Right Kelly Nowak PA [address] [place] [address] [place] [address] Referral ID Status Reason Start Date Expiration Date V isits Requested Visits Authorized [id number] Closed Specialty Service Requested 08/04/2018 10/02/2018 1 1 Encounter Details Date Type Department Care Team (Latest Contact Info) Description 08/13/2018 12:49 PM EDT - 08/13/2018 11:59 PM EDT Hospital Encounter MRI at [facility] [place] [address] Kelly Nowak PA [address] [place] [address] Instability of right shoulder joint Discharge Disposition: [...] the number below. ? Electronically signed by: Melissa Morales [facility] ([phone]), at 08/13/2018 2:45 PM Narrative 08/13/2018 2:45 PM EDT EXAMINATION: MRI [...] please contact the number below. Kelly [facility] MRI ORDERABLES documented in this encounter Visit Diagnoses Diagnosis Instability of right shoulder joint Other joint derangement, not elsewhere classified, shoulder region documented in this encounter Care Teams Book Reviewer Relationship Specialty Start Date End Date Lashonda Almodovar MD [address] [place] [address] PCP - General 04/10/10 07/07/19 documented as of this encounter
--- OUTSIDE RECORDS SUMMARY | 2024-01-17 19:59 | XMS_ITS | Encounter Summary ---
Author Organization [facility] [place] [address] Care Team Providers Care Ear Mold Laboratory Technician Name Role Phone Markos Brewer DNP Primary Care Provider [phone] Encounter Details Date Type Department Care Team (Latest Contact Info) Description 09/21/2019 9:00 AM EDT TH Visit (TeleHealth) Psychiatry [place] [address] Gisselle Hauser, PhD Depression, unspecified depression type; [...] 9:00 AM EDT FAMILY THERAPY PROGRESS NOTE [id number] ?? Location:?[place]?Time Spent:??45minutes ?? Attendee(s):?Pt, Pt's mother [...] feelings about her recent emotional outburst. This news writer introduced the DBT crisis survival skills, and [...] Buspar, prescribed by Dr. Burns, psychiatrist at [facility]. PLAN: Revised Goals: 1) Improve emotion [...] emotional outburst. In the 09/21/19 session, this news writer assisted Pt and Pt's parents in [...] local ED for a psychiatric evaluation. This news writer also contacted Pt's psychiatrist on , Dr. Burns, to let him know that Pt needs to be seen for a medication consultation and he agreed to see Pt this . ?? Assigned Homework:??Pt plans to use the TIPP skills and eliminate exposure to potential triggers toprevent emotional outbursts.?? Patient Instruction/Education Provided:??They plan to follow up with this news writer for family therapy. Attendees understand the plan???Yes. documented in this encounter Plan of Treatment Not on file documented as of this encounter Visit Diagnoses Diagnosis Depression, unspecified depression type AWILDA (generalized anxiety disorder) Generalized anxiety disorder documented in this encounter Care Teams Ear Mold Laboratory Technician Relationship Specialty Start Date End Date Markos Brewer DNP PCP - General Family Medicine 07/08/19 08/31/23 documented as of this encounter
--- OUTSIDE RECORDS SUMMARY | 2024-01-17 19:59 | XMS_ITS | Encounter Summary ---
Author Organization [facility] [place] [address] Care Team Providers Care Binder Coverstitch Name Role Phone Markos Brewer DNP Primary Care Provider [phone] Encounter Details Date Type Department Care Team (Latest Contact Info) Description 04/26/2020 2:00 PM EST TH Visit (TeleHealth) Psychiatry [place] [address] Gisselle Hauser, PhD AWILDA (generalized anxiety disorder); [...] 04/26/2020 2:00 PM EST INDIVIDUAL??THERAPY PROGRESS NOTE [id number] ?? Location:?Video? Time Spent:??30??minutes ? SUBJECTIVE: ?? Chief Complaint and Diagnosis:??Pt is an??20??year old female with depression and anxiety that interferes with her interpersonal and academic functioning. ?? Interval History:?Pt reported??that??she has been eating healthy and has not purged since the last therapy session. Pt reported that she is no longer failing any classes.? OBJECTIVE: ?? Patient's verbal /interpersonal exchanges with??this senior grant writer:??Pt??was responsive to this senior grant writer's questions and she was engaged in the session.? Interventions and patient's??responses:??Pt processed her thoughts and feelings about??her progress. This senior grant writer reinforced Pt's use of the??DBT skills, and [...] of Lexapro, prescribed by ??Lisa??Chhaya, psychiatrist at [facility].??Pt is making progress in successfully using her coping skills and her mood has improved as a result of using these skills. 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 PLAN: Revised Goals: 1) maintain emotion regulation; and 2) maintain healthy boundaries? No change in estimated length of treatment. ?? Safety Risk Management:??Pt did not report any??thoughts of ,??suicidal thoughts, or suicidal ideation in the session. Pt did not report any homicidal ideation in the session. Pt??did not reportany thoughts of self-harm??or??self-harm in??the session.??In the 09/21/19 session, this senior grant writer assisted Pt and Pt's parents in [...] a follow up appointment scheduled with this senior grant writer. ?? Attendee(s)??understand the plan???Yes. documented in this encounter Plan of Treatment Not on file documented as of this encounter Visit Diagnoses Diagnosis AWILDA (generalized anxiety disorder) Generalized anxiety disorder Depression, unspecified depression type documented in this encounter Care Teams Binder Coverstitch Relationship Specialty Start Date End Date Markos Brewer DNP PCP - General Family Medicine 07/08/19 08/31/23 documented as of this encounter
--- OUTSIDE RECORDS SUMMARY | 2024-01-17 19:59 | XMS_ITS | Encounter Summary ---
Author Organization [facility] [place] [address] Care Team Providers Care Director Federal Name Role Phone Markos Brewer DNP Primary Care Provider [phone] Encounter Details Date Type Department Care Team (Latest Contact Info) Description 02/15/2020 4:00 PM EDT TH Visit (TeleHealth) Psychiatry [place] [address] Gisselle Hauser, PhD AWILDA (generalized anxiety disorder); [...] 02/15/2020 4:00 PM EDT INDIVIDUAL??THERAPY PROGRESS NOTE [id number] ?? Location:?Video? Time Spent:??50??minutes ? SUBJECTIVE: ?? [...] OBJECTIVE: ?? Patient's verbal /interpersonal exchanges with??this video games storywriter:??Pt??was responsive to this video games storywriter's questions and she was engaged in the session.? 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 This video games storywriter educated Pt on the harmful consequences of bulimia and Pt demonstrated an understanding of this information. This writeralso encouraged Pt to use the DBT distress tolerance skills to reduce and eliminate urges to vomit after meals, and Pt agreed. This video games storywriter reinforced Pt's use of the??mindfulness,??distress tolerance, and [...] prescribed by Dr. Sigifredo Burns, psychiatrist at [facility].??Pt is making progress in successfully using her coping skills and her mood has improved as a result of using these skills. 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 In the 02/15/20 session, Pt disclosed bulimia symptoms and this video games storywriter sent Dr. Burns a Staff Message in [employer] about Pt's symptoms (e.g., includingthe voice that tells Pt to get rid of food) after the session and requested for him to contact Pt's parent(s) to schedule an appointment to review Pt's medication and per Pt's request, this video games storywriter requested for Dr. Burns to enter a referral for Pt to see a hospice consultant at [facility]. ?? PLAN: Revised Goals: 1) Improve emotion regulation; and 2) Establish healthy boundaries? No change in estimated length of treatment. ?? Safety Risk Management:??Pt did not report any??thoughts of ,??suicidal thoughts or suicidal ideation in the session. Pt did not report any homicidal ideation in the session. Pt??did not report any thoughts of self-harm??or??self-harm in??the session.??In the 09/21/19 session, this video games storywriter assisted Pt and Pt's parents in developing [...] a follow up appointment scheduled with this video games storywriter. ?? Attendee(s)??understand the plan???Yes. documented in this encounter Plan of Treatment Not on file documented as of this encounter Visit Diagnoses Diagnosis AWILDA (generalized anxiety disorder) Generalized anxiety disorder Depression, unspecified depression type documented in this encounter Care Teams Director Federal Relationship Specialty Start Date End Date Markos Brewer DNP PCP - General Family Medicine 07/08/19 08/31/23 documented as of this encounter
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
--- OUTSIDE RECORDS SUMMARY | 2024-01-17 19:59 | XMS_ITS | Encounter Summary ---
Author Organization [facility] [place] [address] Care Team Providers Care Supervisor Water Softener Service Name Role Phone Markos Brewer DNP Primary Care Provider [phone] Encounter Details Date Type Department Care Team (Latest Contact Info) Description 09/13/2019 9:00 AM EDT TH Visit (TeleHealth) Psychiatry [place] [address] Gisselle Hauser, PhD AWILDA (generalized anxiety disorder); [...] encounter and includes the same progress note. [id number] ?? Location:?[place]?Time Spent:??50minutes ?? Attendee(s):?Pt and Pt's [...] feelings about her recent emotional outbursts. This sign writer hand introduced more DBT mindfulness concepts and Pt [...] Buspar, prescribed by Dr. Burns, psychiatrist at [facility]. PLAN: Revised Goals: 1) Improve emotion [...] Provided:??They plan to follow up with this sign writer hand for family therapy. Attendees understand the plan???Yes. documented in this encounter Plan of Treatment Not on file documented as of this encounter Visit Diagnoses Diagnosis AWILDA (generalized anxiety disorder) Generalized anxiety disorder Depression, unspecified depression type documented in this encounter Care Teams Supervisor Water Softener Service Relationship Specialty Start Date End Date Markos Brewer DNP PCP - General Family Medicine 07/08/19 08/31/23 documented as of this encounter
--- OUTSIDE RECORDS SUMMARY | 2024-01-17 19:59 | XMS_ITS | Encounter Summary ---
Author Organization [facility] Address [facility] [place] [address] Care Team Providers Care Fpga Design Engineer Name Role Phone Markos Brewer ROSA M Primary Care Provider [phone] Reason for Referral * Psychiatric (Routine) - Closed Specialty Diagnoses / Procedures Referred By Jelly che Referred To Contact Psychiatry Diagnoses AWILDA (generalized anxiety disorder) Sigifredo Burns MD [facility] [address] [place] [address] Mikhail Ray, PhD [facility] [place] [address] Referral ID Status Reason Start Date Expiration Date V isits Requested Visits Authorized [id number] Closed Consult, Test & Treat 06/14/2019 06/13/2020 1 1 Encounter Details Date Type Department Care Team (Late st Contact Info) Description 06/14/2019 Orders Only Psychiatry [place] [phone] Sigifredo Burns MD [facility] [place] [address] [place] [address] AWILDA (generalized anxiety disorder) (Primary Dx) Social [...] disorder documented in this encounter Care Teams Fpga Design Engineer Relationship Specialty Start Date End Date Markos Brewer DNP PCP - General Family Medicine 07/08/19 08/31/23 documented as of this encounter
--- OUTSIDE RECORDS SUMMARY | 2024-01-17 19:59 | XMS_ITS | Encounter Summary ---
Author Organization [facility] Address [facility] [place] [address] Care Team Providers Care Mill Manager Name Role Phone Laura Henriquez APRN Primary Care Provider [phone] Reason for Visit * Consultation (Routine) - Closed Specialty Diagnoses / Procedures Referred By Jelly che Referred To Contact Dermatology Diagnoses Generalized hyperhidrosis Laura Henriquez APRN [address] [place] [address] [facility] Dermatology [address] [place] [address] Referral ID Status Reason Start Date Expiration Date V isits Requested Visits Authorized [id number] Closed Consult, Test & Treat PCP Updated and/or Approved 09/01/2023 08/31/2024 1 1 Encounter Details Date Type Department Care Team (Latest Contact Info) Description 10/31/2023 10:40 AM EDT Office Visit Dermatology at [facility] [address] [place] [address] Sukhdev Avila MD [facility] [place] [address] Hyperhidrosis (Primary Dx) Social History [...] relevant family history N Social History Occupation: [employer] Hobbies: outside Other: here w/ Mother PRE-PROCEDURE [...] 2/3 months for Hyperhidrosis []Note routed to medical records secretary []Recall placed in scheduling system [x]Appointment scheduled at checkout Scribe attestation: Negar Adler [facility] has performed the documentation for this encounter inthe presence of and acting as a scribe for Sukhdev Avila MD. I performed the above scribed service and agree with the accuracy of the documentation in this encounter. Reviewed and signed by: Sukhdev Avila MD Dermatology [facility] Staff boat detailer: Porsha Sanchez MD Dermatology [facility] * Porsha Sanchez MD - 10/31/2023 10:40 AM EDT I was the supervising physician working with the Dermatology resident, Sukhdev Avila MD, in the care of this Dermatology patient in person. For the purposes of billing, the resident provided the care. I have reviewed the encounter note details and level of service. PORSHA SANCHEZ MD Staff Russet Repairer Department of Dermatology [facility] documented in this encounter Plan of Treatment Not on file documented as of this encounter Visit Diagnoses Diagnosis Hyperhidrosis- Primary Primary focal hyperhidrosis documented in this encounter Care Teams Mill Manager Relationship Specialty Start Date End Date Laura Henriquez, LUIS [facility] [place] [address] PCP - General Family Medicine 09/01/23 documented as of this encounter
--- OUTSIDE RECORDS SUMMARY | 2024-01-17 19:59 | XMS_ITS | Encounter Summary ---
Author Organization [facility] Address [facility] [place] [address] Care Team Providers Care Planer Setter Name Role Phone Markos Brewer DNP Primary Care Provider [phone] Encounter Details Date Type Department Care Team (Late st Contact Info) Description 02/18/2020 9:00 AM EDT TH Visit (TeleHealth) Psychiatry [place] [address] Art Woodard MD [facility] [place] [address] AWILDA (generalized anxiety disorder) Social History Tobacco [...] and ADOLESCENT PSYCHIATRY TELEHEALTH VISIT NOTE (CPT 04815, 51785, 78787) [facility] 02/18/2020 Patient Name: Mariama Jarvis : 2000 Age: 20 y.o. Address: [facility] [address] Legal Guardian: parents Primary Care Provider: Markos [...] visit. During this visit she was located [facility]. Mariama Jarvis is aware that for any urgent matter she can call [phone]. Mariama and the family report the following: Mariama is a 19 year old female with a h/o ADHD, anxiety, and learning disability, presenting in follow up. 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 Mariama lives in [facility] [place] [address] with her mom, dad, and 20 yr old brother. Peer Relationships: Spends time with boyfriend and another close friend. School History: School: [employer] Grade: Going into senior year 504/IEP: 504 ?? Extracurriculars: Works at a [email or web address] ?? Trauma/Abuse History and Significant Life Stressors: [...] appropriate volume and prosody. Language fluent in Tunisian. Mood: morestable. Affect mood congruent, bright, good [...] have encouraged Mariama to engage with a firm administrator to work on improving her eating habits, [...] ?? Recommended to start treatment with a vegetable vendor. Provided names of Yara Vega (preferred), Sarina [...] this visit the family was located in [place]. Psychiatric Medication Provider: [facility] PGY3 [facility] Adoles[facility] Psychiatry [facility], Art [...] and working with an eating disorder specialized vegetable vendor. Plan: 1. Will increase escitalopram to 15mg [...] 4. Strongly recommended establishing care with a vegetable vendor with expertise in eating disorder. Provided the names of several skilled dieticians in the area. 5. Additional parental resources provided including recommended books and websites. 6. Follow-up in 3-4 weeks. This visit was notable for interactive complexity due to high reactivity and family disagreement. CPT code (11133). documented in this encounter Miscellaneous Notes * Addendum Note - Manisha Shaver MD - 02/18/2020 9:00 AM EDTAddended by: MANISHA SHAVER on: 02/28/2020 11:11 AM Modules accepted: Level of Service documented in this encounter Plan of Treatment Not on file documented as of this encounter Visit Diagnoses Diagnosis AWILDA (generalized anxiety disorder) Generalized anxiety disorder documented in this encounter Care Teams Planer Setter Relationship Specialty Start Date End Date Markos Brewer DNP PCP - General Family Medicine 07/08/19 08/31/23 documented as of this encounter
--- OUTSIDE RECORDS SUMMARY | 2024-01-17 19:59 | XMS_ITS | Referral Summary ---
Author Organization [facility] Address [address] [place] [address] Care Team Providers Care Wheat Cleaner Name Role Phone Scooby Powell MD, Lashonda Primary Care Provider [phone] Encounters Date Type Department Care Team Description 01/15/2024 Lab Requisition [facility] Pathology & Laboratory [address] [address] Outr Resulting Lab, Provider 01/13/2024 Lab Requisition [facility] Pathology & Laboratory [address] [address] Outr Resulting Lab, Provider 11/21/2023 Lab Requisition [facility] Pathology Laboratory [address] [address] Laura Henriquez FNP Encounter for screening for human papillomavirus (HPV); Encounter for screening for malignant neoplasm of cervix; Encounter for general adult medical examination without abnormal findings 11/19/2023 Lab Requisition [facility] Pathology Laboratory [address] [address] Outr Resulting Lab, Provider from Last 3 [...] Procedure Name Priority Date/Time Associated Diagnosis Comments RHEUMATOID FACTOR Routine 01/15/2024 12: 55 EDT ANTI NUCLEAR AB (YUAN), IFA Routine 01/15/2024 12:55 EDT CCP ANTIBODIES Routine 01/15/2024 12:55 EDT LYME AB Routine 01/12/2024 13:41 EDT PAP TEST Today 11/19/2023 10:20 EDT Encounter for screening for human papillomavirus (HPV) Encounter for screening for malignant neoplasm of cervix Encounter for general adult medical examination without abnormal findings CHLAMYDIA/N. GONORRHOEAE AMPLIFIED NUCLEIC ACID, THINPREP Routine 11/19/2023 10:20 EDT from Last 3 Months Results * CCP ANTIBODIES (01/15/2024 12:55 EDT) CCP Antibodies <2.5 <5.0 U/mL 01/16/2024 9:27 EDT [facility] Blood VENOUS BLOOD / Unknown 01/15/2024 12:55 EDT 01/15/2024 22:05 EDT Provider Outr Resulting Lab IMMUNOLOGY A ND SEROLOGY ORDERABLES Performing Organization Address [facility] Co de Phone Number [facility] [address], [place] [id number] * RHEUMATOID FACTOR (01/15/2024 12:55 EDT) Pathologist [facility] Rheumatoid Factor <8.6 <12.0 IU/mL 01/15/2024 22:37 EDT [facility] Blood VENOUS BLOOD / Unknown 01/15/2024 12:55 EDT 01/15/2024 22:05 EDT Provider Outr Resulting Lab CHEMISTRY & BLOOD GAS ORDERABLES Performing Organization Address [facility] Co de Phone Number [facility] [address] [place] [address] * ANTI NUCLEAR AB (YUAN), IFA (01/15/2024 12:55 EDT) [facility] YUAN Interpretation Negative Negative 2023 15:15 EDT [facility] Comment:No titer performed, YUAN Screen is negative. Blood VENOUS BLOOD / Unknown 01/15/2024 12:55 EDT 01/15/2024 22:05 EDT Narrative [facility] - 01/16/2024 15:15 EDT Results were obtained with the Wedivitefen NOVA Lite HEp-2 YUAN Kit by indirect immunofluorescence. Provider Outr Resulting Lab IMMUNOLOGY A ND SEROLOGY ORDERABLES Performing Organization Address [facility] Co de Phone Number [facility] [address] [place] [address] * LYME AB (01/12/2024 13:41 EDT) Pathologist [facility] Lyme Ab Negative Negative 01/14/2024 9:04 EDT [facility] Blood VENOUS BLOOD / Unknown 01/12/2024 13:41 EDT 01/13/2024 17:53 EDT Provider Outr Resulting Lab IMMUNOLOGY A ND SEROLOGY ORDERABLES Performing Organization Address [facility]/ZIP Co de Phone Number [facility] [address] [place] [address] * PAP TEST (11/19/2023 10:20 EDT) Specimens A. Cervix and/or Endocervix , ThinPrep Imaging System with Manual Evaluation 11/25/2023 12:26 EDT [facility] Specimen Adequacy Satisfactory for Evaluation - transformation zone component present 11/25/2023 12:26 EDT [facility] General Categorization Negative for intraepithelial lesion or malignancy 11/25/2023 12:26 EDT [facility] Attestation . 11/25/2023 12:26 EDT [facility] at 1226 Clinical History See below 11/25/19 12:26 EDT [facility] Performing Lab [facility] 11/25/2023 12:26 EDT [facility] Scanned Images 11/25/2023 12:26 EDT [facility] Pap Test CERVIX UTERI STRUCTURE / Unknown 11/19/2023 10:20 EDT 11/21/2023 13:43 EDT Laura Henriquez DEFENSIVE LINE COACH PATHOLOGY ORDERABLES Performing Organization Address [facility]/ZIP Co de Phone Number [facility] [address] [place] [address] * CHLAMYDIA/N. GONORRHOEAE AMPLIFIED NUCLEIC ACID, THINPREP (11/19/2023 10:20 EDT) Neisseria gonorrhoeae Result Negative Negative 11/20/2023 13:01 EDT [facility] Chlamydia trachomatis Result Negative Negative 11/20/2023 13:01 EDT [facility] Pap Test CERVIX UTERI STRUCTURE / Unknown 11/19/2023 10:20 EDT 11/20/2023 8:47 EDT Provider Outr Resulting Lab MICROBIOLOGY - GENERAL ORDERABLES [facility] [address] [place] [address] from Last 3 Months Care Teams Wheat Cleaner Relationship Specialty Start Date End Date [place] [address] PCP - General 02/11/14
--- OUTSIDE RECORDS SUMMARY | 2024-01-17 19:59 | XMS_ITS | Encounter Summary ---
Author Organization [facility] [place] [address] Care Team Providers Care Time Clock Repairer Name Role Phone Markos Brewer DNP Primary Care Provider [phone] Encounter Details Date Type Department Care Team (Latest Contact Info) Description 02/01/2020 4:00 PM EDT TH Visit (TeleHealth) Psychiatry [place] [address] Gisselle Hauser, PhD AWILDA (generalized anxiety disorder); [...] 02/01/2020 4:00 PM EDT INDIVIDUAL??THERAPY PROGRESS NOTE [id number] ?? Location:?Video? Time Spent:??45??minutes ? SUBJECTIVE: ?? Chief Complaint and Diagnosis:??Pt is a 19 year old female with depression and anxiety that interferes with her interpersonal and academic functioning. ?? 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 Pt reported that she currently enrolled in all virtual classes at her high school with the exception of the cosmetology class that requires in-person attendance. ?? OBJECTIVE: ?? Patient's verbal /interpersonal exchanges with??this advertising writer:??Pt??was responsive to this advertising writer's questions and she was engaged in the session.? Interventions and patient's??responses:??Pt processed her thoughts and feelings about??her progress.??This advertising writer reinforced Pt's use of the??mindfulness, distress tolerance, [...] by Dr. Burns, psychiatrist at [facility].??Pt is making progress in successfully using her coping skills and her mood has improved as a result of using these skills. 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 ?? PLAN: Revised Goals: 1) Improve emotion regulation; and 2) Establish healthy boundaries? No change in estimated length of treatment. ?? Safety Risk Management:??Pt did not report any??thoughts of ,??suicidal thoughts or suicidal ideation in the session. Pt did not report any homicidal ideation in the session. Pt??did not report any thoughts of self-harm??or??self-harm in??the session.??In the 09/21/19 session, this advertising writer assisted Pt and Pt's parents in [...] follow up appointment scheduled with this advertising writer. ?? Attendee(s)??understand the plan???Yes. documented in this encounter Plan of Treatment Not on file documented as of this encounter Visit Diagnoses Diagnosis AWILDA (generalized anxiety disorder) Generalized anxiety disorder Depression, unspecified depression type documented in this encounter Care Teams Time Clock Repairer Relationship Specialty Start Date End Date Markos Brewer DNP PCP - General Family Medicine 07/08/19 08/31/23 documented as of this encounter
--- OUTSIDE RECORDS SUMMARY | 2024-01-17 19:59 | XMS_ITS | Encounter Summary ---
Author Organization [facility] Address [facility] [place] [address] Care Team Providers Care Hearing Healthcare Practitioner Name Role Phone Markos Brewer DNP Primary Care Provider Encounter Details Date Type Department Care Team (Late st Contact Info) Description 07/08/2019 3:30 PM EST Office Visit Psychiatry [place] [address] Sigifredo Burns MD [facility] [place] [address] AWILDA (generalized anxiety disorder) Social History Tobacco [...] and ADOLESCENT PSYCHIATRY OFFICE VISIT NOTE (CPT 73472, 41607, 44182) [facility] 07/08/2019 Patient Name: Mariama Jarvis : 2000 Age: 19 y.o. 4 m.o. Address: [facility] [address] Legal Guardian: parents Primary Care Provider: Markos [...] school after high school. Currently working at [employer] 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 Mariama is not getting as sick anymore. No recent abd pain, nausea, vomiting or syncope. Currently on 504, which is being reviewed currently. Teachers still have Reading scales; will have them faxed to [facility]. Psychometrics reviewed or newly obtained: Awaiting Reading scales from teachers. Review of Systems and [...] None ?? Prior Psychotherapy: [facility] in [place], [place] ?? Prior hospitalizations: [facility] hosp diversion program - two days [...] & Living Situation: ?? Mariama lives in [facility] [facility] [address] with her mom, dad, and 20 yr old brother. Peer Relationships: One friend at school. Also a boyfriend. ?? School History: School: [employer] Grade: 11 504/IEP: 504 ?? Extracurriculars: Works at a [employer] ?? Trauma/Abuse History and Significant Life Stressors: [...] appropriate volume and prosody. Language fluent in Khmer.Mood normal and affect mood congruent with appropriate [...] well. Teachers at the school have the Reading scales, andparents will have them fax the completed forms to [facility], as we continue to consider the possibility [...] disorder documented in this encounter Care Teams Hearing Healthcare Practitioner Relationship Specialty Start Date End Date Markos Brewer DNP PCP - General Family Medicine 07/08/19 08/31/23 documented as of this encounter
--- OUTSIDE RECORDS SUMMARY | 2024-01-17 19:59 | XMS_ITS | Encounter Summary ---
Author Organization [facility] Address [facility] [place] [address] Care Team Providers Care Multicultural Internship Name Role Phone Lashonda Almodovar MD Primary Care Provider [phone] Encounter Details Date Type Department Care Team (Latest Contact Info) Description 08/13/2018 12:46 PM EDT - 08/13/2018 12:48 PM EDT Hospital Encounter XRay at [address] [place] [address] Kelly Nowak PA [address] [place] [address] Instability of right shoulder joint Discharge Disposition: [...] contact the number below. ? Narrative 08/13/2018 3:51 PM EDT HISTORY: ??instability [...] electronic medical record and allergies, as per [facility] protocol. The patient was positioned prone on [...] electronic medical record and allergies, as per [facility] protocol. The patient was positioned prone on [...] please contact the number below. Kelly CEDEÑO IMG FLUORO ORDERABLE S documented [...] EDT documented in this encounter Care Teams Multicultural Internship Relationship Specialty Start Date End Date Lashonad Almodovar MD [address] [place] [address] PCP - General 04/10/10 07/07/19 documented as of this encounter
--- OUTSIDE RECORDS SUMMARY | 2024-01-17 19:59 | XMS_ITS | Encounter Summary ---
Author Organization [facility] Address [facility] [place] [address] Care Team Providers Care Title I Assistant Name Role Phone Markos Brewer DNP Primary Care Provider Reason for Visit * Reason Comments Medication Refill Encounter Details Date Type Department Care Team (Late st Contact Info) Description 04/12/2020 Refill Psychiatry and [place] [address] Sigifredo Burns MD [facility] [place] [address] Social History Tobacco Use Types Packs/Day Years Used Date Smoking Tobacco: Never Assessed Sex and Gender Information Value Date Recorded Sex Assigned at Not on file Gender Identity Not on file Sexual Orientation Not on file documented as of this encounter Plan of Treatment Not on file documented as of this encounter Visit Diagnoses Not on filedocumented in this encounter Care Teams Title I Assistant Relationship Specialty Start Date End Date Markos Brewer DNP PCP - General Family Medicine 07/08/19 08/31/23 documented as of this encounter
--- OUTSIDE RECORDS SUMMARY | 2024-01-17 19:59 | XMS_ITS | Encounter Summary ---
Author Organization Formerly [facility] Address [facility] [place] [address] Care Team Providers Care Precision Mechanical Instrument Maker Name Role Phone Markos Brewer DNP Primary Care Provider [phone] Reason for Visit * Psychiatric (Routine) - Closed Specialty Diagnoses / Procedures Referred By Jelly che Referred To Contact Psychiatry Diagnoses AWILDA (generalized anxiety disorder) Sigifredo Burns MD [facility] [place] [address] Mikhail Ray, PhD [facility] [address] Referral ID Status Reason Start Date Expiration Date V isits Requested Visits Authorized [id number] Closed Consult, Test & Treat 06/14/2019 06/13/2020 1 1 Encounter Details Date Type Department Care Team (Latest Contact Info) Description 09/01/2019 9:00 AM EDT TH Visit (TeleHealth) Psychiatry and Behavioral Health at [place] [phone] Gisselle Hauser, PhD AWILDA (generalized anxiety disorder); [...] - 09/01/2019 9:00 AM EDT DIAGNOSTIC INTERVIEW [id number] THIS NOTE IS ALSO LOCATED IN THE 09/01/19 Unscheduled ENCOUNTER ? Location: [facility] Time Spent: 45 minutes School/Grade: [employer], 11th grade Information Source: Kana (Pt's father), Mahi (Pt's mother) and Pt ?? History of Present Illness: Pt is a 19 year old female with a history of ADHD and current diagnosisof Generalized Anxiety Disorder. Pt's parents reported that Pt was diagnosed with ADHD when she wasabout 9 years old by a pediatric psychiatrist in [place], Dr. Palmira Soler. Pt's parents reported that Pt took Ritalin for the ADHD for 2 years but discontinued because she did not think it was helpful. Pt's parents reported that Pt also received [place] about 2 years, which also reduced [...] the degree that she had pseudo-seizures in [id number] following shoulder surgery and she fainted a few times, felt nauseas, and vomitted. Pt's mother reported that Pt was [place] to a [place] hospital diversion program for pseudo-seizures, self-harm (cutting arms, stomach, and legs), and suicidal thoughts in January 2019 for 1 day. Pt reported thatschool stress precipitated this admission in that peers were calling her mental on social media. Pt saw a DBT therapist, Andrae Garland, in [place], [place] twice for anxiety in Fall 2018. Prior to seeing Andrae, Pt saw Miley Dugan in [place] for a year for anxiety but Pt did not find benefit from the therapy. Pt reported that social functioning is hard because she doesn't have many friends and it is difficult for her to talk in classes because she is concerned the other students will hand kiss setter her. Pt rep orted having difficulty making friends and keeping friends. Pt reported that she thinks her friendsare fake and she buys them food and other things but she does not think her friends are there forher when she needs them. Pt reported having one close friend who she trusts and does not use her.Pt's father reported that she saw Dr. Burns at [facility] in June 2019 for anxiety and heprescribed [...] and off for at least a year, [id number], but Pt reported that she has had [...] years old by a pediatric psychiatrist in [place], Dr. Palmira Soler. Pt's parents reported that Pt took Ritalin for the ADHD for 2 years but discontinued because she did not think this medication was helpful. Pt's parents reported that Pt also received play [place] for about 2 years, beginning at age 9, which also reduced her symptoms. Pt's parents reported that Pt saw Dr. Favian Burns, psychiatrist, at [facility] for anxiety in June 2019 and that he prescribed Pt 10 mgof Buspar, twice per day, but Pt only takes it at night because it makes her tired and dizzy in the morning. Pt saw a DBT therapist, Andrae Garland, in [place], [place] twice for anxiety in Fall 2018. Prior to seeing Andrae, Pt saw Miley Dugan in [place] for a year for anxiety but Pt [...] years old by Palmira Soler, psychiatrist in [place], and Pt took Ritalin for 2 years but discontinued it because she didn't think it worked. Pt's mother reported that Pt also did play therapy for 2 years, beginning at age 9, for the ADHD in [place], which reduced her ADHD symptoms. Pt's mother reported that Pt had an IEP from [employer] through 7th grade for a sensory [...] cut her stomach, arms, and legs from [id number] but she has not had any thoughts [...] interfere with academic and interpersonal functioning. This play writer explained the treatment plan, family-oriented DBT skills training, to Pt andher parents and they agreed to the treatment plan. Pt's parents are supportive of Pt and they are willing to engage in Pt's treatment. Pt's parents reported that Pt currently takes 10 mg of Buspar, prescribed by Dr. Burns, psychiatrist at [facility]. ?? DSM IV Diagnoses: AXIS I Generalized [...] They plan to follow up with this play writer for video-deliveredfamily therapy. ?? Patient understands [...] type documented in this encounter Care Teams Precision Mechanical Instrument Maker Relationship Specialty Start Date End Date Markos Brewer DNP PCP - General Family Medicine 07/08/19 08/31/23 documented as of this encounter
--- OUTSIDE RECORDS SUMMARY | 2024-01-17 19:59 | XMS_ITS | Encounter Summary ---
Author Organization [place] [address] Care Team Providers Care Animal Maintenance Supervisor Name Role Phone Markos Brewer DNP Primary Care Provider [phone]- [phone] Encounter Details Date Type Department Care Team (Latest Contact Info) Description 12/07/2019 1:00 PM EDT TH Visit (TeleHealth) Psychiatry [place] [address] Gisselle Hauser, PhD AWILDA (generalized anxiety disorder); [...] 12/07/2019 1:00 PM EDT INDIVIDUAL??THERAPY PROGRESS NOTE [id number] ?? Location:?[place]? Time Spent:??43??minutes ? SUBJECTIVE: ?? [...] she has continued to adhere to this securities underwriter's recommendations for safety precautions (e.g.,Pt walks her puppy with a parent) since she thinks the person who sent her the disturbing text messagesa few weeks ago might know her home address. ?? OBJECTIVE: ?? Patient's verbal /interpersonal exchanges with??this securities underwriter:??Pt??was responsive to this securities underwriter's questions and she was engaged in the session.? Interventions and patient's??responses:??Pt processed her thoughts and feelings about??a recent stressor and??her progress.??Cognitive restructuring was used to assist Pt with challenging negative thoughts. This securities underwriter reinforced Pt's use of the DBT [...] by Dr. Burns, psychiatrist at [facility]. ?? PLAN: Revised Goals: 1) Improve emotion regulation; and 2) Establish healthy boundaries? No change in estimated length of treatment. ?? Safety Risk Management:??Pt did not report any??thoughts of ,??suicidal thoughts or suicidal ideation in the session. Pt did not report any homicidal ideation in the session. Pt??did not report any thoughts of self-harm??or??self-harm in??the session.??In the 09/21/19 session, this securities underwriter assisted Pt and Pt's parents in [...] her to walk after her shifts. This securities underwriter recommended for Pt to ask her parent(s) to check her calves and ankles for edema and to contact Pt's psychiatrist if they discover any edema, and Pt agreed to this securities underwriter's recommendation. ?? Assigned Homework:??Pt plans to??continue to??use the TIPP skills??as needed,??and??to??practice the mindfulness skills??as well as the distress tolerance skills.??Pt's parent(s)??plan to reinforce Pt's use of these DBT??skills.??Pt also plans to practice the first set of DBT emotion regulation skills, pleasant activities. ? Patient Instruction/Education Provided:??Pt plans??to follow up with this securities underwriter for therapy. ?? Attendee(s)??understand the plan???Yes. documented in this encounter Plan of Treatment Not on file documented as of this encounter Visit Diagnoses Diagnosis AWILDA (generalized anxiety disorder) Generalized anxiety disorder Depression, unspecified depression type documented in this encounter Care Teams Animal Maintenance Supervisor Relationship Specialty Start Date End Date Markos Brewer DNP PCP - General Family Medicine 07/08/19 08/31/23 documented as of this encounter
--- OUTSIDE RECORDS SUMMARY | 2024-01-17 19:59 | XMS_ITS | Encounter Summary ---
Author Organization [facility] [place] [address] Care Team Providers Care Song Writer Name Role Phone Markos Brewer DNP Primary Care Provider [phone] Encounter Details Date Type Department Care Team (Latest Contact Info) Description 10/13/2019 4:00 PM EDT TH Visit (TeleHealth) Psychiatry [place] [address] Gisselle Hauser, PhD AWILDA (generalized anxiety disorder); [...] 4:00 PM EDT FAMILY THERAPY PROGRESS NOTE [id number] ?? Location:?[place]?Time Spent:??60??minutes ?? Attendee(s):?Pt and Pt's [...] they responded well to these interventions. This blog writer introduced??the first set of DBT distress tolerance skills, and Pt demo nstrated an understanding of these skills. This blog writer also discussed the importance of Pt's using the DBT??mindfulness??skills in conjunction with the distress tolerance skills, and they demonstrated an understanding of this information. Pt's??mother demonstrated an understanding of how to reinforce Pt's skill use.??This blog writer reinforced Pt's continued use of the [...] Lexapro, prescribed by Dr. Burns, psychiatrist at [facility]. ?? PLAN: Revised Goals: 1) Improve emotion regulation; and 2) Establish healthy boundaries? No change in estimated length of treatment. ?? Safety Risk Management:??Pt did not report any??suicidal thoughts or suicidal ideation in the session. Pt did not report any homicidal ideation in the session. Pt??did not report any thoughts of self-harm??or??self-harm in??the session.??In the 09/21/19 session, this blog writer assisted Pt and Pt's parents in [...] Provided:??They plan to follow up with this blog writer for family therapy. ?? Attendees understand the plan???Yes. documented in this encounter Plan of Treatment Not on file documented as of this encounter Visit Diagnoses Diagnosis AWILDA (generalized anxiety disorder) Generalized anxiety disorder Depression, unspecified depression type documented in this encounter Care Teams Song Writer Relationship Specialty Start Date End Date Markos Brewer DNP PCP - General Family Medicine 07/08/19 08/31/23 documented as of this encounter
--- OUTSIDE RECORDS SUMMARY | 2024-01-17 19:59 | XMS_ITS | Clinical Summary ---
Author Organization [facility] Address [facility] [place] [address] Care Team Providers Care Hand Fabric Cutter Name Role Phone Laura Henriquez APRN Primary Care Provider [phone] Medications Medication Sig Dispensed Refills Start Date [...] Care Team Description 01/09/2024 Refill Dermatology at [facility] [address] [place] [id number] Marcelo Galarza MD Hyperhidrosis 01/09/2024 Telephone Dermatology at [facility] [address] [place] [phone] Marcelo Galarza MD 01/06/2024 4:00 PM EDT TH Visit (TeleHealth) Dermatology at [facility] [address] [place] [address] Marcelo Gaalrza MD Hyperhidrosis 10/31/2023 10:40 AM EDT Office Visit Dermatology at [facility] [address] [place] [address] Sukhdev Avila MD Hyperhidrosis (Primary Dx) 10/31/2023 [...] - Influenza standard series) 01/18/2024 Care Teams Hand Fabric Cutter Relationship Specialty Start Date End Date [place] [address] PCP - General Family Medicine 09/01/23
--- OUTSIDE RECORDS SUMMARY | 2024-01-17 19:59 | XMS_ITS | Encounter Summary ---
Author Organization [facility] Address [address] [place] [address] Care Team Providers Care Building Maintenance Supervisor Name Role Phone Scooby Powell MD, Lashonda Primary Care Provider [phone] Encounter Details Date Type Department Care Team (Late st Contact Info) Description 01/15/2024 Lab Requisition [facility] Pathology & Laboratory Medicine - [facility] [address] [place] [address] Outr Resulting Lab, Provider Social History Tobacco [...] Procedure Name Priority Date/Time Associated Diagnosis Comments CCP ANTIBODIES Routine 01/15/2024 12:55 EDT RHEUMATOID FACTOR Routine 01/15/2024 12: 55 EDT ANTI NUCLEAR AB (YUAN), IFA Routine 01/15/2024 12:55 EDT documented in this encounter Results * RHEUMATOID FACTOR (01/15/2024 12:55 EDT) Rheumatoid Factor <8.6 <12.0 IU/mL 01/15/2024 22:37 EDT [facility] Blood VENOUS BLOOD / Unknown 01/15/2024 12:55 EDT 01/15/2024 22:05 EDT Provider Outr Resulting Lab CHEMISTRY & BLOOD GAS ORDERABLES Performing Organization Address City/[facility]/ZIP Co de Phone Number [facility] [address] [place] [address] * ANTI NUCLEAR AB (YUAN), IFA (01/15/2024 12:55 EDT) Pathologist [facility] YUAN Interpretation Negative Negative 2023 15:15 EDT [facility] Comment:No titer performed, YUAN Screen is negative. Blood VENOUS BLOOD / Unknown 01/15/2024 12:55 EDT 01/15/2024 22:05 EDT Narrative [facility] - 01/16/2024 15:15 EDT Results were obtained with the [employer] NOVA Lite HEp-2 YUAN Kit by indirect immunofluorescence. Provider Outr Resulting Lab IMMUNOLOGY A ND SEROLOGY ORDERABLES Performing Organization Address [facility] Co de Phone Number [facility] [address] [place] [id number] * CCP ANTIBODIES (01/15/2024 12:55 EDT) Pathologist [facility] CCP Antibodies <2.5 <5.0 U/mL 01/16/2024 9:27 EDT [facility] Blood VENOUS BLOOD / Unknown 01/15/2024 12:55 EDT 01/15/2024 22:05 EDT Provider Outr Resulting Lab IMMUNOLOGY A ND SEROLOGY ORDERABLES Performing Organization Address City/[facility]/ZIP Co de Phone Number [facility] [address], [place] [id number] documented in this encounter Visit Diagnoses Not on filedocumented in this encounter Care Teams Building Maintenance Supervisor Relationship Specialty Start Date End Date Lashonda [place] [address] PCP - General 02/11/14 documented as of this encounter
--- OUTSIDE RECORDS SUMMARY | 2024-01-17 19:59 | XMS_ITS | Encounter Summary ---
Author Organization [facility] [place] [address] Care Team Providers Care Chemist Enzymes Name Role Phone Markos Brewer DNP Primary Care Provider [phone] Encounter Details Date Type Department Care Team (Latest Contact Info) Description 01/04/2020 9:00 AM EDT TH Visit (TeleHealth) Psychiatry [place] [address] Gisselle Hauser, PhD AWILDA (generalized anxiety disorder); [...] 01/04/2020 9:00 AM EDT INDIVIDUAL??THERAPY PROGRESS NOTE [id number] ?? Location:?[place]? Time Spent:??16??minutes ??- Pt had [...] ?? Patient's verbal /interpersonal exchanges with??this video game script writer:??Pt??was responsive to this video game script writer's questions and she was engaged in the session.? Interventions and patient's??responses:??Pt processed her thoughts and feelings about??her progress.??This video game script writer reinforced Pt's use of the mindfulness, [...] Dr. Burns, psychiatrist at [facility].??Pt is making progress in successfully using her [...] in??the session.??In the 09/21/19 session, this video game script writer assisted Pt and Pt's parents [...] Instruction/Education Provided:??Pt plans??to follow up with this video game script writer for therapy next week. ?? Attendee(s)??understand the plan???Yes. documented in this encounter Plan of Treatment Not on file documented as of this encounter Visit Diagnoses Diagnosis AWILDA (generalized anxiety disorder) Generalized anxiety disorder Depression, unspecified depression type documented in this encounter Care Teams Chemist Enzymes Relationship Specialty Start Date End Date Markos Brewer DNP PCP - General Family Medicine 07/08/19 08/31/23 documented as of this encounter
--- OUTSIDE RECORDS SUMMARY | 2024-01-17 19:59 | XMS_ITS | Encounter Summary ---
Author Organization [facility] Address [facility] [place] [address] Care Team Providers Care Sewer Pipe Sorter Name Role Phone Markos Brewer DNP Primary Care Provider Encounter Details Date Type Department Care Team (Late st Contact Info) Description 09/23/2019 1:30 PM EDT TH Visit (TeleHealth) Psychiatry [place] [address] Sigifredo Burns MD [facility] [place] [place] [address] Depression, unspecified depression type Social History Tobacco [...] and ADOLESCENT PSYCHIATRY TELEHEALTH VISIT NOTE (CPT 29239, 12728, 54127) [facility] 09/23/2019 Patient Name: Mariama Jarvis : 2000 Age: 19 y.o. 7 m.o. Address: [facility] [address] Legal Guardian: parents Primary Care Provider: Markos [...] During this visit she was located in [place]. Mariama Jarvis is aware that for any urgent matter she can call [phone]. Mariama and the family report the following: [...] of social isolation during the coronavirus pandemic. Mraiama denies any major changes in sleep patterns, though reports low energy, little motivation, anhedonia, and passive thoughts of being . She denies problems with concentration or attention, and has ebenable to keep up with her school fabric and textile factory worker. She maintains a strong appetite but has [...] a new therapist, Dr. Hauser at [facility], and therapyhas been going well. Mariama reports [...] in increasing suicidal behaviors and admission to [facility] diversion program. Mariama and her mom are open to considering pharmacologic options to target depression before things worsen further. Psychometrics reviewed or newly obtained: Awaiting Calvin scales from teachers. Review of Systems and [...] Prior Psychotherapy: Aysha Landaverde ?? Prior hospitalizations: [facility] diversion program - two days in Jan [...] & Living Situation: ?? Mariama lives in [facility] [address] with her mom, dad, and 20 yr old brother. Peer Relationships: One friend at school--friendship recently dissolved. ?? School History: School: [employer] Grade: 11 504/IEP: 504 ?? Extracurriculars: Works at a [employer] (no longer working due to pandemic) ?? [...] a new therapsit, Dr. Hauser at [facility]. Medical History: Yes none Family Profile & [...] appropriate volume and prosody. Language fluent in Upper Sorbian. Mood has been unhappy, sad, mad and [...] admission to a hospital diversion program at [facility]. We discussed risks and benefits of [...] Interventions ?? Cont with 504 Follow up Calvin scales from teachers once school back in [...] During this visitthe family was located in [place]. Psychiatric Medication Provider: [facility] PGY3 [facility], Sigifredo [...] type documented in this encounter Care Teams Sewer Pipe Sorter Relationship Specialty Start Date End Date Markos Brewer DNP PCP - General Family Medicine 07/08/19 08/31/23 documented as of this encounter
--- OUTSIDE RECORDS SUMMARY | 2024-01-17 19:59 | XMS_ITS | Encounter Summary ---
Author Organization [facility] [place] [address] Care Team Providers Care Railcar Mechanic Name Role Phone Markos Brewer DNP Primary Care Provider [phone] Encounter Details Date Type Department Care Team (Latest Contact Info) Description 12/29/2019 9:00 AM EDT TH Visit (TeleHealth) Psychiatry and Behavioral [place] [address] Gisselle Hauser, PhD AWILDA (generalized anxiety disorder); [...] 12/29/2019 9:00 AM EDT INDIVIDUAL??THERAPY PROGRESS NOTE [id number] ?? Location:?[place]? Time Spent:??50??minutes ? SUBJECTIVE: ?? Chief Complaint and Diagnosis:??Pt is a 19 year old female with depression and anxiety that interferes with her interpersonal and academic functioning. ?? Interval History:?Pt reported that her mood has continued to improve and she enjoys spending time with her boyfriend.? OBJECTIVE: ?? Patient's verbal /interpersonal exchanges with??this teletypewriter installer:??Pt??was responsive to this teletypewriter installer's questions and she was engaged in the session.? Interventions and patient's??responses:??Pt processed her thoughts and feelings about??some stessors.??This teletypewriter installer introduced some DBT emotion regulation skills and Pt demonstrated an understanding of how to use these skills during a practice exercise. This teletypewriter installer reinforced Pt's use of the mindfulness and [...] Lexapro, prescribed by Dr. Burns, psychiatrist at [facility]. ?? PLAN: Revised Goals: 1) Improve emotion regulation; and 2) Establish healthy boundaries? No change in estimated length of treatment. ?? Safety Risk Management:??Pt did not report any??thoughts of ,??suicidal thoughts or suicidal ideation in the session. Pt did not report any homicidal ideation in the session. Pt??did not report any thoughts of self-harm??or??self-harm in??the session.??In the 09/21/19 session, this teletypewriter installer assisted Pt and Pt's parents in developing [...] Instruction/Education Provided:??Pt plans??to follow up with this teletypewriter installer for therapy next week. ?? Attendee(s)??understand the plan???Yes. documented in this encounter Plan of Treatment Not on file documented as of this encounter Visit Diagnoses Diagnosis AWIDLA (generalized anxiety disorder) Generalized anxiety disorder Depression, unspecified depression type documented in this encounter Care Teams Railcar Mechanic Relationship Specialty Start Date End Date Markos Brewer DNP PCP - General Family Medicine 07/08/19 08/31/23 documented as of this encounter
--- OUTSIDE RECORDS SUMMARY | 2024-01-17 19:59 | XMS_ITS | Encounter Summary ---
[place] [address] Care Team Providers Care Clerk Typist Name Role Phone Markos Brewer DNP Primary Care Provider Encounter Details Date Type Department Care Team (Late st Contact Info) Description 02/15/2020 Telephone Psychiatry [place] [address] Gisselle Hauser, PhD Social History Tobacco Use [...] filedocumented in this encounter Care Teams Clerk Typist Relationship Specialty Start Date End Date Markos Brewer DNP PCP - General Family Medicine 07/08/19 08/31/23 documented as of this encounter
--- OUTSIDE RECORDS SUMMARY | 2024-01-17 19:59 | XMS_ITS | Encounter Summary ---
Author Organization [facility] [place] [address] Care Team Providers Care Family Readiness Support Assistant Name Role Phone Markos Brewer DNP Primary Care Provider [phone] Encounter Details Date Type Department Care Team (Latest Contact Info) Description 04/11/2020 3:00 PM EST TH Visit (TeleHealth) Psychiatry [place] [address] Gisselle Hauser, PhD AWILDA (generalized anxiety disorder); [...] 04/11/2020 3:00 PM EST INDIVIDUAL??THERAPY PROGRESS NOTE [id number] ?? Location:?Video? Time Spent:??50 minutes ? SUBJECTIVE: [...] OBJECTIVE: ?? Patient's verbal /interpersonal exchanges with??this program writer:??Pt??was responsive to this program writer's questions and she was engaged in the session.? Interventions and patient's??responses:??Pt processed her thoughts and feelings about??some stressors. Cognitive-behavioral interventions were used to assist Pt with recognizing the importance of time management, and Pt was responsive to these interventions. This program writer reinforced Pt's use of the??m indfulness,??distress tolerance, [...] of Lexapro, prescribed by ??Lisa??Chhaya, psychiatrist at [facility].??Pt is making progress in successfully using her coping skills and her mood has improved as a result of using these skills. 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 ?? Attendee(s)??understand the plan???Yes. documented in this encounter Plan of Treatment Not on file documented as of this encounter Visit Diagnoses Diagnosis AWILDA (generalized anxiety disorder) Generalized anxiety disorder Depression, unspecified depression type documented in this encounter Care Teams Family Readiness Support Assistant Relationship Specialty Start Date End Date Markos Brewer DNP PCP - General Family Medicine 07/08/19 08/31/23 documented as of this encounter
--- OUTSIDE RECORDS SUMMARY | 2024-01-17 19:59 | XMS_ITS | Encounter Summary ---
Author Organization [facility] [place] [address] Care Team Providers Care Hide Worker Name Role Phone Lashonda Almodovar MD Primary Care Provider [phone] Reason for Visit * Consultation (Routine) - Closed Specialty Diagnoses / Procedures Referred By Jelly che Referred To Contact Psychiatry Diagnoses ANXIETY, DEPRESSION, SUICIDAL IDEATIONS Lash[place] [address] [facility] [address] [place] [address] Referral ID Status Reason Start Date Expiration Date V isits Requested Visits Authorized [id number] Closed Consult, Test & Treat Connection [facility] PCP Updated and/or Approved 02/10/2019 02/10/2020 1 1 Encounter Details Date Type Department Care Team (Late st Contact Info) Description 05/20/2019 2:15 PM EST Office Visit Psychiatry [place] [address] Sigifredo Burns MD [facility] [place] [address] AWILDA (generalized anxiety disorder) Social [...] PSYCHIATRIC DIAGNOSTIC EVALUATION WITH MEDICAL SERVICES (CPT 20472) [facility]ry [facility]ation [facility] Evaluation [facility] 05/20/2019 Patient Name: Mariama Jarvis : 2000 Age: 19 y.o. 3 m.o. Address: [facility] [address] Guardian: Mother, Father Primary Care Provider: Lashonda [...] depressed moods. She was hospitalized briefly at [facility] in January with suicidal ideation, but developed several somatic symptoms -- including syncope -- and had to be evaluated in the local ER twice, culminating in her early discharge from [facility]. Since then SI has resolved, though parents [...] of syncopal events. 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 In [...] Parents are currently applying for a Lisa [place] waiver to see if Mariama can qualify [...] she would like to be a hair assistant. She reports she has one best friend [...] at which time she was hospitalized at [facility]. There are guns in the home, but [...] Psychotherapy: None Prior Psychotherapy: Miley Power in [place], [place] Prior hospitalizations: I hosp diversion program [...] Profile & Living Situation: Mariama lives in [place] [place] [facility] [place] [address] with her mom, dad, and 20 yr old brother. Peer Relationships: One friend at school. Also a boyfriend. School History: School: [employer] Grade: 11 504/IEP: 504 Extracurriculars: Works at a [employer] Trauma/Abuse History and Significant Life Stressors: Mariama [...] ?? Judgment: fair SCREENING ASSESSMENTS Parent Responses: [place] Initial (Parent) 05/20/2019 PARENT: No. of questions [...] in questions 51 to 54 (performance) 3 [place] Initial (Parent) - Raw Scores 05/20/2019 Raw Scores 1-9 17 Raw Scores 10-18 13 Raw Scores 19-26 11 Raw Scores 27-40 Incomplete Raw Scores 41-47 18 Raw Scores 48-50 11 Raw Scores 51-54 16 No flowsheet data found. Short Mood and Feelings Response (Parent 1) 05/20/2019 SMFQ Score 5 [place] miserable or unhappy Sometimes Didn't enjoy anything at all Sometimes [place] tired; sat around and did nothing Sometimes Was very restless Not true [place] s/he was no good any more Not true Cried a lot Not true Found it hard to think properly or concentrate Not true Hated him/herself Not true [place] s/he was a bad person Not true [place] lonely Not true Thought nobody really loves him/her Not true Thought s/he could never be as good as other kid True [place] did everything wrong Not true Child/Adolescent Scores: [...] injurious behaviors, and a brief admission to [facility] in Jan 2019, though currently she has [...] will make a referral for therapy at [facility] as well.She would likely benefit from DBT, [...] options in the community ?? Connect with human resources mgr - Sharon - for help finding additional resources, particularly for DBT, in the community ?? Ruiz rating scales to be dispensed to teachers 2. Medications ?? Buspar 5 mg BID -- can titrate as tolerated over time to 20 mg TID 3. Academic Interventions ?? Cont with 504 ?? [place] rating scales to be dispensed to teachers [...] disorder documented in this encounter Care Teams Hide Worker Relationship Specialty Start Date End Date Lashonda Almodovar MD [address] [place] [address] [place] [address] PCP - General 04/10/10 07/07/19 documented as of this encounter
--- OUTSIDE RECORDS SUMMARY | 2024-01-17 19:59 | XMS_ITS | Encounter Summary ---
Author Organization [facility] [place] [address] Care Team Providers Care Credit Control Clerk Name Role Phone Markos Brewer DNP Primary Care Provider Encounter Details Date Type Department Care Team (Late st Contact Info) Description 09/01/2019 TH Visit (TeleHealth) Psychiatry [place] [address] Gisselle Hauser, PhD Generalized anxiety disorder; Depression, [...] 09/01/2019 9:12 AM EDT DIAGNOSTIC INTERVIEW Location: [facility] Time Spent: 45 minutes School/Grade: [employer], 11th grade Information Source: Kana (Pt's father), Mahi (Pt's mother) and Pt History of Present Illness: Pt is a 19 year old female with a history of ADHD and current diagnosisof Generalized Anxiety Disorder. Pt's parents reported that Pt was diagnosed with ADHD when she wasabout 9 years old by a pediatric psychiatrist in [place], Dr. Palmira Soler. Pt's parents reported that Pt took Ritalin for the ADHD for 2 years but discontinued because she did not think it was helpful. Pt's parents reported that Pt also received play therapy for ADHD in [place] for about 2 years, which also reduced [...] the degree that she had pseudo-seizures in [id number] following shoulder surgery and she fainted a few times, felt nauseas, and vomitted. Pt's mother reported that Pt was admitted to a [place] hospital diversion program for pseudo-seizures, self-harm (cutting arms, stomach, and legs), and suicidal thoughts in January 2019 for 1 day. Pt reported thatschool stress precipitated this admission in that peers were calling her mental on social media. Pt saw a DBT therapist, Andrae Garland, in [place], [place] twice for anxiety in Fall 2018. Prior to seeing Andrae, Pt saw Miley Friasrett in [place] for a year for anxiety but Pt did not find benefit from the therapy. Pt reported that social functioning is hard because she doesn't have many friends and it is difficult for her to talk in classes because she is concerned the other students will material disposition inspector her. Pt rep orted having difficulty making friends and keeping friends. Pt reported that she thinks her friendsare fake and she buys them food and other things but she does not think her friends are there forher when she needs them. Pt reported having one close friend who she trusts and does not use her.Pt's father reported that she saw Dr. Burns at [facility] in June 2019 for anxiety and [...] and off for at least a year, [id number], but Pt reported that she has had [...] years old by a pediatric psychiatrist in [place], Dr. Palmira Soler. Pt's parents reported that Pt took Ritalin for the ADHD for 2 years but discontinued because she did not think this medication was helpful. Pt's parents reported that Pt also received play therapy for ADHD in [place] for about 2 years, beginning at age 9, which also reduced her symptoms. Pt's parents reported that Pt saw Dr. Favian Burns, psychiatrist, at [facility] for anxiety in June 2019 and that he prescribed Pt 10 mgof Buspar, twice per day, but Pt only takes it at night because it makes her tired and dizzy in the morning. Pt saw a DBT therapist, Andrae Garland, in [place], [place] twice for anxiety in Fall 2018. Prior to seeing Andrae, Pt saw Miley Dugan in [place] for a year for anxiety but Pt [...] years old by Palmira Soler psychiatrist in [place], and Pt took Ritalin for 2 years but discontinued it because she didn't think it worked. Pt's mother reported that Pt also did play therapy for 2 years, beginning at age 9, for the ADHD in [place], which reduced her ADHD symptoms. Pt's mother reported that Pt had an IEP from [employer] [facility] through 7th grade for a sensory processing [...] cut her stomach, arms, and legs from [id number] but she has not had any thoughts [...] interfere with academic and interpersonal functioning. This fiction and nonfiction writer prose explained the treatment plan, family-oriented DBT skills training, to Pt andher parents and they agreed to the treatment plan. Pt's parents are supportive of Pt and they are willing to engage in Pt's treatment. Pt's parents reported that Pt currently takes 10 mg of Buspar, prescribed by Dr. Burns, psychiatrist at [facility]. DSM IV Diagnoses: AXIS I Generalized [...] They plan to follow up with this fiction and nonfiction writer prose for video-deliveredfamily therapy. Patient understands the plan? Yes. documented in this encounter Plan of Treatment Not on file documented as of this encounter Visit Diagnoses Diagnosis Generalized anxiety disorder Depression, unspecified depression type documented in this encounter Care Teams Credit Control Clerk Relationship Specialty Start Date End Date Markos Brewer DNP PCP - General Family Medicine 07/08/19 08/31/23 documented as of this encounter
--- OUTSIDE RECORDS SUMMARY | 2024-01-17 19:59 | XMS_ITS | Encounter Summary ---
Author Organization [facility] [place] [address] Care Team Providers Care Senior Vice President And Chief Information Officer Name Role Phone Lashonda Almodovar MD Primary Care Provider [phone] Encounter Details Date Type Department Care Team (Late st Contact Info) Description 06/15/2019 [place] [address] [place] [address] Social History Tobacco Use Types Packs/Day Years [...] Additionally, Mariama will start weekly DBT in [place]. Plan: Increase Buspar to 10 mg BID F/u here on Jul 08 2019 documented in this encounter Plan of Treatment Not on file documented as of this encounter Visit Diagnoses Not on filedocumented in this encounter Care Teams Senior Vice President And Chief Information Officer Relationship Specialty Start Date End Date Lashonda Almodovar MD [address] [place] [address] PCP - General 04/10/10 07/07/19 documented as of this encounter
--- OUTSIDE RECORDS SUMMARY | 2024-01-17 19:59 | XMS_ITS | Encounter Summary ---
Author Organization [facility] Address [facility] [place] [address] Care Team Providers Care Veterinary Attendant Name Role Phone Laura Herniquez LUIS Primary Care Provider [phone] Encounter Details Date Type Department Care Team (Late st Contact Info) Description 01/06/2024 4:00 PM EDT TH Visit (TeleHealth) Dermatology at [address] [address] Marcelo Galarza MD [facility] [address] Hyperhidrosis Social History Tobacco Use Types Packs/Day [...] relevant family history N Social History Occupation: [employer] Hobbies: outside Other: here w/ Mother PRE-PROCEDURE [...] year follow-up as needed []Note routed to financial secretary []Recall placed in scheduling system [x]Appointment scheduled at checkout Scribe attestation: Marcelo Galarza MD has performed the documentation for this encounter in the presence of and acting as a scribe for Marcelo Galarza MD. I performed the above scribed service and agree with the accuracy of the documentation in this encounter. Reviewed and signed by: Marcelo Galarza MD Dermatology [facility] Staff single stayer operator: Ira Altman MD Dermatology [facility] * Ira Altman MD - 01/06/2024 4:00 PM EDT I was the supervising physician working with the Dermatology resident, Marcelo Galarza MD, in the care of this Dermatology patient in person. For the purposes of billing, the resident provided the care. I have reviewed the encounter note details and level of service. Ira Altman MD Staff Maintenance Superintendent Department of Dermatology [facility] documented in this encounter Plan of Treatment Not on file documented as of this encounter Visit Diagnoses Diagnosis Hyperhidrosis Primary focal hyperhidrosis documented in this encounter Care Teams Veterinary Attendant Relationship Specialty Start Date End Date Laura Henriquez APRN [facility] [place] [address] PCP - General Family Medicine 09/01/23 documented as of this encounter
--- OUTSIDE RECORDS SUMMARY | 2024-01-17 19:59 | XMS_ITS | Encounter Summary ---
Author Organization [facility] Address [facility] [place] [address] Care Team Providers Care Pigs Feet Cleaner Name Role Phone MartinezLaura Jennifer SMITH Primary Care Provider [phone] Encounter Details Date Type Department Care Team (Late st Contact Info) Description 01/09/2024 Telephone Dermatology at [facility] [address] [place] [address] Marcelo Galarza MD [facility] [address] [facility] [place] [address] Social History Tobacco Use Types Packs/Day Years [...] on filedocumented in this encounter Care Teams Pigs Feet Cleaner Relationship Specialty Start Date End Date Laura Henriquez, GENETIC COUNSELLOR [address] [place] [address] PCP - General Family Medicine 09/01/23 documented as of this encounter
--- OUTSIDE RECORDS SUMMARY | 2024-01-17 19:59 | XMS_ITS | Clinical Summary ---
Author Organization [facility] Address [address] [place] [address] Care Team Providers Care Gasoline Power Shovel Operator Name Role Phone Scooby Powell MD, Lashonda Primary Care Provider [phone] Allergies No known active allergies Medications No known medications Active Problems Problem Noted Date Diagnosed Date Attention deficit hyperactivity disorder (ADHD) 02/23/2021 Dysmenorrhea in adolescent 02/22/2020 Menorrhagia with irregular cycle 02/22/2020 Migraine headache 02/22/2020 Depression with anxiety 09/26/2017 Encounters Date Type Department Care Team Description 01/15/2024 Lab Requisition [facility] Pathology & Laboratory [address] [address] Outr Resulting Lab, Provider 01/13/2024 Lab Requisition [facility] Pathology Laboratory [address] [address] Outr Resulting Lab, Provider 11/21/2023 Lab Requisition [facility] Pathology Laboratory [address] [address] Laura Henriquez FNP Encounter for screening for human papillomavirus (HPV); Encounter for screening for malignant neoplasm of cervix; Encounter for general adult medical examination without abnormal findings 11/19/2023 Lab Requisition [facility] Pathology Laboratory [address] [address] Outr Resulting Lab, Provider from Last 3 [...] Antibodies <2.5 <5.0 U/mL 01/16/2024 9:27 EDT [facility] Blood VENOUS BLOOD / Unknown 01/15/2024 12:55 EDT 01/15/2024 22:05 EDT Provider Outr Resulting Lab IMMUNOLOGY A ND SEROLOGY ORDERABLES Performing Organization Address [facility] Co de Phone Number [facility] [address] [place] [address] * RHEUMATOID FACTOR (01/15/2024 12:55 EDT) [facility] Rheumatoid Factor <8.6 <12.0 IU/mL 01/15/2024 22:37 EDT [facility] Blood VENOUS BLOOD / Unknown 01/15/2024 12:55 EDT 01/15/2024 22:05 EDT Provider Outr Resulting Lab CHEMISTRY & BLOOD GAS ORDERABLES Performing Organization Address [facility] Co de Phone Number [facility] [address] [place] [address] * ANTI NUCLEAR AB (YUAN), IFA (01/15/2024 12:55 EDT) [facility] YUAN Interpretation Negative Negative 2023 15:15 EDT [facility] Comment:No titer performed, YUAN Screen is negative. Blood VENOUS BLOOD / Unknown 01/15/2024 12:55 EDT 01/15/2024 22:05 EDT Narrative [facility] - 01/16/2024 15:15 EDT Results were obtained with the Shippterfen NOVA Lite HEp-2 YUAN Kit by indirect immunofluorescence. Provider Outr Resulting Lab IMMUNOLOGY A ND SEROLOGY ORDERABLES Performing Organization Address [facility] Co de Phone Number [facility] [address] [place], [place] [id number] * LYME AB (01/12/2024 13:41 EDT) [facility] Lyme Ab Negative Negative 01/14/2024 9:04 EDT [facility] Blood VENOUS BLOOD / Unknown 01/12/2024 13:41 EDT 01/13/2024 17:53 EDT Provider Outr Resulting Lab IMMUNOLOGY A ND SEROLOGY ORDERABLES Performing Organization Address City/[facility]/ZIP Co de Phone Number [facility] [address] [place] [address] * PAP TEST (11/19/2023 10:20 EDT) Specimens A. Cervix and/or Endocervix , ThinPrep Imaging System with Manual Evaluation 11/25/2023 12:26 EDT [facility] Specimen Adequacy Satisfactory for Evaluation - transformation zone component present 11/25/2023 12:26 EDT [facility] General Categorization Negative for intraepithelial lesion or malignancy 11/25/2023 12:26 EDT [facility] Attestation . 11/25/2023 12:26 T [facility] at 1226 Clinical History See below 11/25/19 12:26 T [facility] Performing Lab [facility] 11/25/2023 12:26 T [facility] Scanned Images 11/25/2023 12:26 T [facility] Pap Test CERVIX UTERI STRUCTURE / Unknown 11/19/2023 10:20 EDT 11/21/2023 13:43 EDT Laura Henriquez MODULAR SET CREW MEMBER PATHOLOGY ORDERABLES Performing Organization Address City/[facility]/ZIP Co de Phone Number [facility] [address] [place] [address] * CHLAMYDIA/N. GONORRHOEAE AMPLIFIED NUCLEIC ACID, THINPREP (11/19/2023 10:20 EDT) Neisseria gonorrhoeae Result Negative Negative 11/20/2023 13:01 EDT [facility] Chlamydia trachomatis Result Negative Negative 11/20/2023 13:01 EDT [facility] Pap Test CERVIX UTERI STRUCTURE / Unknown 11/19/2023 10:20 EDT 11/20/2023 8:47 EDT Provider Outr Resulting Lab MICROBIOLOGY - GENERAL ORDERABLES [facility] [address] [place], [place] [address] from Last 3 Months Care Teams Gasoline Power Shovel Operator Relationship Specialty Start Date End Date Lashonda Almodovar MD [address] [place] [address] [place] [address] PCP - General 02/11/14
--- OUTSIDE RECORDS SUMMARY | 2024-01-17 19:59 | XMS_ITS | Encounter Summary ---
Author Organization [facility] [place] [address] Care Team Providers Care Rn Plasma Center Name Role Phone Lashonda Almodovar MD Primary Care Provider [phone] Encounter Details Date Type Department Care Team (Late st Contact Info) Description 06/14/2019 Telephone Psychiatry [place] [address] Lea Trujillo Social History Tobacco Use Types [...] [place] and left a VM for this account underwriter on Friday, 06/11 in regards to resources. This account underwriter called and spoke to MO on Friday, 06/11. MOC stated that the patient saw Dr. Burns earlier this month and suggested that the patient receive DBT. MO also stated that Dr. Burns was going to put in a referral for a therapist here at [facility] in Child Psychiatry. MO stated that no one has called her about this. MO stated that they are looking for a therapist in the [place], [place] area. [facility] also stated that family has [employer] as insurance. This account underwriter informed [facility] she will comply a list of DBT therapists and call her back. documented in this encounter Plan of Treatment Not on file documented as of this encounter Visit Diagnoses Not on filedocumented in this encounter Care Teams Rn Plasma Center Relationship Specialty Start Date End Date Lashonda Almodovar MD [address] [place] [address] PCP - General 04/10/10 07/07/19 documented as of this encounter
--- OUTSIDE RECORDS SUMMARY | 2024-01-17 19:59 | XMS_ITS | Encounter Summary ---
[place] [address] Care Team Providers Care Sound System Installer Name Role Phone Lashonda Almodovar MD Primary Care Provider [phone] Encounter Details Date Type Department Care Team (Late st Contact Info) Description 06/11/2019 Telephone Psychiatry [place] [id number] Corinne Ascencio, RN Social History Tobacco Use [...] on filedocumented in this encounter Care Teams Sound System Installer Relationship Specialty Start Date End Date Lashonda Almodovar MD [address] [place] [address] [place] [address] PCP - General 04/10/10 07/07/19 documented as of this encounter
--- OUTSIDE RECORDS SUMMARY | 2024-01-17 19:59 | XMS_ITS | Encounter Summary ---
[place] [address] Care Team Providers Care Qa Internship Name Role Phone Markos Brewer DNP Primary Care Provider Encounter Details Date Type Department Care Team (Late st Contact Info) Description 02/15/2020 Telephone Psychiatry [place] [address] Gisselle Hauser, PhD Social History Tobacco Use [...] on filedocumented in this encounter Care Teams Qa Internship Relationship Specialty Start Date End Date Markos Brewer DNP PCP - General Family Medicine 07/08/19 08/31/23 documented as of this encounter
--- OUTSIDE RECORDS SUMMARY | 2024-01-17 19:59 | XMS_ITS | Encounter Summary ---
Author Organization On License Of [facility] [place] [address] Care Team Providers Care Fingernail Sculpturer Name Role Phone Markos Brewer DNP Primary Care Provider [phone] Encounter Details Date Type Department Care Team (Latest Contact Info) Description 10/05/2019 10:00 AM EDT TH Visit (TeleHealth) Psychiatry [place] [address] Gisselle Hauser, PhD Depression, unspecified depression type; [...] 10:00 AM EDT FAMILY THERAPY PROGRESS NOTE [id number] ?? Location:?[place]?Time Spent:??60??minutes ?? Attendee(s):?Pt and Pt's [...] they responded well to these interventions. This business writer introduced??more??DBT??mindfulness??skills,??and Pt demonstrated an understanding of how to use the skills??in conjunction with other mindfulness skills during practice exercises. Pt's??parents demonstrated an understanding of how to reinforce Pt's skill use.??This business writer reinforced Pt's continued use of the [...] Dr. Burns, psychiatrist at [facility]. ?? PLAN: Revised Goals: 1) Improve emotion regulation; and 2) Establish healthy boundaries? No change in estimated length of treatment. ?? Safety Risk Management:??Pt did not report any??suicidal thoughts or suicidal ideation in the session. Pt did not report any homicidal ideation in the session. Pt??did not report any thoughts of self-harm??or self-harm in the session.??In the 09/21/19 session, this business writer assisted Pt and Pt's parentsin developing the [...] Provided:??They plan to follow up with this business writer for family therapy. ?? Attendees understand the plan???Yes. documented in this encounter Plan of Treatment Not on file documented as of this encounter Visit Diagnoses Diagnosis Depression, unspecified depression type Anxiety Anxiety state, unspecified documented in this encounter Care Teams Fingernail Sculpturer Relationship Specialty Start Date End Date Markos Brewer DNP PCP - General Family Medicine 07/08/19 08/31/23 documented as of this encounter
--- OUTSIDE RECORDS SUMMARY | 2024-01-17 19:59 | XMS_ITS | Encounter Summary ---
Author Organization [facility] [place] [address] Care Team Providers Care Manager Field Name Role Phone Markos Brewer DNP Primary Care Provider Encounter Details Date Type Department Care Team (Latest Contact Info) Description 09/07/2019 10:30 AM EDT TH Visit (TeleHealth) Psychiatry [place] [address] Gisselle Hauser, PhD Depression, unspecified depression type; [...] 10:30 AM EDT FAMILY THERAPY PROGRESS NOTE [id number] Location: [facility] Time Spent: 60 minutes Attendee(s): Pt and [...] and feelings about her recentemotional outbursts. This movie writer introduced DBT mindfulness concepts and Pt [...] by Dr. Burns, psychiatrist at [facility]. PLAN: Revised Goals: 1) Improve emotion [...] They plan to follow up with this movie writer for family therapy. Attendees understand the plan? Yes. documented in this encounter Plan of Treatment Not on file documented as of this encounter Visit Diagnoses Diagnosis Depression, unspecified depression type AWILDA (generalized anxiety disorder) Generalized anxiety disorder documented in this encounter Care Teams Manager Field Relationship Specialty Start Date End Date Markos Brewer DNP PCP - General Family Medicine 07/08/19 08/31/23 documented as of this encounter
--- OUTSIDE RECORDS SUMMARY | 2024-01-17 19:59 | XMS_ITS | Encounter Summary ---
Author Organization [facility] [place] [address] Care Team Providers Care Truck Bracer Name Role Phone Markos Brewer DNP Primary Care Provider [phone] Encounter Details Date Type Department Care Team (Latest Contact Info) Description 11/10/2019 2:00 PM EDT TH Visit (TeleHealth) Psychiatry [place] [address] Gisselle Hauser, PhD AWILDA (generalized anxiety disorder); [...] 2:00 PM EDT INDIVIDUAL THERAPY PROGRESS NOTE [id number] ?? Location:?[place]?Time Spent:??45??minutes ? SUBJECTIVE: ?? Chief [...] ?? Patient's verbal /interpersonal exchanges with this underwriter mortgage loan:??Pt was responsive to this underwriter mortgage loan's questions and she was engaged in the session.? Interventions and patient's responses:??Pt processed her thoughts and feelings about??some stressors and her progress. The DBT mindfulness and distress tolerance skills were reinforced and Pt responded well to these interventions.This underwriter mortgage loan introduced??the firt set of DBT emotion regulation [...] self-harm??or??self-harm in??the session.??In the 09/21/19 session, this underwriter mortgage loan assisted Pt and Pt's parents in developing [...] Provided:??Pt plans to follow up with this underwriter mortgage loan for therapy next week. ?? Attendee(s) understand the plan???Yes. documented in this encounter Plan of Treatment Not on file documented as of this encounter Visit Diagnoses Diagnosis AWILDA (generalized anxiety disorder) Generalized anxiety disorder Depression, unspecified depression type documented in this encounter Care Teams Truck Bracer Relationship Specialty Start Date End Date Markos Brewer DNP PCP - General Family Medicine 07/08/19 08/31/23 documented as of this encounter
--- OUTSIDE RECORDS SUMMARY | 2024-01-17 19:59 | XMS_ITS | Encounter Summary ---
Author Organization [facility] [place] [address] Care Team Providers Care Corporate Account Executive Name Role Phone Markos Brewer DNP Primary Care Provider [phone] Encounter Details Date Type Department Care Team (Latest Contact Info) Description 03/01/2020 4:00 PM EDT TH Visit (TeleHealth) Psychiatry [place] [address] Gisselle Hauser, PhD AWILDA (generalized anxiety disorder); [...] 03/01/2020 4:00 PM EDT INDIVIDUAL??THERAPY PROGRESS NOTE [id number] ?? Location:?Video? Time Spent:??65 minutes ?? Attendees: This communications writer met with only Pt for about 50 minutes and then Pt's father joined the remaining 15 minutes of the session. ?? SUBJECTIVE: ?? Chief Complaint and Diagnosis:??Pt is an 20 year old female with depression and anxiety that interferes with her interpersonal and academic functioning. ?? Interval History:?Pt reported??that she met with Dr. Lisa Shaver [facility] psychiatrist, lastweek to discuss her eating disorders symptoms and that Dr. Shaver referred her to a poll watcher. Pt reported that she has not binged [...] OBJECTIVE: ?? Patient's verbal /interpersonal exchanges with??this communications writer:??Pt??was responsive to this communications writer's questions and she was engaged in the session.? Interventions and patient's??responses:??This communications writer met with only Pt for 50 minutes. Pt processed her thoughts and feelings about some stressors. This communications writer also encouraged Pt to use the DBT distress tolerance skills to reduce and eliminate urges to vomit after meals, and Pt agreed. This communications writer reinforced Pt's use of the??mindfulness,??distress tolerance, and emotion regulation??DBT skills, andPt responded well to this intervention.??Pt completed her homework assignment. Pt's father joined the remaining 15 minutes of the session. Cognitive-behavioral family therapeutic interventions were used and they responded well to these interventions. This communications writer reiterated the harmful consequences of cannabis [...] prescribed by Dr. Lisa Shaver, psychiatrist at [facility].??Pt is making progress in successfully using her coping skills and her mood has improved as a result of using these skills. 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 ?? Attendee(s)??understand the plan???Yes. documented in this encounter Plan of Treatment Not on file documented as of this encounter Visit Diagnoses Diagnosis AWILDA (generalized anxiety disorder) Generalized anxiety disorder Depression, unspecified depression type documented in this encounter Care Teams Corporate Account Executive Relationship Specialty Start Date End Date Markos Brewer DNP PCP - General Family Medicine 07/08/19 08/31/23 documented as of this encounter
--- OUTSIDE RECORDS SUMMARY | 2024-01-17 19:59 | XMS_ITS | Encounter Summary ---
Author Organization [facility] [place] [address] Care Team Providers Care Electronic Engineering Draftsperson Name Role Phone Markos Brewer DNP Primary Care Provider [phone] Encounter Details Date Type Department Care Team (Latest Contact Info) Description 09/29/2019 4:00 PM EDT TH Visit (TeleHealth) Psychiatry [place] [address] Gisselle Hauser, PhD Anxiety; Depression, unspecified depression [...] 4:00 PM EDT FAMILY THERAPY PROGRESS NOTE [id number] ?? Location:?[place]?Time Spent:??60??minutes ?? Attendee(s):?Pt,?Pt's mother and [...] and they responded well to these interventions.??This flex o writer operator introduced??more??DBT??mindfulness skills,??and Pt demonstrated an understanding of how to use the skills in conjunction with other mindfulness skills during practice exercises, and Pt's parents demonstrated an understanding of how to reinforce Pt's skill use.??This flex o writer operator reinforced Pt's continued use of the TIPP [...] Buspar, prescribed by Dr. Burns, psychiatrist at [facility]. ?? PLAN: Revised Goals: 1) Improve emotion regulation; and 2) Establish healthy boundaries? No change in estimated length of treatment. ?? Safety Risk Management:??Pt did not report any??suicidal thoughts or suicidal ideation in the session. Pt did not report any homicidal ideation in the session. Pt??did not report any thoughts of self-harm or self-harm in the session. In the 09/21/19 session, this flex o writer operator assisted Pt and Pt's parents [...] Provided:??They plan to follow up with this flex o writer operator for family therapy. ?? Attendees understand the plan???Yes. documented in this encounter Plan of Treatment Not on file documented as of this encounter Visit Diagnoses Diagnosis Anxiety Anxiety state, unspecified Depression, unspecified depression type documented in this encounter Care Teams Electronic Engineering Draftsperson Relationship Specialty Start Date End Date Markos Brewer DNP PCP - General Family Medicine 07/08/19 08/31/23 documented as of this encounter
--- OUTSIDE RECORDS SUMMARY | 2024-01-17 19:59 | XMS_ITS | Encounter Summary ---
Author Organization [facility] Address [facility] [place] [address] Care Team Providers Care Roofing Machine Tender Name Role Phone Lashonda Almodovar MD Primary Care Provider [phone] Encounter Details Date Type Department Care Team (Late st Contact Info) Description 08/06/2018 Unscheduled Encounter XRay at [address] [place] [address] Jesenia Fischer Social History Tobacco Use Types [...] on filedocumented in this encounter Care Teams Roofing Machine Tender Relationship Specialty Start Date End Date Lashonda Almodovar MD [address] [place] [address] [place] [address] PCP - General 04/10/10 07/07/19 documented as of this encounter
--- OUTSIDE RECORDS SUMMARY | 2024-01-17 19:59 | XMS_ITS | Encounter Summary ---
Author Organization [facility] Address [facility] [place] [address] Care Team Providers Care Upsetter Setter Up Name Role Phone Markos Brewer DNP Primary Care Provider [phone] Encounter Details Date Type Department Care Team (Late st Contact Info) Description 10/28/2019 2:30 PM EDT TH Visit (TeleHealth) Psychiatry [place] [address] Sigifredo Burns MD [facility] [place] [address] Anxiety disorder, unspecified type Social History Tobacco [...] and ADOLESCENT PSYCHIATRY TELEHEALTH VISIT NOTE (CPT 93336, 59636, 44014) [facility] 10/28/2019 Patient Name: Mariama Jarvis : 2000 Age: 19 y.o. 8 m.o. Address: [place] [address] Legal Guardian: parents Primary Care Provider: Markos [...] visit. During this visit she was located [facility]. Mariama Jarvis is aware that for any urgent matter she can call [phone]. Mariama and the family report the following: [...] her therapist weekly -- Dr Hauser at [facility]. She has found therapyvery helpful and is [...] Prior Psychotherapy: Aysha Landaverde ?? Prior hospitalizations: [facility] hosp diversion program - two days [...] & Living Situation: ?? Mariama lives in [place] [address] with her mom, dad, and 20 yr old brother. Peer Relationships: Spends time with boyfriend and another close friend. School History: School: [employer] Grade: Going into senior year 504/IEP: 504 [...] appropriate volume and prosody. Language fluent in Nepali. Mood: I haven't been sad or depressed. [...] type documented in this encounter Care Teams Upsetter Setter Up Relationship Specialty Start Date End Date Markos Brewer DNP PCP - General Family Medicine 07/08/19 08/31/23 documented as of this encounter
--- OUTSIDE RECORDS SUMMARY | 2024-01-17 20:00 | XMS_ITS | Encounter Summary ---
Author Organization [facility] Address [address] [place] [address] Care Team Providers Care Proofsheet Corrector Name Role Phone Scooby Powell MD, Lashonda Primary Care Provider [phone] Reason for Visit * Reason Comments Loss of Consciousness Arrives accompanie d by parents with concern for syncope, nausea and vomitng. Seen in ED overnight for same symptoms with medical clearance performed, discharged with PRN medications back to [facility] institute. Dad informs patients symptoms persist, with another syncopal episode experienced (per staff). Requesting re-eval and clearance performed for higher level of care, as [facility] states they don't believe they can accomodate. Encounter Details Date Type Department Care Team (Late st Contact Info) Description 01/28/2019 11:33 EDT - 01/28/2019 19:23 EDT Emergency [facility] Emergency Department - Main [address] [id number] Melissa Ngo PA-C [address] [place] [address] Asha Bruner PA-C [address] [place] [address] Emergency, MD Dania Syncope, unspecified syncope [...] 49.33% 01/28/2019 113 8 EDT Growth Chart: [facility] (Girls, 2- 20 Years) documented in [...] discharge home. May call first call at [phone] at any time for worsening symptoms of [...] performed, discharged with PRN medications back to [facility] institute. Dad informs patients symptoms persist, [...] performed, discharged with PRN medications back to [facility] institute. Dad informs patients symptoms persist, [...] state that she is currently staying at [facility] after having had suicidal ideations. While at [facility] she developed nausea, vomiting, and generalizedabdominal [...] pain which was unremarkable. She returned to [facility] feeling improved, however did have one additional syncopal episode and was directed back to the ED. Mother states that the [facility] staff have told her that they [...] going to be able to return to [facility] Review of Systems Review of Systems [...] appears to be a good tracing. Attending merchandising execution associate not immediately available for acute interpretation. Radiology [...] the Emergency Department: Improved PCP: Lashonda Almodovar [facility] 02/01/2019 14:27 No flowsheet data found. * Jin Bourgeois - 01/28/2019 1923 EDT Roller Skates Assembler Initial Assessment Note Admit Date: 01/28/2019 Date of Consult: 01/28/2019 Suicidal Presenting Information: Mariama is a 18yo SWF presenting today after having syncopal episodes at [facility] for 2 days. [facility] reports that client has been vomitting and passing out for episodes. Client indicates that this is normal for her, and that when she is anxious, this occurs. She states that she was anxious at [facility] because I didn't want to be there. It is explained to this senior writer that client wasbrought to [facility] ~one week ago, after reporting to [...] Miley Zhao, more frequently at this time. General Service Officer meets with [facility] father, Thor, separately. Kana explains that he Does not know why [facility] brought Mariama here, states that he does not want Mariama to go inpatient at or [facility] because he has heard bad things about [...] Mariama's counselor, and will have 09/12 supervision. General Service Officer states that this safety plan is strong. General Service Officer agrees to communicate with psychiatry to persue a child psych referral to speed up the process (according to Kana). General Service Officer then leaves a voicemail for Miley requesting an increase in support and provides first call and personal cell number for support as needed. General Service Officer provides family with [facility] info and tips on keeping the home safe. Psychiatric team at [facility] agree with this plan. CT is D/C [...] She endorses that during her stay at [facility], she feels she did learn coping skills and feels safe maintaining safety at home with her parents. SHe does not wish to return to [facility] (And they will not accept her back at this time due to her medical concerns), and she does not meet criteria for HLOC, nor is she or her parents voluntary. They wish to have a referral for child psychiatry, which senior writer supports. Client will benefit from increasing her outpatient supports at this time. Plan: The plan for this patient is: Discharge from ED to Follow Up Provider and Discharge from ED with Outpatient Safety Plan Consultation with: MD JIN Horton Roller Skates Assembler First Call for [facility] * Chantelle Gore, RN - 01/28/2019 [...] Patient is 18-year-old female who presents from [email or web address] with 12 hours of nausea and vomiting now resolved now with 6 syncopal episodes in the last 24 hours. Seen initially last night and had reassuring labs, received IV hydration, and was discharged home. Had an additional syncopal episode this morning and [facility] returned her to the ED for evaluation and stated she was not medically safe to be at [facility]. Prior to signout patient had EKG and discussion withmom and states that patient frequently has syncopal episodes when acute stress or illness, and mother is not concerned about her symptoms. EKG reviewed by prior provider and attending Dr. Pope without any concerning findings. First call was consulted about placement given that she is no longer able to return to [facility]. Seen by first call, safety plan [...] Ngo PA and shakeel Pope MD. * Hediy Sutton RN - 01/28/2019 1138 EDT Chief Complaint Patient presents with ??? Loss of Consciousness Arrives accompanied by parents with concern for syncope, nausea and vomitng. Seen in ED overnight for same symptoms with medical clearance performed, discharged with PRN medications back to [facility] institute. Dad informs patients symptoms persist, with another syncopal episode experienced (per staff). R equesting re-eval and clearance performed for higher level of care, as [facility] states they don't believe they can accomodate. documented in this encounter Plan of Treatment Not on file documented as of this encounter Procedures Procedure Name Priority Date/Time Associated Diagnosis Comments ECG REPORT - SCANNED 01/28/2019 18:03 EDT EKG 12-LEAD STAT 01/28/2019 13:36 EDT documented in this encounter Results * ECG REPORT - SCANNED (01/28/2019 18:03 EDT) 01/28/2019 18:0 3 EDT Scan 2 Senior Talent Acquisition Specialist PROCEDURE/MINOR CHUCKY GICAL ORDERABLES * EKG 12-LEAD (01/28/2019 13:36 EDT) 01/28/2019 13:3 6 EDT Narrative [facility] EKG - 01/28/2019 18:00 EDT ? [facility] ? Test Date: ?2019-01-28 Pat Name: ? MARIAMA MARCIAL ? Department: ?? ED ? Room: ? GT24 Gender: ? Female ? Plater Apprentice: ?? [id number] : ?2000 ? Requested By: SAIRA Urbano Order Number: [id number] ? Reading MD: ?? ELI DUMONT MD ? Measurements Intervals ?[place] ? Rate: ? 51 ? P: ?57 OK: ? 167 ?QRS: ?83 QRSD: ? 83 ? T: ?75 QT: ? 443 ? QTc: ?410 ? Interpretive Statements SINUS BRADYCARDIA WITH SINUS ARRHYTHMIA Normal [place] POSSIBLE RIGHT VENTRICULAR CONDUCTION DELAY Normal ECG for age. No previous ECG available for comparison I reviewed the tracing and have either agreed or edited the findings in this report. Electronically Signed On 01-28-2019 18:00:23 EDT by ELI DUMONT MD. Procedure Note Eli Dumont MD, MD - 01/28/2019 [facility] Test Date: 2019-01-28 Pat Name: MARIAMA MARCIAL Department: ED Room: [facility] Gender: Female Plater Apprentice: [id number] : 2000 Requested By: SAIRA Urbano Order Number: [id number] Reading MD: ELI DUMONT MD Measurements Intervals [place] Rate: 51 P: 57 OK: 167 QRS: 83 QRSD: 83 T: 75 QT: 443 QTc: 410 Interpretive Statements SINUS BRADYCARDIA WITH SINUS ARRHYTHMIA Normal [place] POSSIBLE RIGHT VENTRICULAR CONDUCTION DELAY Normal ECG for age. No previous ECG available for comparison I reviewed the tracing and have either agreed or edited the findings inthis report. Electronically Signed On 01-28-2019 18:00:23 EDT by ELI MORROW. Melissa Ngo PA-C CARDIAC ECG ORDERABLES [facility] EKG documented in this encounter Visit Diagnoses Diagnosis Syncope, unspecified syncope type- Primary documented in this encounter Orders Nursing Count Last Ordered Date First Orde red Date ORTHOSTATIC VITAL SIGNS 1 01/28/2019 documented in this encounter Care Teams Proofsheet Corrector Relationship Specialty Start Date End Date Lashonda Almodovar [place] [address] PCP - General 02/11/14 documented as of this encounter
--- OUTSIDE RECORDS SUMMARY | 2024-01-17 20:00 | XMS_ITS | Encounter Summary ---
Author Organization [facility] Address [address] [place] [address] Care Team Providers Care Weigh And Charge Worker Name Role Phone Scooby Powell MD, Lashonda Primary Care Provider [phone] Reason for Visit * Reason Comments Pain Encounter Details Date Type Department Care Team (Late st Contact Info) Description 02/28/2021 14:15 EDT Office Visit [facility] Orthopedics & Podiatry [address] [place], [place] [id number] [facility] [address] [address] [place] [address] Ingrown nail of great toe [...] Dispensed Refills Start Date End Da te xxvwumhc-epndofcgj-ricol cortisone (CORTISPORIN) otic solution Place 1-2 Drops [...] under the proximal nail fold utilizing an Armenian anvil. The offending ingrown portion of the [...] Medication Only Injection (02/28/2021 14:15 EDT) Narrative [facility] POINT OF CARE - 02/28/2021 14:15 [...] mL documented in this encounter Care Teams Weigh And Charge Worker Relationship Specialty Start Date End Date Lashonda Almodovar MD [address] [place] [address] PCP - General 02/11/14 documented as of this encounter
--- OUTSIDE RECORDS SUMMARY | 2024-01-17 20:00 | XMS_ITS | Encounter Summary ---
Author Organization [facility] Address [address] [place] [address] Care Team Providers Care Costing Analyst Name Role Phone Scooby Powell MD, Lashonda Primary Care Provider [phone] Encounter Details Date Type Department Care Team [...] on filedocumented in this encounter Care Teams Costing Analyst Relationship Specialty Start Date End Date Lashonda Almodovar MD [address] [place] [address] PCP - General 02/11/14 documented as of this encounter
--- OUTSIDE RECORDS SUMMARY | 2024-01-17 20:00 | XMS_ITS | Encounter Summary ---
Author Organization [facility] Address [address] [place] [address] Care Team Providers Care Outside Maintenance Worker Name Role Phone Scooby Powell MD, Lashonda Primary Care Provider [phone] Encounter Details Date Type Department Care Team (Late st Contact Info) Description 09/22/2020 Lab Requisition [facility] Pathology & Laboratory Medicine - [facility] [address] [place] [address] Outr Resulting Lab, Provider Social History Tobacco [...] MICROBIOLOGY - GENERAL ORDERABLES Performing Organization Address City/State/[facility] Co de Phone Number [facility] [address] [place] [address] * COVID-19 TESTING (09/21/2020 9:59 EDT) COVID-19 rt-PCR Result Negative Negative 09/23/2020 14:43 EDT [facility] Comment: This test has not [...] developed and its performance characteristics determined by [facility]. It has not been cleared or approved [...] testing. This test is based on the [facility] COVID-19 Emergency Use Authorization (EUA) assay, with minor modification as defined by the FDA Performed on the [employer] Cold Solutionso 7 Flex RT-PCR System. Performing Lab [facility] Lab 09/23/2020 14:43 EDT [facility] Swab 09/21/2020 9:59 EDT 09/22/2020 15:31 EDT Provider Outr Resulting Lab MICROBIOLOGY - GENERAL ORDERABLES Performing Organization Address City/[facility] Co de Phone Number [facility] [address] [place] [address] documented in this encounter Visit Diagnoses Not on filedocumented in this encounter Care Teams Outside Maintenance Worker Relationship Specialty Start Date End Date Lashonda Almodovar MD [address] [place] [address] PCP - General 02/11/14 documented as of this encounter
--- OUTSIDE RECORDS SUMMARY | 2024-01-17 20:00 | XMS_ITS | Encounter Summary ---
Author Organization [facility] Address [address] [place] [address] Care Team Providers Care Weight Loss Sales Consultant Name Role Phone Unavailable Primary Care Provider Unavailabl e Encounter Details Date Type Department Care Team (Latest Contact Info) Description 2002 0:11 EDT - 2002 11:59 EDT Hospital Encounter [facility] Nursery Unit [address] [place], [place] [id number] Aide Padgett MD [address] [place] [id number] Discharge Disposition: Home or Self Care Social [...]
--- OUTSIDE RECORDS SUMMARY | 2024-01-17 20:00 | XMS_ITS | Encounter Summary ---
Author Organization [facility] Address [address] [place] [address] Care Team Providers Care Global Risk Management Director Name Role Phone Scooby Powell MD, Lashonda Primary Care Provider [phone] Reason for Visit * Reason Comments Fever [...] 22:33 EDT - 02/12/2014 0:35 EDT Emergency [facility] Emergency Department - [address] [id number] Omar Govea MD [address] [facility], Level [address] [place] [phone] Emergency, MD Dania Sore throat (Primary Dx) [...] sugar - this will help with nausea. [facility] Patient Instructions Sore Throat: After Your Child's [...] Where can you learn more? Go to www.H?REL.net/fahc Enter V819 in the search box to learn more about Sore Throat: After Your Child's Visit. ?? [id number] [employer]. Care instructions adapted under license by [facility] This care instruction is for use with your licensed healthcare professional. If you have questions about a medical condition or this instruction, always ask your healthcare professional. [employer] disclaims any warranty or liability for your use of this information. Content Version: [id number]; Last Revised: September 23, 2012 * Attachments The following attachments cannot be sent through Care Everywhere. * SORE THROAT : PEDIATRIC ([place]) documented in this encounter Discharge Disposition Disposition [...] Dontae Mayo MD - 02/11/2014 2311 EDT [facility] ED Note Mariama Jarvis 2000 13 y.o. [...] - GENER AL ORDERABLES Performing Organization Address City/State/[facility] Co de Phone Number [facility] [address] [place] [address] documented in this encounter Visit Diagnoses Diagnosis [...] RN) documented in this encounter Care Teams Global Risk Management Director Relationship Specialty Start Date End Date Lashonda Almodovar MD [address] [place] [address] PCP - General 02/11/14 documented as of this encounter
--- OUTSIDE RECORDS SUMMARY | 2024-01-17 20:00 | XMS_ITS | Encounter Summary ---
Author Organization [facility] Address [address] [place] [address] Care Team Providers Care Clerical Adjuster Name Role Phone Scooby Powell MD, Lashonda Primary Care Provider [phone] Encounter Details Date Type Department Care Team [...] on filedocumented in this encounter Care Teams Clerical Adjuster Relationship Specialty Start Date End Date Lash[place] [address] PCP - General 02/11/14 documented as of this encounter
--- OUTSIDE RECORDS SUMMARY | 2024-01-17 20:00 | XMS_ITS | Encounter Summary ---
Author Organization [facility] Address [address] [place] [address] Care Team Providers Care Intellectual Property Legal Assistant Name Role Phone Scooby Powell MD, Lashonda Primary Care Provider [phone] Reason for Visit * Reason Comments Pain Pain * Referral (Routine) - Authorization Not Required Specialty Diagnoses / Procedures Referred By Jelly che Referred To Contact Orthopedic Surgery Diagnoses Ingrowing nail Ranjit Bowles, [facility] [address] [place] [address] [place] [address] [address] [facility] Ortho & Pod [address] [place] [address] Referral ID Status Reason Start Date Expiration Date Visits Requested Visits Authorized [id number] Authorization Not Required 1 1 Encounter Details Date Type Department Care Team (Late st Contact Info) Description 02/23/2021 10:30 EDT Office Visit [facility] Orthopedics & Podiatry [address] [place], [place] [address] Susan Barros, [facility] [address] [facility] [address] [place], [place] [id number] Ingrown nail of great toe of left [...] tissue documented in this encounter Care Teams Intellectual Property Legal Assistant Relationship Specialty Start Date End Date Lashonda Almodovar MD [address] [place] [address] PCP - General 02/11/14 documented as of this encounter
--- OUTSIDE RECORDS SUMMARY | 2024-01-17 20:00 | XMS_ITS | Encounter Summary ---
Author Organization [facility] Address [address] [place] [address] Care Team Providers Care Horse Racetrack Manager Name Role Phone Scooby Powell MD, Lashonda Primary Care Provider [phone] Encounter Details Date Type Department Care Team (Late st Contact Info) Description 01/18/2020 Lab Requisition [facility] Pathology & Laboratory Medicine - [facility] [address] [place], [place] [address] Outr Resulting Lab, Provider Social History Tobacco [...] DETECTION, PCR Negative Negative 01/19/2020 15:06 EDT [facility] Comment:This test was devayesha langley and its performance characteristics determined by [facility]. It has not been cleared or approved [...] MICROBIOLOGY - GENERAL ORDERABLES Performing Organization Address City/[facility] Co de Phone Number [facility] [address] [place] [address] * HERPES SIMPLEX VIRUS MOLECULAR DETECTION, PCR (01/17/2020 13:46 EDT) Herpes Simplex Virus Molecular Detection 1, PCR Negative Negative 01/19/2020 15:06 EDT [facility] Herpes Simplex Virus Molecular Detection 2, PCR Negative Negative 01/19/2020 15:06 EDT [facility] Swab ENTIRE ANKLE REGION / Unknown 01/17/2020 13:46 EDT 01/18/2020 17:21 EDT Provider Outr Resulting Lab MICROBIOLOGY - GENERAL ORDERABLES Performing Organization Address City/[facility] Co de Phone Number [facility] [address] [place] [address] documented in this encounter Visit Diagnoses Not on filedocumented in this encounter Care Teams Horse Racetrack Manager Relationship Specialty Start Date End Date Lashonda Almodovar MD [address] [place] [address] PCP - General 02/11/14 documented as of this encounter
--- OUTSIDE RECORDS SUMMARY | 2024-01-17 20:00 | XMS_ITS | Encounter Summary ---
Author Organization [facility] Address [address] [place] [address] Care Team Providers Care Sheet Heater Name Role Phone Scooby Powell MD, Lashonda Primary Care Provider [phone] Encounter Details Date Type Department Care Team (Latest Contact Info) Description 11/21/2023 Lab Requisition [facility] Pathology & Laboratory Medicine - [facility] [address] [place] [address] Laura Henriquez FNP [address] [facility] [address] [place] [address] Encounter for screening for human [...] System with Manual Evaluation 11/25/2023 12:26 EDT [facility] Specimen Adequacy Satisfactory for Evaluation - transformation zone component present 11/25/2023 12:26 EDT [facility] General Categorization Negative for intraepithelial lesion or malignancy 11/25/2023 12:26 EDT [facility] Attestation . 11/25/2023 12:26 EDT [facility] at 1226 Clinical History See below 11/25/19 12:26 EDT [facility] Performing Lab [facility] 11/25/2023 12:26 EDT [facility] Scanned Images 11/25/2023 12:26 EDT [facility] Pap Test CERVIX UTERI STRUCTURE / Unknown 11/19/2023 10:20 EDT 11/21/2023 13:43 EDT Laura Henriquez GANG PUSHER PATHOLOGY ORDERABLES [facility] [address] [place] [address] documented in this encounter Visit Diagnoses Diagnosis Encounter for screening for human papillomavirus (HPV) Special screening examination for human papillomavirus (HPV) Encounter for screening for malignant neoplasm of cervix Screening for malignant neoplasm of the cervix Encounter for general adult medical examination without abnormal findings Unspecified general medical examination documented in this encounter Care Teams Sheet Heater Relationship Specialty Start Date End Date Lashonda Almodovar MD [address] [place] [address] PCP - General 02/11/14 documented as of this encounter
--- OUTSIDE RECORDS SUMMARY | 2024-01-17 20:00 | XMS_ITS | Encounter Summary ---
Author Organization [facility] Address [address] [place] [address] Care Team Providers Care Export Sales Assistant Name Role Phone Scooby Powell MD, Lashonda Primary Care Provider [phone] Encounter Details Date Type Department Care Team (Late st Contact Info) Description 05/08/2020 Lab Requisition [facility] Pathology & Laboratory Medicine - [facility] [address] [place] [address] Outr Resulting Lab, Provider Social History Tobacco [...] in accordance with CLIA regulations, [employer] (CAP) guidelines (Aug 05, 2019), and FDA guidance (Jul 17, 2019). This test is only for use under the Food and Drug Administration's Emergency Use Authorization. Swab ENTIRE NASOPHARYNX / Unknown 05/08/2020 12:25 EST 05/08/2020 20:47 EST Provider Outr Resulting Lab MICROBIOLOGY - GENERAL ORDERABLES [facility] [place] * COVID-19 TESTING (05/08/2020 12:25 EST) COVID-19 rt-PCR Result NEGATIVE Negative 05/10/2020 12:50 EST [facility] Comment: 2019-novel Coronavirus (2019-nCoV) not detected [...] in accordance with CLIA regulations, [employer] (CAP) guidelines (Aug 05, 2019), and FDA guidance (Jul 17, 2019). This test is only for use under the Food and Drug Administration's Emergency Use Authorization. Performing Lab [facility] 05/10/2020 12:50 EST [facility] Swab 05/08/2020 12:2 5 EST 05/08/2020 20:47 EST Provider Outr Resulting Lab MICROBIOLOGY - GENERAL ORDERABLES [facility] [address] [place] [address] [facility] [place] documented in this encounter Visit Diagnoses Not on filedocumented in this encounter Care Teams Export Sales Assistant Relationship Specialty Start Date End Date Lashonda Almodovar MD [address] [place] [address] PCP - General 02/11/14 documented as of this encounter
--- OUTSIDE RECORDS SUMMARY | 2024-01-17 20:00 | XMS_ITS | Encounter Summary ---
Author Organization [facility] Address [address] [place] [address] Care Team Providers Care Furnace Charger Name Role Phone Scooby Powell MD, Lashonda Primary Care Provider [phone] Reason for Visit * Reason Comments Abdominal [...] 20:30 EDT - 01/28/2019 0:50 EDT Emergency [facility] Emergency Department - [address] [address] Mikhail Yeager, PA-C [address] [place] [address], Level [address] [place] [id number] Emergency, MD Dania Lower abdominal pain (Primary [...] through Care Everywhere. * Abdominal Pain: Pediatric ([place]) documented in this encounter Discharge Disposition Disposition Code Departure Means Destination Home or Self Care Car documented in this encounter ED Notes * Art Zaidi RN - 01/27/2019 2320 EDT Pt provided PO fluids at request of US and per provider OK. * Alda Mehta RN - 01/27/2019 2303 EDT Blood drawn via saline lock per protocol, [place] and lavender tube(s) sent to lab per order. * Toy Oro, GALA Weiss - 01/27/2019 2205 EDT DOS: 01/27/2019 Chief Complaint Patient presents with ??? Abdominal Pain Pt arrives via EMS from [facility] (staff present at bedside) with complaints of LLQ pain that started yesterday and got worse tonight after eating pizza and salad she was naseous and vomited. Pt dry heaving in route per EMS. Pt denies past medical hx other than previous shoulder surgeries. HPI The history is provided by the patient, medical records and a parent (and [facility] staff). I, Fidelina Ibarra, am scribing for Mikhail Yeager PA while he/she is personally performing the service. Fidelina Ibarra 01/27/2019 22:06 Mariama Jarvis is a 18 y.o. female with no pertinent PMH who presents to the ED from [facility] (staff present at bedside on arrival) for LLQ abdominal pain. Patient reports that the pain started yesterday and worsened tonight after eating pizza and salad. She describes pain that is continuing now, has not improved, and is worse when pressing on the area and with motion. She endorses associated nausea and vomiting (per parents, emesis was observed by [facility] staff who described it as projectile vomiting), and was dry heaving per EMS (EMS note VSS en route). No one else around her was ill. Fatherreports that she was screened for SI yesterday before going to [facility], and at that time her temperature was [...] CLINITEK UPT Result Neg Final Tech ID [id number] Final POCT URINE DIPSTICK, CLINITEK Color YELLOW Final Clarity, UA Clear Final Glucose Neg Final Bilirubin Neg Final Ketones Neg Final Specific [place] 1.020 Final Blood Neg Final pH 7.0 Final Protein Neg Final Urobilinogen 1.0 Final Nitrite Neg Final Leuk Esterase Neg Final Tech ID [id number] Final Procedures ED COURSE A medical screening exam was performed. Mariama Jarvis is a 18 y.o. female with no pertinent PMH who presents to the ED from [facility] (staff present at bedside on arrival) [...] the Emergency Department: Improved PCP: Lashonda Almodovar [facility] 01/27/2019 22:05 No flowsheet data found. This [...] C REACTIVE PROTEIN (01/27/2019 22:52 EDT) Pathologist [facility] C Reactive Protein <7.0 <10.0 mg/L 01/27/2019 23:34 [facility] Blood specimen (specimen) BLOOD SPECIMEN / Unknown 01/27/2019 22:52 EDT 01/27/2019 23:03 EDT Mikhail Yeager PA-C CHEMISTRY & BLOOD GA S ORDERABLES [facility] [address] [place] [address] * (ABNORMAL) COMPREHENSIVE METABOLIC PANEL (CMP) (01/27/2019 22:52 EDT) Potassium 3.8 3.3 - 4.6 mEq/L 01/27/2019 23:34 [facility] Sodium 138 136 - 145 mEq/L 01/27/2019 23:34 [facility] Chloride 106 96 - 110 mEq/L 01/27/2019 23:34 [facility] CO2 23 22 - 32 mEq/L 01/27/2019 23:34 [facility] Total Alkaline Phosphatase 44(L) 45 - 116 U/L 01/27/2019 23:34 [facility] Bilirubin, Total 1.1(H) <1.0 mg/dl 01/28/20 23:34 [facility] AST 23 5 - 30 U/L 01/27/2019 23:34 [facility] ALT 19 <36 U/L 01/27/2019 23:34 [facility] Albumin 4.5 3.7 - 5.6 g/dl 01/27/2019 23:34 [facility] Total Protein 6.9 6.3 - 8.6 g/dl 01/27/2019 23:34 [facility] Creatinine 0.58 0.50 - 1.00 mg/dl 01/27/2019 23:34 [facility] GFR, Calculated Age <18 ml/min/1.7 3m2 01/27/2019 23:34 [facility] BUN 11 8 - 21 mg/dl 01/27/2019 23:34 [facility] Calcium 9.2 8.9 - 10.7 mg/dl 01/27/2019 23:34 [facility] Calculated Calcium 8.8(L) 8.9 - 10.7 mg/dl 01/27/2019 23:34 [facility] Glucose, Serum 87 70 - 100 mg/dl 01/27/2019 23:34 [facility] Fasting? Unknown 01/27/2019 23:03 [facility] Blood specimen (specimen) BLOOD SPECIMEN / Unknown 01/27/2019 22:52 EDT 01/27/2019 23:03 EDT Mikhail Yeager PA-C CHEMISTRY & BLOOD GA S ORDERABLES [facility] [address] [place] [address] * (ABNORMAL) COMPLETE BLOOD COUNT AND DIFFERENTIAL (01/27/2019 22:52 EDT) WBC 5.84 4.6 - 11.2 K/cmm 01/27/2019 23:12 [facility] RBC 4.08(L) 4.10 - 5.10 M/cmm 01/27/2019 23:12 [facility] Hemoglobin 12.8 12.0 - 16.0 gm/dl 01/27/2019 23:12 [facility] HCT 37.1 36.0 - 46.0 % 01/27/2019 23:12 [facility] MCV 91 78 - 102 fl 01/27/2019 23:12 [facility] MCH 31.4 pg 01/27/2019 23:12 [facility] MCHC 34.5 gm/dl 01/27/2019 23:12 [facility] RDW-CV 12.3 % 01/27/2019 23:12 [facility] RDW-SD 40.8 fl 01/27/2019 23:12 [facility] PLT 218 156 - 312 K/cmm 01/27/2019 23:12 [facility] MPV 10.1 fl 01/27/2019 23:12 [facility] % Neutrophils 49.9 % 01/27/2019 23:12 [facility] % Lymphocytes 39.9 % 01/27/2019 23:12 [facility] % Monocytes 8.4 % 01/27/2019 23:12 [facility] % Eosinophils 0.9 % 01/27/2019 23:12 [facility] % Basophils 0.7 % 01/27/2019 23:12 [facility] % Immature Grans 0.2 % 01/27/2019 23:12 [facility] ABS Neutrophils 2.92 K/cmm 9 23:12 [facility] ABS Lymphs 2.33 K/cmm 01/27/2019 23:12 [facility] ABS Monocytes 0.49 K/cmm 01/27/2019 23:12 [facility] ABS Eosinophils 0.05 K/cmm 9 23:12 [facility] ABS Basophils 0.04 K/cmm 01/27/2019 23:12 [facility] ABS Immature Grans 0.01 K/cmm 01/27/2019 23:12 [facility] Type of Diff: Automated 01/27/2019 23:12 EDT [facility] Blood specimen (specimen) BLOOD SPECIMEN / Unknown 01/27/2019 22:52 EDT 01/27/2019 23:03 EDT Mikhail ORO-C PACKAGES & DNA PROBE ORDERABLES Performing Organization Address [facility] Co de Phone Number [facility] [address] [place] [address] * POCT TEST, CLINITEK (01/27/2019 22:29 EDT) UPT Result Neg Neg 01/27/2019 22:36 EDT [facility] adhesive sprayer ID [id number] 01/27/2019 22:36 EDT [facility] Comment:Test performed at Em ergency Department Urine specimen (specimen) URINE / Unknown 01/27/2019 22:29 EDT 01/27/2019 22:36 EDT Mikhail LEIVAC POINT OF CARE TEST O RDERABLES Performing Organization Address City/[facility] Co de Phone Number [facility] [address] [place] [address] * POCT URINE DIPSTICK, CLINITEK (01/27/2019 22:26 EDT) Color YELLOW Yellow 01/27/2019 22:31 EDT [facility] Clarity, UA Clear Clear 01/27/2019 22:31 EDT [facility] Glucose Neg Neg 01/27/2019 22:31 EDT [facility] Bilirubin Neg Neg 01/27/2019 22:31 EDT [facility] Ketones Neg Neg 01/27/2019 22:31 T [facility] Specific [place] 1.020 1.001 - 1.035 01/27/2019 22:31 EDT [facility] Blood Neg Neg 01/27/2019 22:31 EDT [facility] pH 7.0 4.6 - 8.0 01/27/2019 22:31 EDT [facility] Protein Neg Neg 01/27/2019 22:31 EDT [facility] Urobilinogen 1.0 0.2 - 1.0 mg/dL 01/27/2019 22:31 EDT [facility] Nitrite Neg Neg 01/27/2019 22:31 EDT [facility] Leuk Esterase Neg Neg 01/27/2019 22:31 EDT [facility] adhesive sprayer ID [id number] 01/27/2019 22:31 EDT [facility] Comment:Test performed at Em ergency Department Urine specimen (specimen) URINE / Unknown 01/27/2019 22:26 EDT 01/27/2019 22:31 EDT Mikhail Yeager PA-C POINT OF CARE TEST O RDERABLES Performing Organization Address City/State/[facility] Co de Phone Number [facility] [address] [place] [address] documented in this encounter Visit Diagnoses Diagnosis [...] Mehta, RN) 0021 (Completed - Provider: Delma Henriquez, CHRISTINA) ondansetron (PF) (ZOFRAN) injection 4 mg (COMPLETED) 4 mg, intravenous, NOW X1, 1 dose, On Fri01/27/19 at 2300, STAT 2313 (Given - Provider: Alda Mehta, CHRISTINA) ondansetron 4 mg ODT tab STARTER PACK (COMPLETED) 1 Package, oral, NOW X1, 1 dose, On Chantel 01/28/19 at 0045, STAT 0048 (Given - Provid er: Art Zaidi RN) documented in this encounter Care Teams Furnace Charger Relationship Specialty Start Date End Date [place] [address] PCP - General 02/11/14 documented as of this encounter
--- OUTSIDE RECORDS SUMMARY | 2024-01-17 20:00 | XMS_ITS | Encounter Summary ---
Author Organization [facility] Address [address] [place] [address] Care Team Providers Care Painter Chassis Name Role Phone Scooby Powell MD, Lashonda Primary Care Provider [phone] Encounter Details Date Type Department Care Team [...] on filedocumented in this encounter Care Teams Painter Chassis Relationship Specialty Start Date End Date Lash[place] [address] PCP - General 02/11/14 documented as of this encounter
--- OUTSIDE RECORDS SUMMARY | 2024-01-17 20:00 | XMS_ITS | Encounter Summary ---
Author Organization [facility] Address [address] [place] [address] Care Team Providers Care Senior Management Consultant Name Role Phone Scooby Powell MD, Lashonda Primary Care Provider [phone] Encounter Details Date Type Department Care Team (Late st Contact Info) Description 11/19/2023 Lab Requisition [facility] Pathology & Laboratory Medicine - [facility] [address] [place] [address] Outr Resulting Lab, Provider Social History Tobacco [...] gonorrhoeae Result Negative Negative 11/20/2023 13:01 EDT [facility] Chlamydia trachomatis Result Negative Negative 11/20/2023 13:01 EDT [facility] Pap Test CERVIX UTERI STRUCTURE / Unknown 11/19/2023 10:20 EDT 11/20/2023 8:47 EDT Provider Outr Resulting Lab MICROBIOLOGY - GENERAL ORDERABLES [facility] [address] [place], [place] [id number] documented in this encounter Visit Diagnoses Not on filedocumented in this encounter Care Teams Senior Management Consultant Relationship Specialty Start Date End Date Lashonda Almodovar MD [address] [place] [address] PCP - General 02/11/14 documented as of this encounter
--- OUTSIDE RECORDS SUMMARY | 2024-01-17 20:00 | XMS_ITS | Encounter Summary ---
Author Organization [facility] Address [address] [place] [address] Care Team Providers Care Mandrel Puller Name Role Phone Scooby Powell MD, Lashonda Primary Care Provider [phone] Encounter Details Date Type Department Care Team (Late st Contact Info) Description 01/13/2024 Lab Requisition [facility] Pathology & Laboratory Medicine - [facility] [address] [place] [address] Outr Resulting Lab, Provider Social History Tobacco [...] Procedure Name Priority Date/Time Associated Diagnosis Comments LYME AB Routine 01/12/2024 13:41 EDT documented in this encounter Results * LYME AB (01/12/2024 13:41 EDT) Lyme Ab Negative Negative 01/14/2024 9:04 EDT [facility] Blood VENOUS BLOOD / Unknown 01/12/2024 13:41 EDT 01/13/2024 17:53 EDT Provider Outr Resulting Lab IMMUNOLOGY A ND SEROLOGY ORDERABLES [facility] [address] [place] [address] documented in this encounter Visit Diagnoses Not on filedocumented in this encounter Care Teams Mandrel Puller Relationship Specialty Start Date End Date Lashonda Almodovar MD [address] [place] [address] PCP - General 02/11/14 documented as of this encounter
--- OUTSIDE RECORDS SUMMARY | 2024-01-17 20:00 | XMS_ITS | Encounter Summary ---
Author Organization [facility] Address [address] [place] [address] Care Team Providers Care Zipper Sewing Machine Operator Name Role Phone Scooby Powell MD, Lashonda Primary Care Provider [phone] Encounter Details Date Type Department Care Team (Late st Contact Info) Description 07/05/2020 Lab Requisition [facility] Pathology & Laboratory Medicine - [facility] [address] [place] [address] Outr Resulting Lab, Provider Social History Tobacco [...] gonorrhoeae Result Negative Negative 07/06/2020 14:16 EST [facility] Chlamydia trachomatis Result Negative Negative 07/06/2020 14:16 EST [facility] Swab ENTIRE VAGINA / Unknown 07/05/2020 11:00 EST 07/05/2020 21:27 EST Provider Outr Resulting Lab MICROBIOLOGY - GENERAL ORDERABLES [facility] [address] [place] [address] documented in this encounter Visit Diagnoses Not on filedocumented in this encounter Care Teams Zipper Sewing Machine Operator Relationship Specialty Start Date End Date Lashonda Almodovar MD [address] [place], [place] [id number] PCP - General 02/11/14 documented as of this encounter
--- NOTE | 2024-01-17 20:44 | W.ED.GENAD ---
Discharge Plan Disposition Patient Disposition: Home Condition: Stable Discharge Details Clinical Impression: Effusion of elbow joint, right Primary Care Provider: Robbi Warren ED Provider: Prisca Castillo Home Meds and New Rx's Prescriptions: New gabapentin 100 mg capsule 100 mg PO BID Qty: 5 0RF Rx Instructions: Take up to twice a day for severe pain as needed No Action escitalopram oxalate [Lexapro] 20 mg tablet 20 mg PO DAILY albuterol sulfate 90 mcg/actuation HFA aerosol inhaler 2 puff inhalation Q6H PRN (Reason: shortness of breath or wheezing) Qty: 8.5 0RF (DME) Aerochamber MV Spacer See Rx Instructions .Route Qty: 1 0RF Rx Instructions: As directed ibuprofen 200 mg Capsule 200 mg PO PRN PRN buspirone 10 mg Tablet 10 mg PO HS doxycycline hyclate 100 mg capsule 100 mg PO BID 28 Days Qty: 56 0RF Discharge Instructions Additional Instructions: Call orthopedics first thing Friday to schedule follow-up appointment, I have sent a referral for the next day follow-up. I encourage you to continue using ibuprofen 600 mg every 6 hours and Tylenol 650 mg every 6 hours around the clock for pain control. You may use the lidocaine patches and ice as needed. Do not apply heat and topical lidocaine patch. Your next dose of ibuprofen can be at 4:30 AM For severe pain you may try the gabapentin. A limited rx for a short course only has been provided. Return to emergency care if you develop new fevers associated with elbow pain, redness, hand weakness/decreased pulse, decreased ability to move your fingers, or if you are very worried and need to be rechecked again immediately Referrals: [facility] [Provider Group] HPI General Date/Time Provider Initiated Documentation: 01/17/24 19:56. HPI Narrative: Mariama is a 23 year old female who presents to the emergency dept for evaluation of worsening R elbow pain. She has been seen in the ED multiple times for this same presentation; has been evaluated by Dr Strong as well. She denies fever/chills, body aches, other joint pain, rashes, chest pain, shortness of breath, vomiting, change in p.o. intake, change in bowel or bladder function, abdominal pain. She does have a history of recent weight loss and fatigue over the last 6 months without explanation. Physical exam remarkable for moderate swelling to right elbow and tenderness to palpation to the upper arm, elbow, and proximal forearm. No overlying erythema/abrasions/warmth. ROM of elbow limited due to pain, but she is able to extend and flex elbow. She does have full range of motion to fingers with 5 out of 5 muscle strength, though she does have pain in her elbow when she moves her fingers. Radial pulse 2+. Unclear etiology of elbow swelling and pain. No red flags concerning for septic joint or acute bony pathology at this time requiring additional imaging. Patient has had this worked up extensively with MRI over the last couple of days and has been evaluated by ortho, with little change in physical exam. We did obtain blood work which was reassuring, no leukocytosis, change in metabolic panel, CRP elevation, or elevated procalcitonin. Repeat blood cultures drawn. I did review previous notes no ED visits, tick panel/Lyme, labs, rheumatoid markers were all negative. Strongly recommend follow-up with orthopedics on Friday when the office reopens for arthroscopy with synovial biopsy. As patient has had significant pain, will trial a limited number of gabapentin for nerve pain. Recommend continued APAP/ibuprofen, lidocaine patches, and ice. Reviewed discharge instructions with patient and her mother, including symptomatic management, red flags indicate need for return to emergency care, and importance of orthopedics follow-up. Blood cultures sent to lab. Related Data Home Medications ?Medication ?Instructions ?Recorded ?Confirmed ibuprofen 200 mg capsule 200 mg PO PRN PRN 10/05/18 01/17/24 buspirone 10 mg tablet 10 mg PO HS 12/12/19 01/17/24 albuterol sulfate 90 mcg/actuation 2 puff inhalation Q6H PRN 04/17/23 01/17/24 aerosol inhaler shortness of breath or wheezing #8.5 grams escitalopram oxalate 20 mg tablet 20 mg PO DAILY 04/17/23 01/17/24 (Lexapro) inhalational spacing device #1 ea 04/17/23 01/17/24 (Aerochamber MV spacer) doxycycline hyclate 100 mg capsule 100 mg PO BID 28 days #56 caps 01/12/24 01/17/24 gabapentin 100 mg capsule 100 mg PO BID #5 caps 01/17/24 Previous Rx's ?Medication ?Instructions ?Recorded albuterol sulfate 90 mcg/actuation 2 puff inhalation Q6H PRN 04/17/23 aerosol inhaler shortness of breath or wheezing #8.5 grams inhalational spacing device #1 ea 04/17/23 (Aerochamber MV spacer) doxycycline hyclate 100 mg capsule 100 mg PO BID 28 days #56 caps 01/12/24 gabapentin 100 mg capsule 100 mg PO BID #5 caps 01/17/24 Allergies Allergy/AdvReac Type Severity Reaction Status Date / Time No Known Allergies Allergy Unverified 01/17/24 19:58 General Stated Complaint: Orthopedic FIONA: 3 Review of Systems Narrative: see HPI Exam Const General: cooperative, healthy appearing and well groomed Nutritional Appearance: average body habitus Resp Effort & Inspection: normal respiratory effort and able to speak in complete sentences Skin General skin exam: no rashes or lesions noted Trauma: no lacerations or abrasions Wounds: no wounds Neuro Motor: muscle tone normal throughout and strength 5/5 throughout Sensory Exam: no sensory deficits noted Extrem Right upper extremity: normal capillary refill and elbow/forearm Details: tenderness, swelling and distal pulses intact; no unusual warmth, no abrasions, no lacerations, no ecchymosis, no crepitus, no foreign bodies and no deformity Course Vital Signs Vital signs: Vital Signs Temperature 36.7 C 01/17/24 19:55 Pulse 90 01/17/24 19:55 Respiratory Rate 16 01/17/24 19:55 Blood Pressure 127/87 01/17/24 19:55 Pulse Oximetry 98 01/17/24 19:55 Temperature 36.7 C 01/17/24 19:55 Temperature Source Temporal Artery Scan 01/17/24 19:55 Pulse 90 01/17/24 19:55 Respiratory Rate 16 01/17/24 19:55 Respiratory Effort Normal, Non-Labored 01/17/24 19:58 Blood Pressure 127/87 01/17/24 19:55 Blood Pressure Position Sitting 01/17/24 19:55 Pulse Oximetry 98 01/17/24 19:55 Oxygen Delivery Method Room Air 01/17/24 19:55 Oxygen Flow Rate 0 01/17/24 19:55 Pain Level 9 01/17/24 19:55 Lab/Test Results Lab/Test Results: 01/17/24 20:42 Blood Blood Culture - Pending 01/17/24 20:42 Blood Blood Culture - Pending POC- Test(urine) Negative Medical Decision Making Quality:SDOH Health Related Social Needs: No Data to Display PFSH All Active Problems (Updated 01/17/24 @ 22:32 by Prisca Menjivar) Effusion of elbow joint, right (Acute) Effusion of elbow joint (Acute) Postural orthostatic tachycardia syndrome (Acute) Shoulder pain, right (Acute) Seizure-like activity (Acute) Hypermobile joints (Acute) Spells of decreased attentiveness (Acute) Migraine headache (Chronic) Menorrhagia with irregular cycle (Acute) given h/o migraine w/ aura need to consider alternatives to the common OCPs - pt may be interested in the nexplenon Dysmenorrhea in adolescent (Chronic) Well adolescent visit without abnormal findings (Acute 08/13/16) Routine child health exam (Acute 07/28/12) Epistaxis (Acute 06/17/16) Depression with anxiety (Acute 09/26/17) BMI (body mass index), pediatric, 5% to less than 85% for age (Acute 08/10/15) Attention deficit hyperactivity disorder (Acute 07/28/12) Medical History Migraine Depression Anxiety ADHD Surgical History S/P arthroscopy of shoulder bilateral ORAL SURGERY Family History Mother Healthy adult on routine physical examination Anxiety Father Healthy adult on routine physical examination Brother Healthy adult on routine physical examination Social History Smoking/Tobacco Use Status: Current every day Tobacco Type: e-cigarettes Smoking risk assessment performed?: Yes Alcohol Intake: current Alcohol Intake frequency: holidays/special occasions only Drug use: Daily Substance use type: marijuana Details: daily mj use Housing: apartment Do you feel safe at home: Yes Do you feel safe in your relationship?: Yes
[2024-01-17 21:21] LABS: Abs Immature Grans 0.04 10^3/uL (0.0-0.06); Absolute Basophil Count 0.06 10^3/uL (0.0-0.2); Absolute Eosinophil Count 0.16 10^3/uL (0.0-0.7); Absolute Lymphocyte Count 2.45 10^3/uL (1.2-3.4); Absolute Monocyte Count 0.76 10^3/uL (0.1-0.8); Absolute Neutrophil Count 6.23 10^3/uL (1.2-6.7); Basophils % 0.6 %; Eosinophils % 1.6 %; HCT 36.3 % (36.0-46.0); HGB 12.2 g/dL (11.2-15.7); Immature Grans % 0.4 %; Lymphocytes % 25.3 %; MCH 31.4 pg (27.0-33.0); MCHC 33.6 % (32.0-36.0); MCV 94 fL (80-95); MPV 9.7 fL (8.0-11.0); Monocytes % 7.8 %; Neutrophils % 64.3 %; Platelet Count 315 10^3/uL (130-400); RBC 3.88 10^6/uL (3.93-5.22); RDW 12.2 % (11.7-14.6); RDW-SD 42.4 fL
[2024-01-17 21:22] LABS: ESR 9 mm/hr (0-20)
[2024-01-17 21:35] LABS: ALT 16 U/L (14-59); AST 10 U/L (15-37); Albumin 3.8 g/dL (3.4-5.0); Alkaline Phosphatase 75 U/L (46-116); Anion Gap 10.4 mmol/L (3-11); BUN 17 mg/dL (7-18); Bilirubin, Total 0.52 mg/dL (0.2-1.0); C-Reactive Protein < 0.50 mg/dL (<or=0.5); CO2 26.6 mmol/L (21.0-32.0); CREATININE 0.8 mg/dL (0.55-1.02); Calcium 9.4 mg/dL (8.5-10.1); Chloride 104 mmol/L (98-107); Estimated GFR 107.44 (mL/min/1.73m2); Glucose 94 mg/dL (74-106); Potassium 3.6 mmol/L (3.5-5.1); Sodium 141 mmol/L (136-145)
[2024-01-17 21:51] LABS: Procalcitonin < 0.1 ng/mL
--- NOTE | 2024-01-17 22:04 | NUR.NOTE ---
Nursing Note: Report and transfer of care given to Delmy Gabriel RN
[2024-01-17 22:56] VITALS: BP 121/73; PULSE 74; RESP 18; O2SAT 100
[2024-01-17] MEDS: Ketorolac 15 MG/ML VIAL IVP (22:56)
[2024-01-17] MEDS: Lidocaine 5% Patch 1 PATCH TP (22:56)
== END 2024-01-17 22:56 | disposition home or self-care (01) ==
PROVIDERS: Emergency Provider Nurse Practitioner Family; PCP Emergency Medicine
DX: M25.421 Effusion, right elbow (principal); M25.521 Pain in right elbow
CPT/HCPCS: 36415; 80053; 81025; 84145; 85652; 87040; 96374; 99284; 85025; 86140; 99283; J1885

== ENCOUNTER 2024-01-23 11:57 | Day surgery (SDC) | payer BC, SELFPAY ==
[2024-01-23] VITALS (28 sets, daily range): BP systolic 93–134; BP diastolic 51–73; PULSE 50–74; RESP 13–20; TEMP 36.2–36.8; O2SAT 97–100; BMI 23.0
--- NOTE | 2024-01-23 07:11 | W.PM.DSUDISC ---
Date of service: 01/23/24 Time of Service: 16:30 Discharge Plan Disposition Patient Disposition: Home Condition: Stable Discharge Details Attending Provider: Micah Strong Primary Care Provider: Laura Henriquez Home Meds and New Rx's Prescriptions: New naproxen 250 mg tablet 250 - 500 mg PO BID PRN (Reason: moderate pain and swelling) Qty: 40 0RF tramadol 50 mg tablet 50 mg PO Q8H PRN (Reason: only for severe pain) Qty: 7 0RF Continued escitalopram oxalate [Lexapro] 20 mg tablet 20 mg PO DAILY albuterol sulfate 90 mcg/actuation HFA aerosol inhaler 2 puff inhalation Q6H PRN (Reason: shortness of breath or wheezing) Qty: 8.5 0RF (DME) Aerochamber MV Spacer See Rx Instructions .Route Qty: 1 0RF Rx Instructions: As directed bupropion HCl [Wellbutrin XL] 300 mg tablet extended release 24 hr 300 mg PO QAM Discontinued ibuprofen 200 mg Capsule 200 mg PO PRN PRN Discharge Instructions Additional Instructions: Surgery: Right elbow arthroscopy with synovial biopsy and limited debridement Activity: Weightbearing as tolerated. Advance range of motion as comfort allows. Important to restore full elbow extension as soon as possible. Recommend avoiding repetitive activities and heavy lifting for 6-8 weeks. An Occupational Therapy prescription will be provided in the office at follow-up. Prescriptions: Naproxen 250 mg take 1-2 every 12 hours with a meal as needed for moderate pain Tramadol 50 mg take 1 every 8 hours as needed for severe pain (try not to use Wellbutrin if using multiple doses of tramadol the same day) You may use [id number]-slfrudx Tylenol (acetaminophen) as needed for mild pain. These pain medications may be taken all at once or in different combinations as needed. Also, recommend Colace (docusate) as a stool softener as surgery and pain medicine cause constipation. You may try aoih-okw-mngostu diphenhydramine (Benadryl) 25-50 mg nightly as a sleep aid Dressings: Leave dressing in place for 3 days. May then remove and leave open to air or cover incisions with Band-Aids. Leave the sticky Steri-Strips in place until they fall off or remove them after you shower. May shower after 5 days. Follow-up: 10-[address] Strong You may take off the leg compression stockings this evening at home. You may also leave them on a few days longer if you have a history of leg swelling or edema. Let us know right away if you develop any redness, drainage, fevers, chest pain, or trouble breathing. Do not drink alcohol or drive for at least 24 hours after anesthesia. Please call the office during business hours with any questions or concerns. Discharge Orders Discharge Orders: Discharge Order (Routine); Ordered 01/23/24 Ordered By: Mary Osullivan DS: Diagnosis Discharge Diagnosis (1) Effusion of elbow joint, right: Status: Acute
--- NOTE | 2024-01-23 07:21 | W.PM.OP ---
Date of service: 01/23/24 Time of Service: 14:00 Operative Note Operative Note DATE OF PROCEDURE: 01/23/24 PRE-OP DIAGNOSIS: Right elbow painful effusion POST-OP DIAGNOSIS: same PROCEDURE: Right elbow arthroscopy with synovial biopsy and limited debridement, CPT # [id number] SURGEON: Micah Strong BALANCING MACHINE SET UP WORKER: None None ANESTHESIA TYPE: Local By Surgeon, General LMA/ETT and Primary Nerve Block Refer to Anesthesia Record ESTIMATED BLOOD LOSS: 5 PATHOLOGY: other (Synovial tissue) COMPLICATIONS: None Patient was transported to: PACU Patient's condition: stable Indications: Please see complete medical record for details. Findings: Significant diffuse synovitis. Early adhesions and plical band formation specially laterally. Intact cartilage surfaces. No purulence, crystals, or necrotic debris. Procedure Description: In the operating room, general anesthesia was induced. The patient was positioned lateral on the operating room table. All bony prominences were well-padded. Preoperative antibiotics were administered. The elbow was prepped and draped in the usual sterile fashion. The correct patient, procedure, and side of the procedure were all verified prior to incision. The large elbow effusion was palpable through the lateral soft spot. An 18-gauge needle was used to aspirate 10 cc of fluid and sent for repeat Gram stain, culture, crystal analysis, and Lyme testing. Through this needle about 20 cc of normal saline was used to infiltrate the elbow joint. The pedrito and spread technique was used to establish the proximal anteromedial portal. A diagnostic arthroscopy of the anterior elbow compartment was performed with findings noted above. Initial elbow joint access was somewhat challenging as the arthroscope was seemingly caught in the significant synovitis and/are had difficulty passing through the inflamed capsule. A 18-gauge needle needle was used to localize a modified direct lateral working portal, which was spread and used to obtain inflamed synovial tissue samples from multiple areas in the anterior compartment with pituitary rongeur's placed into specimen cups for pathology analysis. The synovitis in the anterior compartment was then debrided using the mechanical shaver carefully with suction so as not to violate the capsule and surrounding structures and lastly switching working and viewing portals to complete this limited debridement. The elbow was drained of arthroscopic fluid. The medial and lateral portals were closed using 3-0 Monocryl in a buried interrupted fashion. Mastisol was applied about the incisions which were covered with Steri-Strips. Xeroform pieces were applied over both incisions and covered with dry 4 x 4 gauze. The radial pulse was 2+. The elbow was gently compressed with jacqui bandage. The patient awoke from anesthesia without complication and was transferred to the recovery room in stable fashion.
[2024-01-23] MEDS: Lactated Ringers 1,000 ML 30 ML IV (12:37)
--- NOTE | 2024-01-23 12:37 | ANES.PREOP_ITS ---
General Info Date of Service Date Performed: 01/23/24 Height: 5 ft 10 in Weight: 72.717 kg Body Mass Index (BMI): 23.0 Surgical Procedure: Operation Date: 01/23/24 13:05 Proposed Procedure Side Surgeon p Elbow Arthroscopy Right Micah Strong MD Meds Allergies and Home Medications Allergies Allergy/AdvReac Type Severity Reaction Status Date / Time No Known Allergies Allergy Verified 01/23/24 12:08 Home Medication ?Medication ?Instructions ?Recorded ibuprofen 200 mg capsule 200 mg PO PRN PRN 10/05/18 albuterol sulfate 90 mcg/actuation 2 puff inhalation Q6H PRN 04/17/23 aerosol inhaler shortness of breath or wheezing #8.5 grams escitalopram oxalate 20 mg tablet 20 mg PO DAILY 04/17/23 (Lexapro) inhalational spacing device #1 ea 04/17/23 (Aerochamber MV spacer) bupropion HCl 300 mg 24 hr tablet, 300 mg PO QAM 01/21/24 extended release (Wellbutrin XL) Current Visit Medications: Current Medications Generic Name Dose Route Start Last Admin Trade Name Freq PRN Reason Stop Dose Admin Ringer's Solution 1,000 mls @ 30 mls/hr 01/23/24 06:00 01/23/24 12:37 IV 01/23/24 23:59 30 mls/hr INFUSION [facility] Administration Cefazolin Sodium/Dextrose 2 gm in 50 mls @ 100 mls/hr 01/23/24 06:00 Ancef Duplex IVPB 01/23/24 23:59 PREOP [facility] Tranexamic Acid/Sodium Chloride 1,000 mg in 100 mls @ 600 mls/hr 01/23/24 06:0 0 IVPB 01/23/24 23:59 PREOP [facility] IV Miscellaneous Supplies 1 each 01/23/24 06:00 Iv Access IV 01/23/24 23:59 DIRECTED [facility] Oxycodone HCl 0 mg 01/23/24 07:10 Oxycodone 5 Mg Tab PO 02/22/24 07:09 Q3H PRN PRN Pain Sodium Chloride 0 ml 01/23/24 06:00 Normal Saline Flush 10 Ml Syr IV 01/23/24 23:59 PRN PRN Sodium Chloride 0 ml 01/23/24 06:00 Normal Saline 10 Ml Vial IJ 01/23/24 23:59 DIRECTED PRN Sterile Water 0 ml 01/23/24 06:00 Water,Injection,Sterile 10 Ml Vial IJ 01/23/24 23:59 DIRECTED PRN PFSH Active Problems Active Problems: Problem Status Onset Code Effusion of elbow joint, right Acute M25.421 Postural orthostatic tachycardia syndrome Acute R00.0, I95.1 Shoulder pain, right Acute M25.511 Seizure-like activity Acute R56.9 Hypermobile joints Acute M24.9 Spells of decreased attentiveness Acute R68.89 Attention deficit hyperactivity disorder Acute 07/28/12 F90.9 BMI (body mass index), pediatric, 5% to less than 85% for age Acute 08/10/15 Z68.52 Depression with anxiety Acute 09/26/17 F41.8 Epistaxis Acute 06/17/16 R04.0 Routine child health exam Acute 07/28/12 Z00.129 Well adolescent visit without abnormal findings Acute 08/13/16 Z00.129 Dysmenorrhea in adolescent Chronic N94.6 Menorrhagia with irregular cycle Acute N92.1 Migraine headache Chronic G43.909 Medical History Medical History Migraine Depression Anxiety ADHD Surgical History Surgical History S/P arthroscopy of shoulder bilateral ORAL SURGERY 8 teeth removed Tobacco Smoking/Tobacco Use Status: Current every day Tobacco Type: e-cigarettes Alcohol Alcohol Intake: current Alcohol intake frequency: holidays/special occasions only Substance Use Substance use: Daily Substance use type: marijuana Details: daily mj use Vital Signs and Lab Results Vital Signs Most Recent Vital Signs in EMR: Most Recent Vital Signs Temp Pulse Resp BP Pulse Ox 36.5 C 73 16 125/64 100 01/23/24 12:33 01/23/24 12:33 01/23/24 12:33 01/23/24 12:33 01/23/24 12:33 Lab Results Blood Type / Crossmatch: No Data to Display Complete Blood Count: White Blood Count 9.70 10^3/uL (4.4-10.8) 01/17/24 21:13 Red Blood Count 3.88 10^6/uL (3.93-5.22) L 01/17/24 21:13 Hemoglobin 12.2 g/dL (11.2-15.7) 01/17/24 21:13 Hematocrit 36.3 % (36.0-46.0) 01/17/24 21:13 Platelet Count 315 10^3/uL (130-400) 01/17/24 21:13 Complete Metabolic Panel: Sodium 141 mmol/L (136-145) 01/17/24 21:13 Potassium 3.6 mmol/L (3.5-5.1) 01/17/24 21:13 Chloride 104 mmol/L (98-107) 01/17/24 21:13 Carbon Dioxide 26.6 mmol/L (21.0-32.0) 01/17/24 21:13 BUN 17 mg/dL (7-18) 01/17/24 21:13 Creatinine 0.8 mg/dL (0.55-1.02) 01/17/24 21:13 Est GFR (CKD-EPI 2020) 107.44 (mL/min/1.73m2) 01/17/24 21:13 Calcium 9.4 mg/dL (8.5-10.1) 01/17/24 21:13 Albumin 3.8 g/dL (3.4-5.0) 01/17/24 21:13 Glucose 94 mg/dL (74-106) 01/17/24 21:13 C-Reactive Protein < 0.50 mg/dL (<or=0.5) 01/17/24 21:13 Liver Function Panel: Alanine Aminotransferase (ALT/SGPT) 16 U/L (14-59) 01/17/24 21: 13 Aspartate Amino Transf (AST/SGOT) 10 U/L (15-37) L 01/17/24 21: 13 Coagulation Panel: No Data to Display Cardiac Panel: No Data to Display Arterial Blood Gas: No Data to Display Venous Blood Gas: No Data to Display Pancreas Panel: No Data to Display Thyroid Panel: No Data to Display Infectious Disease: No Data to Display Blood Cultures: No Data to Display Toxicology Panel: No Data to Display Panel: No Data to Display Anesthesia Assessment and Plan Anesthesia History Personal History: No History of Anesthesia Complications Family History: No Family History of Anesthesia Complications Exercise Tolerance Exercise Tolerance: Metabolic Equivalents<4 Pertinent Negatives Pertinent Negatives: No Symptoms of GERD, No Major Cardiovascular Symptoms or Complaints, No Major Pulmonary Symptoms or Complaints and No History of CVA/TIA Cardiac & Pulmonary Exam Cardiac Exam: Normal S1/S2 Heart Sounds Pulmonary Exam: Clear Bilateral Breath Sounds Implantable Cardiac Device Does patient have a Pacemaker or an ICD?: No Airway Exam Known Difficult Airway: No Mallampati Class: 2 Mouth Opening: Normal (> 3cm) Thyromental Distance: Greater than 3 cm Neck Range of Motion: Full ROM Neck Circumference: Normal Teeth Condition: Normal Dentition ASA Classification ASA Score: ASA 1 Emergency Case?: No NPO Status NPO Status: NPO Clears >2 hours, Solids >8 hours Status Status: Not Per Patient and Negative HCG Anesthesia Plan Resuscitation Status: Full Code Anesthesia Technique: General Anesthesia Airway Planned: Endotracheal Tube Pain Management: Surgeon and patient request nerve block Monitors Used: Standard Monitors
[2024-01-23] MEDS: ceFAZolin 2 GM/50 ML BAG IVPB (13:40)
[2024-01-23] MEDS: TRANEXAMIC ACID/SOD. CHL. 1,000 MG/100 ML BAG 600 MG IVPB (13:50)
--- NOTE | 2024-01-23 14:07 | W.ANESNERVE ---
Nerve Block Single Injection Procedure Date and Time Date Performed: 01/23/24 Procedure Start: 13:20 Location Where Procedure Performed Procedure Location: Day Surgery Unit Reason Performed: Postoperative Analgesia Requesting Provider: Micah Strong Timeout Performed Timeout Performed: Yes Monitoring Used ECG, Blood Pressure and SpO2 Sterility Sterility: Hand Hygiene, Surgical Cap, Surgical Mask, Sterile Gloves and Chlorhexidine Sedation Given During Procedure Sedation Given (Indicate Dose Given): Versed IV Dose:: 2mg Patient Mental Status Patient Mental Status: Awake Nerve Block 1st Nerve Block: Laterality: Right Block Type: Supraclavicular Ultrasound Image Saved?: Yes Needle / Catheter Used: 80mm SonoPlex II Local Anesthetic Bolus (Indicate Dose Given): Lidocaine used for local infiltration of skin, Injected in 3-5ml increments after negative blood aspiration, Bupivacaine 0.5% Dose:: 10ml and Exparel Dose:: 10ml Additives (Indicate Dose Given): None Ultrasound: Sterile probe cover and gel used Nerve Stimulator: Supplement to Ultrasound use Paresthesia: None Procedure Tolerated: No Complications and Patient tolerated well Procedure Outcome: Successful Performed By: Cl Devine Supervised By: Marielos Perez
--- NOTE | 2024-01-23 14:37 | SYNOVIUM_PTH ---
PATIENT: Mariama Jarvis LOC: [facility] U#:[id number] AGE/SX: 23/F ROOM: RE01/23/[address]: Micah Strong MD : 2000 BED: DIS: 01/23/2024 SPEC #: [id number] RECD: 01/23/24 17:48 STATUS: ALONDRA REKelley #: [id number] KEVIN: 01/23/24 14:[address]: Micah Strong DEPT: Surgical Specimen RECD BY: Meme Alcantar ENTERED: 01/23/24 17:49 SP TYPE: SYNOVIUM OTHR DR: Laura Henriquez Tissues: 1 - SYNOVIUM/IAL Procedures: GROSS AND MICRO LEVEL 4 SPECIAL STAIN 1 Comments: [id number]
[2024-01-23] MEDS: EPINEPHrine 10 MG/10 ML ML (14:40)
[2024-01-23] MEDS: Bupivacaine 0.25% Pres-Free W/EPI 30 ML VIAL (14:41)
[2024-01-23 15:47] LABS: Clarity Cloudy; Source Synovial
[2024-01-23 15:48] LABS: Nucleated Cells 34932 uL (0)
[2024-01-23 15:49] LABS: Mononuclear Cells 7 %; Polynuclear Cells 93 %
[2024-01-23 15:51] LABS: Crystals (BF) No Crystals seen; Source Synovial
--- NOTE | 2024-01-23 16:28 | W.ANESPOSTOP ---
Postoperative Evaluation Date, Time and Location Date Performed: 01/23/24 Time Performed: 16:28 Patient Location: Day Surgery Unit Vital Signs Most Recent Imported Vital Signs: Most Recent Vital Signs Temp Pulse Resp BP Pulse Ox 36.2 C L 54 L 18 99/52 L 98 01/23/24 15:53 01/23/24 15:53 01/23/24 15:53 01/23/24 15:53 01/23/24 15:53 Pain Score Most Recent Pain Score: Most Recent Pain Score Pain Level 0 01/23/24 15:53 Assessment Mental Status: Awake (Alert & Oriented to Patient Baseline) Airway and Respiratory Function: Patent airway with normal (patient baseline) respiratory exam Cardiovascular Function: Hemodynamically Stable Hydration Status: Adequately Hydrated Nausea & Vomiting: No Nausea or Vomiting Pain: Pt. Denies Any Pain Peripheral Nerve Block: Regional nerve block not resolved at time of post operative discharge
== END 2024-01-23 17:25 | disposition home or self-care (01) ==
LOC: SUR 11:57
PROVIDERS: PCP Nurse Practitioner Family; Visit Provider Student in an Organized Health Care Education/Training Program
PROC: (CPT 29830; principal; 2024-01-23 12:45)
DX: M25.421 Effusion, right elbow (principal)
CPT/HCPCS: 29837; 76942; 81025; 87476; 87798; 88305; 87070; 87205; 88312; 89051; 89060; C9290; J0665; J0690; J1100; J1885; J2001; J2250; J2405; J2704

== ENCOUNTER 2024-04-05 07:57 | Emergency (ER) | payer BC, SELFPAY ==
[2024-04-05] VITALS (17 sets, daily range): BP systolic 126–143; BP diastolic 76–107; PULSE 59–94; RESP 9–24; TEMP 36.2; O2SAT 99–100
--- NOTE | 2024-04-05 08:00 | RT.EKG_ITS ---
APPROVED REPORT Exam: Resting ECG Reason for Exam: Trauma Patient Location: E HR:76 bpm ECG Measurements Heart Rate 76 AXIS VA 192 P 58 QRSd 96 QRS 81 QT 391 T 79 QTc 442 Conclusion Sinus rhythm...normal P axis, V-rate 60- 99 Narrow complex normal sinus rhythm at a rate of 76. Normal axis. Intervals within normal limits. T wave version in aVL. No ST segment abnormalities. No acute injury pattern. Compared to prior date d 2 years ago T wave inversion in aVL is new.
--- OUTSIDE RECORDS SUMMARY | 2024-04-05 08:03 | XMS_ITS | Encounter Summary ---
Author Organization [facility] [place] [address] Care Team Providers Care Cord Tire Builder Name Role Phone Laura Henriquez APRN Primary Care Provider [phone] Encounter Details Date Type Department Care Team (Latest Contact Info) Description 02/27/2024 Travel Social History Tobacco Use Types Packs/Day [...] on filedocumented in this encounter Care Teams Cord Tire Builder Relationship Specialty Start Date End Date [place] [address] PCP - General Family Medicine 09/01/23 documented as of this encounter
--- OUTSIDE RECORDS SUMMARY | 2024-04-05 08:03 | XMS_ITS | Encounter Summary ---
Author Organization [facility] Address [facility] [place] [address] Care Team Providers Care High [employer] Learning Support Teacher Name Role Phone Laura Henriquez LUIS Primary Care Provider [phone] Reason for Visit * Reason Onset Date Comments Medication Refill 02/23/2024 Encounter Details Date Type Department Care Team (Late st Contact Info) Description 02/23/2024 Refill Dermatology at [address] [address] Marcelo Galarza MD [facility] [address] [place] [address] Hyperhidrosis Social History Tobacco Use Types Packs/Day Years Used Date Smoking Tobacco: Never Assessed Sex and Gender Information Value Date Recorded Sex Assigned at Not on file Gender Identity Not on file Sexual Orientation Not on file documented as of this encounter Miscellaneous Notes * Telephone Encounter - Meme Schmidt LPN - 02/23/2024 9:34 AM EDT Medication Refill Request Order(s) pended and routed to Dr. Galarza to review and sign, if appropriate. - Medication(s) requested to refill: Glycopyrrolate - Associated diagnosis: Hyperhidrosis - Last visit: 01/06/2024 - Recommended follow up: 1 year - Next scheduled: Visit date not found - Special considerations: no - Appropriate to refill: yes documented in this encounter Plan of Treatment Not on file documented as of this encounter Visit Diagnoses Diagnosis Hyperhidrosis Primary focal hyperhidrosis documented in this encounter Care Teams High [employer] Learning Support Teacher Relationship Specialty Start Date End Date Laura Henriquez [place] [address] PCP - General Family Medicine 09/01/23 documented as of this encounter
--- OUTSIDE RECORDS SUMMARY | 2024-04-05 08:03 | XMS_ITS | Encounter Summary ---
Author Organization [facility] Address [facility] [place] [address] Care Team Providers Care Calender Roll Press Operator Name Role Phone Laura Henriquez Jennifer SMITH Primary Care Provider [phone] Encounter Details Date Type Department Care Team (Late st Contact Info) Description 02/23/2024 Telephone Dermatology at [facility] [address] [place] [address] Marcelo Galarza MD [facility] [place] [address] Social History Tobacco Use Types Packs/Day Years Used Date Smoking Tobacco: Never Assessed Sex and Gender Information Value Date Recorded Sex Assigned at Not on file Gender Identity Not on file Sexual Orientation Not on file documented as of this encounter Miscellaneous Notes * Telephone Encounter - Beatriz Pollard - 02/23/2024 8:54 AM EDT Medication Request Who requested: Mariama Jarvis Medication(s): glycopyrrolate (Robinul) 1 mg tablet Pharmacy: [id number] - [place], [place] Last seen: 01/06/24 Follow up scheduled for: Visit date not found Comments: Patient is aware it make take medical team up to three business days to process refill requests. Please ask pharmacy to contact patient when medication is available for strip picker. If unable to refill medication please contact patient. Patient contact: [phone] documented in this encounter Plan of Treatment Not on file documented as of this encounter Visit Diagnoses Not on filedocumented in this encounter Care Teams Calender Roll Press Operator Relationship Specialty Start Date End Date Laura Henri[place] [address] PCP - General Family Medicine 09/01/23 documented as of this encounter
--- OUTSIDE RECORDS SUMMARY | 2024-04-05 08:03 | XMS_ITS | Encounter Summary ---
Author Organization [facility] Address [facility] [place] [address] Care Team Providers Care Healthcare Administration Intern Name Role Phone MartinezLaura Jennifer SMITH Primary Care Provider [phone] Encounter Details Date Type Department Care Team (Late st Contact Info) Description 03/23/2024 Telephone Dermatology at [facility] [address] [place] [address] Marcelo Galarza MD [facility] [place] [address] Social History Tobacco Use Types Packs/Day Years Used Date Smoking Tobacco: Never Smokeless Tobacco: Never Sex and Gender Information Value Date Recorded Sex Assigned at Not on file Gender Identity Not on file Sexual Orientation Not on file documented as of this encounter Miscellaneous Notes * Telephone Encounter - Marcelo Galarza MD - 04/01/2024 2:23 PM EST Attempted to return call to patient. OK to use either 2mg BID or 1mg BID, depending on which is controlling symptoms best. Can change prescription accordingly * Telephone Encounter - Samantha Garcia - 03/23/2024 12:18 PM EST Patient states that her recent script for: glycopyrrolate (Robinul) 1 mg tablet The instructions are incorrect and possible quantity. Patient states that she has been taking per instructions with Dr. Avila 2 in the AM and 2 in the PM. Pharmacy states she is taking too much. Patient uses [facility] in [place], [place] Please advise [phone]. documented in this encounter Plan of Treatment Not on file documented as of this encounter Visit Diagnoses Not on filedocumented in this encounter Care Teams Healthcare Administration Intern Relationship Specialty Start Date End Date Laura Henriquez APRN [address] [place] [place] [address] PCP - General Family Medicine 09/01/23 documented as of this encounter
--- OUTSIDE RECORDS SUMMARY | 2024-04-05 08:03 | XMS_ITS | Encounter Summary ---
Author Organization [facility] [place] [address] Care Team Providers Care Casting Director Name Role Phone Laura Henriquez APRN Primary Care Provider [phone] Reason for Referral * Consultation (Routine) - Authorized Specialty Diagnoses / Procedures Referred By Jelly che Referred To Contact Genetics Diagnoses Monoarthritis of elbow, right Gurmeet Gonzalez MD [facility] [place] [address] [facility] Genetics [address] [place] [phone] Referral ID Status Reason Start Date Expiration Date Visits Requested Visits Authorized [id number] Authorized Consult, Test & Treat 02/27/2024 02/26/2025 1 1 Reason for Visit * Consultation (Urgent) - Authorized Specialty Diagnoses / Procedures Referred By Jelly che Referred To Contact Rheumatology Diagnoses Effusion of right elbow R ELBOW PAINFUL EFFUSION S/P ARTHROSCOPIC I & D & SYNOVIAL BX WITHOUT CLEAR DX Micah Strong MD [address] [place] [id number] [facility] Rheumatology [address] [place] [phone] Referral ID Status Reason Start Date Expiration Date Visits Requested Visits Authorized [id number] Authorized Consult, Test & Treat PCP Updated and/or Approved 01/29/2024 01/28/2025 6 6 Encounter Details Date Type Department Care Team (Latest Contact Info) Description 02/27/2024 3:00 PM EDT Office Visit Rheumatology at [facility] [place] [phone] Gurmeet Gonazlez MD [facility] [place] [address] Monoarthritis of elbow, right Social History Tobacco Use Types Packs/Day Years Used Date Smoking Tobacco: Never Smokeless Tobacco: Never Tobacco Cessation:Counseling Given: Not Answered Sex and Gender Information Value Date Recorded Sex Assigned at Not on file Gender Identity Not on file Sexual Orientation Not on file documented as of this encounter Last Filed Vital Signs Vital Sign Reading Time Taken Comments Blood Pressure 111/62 02/27/2024 2:47 PM EDT Pulse 70 02/27/2024 2:47 PM EDT Temperature 36.4 ??C (97.6 ??F) 02/27/2024 2:47 PM ED T Respiratory Rate 18 02/27/2024 2:47 PM EDT Oxygen Saturation 100% 02/27/2024 2:47 PM EDT Inhaled Oxygen Concentration - - Weight 72.6 kg (160 lb) 02/27/2024 2:47 PM EDT Height 177.8 cm (5' 10) 02/27/2024 2:47 PM EDT Body Mass Index 22.96 02/27/2024 2:47 PM EDT documented in this encounter Progress Notes * Gurmeet Gonzalez MD - 02/27/2024 3:00 PM EDT Images from the original note were not included. This is an initial rheumatology consultation visit for Ms. Jarvis who is a 24 year old woman referred for evaluation of painful swelling of the right elbow of about 6 weeks duration. Ms. Jarvis reports that she developed atraumatic right elbow pain and swelling at the end of December. Initially the elbow felt intermittently bruised but it got worse and she went to urgent care in [facility]. She was felt to have tendonitis but pain and swelling increased and she went to the ER at [facility]. A plain xray film showed an effusion but no fracture or bone abnormality. An MRI of the right elbow on 01/15/24 showed a large effusion but no bone or tendon abnormalities. Aspiration of the joint was performed but the results are currently not available. Serologic studies were negative for Lyme arthritis, rheumatoid factor, anti-CCP and YUAN. She then underwent a synovial biopsy at [facility] with the results reported by [facility] and detailed below. PMH Anxiety/Depression Hyperhidrosis Bilateral shoulder dislocation with surgical anchors bilaterally Medications were reviewed: Current Outpatient Medications on File Prior to Visit Medication Sig Dispense Refill glycopyrrolate (Robinul) 1 mg tablet Take 1 tablet by mouth 2 times daily. 180 tablet 2 escitalopram (Lexapro) 10 mg Tablet TAKE 1 TABLET BY MOUTH ONCE DAILY 30 tablet 0 norethindrone-e.estradioL-iron 1 mg-20 mcg(24) /75 mg (4) Tablet, Chewable CHEW AND SWALLOW 1 TABLET BY MOUTH ONCE DAILY busPIRone (BUSPAR) 10 mg Tablet Take 1 tablet by mouth 2 times daily. 60 tablet 3 No current facility-administered medications on file prior to visit. NKDA Social History Socioeconomic History Marital status: Single Spouse name: Not on file Number of children: Not on file Years of education: Not on file Highest education level: Not on file Occupational History Not on file Tobacco Use Smoking status: Not on file Smokeless tobacco: Not on file Substance and Sexual Activity Alcohol use: Not on file Drug use: Not on file Sexual activity: Not on file Other Topics Concern Not on file Social History Narrative Not on file Social Determinants of Health Financial Resource Strain: Not on file Food Insecurity: Not on file Transportation Needs: Not on file Physical Activity: Not on file Intimate Partner Violence: Not on file Housing Stability: Not on file Family History: Both brother and father have shoulder dislocations and have had anchors placed. Physical examination: BP 111/62 Pulse 70 Temp 36.4 ??C (97.6 ??F) (Temporal) Resp 18 Ht 177.8 cm (5' 10) Wt 72.6 kg (160 lb) SpO2 100% BMI 22.96 kg/m?? Tall (5'10). MSK: R elbow--healed small surgical scar laterally full ROM (extends to 180, normal flexion) with no effusion or joint line tenderness. Remainder of MSK: no synovitis upper or lower extremities. HEENT: high arched palate. Chest: without pectus. Arm span: Upper segment: , lower segment: . Thumb sign+, wrist sign +. 01/12/24 Consistent with an effusion of the elbow 01/15/24 large effusion of the elbow without bone abnormalities . ???SYNOVIUM?? , RIGHT ELBOW, BIOPSY: - Acute synovitis. (see comment) Histologic examination reveals aggregates of reactive synovium, blood and fibrin debris. Within thesynovium there is a mixed acute and chronic inflammation, with at least 5 neutrophils per 5 consecutive high-power garcia. In addition, within the fibrin debris, there is aggregates of neutrophils, forming abscess. Multiple deeper sections have been examined. The B&B (Gram), GMS and Manjula special stains fail to highlight microorganisms within the examined sections. Correlation with clinical and possible microbiology cultures is recommended. AUTOIMMUNITY & INFLAMMATION [facility]01/15/2024 Component 01/15/2024 01/15/2024 01/15/2024 CCP Antibodies <2.5 -- -- YUAN Interpretation -- Negative -- Rheumatoid Factor -- -- <8.6 BACTERIA/FUNGI [facility]01/12/2024 Component 01/12/2024 11/19/2023 Gonococcus Result -- -- Load older lab results Chlamydia Result -- -- Load older lab results Neisseria gonorrhoeae Result -- Negative Chlamydia trachomatis Result -- Negative Lyme Ab Negative -- Impression: The findings are consistent with an acute, subacute monoarthritis of the right elbow which now appears inactive. While the broad differential diagnosis includes: inflammatory arthropathy (RA, seronegative spondyloarthropathy), infectious causes (especially indolent infections such as atypical mycobacterial, Lyme), PVNS is essentially excluded(MRI is typically almost diagnostic and pathology is negative). Suspect the most likely etiology is reactive arthritis and given the essentially normal exam of the elbow and the absence of symtoms at this time, no specific treatment ajppears currently indicated. Will await ID input and labs ordered today with TH follow-up in 2 weeks. Also given marfanoid habitus, joint hypermobility and family history, further genetic evaluation is also indicated. Discussed these findings at length with Mariama and her mom who accompanied her today, They were in agreement with my recommendations and their questions were answered. documented in this encounter Plan of Treatment Scheduled Orders Name Type Priority Associated Diagnoses Orde r Schedule [id number] PCR Screen Lab Routine Monoarthritis of elbow, right Expected: 02/27/2024, Expires: 08/28/2024 Scheduled Referrals Name Type Priority Associated Diagnoses Orde r Schedule Referral to Genetics Outpatient Referral Routine Monoarthritis of elbow, right Ordered: 02/27/2024 documented as of this encounter Results * (ABNORMAL) Comprehensive metabolic panel Non-fasting (02/27/2024 4:08 PM EDT) Glucose 96 65 - 199 mg/dL 02/27/2024 4:46 PM EDT [facility] Comment:Glucose Concentratio n >=200 mg/dL plus symptoms is consistent with Diabetes Mellitus. Blood Urea Nitrogen 15 8 - 18 mg/dL 02/27/2024 4:46 PM EDT [facility] Creatinine 0.83 0.70 - 1.20 mg/dL 02/27/2024 4:46 PM EDT [facility] Sodium 142 135 - 145 mMol/L 02/27[facility]2024 4[facility] Potassium 4.1 3.5 - 5.0 mMol/L 02/27/2024 4:46 PM [facility] Chloride 106 98 - 107 mMol/L 02/27/2024 4:46 PM [facility] Carbon Dioxide 25 22 - 31 mMol/L 02/27/2024 4:46 PM [facility] Anion Gap 11 5 - 15 mMol/L 02/27/2024 4:46 PM EDT [facility] Calcium 9.2 8.5 - 10.5 mg/dL 02/27/2024 4:46 PM EDT [facility] Protein, Total 6.8 6.1 - 8.0 g/dL 02/27/2024 4:46 PM EDT [facility] Albumin 4.6 3.2 - 5.2 g/dL 02/27/2024 4:46 PM EDT [facility] Aspartate Aminotransferase 17 <=30 unit/L 02/27/2024 4:46 PM EDT [facility] Alanine Aminotransferase 15 0 - 30 unit/L 02/27/2024 4:46 PM EDT [facility] Alkaline Phosphatase 54 35 - 105 unit/L 02/27/2024 4:46 PM EDT [facility] Bilirubin, Total 1.4(H) <=1.3 mg/dL 02/27/2024 4:46 PM EDT [facility] Est Glomerular Filtration Rate - Female 102 mL/min/1. 73 m?? 02/27/2024 4:46 PM EDT [facility] Comment: This patient's estimated GFR was calculated using the 2020 CKD-EPI equation. The estimated GFR can vary from the measured GFR by up to 30% in the absence of rapidly changing kidney function. Assessment of the estimated GFR is not appropriate when creatinine concentrations are rapidly changing. For clinical situations in which a more precise estimate of GFR is necessary, consider alternative methods of GFR estimation such as a 24-hour urine creatinine clearance. Assignment of CKD stage 1 - 5 for patients with an eGFR near the transition point between stages may be based on clinical assessment of muscle mass and symptoms in addition to eGFR. Link: eGFR Calculator [employer] Fasting Status No 02/27/2024 4:46 PM EDT [facility] Blood VENOUS BLOOD SPECIMEN / Unknown Venipuncture / Unknown 02/27/2024 4:08 PM EDT 02/27/2024 4:08 PM EDT Gurmeet Gonzalez MD CHEMISTRY ORDERABLES [facility] [place] [address] * (ABNORMAL) CBC (with Diff) (02/27/2024 4:08 PM EDT) White Blood Cell 6.94 4.00 - 9.50 x10(3)/mc L 02/27/2024 4:48 PM [facility] Red Blood Cell 3.77(L) 4.00 - 5.21 x10(6)/mc L 02/27/2024 4:48 PM [facility] Hemoglobin 11.8 11.7 - 15.5 g/dL 02/27/2024 4:48 PM [facility] Hematocrit 35.9 35.7 - 45.8 % 02/27/2024 4:48 PM [facility] Mean Cell Volume 95.2(H) 82.6 - 94.4 fL 02/27/2024 4:48 PM [facility] Mean Cell Hemoglobin 31.3 27.1 - 32.0 pg 02/27/2024 4:48 PM [facility] Mean Cell Hemoglobin Concentration 32.9 31.7 - 35.0 g/dL 02/27/2024 4:48 PM [facility] Platelet 253 145 - 357 x10(3)/mc L 02/27/2024 4:48 PM [facility] Mean Platelet Volume 10.0 7.6 - 12.9 fL 02/27/2024 4:48 PM [facility] RDW Standard Deviation 45.0 37.0 - 46.0 fL 02/27/2024 4:48 PM [facility] RDW coefficient of variation 12.9 11.5 - 14.1 % 02/27/2024 4:48 PM [facility] NRBC% auto 0.0 % 02/27/2024 4:48 PM [facility] NRBC Absolute <0.01 <0.01 x10(3)/mc L 02/27/2024 4:48 [facility] Neutrophil % 66.4 % 02/27/2024 4:48 PM [facility] Neutrophil Absolute (ANC) - Automated 4.60 1.70 - 6.10 x10(3)/mc L 02/27/2024 4:48 PM [facility] Lymph % 22.0 % 02/27/2024 4:48 PM EDT [facility] Lymph Absolute 1.53 0.90 - 3.20 x10(3)/mc L 02/27/2024 4:48 PM EDT [facility] Monocyte % 9.2 % 02/27/2024 4:48 PM EDT [facility] Monocyte Absolute 0.64 0.30 - 0.90 x10(3)/mc L 02/27/2024 4:48 PM EDT [facility] Eos % 1.4 % 02/27/2024 4:48 PM EDT [facility] Eos Absolute 0.10 0.00 - 0.40 x10(3)/mc L 02/27/2024 4:48 PM EDT [facility] Basophil % 0.7 % 02/27/2024 4:48 PM EDT [facility] Baso Absolute 0.05 0.00 - 0.10 x10(3)/mc L 02/27/2024 4:48 PM EDT [facility] Immature Gran % 0.3 % 4:48 PM EDT [facility] Immature Gran Absolute <0.04 0.00 - 0.04 x10(3)/mc L 02/27/2024 4:48 PM EDT [facility] Blood VENOUS BLOOD SPECIMEN / Unknown Venipuncture / Unknown 02/27/2024 4:08 PM EDT 02/27/2024 4:08 PM EDT Gurmeet Gonzalez MD HEMATOLOGY ORDERABLE S [facility] [place] [address] * Sedimentation rate (02/27/2024 4:08 PM EDT) Sedimentation Rate Automated <3 2 - 37 mm/hr 02/27/2024 4:48 PM EDT [facility] Blood VENOUS BLOOD SPECIMEN / Unknown Venipuncture / Unknown 02/27/2024 4:08 PM EDT 02/27/2024 4:08 PM EDT Gurmeet Gonzalez MD HEMATOLOGY ORDERABLE S [facility] [place] [address] * CRP, acute inflammation (02/27/2024 4:08 PM EDT) C-Reactive Protein <3.0 <=4.9 mg/L 02/27/2024 4:46 PM EDT [facility] Blood VENOUS BLOOD SPECIMEN / Unknown Venipuncture / Unknown 02/27/2024 4:08 PM EDT 02/27/2024 4:08 PM EDT Gurmeet Gonzalez MD CHEMISTRY ORDERABLES [facility] [place] [address] * QuantiFERON-TB Gold (02/27/2024 4:08 PM EDT) Quantiferon TB Nil 0.027 IU/mL 03/01/2024 10:45 AM EDT [facility] QFT TB Ag1-Nil -0.020 <0.350 IU/mL 03/01/20 10:45 AM EDT [facility] QFT TB Ag2-Nil -0.015 <0.350 IU/mL 03/01/20 10:45 AM EDT [facility] Quantiferon TB Mitogen-Nil 9.973 IU/mL 03/01/2024 10:45 AM EDT [facility] Quantiferon Tb Interp Negative Negative 03/01/2024 10:45 AM EDT [facility] Blood VENOUS BLOOD SPECIMEN / Unknown Venipuncture / Unknown 02/27/2024 4:08 PM EDT 02/27/2024 4:08 PM EDT Narrative [facility] - 03/01/2024 10:45 AM EDT No interferon-gamma response to M. tuberculosis antigens was detected. A single negative result does not exclude infection with M. tuberculosis. ??In patients at high risk for M. tuberculosis infection, a second test should be considered in accordance with the 2017 ATS/IDSA/CDC Clinical Practice Guidelines for Diagnosis of Tuberculosis in Adults and Children. Gurmeet Gonzalez MD CHEMISTRY ORDERABLES [facility] [place] [address] documented in this encounter Visit Diagnoses Diagnosis Monoarthritis of elbow, right documented in this encounter Care Teams Casting Director Relationship Specialty Start Date End Date Laura Henriquez APRN [phone] [place] [address] PCP - General Family Medicine 09/01/23 documented as of this encounter
--- OUTSIDE RECORDS SUMMARY | 2024-04-05 08:03 | XMS_ITS | Encounter Summary ---
[place] [address] Care Team Providers Care Shank Stitcher Name Role Phone MartinezLaura Jennifer SMITH Primary Care Provider [phone] Encounter Details Date Type Department Care Team (Latest Contact Info) Description 02/27/2024 4:00 PM EDT Laboratory Appointment Lab [address] [place] [address] Monoarthritis of elbow, right Social History Tobacco [...] Procedure Name Priority Date/Time Associated Diagnosis Comments CRP, ACUTE INFLAMMATION Routine 02/27/2024 4:08 PM EDT Monoarthritis of elbow, right QUANTIFERON-TB GOLD Routine 02/27/2024 4 :08 PM EDT Monoarthritis of elbow, right SEDIMENTATION RATE Routine 02/27/2024 4: 08 PM EDT Monoarthritis of elbow, right CBC (WITH DIFF) Routine 02/27/2024 4:08 PM EDT Monoarthritis of elbow, right COMPREHENSIVE METABOLIC PANEL Routine 02/27/2024 4:08 PM EDT Monoarthritis of elbow, right documented in this encounter Results * (ABNORMAL) Comprehensive metabolic panel Non-fasting (02/27/2024 4:08 PM EDT) Glucose 96 65 - 199 mg/dL 02/27/2024 4:46 PM EDT [facility] Comment:Glucose Concentratio n >=200 mg/dL plus symptoms is consistent with Diabetes Mellitus. Blood Urea Nitrogen 15 8 - 18 mg/dL 02/27/2024 4:46 PM [facility] Creatinine 0.83 0.70 - 1.20 mg/dL 02/27/2024 4:46 PM [facility] Sodium 142 135 - 145 mMol/L 02/27/2024 4:46 PM [facility] Potassium 4.1 3.5 - 5.0 mMol/L 02/27/2024 4:46 PM [facility] Chloride 106 98 - 107 mMol/L 02/27/2024 4:46 PM [facility] Carbon Dioxide 25 22 - 31 mMol/L 02/27/2024 4:46 PM [facility] Anion Gap 11 5 - 15 mMol/L 02/27/2024 4:46 PM [facility] Calcium 9.2 8.5 - 10.5 mg/dL 02/27/2024 4:46 PM [facility] Protein, Total 6.8 6.1 - 8.0 g/dL 02/27/2024 4:46 PM [facility] Albumin 4.6 3.2 - 5.2 g/dL 02/27/2024 4:46 PM [facility] Aspartate Aminotransferase 17 <=30 unit/L 02/27/2024 4:46 PM [facility] Alanine Aminotransferase 15 0 - 30 unit/L 02/27/2024 4:46 PM [facility] Alkaline Phosphatase 54 35 - 105 unit/L 02/27/2024 4:46 PM EDT [facility] Bilirubin, Total 1.4(H) <=1.3 mg/dL 02/27/2024 4:46 PM EDT [facility] Est Glomerular Filtration Rate - Female 102 mL/min/1. 73 m?? 02/27/2024 4:46 PM EDT [facility] Comment: This patient's estimated GFR was [...] Fasting Status No 02/27/2024 4:46 PM EDT [facility] Blood VENOUS BLOOD SPECIMEN / Unknown Venipuncture / Unknown 02/27/2024 4:08 PM EDT 02/27/2024 4:08 PM EDT Gurmeet Gonzalez MD CHEMISTRY ORDERABLES [facility] [place] [address] * (ABNORMAL) CBC (with Diff) (02/27/2024 4:08 PM EDT) White Blood Cell 6.94 4.00 - 9.50 x10(3)/mc L 02/27/2024 4:48 PM EDT [facility] Red Blood Cell 3.77(L) 4.00 - 5.21 x10(6)/mc L 02/27/2024 4:48 PM EDT [facility] Hemoglobin 11.8 11.7 - 15.5 g/dL 02/27/2024 4:48 PM EDT [facility] Hematocrit 35.9 35.7 - 45.8 % 02/27/2024 4:48 PM [facility] Mean Cell Volume 95.2(H) 82.6 - 94.4 fL 02/27/2024 4:48 PM [facility] Mean Cell Hemoglobin 31.3 27.1 - 32.0 pg 02/27/2024 4:48 PM [facility] Mean Cell Hemoglobin Concentration 32.9 31.7 - 35.0 g/dL 02/27/2024 4:48 PM [facility] Platelet 253 145 - 357 x10(3)/mc L 02/27/2024 4:48 PM [facility] Mean Platelet Volume 10.0 7.6 - 12.9 fL 02/27/2024 4:48 PM [facility] RDW Standard Deviation 45.0 37.0 - 46.0 fL 02/27/2024 4:48 PM [facility] RDW coefficient of variation 12.9 11.5 - 14.1 % 02/27/2024 4:48 PM [facility] NRBC% auto 0.0 % 02/27/2024 4:48 PM [facility] NRBC Absolute <0.01 <0.01 x10(3)/mc L 02/27/2024 4:48 PM [facility] Neutrophil % 66.4 % 02/27/2024 4:48 PM [facility] Neutrophil Absolute (ANC) - Automated 4.60 1.70 - 6.10 x10(3)/mc L 02/27/2024 4:48 PM [facility] Lymph % 22.0 % 02/27/2024 4:48 PM [facility] Lymph Absolute 1.53 0.90 - 3.20 x10(3)/mc L 02/27/2024 4:48 PM [facility] Monocyte % 9.2 % 02/27/2024 4:48 PM [facility] Monocyte Absolute 0.64 0.30 - 0.90 x10(3)/mc L 02/27/2024 4:48 PM EDT [facility] Eos % 1.4 % 02/27/2024 4:48 PM EDT [facility] Eos Absolute 0.10 0.00 - 0.40 x10(3)/mc L 02/27/2024 4:48 PM EDT [facility] Basophil % 0.7 % 02/27/2024 4:48 PM EDT [facility] Baso Absolute 0.05 0.00 - 0.10 x10(3)/mc L 02/27/2024 4:48 PM EDT [facility] Immature Gran % 0.3 % 4:48 PM EDT [facility] Immature Gran Absolute <0.04 0.00 - 0.04 x10(3)/mc L 02/27/2024 4:48 PM EDT [facility] Blood VENOUS BLOOD SPECIMEN / Unknown Venipuncture / Unknown 02/27/2024 4:08 PM EDT 02/27/2024 4:08 PM EDT Gurmeet Gonzalez MD HEMATOLOGY ORDERABLE S [facility] [place] [address] * Sedimentation rate (02/27/2024 4:08 PM EDT) Sedimentation Rate Automated <3 2 - 37 mm/hr 02/27/2024 4:48 PM EDT [facility] Blood VENOUS BLOOD SPECIMEN / Unknown Venipuncture / Unknown 02/27/2024 4:08 PM EDT 02/27/2024 4:08 PM EDT Gurmeet Gonzalez MD HEMATOLOGY ORDERABLE S [facility] [place] [address] * CRP, acute inflammation (02/27/2024 4:08 PM EDT) C-Reactive Protein <3.0 <=4.9 mg/L 02/27/2024 4:46 PM EDT [facility] Blood VENOUS BLOOD SPECIMEN / Unknown Venipuncture / Unknown 02/27/2024 4:08 PM EDT 02/27/2024 4:08 PM EDT Gurmeet Gonzalez MD CHEMISTRY ORDERABLES [facility] [place] [address] * QuantiFERON-TB Gold (02/27/2024 4:08 PM EDT) Quantiferon TB Nil 0.027 IU/mL 03/01/2024 10:45 AM EDT [facility] QFT TB Ag1-Nil -0.020 <0.350 IU/mL 03/01/20 10:45 AM EDT [facility] QFT TB Ag2-Nil -0.015 <0.350 IU/mL 03/01/20 10:45 AM EDT [facility] Quantiferon TB Mitogen-Nil 9.973 IU/mL 03/01/2024 10:45 AM EDT [facility] Quantiferon Tb Interp Negative Negative 03/01/2024 10:45 AM EDT [facility] Blood VENOUS BLOOD SPECIMEN / Unknown Venipuncture / Unknown 02/27/2024 4:08 PM EDT 02/27/2024 4:08 PM EDT Narrative [facility] - 03/01/2024 10:45 AM EDT No interferon-gamma response to M. tuberculosis antigens was detected. A single negative result does not exclude infection with M. tuberculosis. ??In patients at high risk for M. tuberculosis infection, a second test should be considered in accordance with the 2017 ATS/IDSA/CDC Clinical Practice Guidelines for Diagnosis of Tuberculosis in Adults and Children. Gurmeet Gonzalez MD CHEMISTRY ORDERABLES [facility] [place] [address] documented in this encounter Visit Diagnoses Diagnosis Monoarthritis of elbow, right documented in this encounter Care Teams Shank Stitcher Relationship Specialty Start Date End Date Laura Henriquez, PIANO STRINGER [address] [place] [address] PCP - General Family Medicine 09/01/23 documented as of this encounter
--- OUTSIDE RECORDS SUMMARY | 2024-04-05 08:03 | XMS_ITS | Clinical Summary ---
Author Organization [facility] [place] [address] Care Team Providers Care Chief Investigator Name Role Phone Laura Henriquez Jennifer SMITH Primary Care Provider [phone] Allergies No known active allergies Medications Medication Sig Dispensed Refills Start Date End Date Status busPIRone (BUSPAR) 10 mg Tablet Take 1 tablet by mouth 2 times daily. 60 tablet 3 07/08/2019 Active norethindrone-e.est radioL-iron 1 mg-20 mcg(24) /75 mg (4) Tablet, Chewable CHEW AND SWALLOW 1 TABLET BY MOUTH ONCE DAILY 12/20/2019 Active escitalopram (Lexapro) 10 mg Tablet TAKE 1 TABLET BY MOUTH ONCE DAILY 30 tablet 04/13/2020 Active Additional Information Patient taking differently: 20 mg Oral DAILY, Reported on 02/27/2024 glycopyrrolate (Robinul) 2 mg tabletIndications:H yperhidrosis Take 1 tablet by mouth 2 times daily. 90 tablet 3 04/02/2024 Active Active Problems Problem Noted Date Diagnosed Date Migraine headache 02/22/2020 Dysmenorrhea in adolescent 02/22/2020 Menorrhagia with irregular cycle 02/22/2020 Depression with anxiety 09/26/2017 Encounters Date Type Department Care Team Description 03/23/2024 Telephone Dermatology at [facility] [address] [place] [address] Marcelo Galarza MD 02/27/2024 4:00 PM EDT Laboratory Appointment Lab [address] [address] Monoarthritis of elbow, right 02/27/2024 3:00 PM EDT Office Visit Rheumatology at [facility] Gurmeet Gonzalez MD Monoarthritis of elbow, right 02/27/2024 Travel 02/23/2024 Refill Dermatology at [facility] [address] [place] [address] Marcelo Galarza MD Hyperhidrosis 02/23/2024 Telephone Dermatology at [facility] [address] [place] [address] Marcelo Galarza MD 02/09/2024 Telephone Infectious Disease [place] [phone] None 01/29/2024 Transcribe Orders eDH Incoming Referrals [phone] Micah Strong MD Other specified disorders of synovium, right elbow 01/29/2024 Transcribe Orders eDH Incoming Referrals [phone] Micah Strong MD Effusion of right elbow 01/15/2024 Ancillary Procedure Radiology Library at [facility] [place] [address] Laura Henriquez, SILVER BUFFER 01/12/2024 Ancillary Procedure Radiology Library at [facility] [place] [address] Laura Henriquez, SILVER BUFFER 01/09/2024 Refill Dermatology at [facility] [address] [place] [address] Marcelo Galarza MD Hyperhidrosis 01/09/2024 Telephone Dermatology at [facility] [address] [place] [address] Marcelo Galarza MD 01/06/2024 4:00 PM EDT TH Visit (TeleHealth) Dermatology at [facility] [address] [place] [address] Marcelo Galarza MD Hyperhidrosis from Last 3 Months Social History Tobacco Use Types Packs/Day Years Used Date Smoking Tobacco: Never Smokeless Tobacco: Never Tobacco Cessation:Counseling Given: Not Answered Sex and Gender Information Value Date Recorded Sex Assigned at Not on file Gender Identity Not on file Sexual Orientation Not on file Last Filed [...] Mass Index 22.96 02/27/2024 2:47 PM EDT Plan of Treatment Health Maintenance Due Date Last Done Comments Chlamydia Screening 2017 HPV vaccine (1 - 3-dose series) 2017 HIV screen 02/21/2020 Hepatitis C Screening 02/21/2020 Hepatitis B vaccine (0-59 yrs) (1) 2021 Tetanus/Diphtheria/Pertussis Vaccines (1 - Tdap) 02/20 PAP Smear 2023 Covid-19 Vaccine (1 - season) 2024 Influenza (Flu) vaccine (1 o f 1 - Influenza standard series) 01/18/2024 Procedures Procedure Name Priority Date/Time Associated Diagnosis Comments COMPREHENSIVE METABOLIC PANEL Routine 02/27/2024 4:08 PM EDT Monoarthritis of elbow, right CBC (WITH DIFF) Routine 02/27/2024 4:08 PM EDT Monoarthritis of elbow, right SEDIMENTATION RATE Routine 02/27/2024 4: 08 PM EDT Monoarthritis of elbow, right CRP, ACUTE INFLAMMATION Routine 02/27/2024 4:08 PM EDT Monoarthritis of elbow, right QUANTIFERON-TB GOLD Routine 02/27/2024 4 :08 PM EDT Monoarthritis of elbow, right DIAGNOSTIC RADIOLOGY SCAN 01/29/2024 12:00 AM EDT SURGICAL PATHOLOGY SCAN 01/26/2024 12:00 AM EDT SURGICAL PATHOLOGY SCAN 01/26/2024 12:00 AM EDT FILM LIBRARY STORAGE ONLY MR ELBOW Routine 01/15/2024 12:00 AM EDT MRI/MRA SCAN 01/15/2024 12:00 AM EDT MRI/MRA SCAN 01/15/2024 12:00 AM EDT FILM LIBRARY STORAGE ONLY DX ELBOW Routine 01/12/2024 12:00 AM EDT DIAGNOSTIC RADIOLOGY SCAN 01/12/2024 12:00 AM EDT from Last 3 Months Results * CRP, acute inflammation (02/27/2024 4:08 PM EDT) Pathologist [facility] C-Reactive Protein <3.0 <=4.9 mg/L 02/27/2024 4:46 PM EDT [facility] Blood VENOUS BLOOD SPECIMEN / Unknown Venipuncture / Unknown 02/27/2024 4:08 PM EDT 02/27/2024 4:08 PM EDT Gurmeet Gonzalez MD CHEMISTRY ORDERABLES [facility] [place] [address] * QuantiFERON-TB Gold (02/27/2024 4:08 PM EDT) Quantiferon TB Nil 0.027 IU/mL 03/01/2024 10:45 AM EDT [facility] QFT TB Ag1-Nil -0.020 <0.350 IU/mL 03/01/20 10:45 AM EDT [facility] QFT TB Ag2-Nil -0.015 <0.350 IU/mL 03/01/20 10:45 AM EDT [facility] Quantiferon TB Mitogen-Nil 9.973 IU/mL 03/01/2024 10:45 AM EDT [facility] Quantiferon Tb Interp Negative Negative 03/01/2024 10:45 AM EDT [facility] Blood VENOUS BLOOD SPECIMEN / Unknown Venipuncture / Unknown 02/27/2024 4:08 PM EDT 02/27/2024 4:08 PM EDT Narrative [facility] - 03/01/2024 10:45 AM EDT [...] and Children. Gurmeet Gonzalez MD CHEMISTRY ORDERABLES [facility] [place] [address] * Sedimentation rate (02/27/2024 4:08 PM EDT) [facility] Signature Sedimentation Rate Automated <3 2 - 37 mm/hr 02/27/2024 4:48 PM EDT [facility] Blood VENOUS BLOOD SPECIMEN / Unknown Venipuncture / Unknown 02/27/2024 4:08 PM EDT 02/27/2024 4:08 PM EDT Gurmeet Gonzalez MD HEMATOLOGY ORDERABLE S Performing Organization Address City/[facility]/ZIP Co de Phone Number [facility] [place] [address] * (ABNORMAL) CBC (with Diff) (02/27/2024 4:08 PM EDT) White Blood Cell 6.94 4.00 - 9.50 x10(3)/mc L 02/27/2024 4:48 PM EDT [facility] Red Blood Cell 3.77(L) 4.00 - 5.21 x10(6)/mc L 02/27/2024 4:48 PM EDT [facility] Hemoglobin 11.8 11.7 - 15.5 g/dL 02/27/2024 4:48 PM EDT [facility] Hematocrit 35.9 35.7 - 45.8 % 02/27/2024 4:48 PM EDT [facility] Mean Cell Volume 95.2(H) 82.6 - 94.4 fL 02/27/2024 4:48 PM EDT [facility] Mean Cell Hemoglobin 31.3 27.1 - 32.0 pg 02/27/2024 4:48 PM EDT [facility] Mean Cell Hemoglobin Concentration 32.9 31.7 - 35.0 g/dL 02/27/2024 4:48 PM EDT [facility] Platelet 253 145 - 357 x10(3)/mc L 02/27/2024 4:48 PM EDT [facility] Mean Platelet Volume 10.0 7.6 - 12.9 fL 02/27/2024 4:48 PM EDT [facility] RDW Standard Deviation 45.0 37.0 - 46.0 fL 02/27/2024 4:48 PM EDT [facility] RDW coefficient of variation 12.9 11.5 - 14.1 % 02/27/2024 4:48 PM EDT [facility] NRBC% auto 0.0 % 02/[facility]24 [facility] NR[facility] Absolute <0.01 <0.01 x10(3)/mc L 02/27/2024 4:48 PM EDT [facility] Neutrophil % 66.4 % 02/27/2024 4:48 PM EDT [facility] Neutrophil Absolute (ANC) - Automated 4.60 1.70 - 6.10 x10(3)/mc L 02/27/2024 4:48 PM EDT [facility] Lymph % 22.0 % 02/27/2024 4:48 PM EDT [facility] Lymph Absolute 1.53 0.90 - 3.20 x10(3)/mc L 02/27/2024 4:48 PM EDT [facility] Monocyte % 9.2 % 02/27/2024 4:48 PM EDT [facility] Monocyte Absolute 0.64 0.30 - 0.90 x10(3)/mc L 02/27/2024 4:48 PM EDT [facility] Eos % 1.4 % 02/27/2024 4:48 PM EDT [facility] Eos Absolute 0.10 0.00 - 0.40 x10(3)/mc L 02/27/2024 4:48 PM EDT [facility] Basophil % 0.7 % 02/27/2024 4:48 PM EDT [facility] Baso Absolute 0.05 0.00 - 0.10 x10(3)/mc L 02/27/2024 4:48 PM EDT [facility] Immature Gran % 0.3 % 4:48 PM EDT [facility] Immature Gran Absolute <0.04 0.00 - 0.04 x10(3)/mc L 02/27/2024 4:48 PM EDT [facility] Blood VENOUS BLOOD SPECIMEN / Unknown Venipuncture / Unknown 02/27/2024 4:08 PM EDT 02/27/2024 4:08 PM EDT Gurmeet Gonzalez MD HEMATOLOGY ORDERABLE S [facility] [place] [address] * (ABNORMAL) Comprehensive metabolic panel Non-fasting (02/27/2024 4:08 PM EDT) Glucose 96 65 - 199 mg/dL 02/27/2024 4:46 PM [facility] Comment:Glucose Concentratio n >=200 mg/dL plus symptoms is consistent with Diabetes Mellitus. Blood Urea Nitrogen 15 8 - 18 mg/dL 02/27/2024 4:46 PM [facility] Creatinine 0.83 0.70 - 1.20 mg/dL 02/27/2024 4:46 PM [facility] Sodium 142 135 - 145 mMol/L 02/27/2024 4:46 PM [facility] Potassium 4.1 3.5 - 5.0 mMol/L 02/27/2024 4:46 PM [facility] Chloride 106 98 - 107 mMol/L 02/27/2024 4:46 PM [facility] Carbon Dioxide 25 22 - 31 mMol/L 02/27/2024 4:46 PM [facility] Anion Gap 11 5 - 15 mMol/L 02/27/2024 4:46 PM [facility] Calcium 9.2 8.5 - 10.5 mg/dL 02/27/2024 4:46 PM [facility] Protein, Total 6.8 6.1 - 8.0 g/dL 02/27/2024 4:46 PM [facility] Albumin 4.6 3.2 - 5.2 g/dL 02/27/2024 4:46 PM [facility] Aspartate Aminotransferase 17 <=30 unit/L 02/27/2024 4:46 PM [facility] Alanine Aminotransferase 15 0 - 30 unit/L 02/27/2024 4:46 PM [facility] Alkaline Phosphatase 54 35 - 105 unit/L 02/27/2024 4:46 PM [facility] Bilirubin, Total 1.4(H) <=1.3 mg/dL 02/27/2024 4:46 PM EDT [facility] Est Glomerular Filtration Rate - Female 102 mL/min/1. 73 m?? 02/27/2024 4:46 PM EDT [facility] Comment: This patient's estimated GFR [...] Fasting Status No 02/27/2024 4:46 PM EDT [facility] Blood VENOUS BLOOD SPECIMEN / Unknown Venipuncture / Unknown 02/27/2024 4:08 PM EDT 02/27/2024 4:08 PM EDT Gurmeet Gonzalez MD CHEMISTRY ORDERABLES [facility] [place] [address] * Scan Doc: Diagnostic Radiology (01/29/2024 12:00 AM EDT) Only the most recent of2 resultswithin the time period is included. Anatomical Region Laterality Modality Other Narrative 01/29/2024 12:00 AM EDT Ordered by an unspecified provider. Scanning Provider MEDIA MGR SCAN EXT O RDR/RSLT * Scan Doc: Surgical Pathology (01/26/2024 12:00 AM EDT) Only the most recent of2 resultswithin the time period is included. Narrative 01/26/2024 12:00 AM EDT Ordered by an unspecified provider. Scanning Provider MEDIA MGR SCAN EXT O RDR/RSLT * Scan Doc: MRI/MRA (01/15/2024 12:00 AM EDT) Only the most recent of2 resultswithin the time period is included. Anatomical Region Laterality Modality Other Narrative 01/15/2024 12:00 AM EDT Ordered by an unspecified provider. Scanning Provider MEDIA MGR SCAN EXT O RDR/RSLT * Film Library- Storage Only MR Elbow (01/15/2024 12:00 AM EDT) Narrative [facility] - 01/29/2024 4:42 PM EDT This exam is auto-finalizing. It's purpose is for storage only. Laura Henriquez APRN [facility] [employer]RARY ORD ERABLES Performing Organization Address [facility] Co de Phone Number [place], [place] * Film Library- Storage Only DX Elbow (01/12/2024 12:00 AM EDT) Narrative [facility] - 01/29/2024 4:42 PM EDT This exam is auto-finalizing. It's purpose is for storage only. Laura Henriquez APRN [facility] [employer] ORD ERABLES Performing Organization Address [facility]/ZIP Co de Phone Number [place], [place] from Last 3 Months Care Teams Chief Investigator Relationship Specialty Start Date End Date [place] [address] PCP - General Family Medicine 09/01/23
--- OUTSIDE RECORDS SUMMARY | 2024-04-05 08:03 | XMS_ITS | Encounter Summary ---
[place] [address] Care Team Providers Care Field Services Manager Name Role Phone Laura Henriquez APRN Primary Care Provider [phone] Encounter Details Date Type Department Care Team (Late st Contact Info) Description 02/09/2024 Telephone Infectious [place] [id number] None None Social History Tobacco Use Types Packs/Day Years Used Date Smoking Tobacco: Never Assessed Sex and Gender Information Value Date Recorded Sex Assigned at Not on file Gender Identity Not on file Sexual Orientation Not on file documented as of this encounter Miscellaneous Notes * Telephone Encounter - Marielos Paige - 02/09/2024 11:56 AM EDT CLINIC PHONE COVERAGE: Reason for Call: Appointment Scheduling PCP: Laura Henriquez APRN / Treating provider: tbd Message: Mariama Jarvis called and is requesting to schedule a New Patient Visit Referral in eDH?: Yes Reason for referral: Other specified disorders of synovium, right elbow Advised Caller may take 5-7 Business day to review referral: Yes DO NOT SEND FOR SYMPTOMS, REFER PATIENT TO REFERRING PROVIDER! Caller Name (If other than patient): Mariama Franklin Matheus Relationship to Patient (if other than self): Patient Callback number: [phone] Best time you are available: Any Route Per Clinic Coverage Page documented in this encounter Plan of Treatment Not on file documented as of this encounter Visit Diagnoses Not on filedocumented in this encounter Care Teams Field Services Manager Relationship Specialty Start Date End Date Laura Henriquez, CHIEF LIBRARIAN [employer]MENT [facility] [place] [address] PCP - General Family Medicine 09/01/23 documented as of this encounter
--- OUTSIDE RECORDS SUMMARY | 2024-04-05 08:03 | XMS_ITS | Encounter Summary ---
[place] [address] Care Team Providers Care Refining Engineer Name Role Phone Laura Henriquez APRN Primary Care Provider [phone] Reason for Referral * Consultation (Urgent) - Closed Specialty Diagnoses / Procedures Referred By Contac t Referred To Contact Infectious Diseases Diagnoses Other specified disorders of synovium, right elbow R ELBOW PAINFUL EFFUSION S/PARTHROSCOPIC SYNOVIAL BX WITHOUT CLEAR DX Micah Strong MD [address] [place] [address] [facility] [address] [place] [id number] Referral ID Status Reason Start Date Expiration Date V isits Requested Visits Authorized [id number] Closed Consult, Test & Treat PCP Updated and/or Approved 01/29/2024 07/28/2024 6 6 Encounter Details Date Type Department Care Team (Latest Contact Info) Description 01/29/2024 Transcribe Orders eDH Incoming Referrals [phone] Micah Strong MD [address] [place], [place] [id number] Other specified disorders of synovium, right elbow Social History Tobacco Use Types Packs/Day Years Used Date Smoking Tobacco: Never Assessed Sex and Gender Information Value Date Recorded Sex Assigned at Not on file Gender Identity Not on file Sexual Orientation Not on file documented as of this encounter Plan of Treatment Scheduled Referrals Name Type Priority Associated Diagnoses Order Schedule Referral to Infectious Disease and [facility] Outpatient Referral Urgent Other specified disorders of synovium, right elbow Ordered: 01/29/2024 documented as of this encounter Visit Diagnoses Diagnosis Other specified disorders of synovium, right elbow documented in this encounter Care Teams Refining Engineer Relationship Specialty Start Date End Date Laura Henriquez, SQL PROGRAMMER ANALYST [place] [address] [place] [address] PCP - General Family Medicine 09/01/23 documented as of this encounter
--- OUTSIDE RECORDS SUMMARY | 2024-04-05 08:04 | XMS_ITS | Encounter Summary ---
Author Organization [facility] [place] [address] Care Team Providers Care Explosive Specialist Name Role Phone Markos Brewer DNP Primary Care Provider [phone] Encounter Details Date Type Department Care Team (Latest Contact Info) Description 04/11/2020 3:00 PM EST TH Visit (TeleHealth) Psychiatry [place] [address] Gisselle Hauser, PhD AWILDA (generalized anxiety disorder); [...] 04/11/2020 3:00 PM EST INDIVIDUAL??THERAPY PROGRESS NOTE [id number] ?? Location:?Video? Time Spent:??50 minutes ? SUBJECTIVE: [...] OBJECTIVE: ?? Patient's verbal /interpersonal exchanges with??this sba underwriter:??Pt??was responsive to this sba underwriter's questions and she was engaged in the session.? Interventions and patient's??responses:??Pt processed her thoughts and feelings about??some stressors. Cognitive-behavioral interventions were used to assist Pt with recognizing the importance of time management, and Pt was responsive to these interventions. This sba underwriter reinforced Pt's use of the??m indfulness,??distress [...] of Lexapro, prescribed by ??Lisa??Chhaya, psychiatrist at [facility].??Pt is making progress in successfully using her coping skills and her mood has improved as a result of using these skills. 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 ?? Attendee(s)??understand the plan???Yes. documented in this encounter Plan of Treatment Not on file documented as of this encounter Visit Diagnoses Diagnosis AWILDA (generalized anxiety disorder) Generalized anxiety disorder Depression, unspecified depression type documented in this encounter Care Teams Explosive Specialist Relationship Specialty Start Date End Date Markos Brewer DNP PCP - General Family Medicine 07/08/19 08/31/23 documented as of this encounter
--- OUTSIDE RECORDS SUMMARY | 2024-04-05 08:04 | XMS_ITS | Encounter Summary ---
Author Organization [facility] [place] [address] Care Team Providers Care Site Administrator Name Role Phone Markos Brewer DNP Primary Care Provider Encounter Details Date Type Department Care Team (Late st Contact Info) Description 09/01/2019 TH Visit (TeleHealth) Psychiatry [place] [address] Gisselle Hauser, PhD Generalized anxiety disorder; Depression, [...] 09/01/2019 9:12 AM EDT DIAGNOSTIC INTERVIEW Location: [facility] Time Spent: 45 minutes School/Grade: [employer], 11th grade Information Source: Kana (Pt's father), Mahi (Pt's mother) and Pt History of Present Illness: Pt is a 19 year old female with a history of ADHD and current diagnosisof Generalized Anxiety Disorder. Pt's parents reported that Pt was diagnosed with ADHD when she wasabout 9 years old by a pediatric psychiatrist in [place], Dr. Palmira Soler. Pt's parents reported that Pt took Ritalin for the ADHD for 2 years but discontinued because she did not think it was helpful. Pt's parents reported that Pt also received play therapy for ADHD in [place] for about 2 years, which also reduced [...] the degree that she had pseudo-seizures in [id number] following shoulder surgery and she fainted a few times, felt nauseas, and vomitted. Pt's mother reported that Pt was admitted to a [place] hospital diversion program for pseudo-seizures, self-harm (cutting arms, stomach, and legs), and suicidal thoughts in January 2019 for 1 day. Pt reported thatschool stress precipitated this admission in that peers were calling her mental on social media. Pt saw a DBT therapist, Andrae Garland, in [place], [place] twice for anxiety in Fall 2018. Prior to seeing Andrae, Pt saw Miley Friasrett in [place] for a year for anxiety but Pt did not find benefit from the therapy. Pt reported that social functioning is hard because she doesn't have many friends and it is difficult for her to talk in classes because she is concerned the other students will mobile ui designer her. Pt rep orted having difficulty making friends and keeping friends. Pt reported that she thinks her friendsare fake and she buys them food and other things but she does not think her friends are there forher when she needs them. Pt reported having one close friend who she trusts and does not use her.Pt's father reported that she saw Dr. Burns at [facility] in June 2019 for anxiety and heprescribed [...] and off for at least a year, [id number], but Pt reported that she has had [...] years old by a pediatric psychiatrist in [place], Dr. Palmira Soler. Pt's parents reported that Pt took Ritalin for the ADHD for 2 years but discontinued because she did not think this medication was helpful. Pt's parents reported that Pt also received play therapy for ADHD in [place] for about 2 years, beginning at age 9, which also reduced her symptoms. Pt's parents reported that Pt saw Dr. Favian Burns, psychiatrist, at [facility] for anxiety in June 2019 and that he prescribed Pt 10 mgof Buspar, twice per day, but Pt only takes it at night because it makes her tired and dizzy in the morning. Pt saw a DBT therapist, Andrae Garland, in [place], [place] twice for anxiety in Fall 2018. Prior to seeing Andrae, Pt saw Miley Dugan in [place] for a year for anxiety but Pt [...] years old by Palmira Soler psychiatrist in [place], and Pt took Ritalin for 2 years but discontinued it because she didn't think it worked. Pt's mother reported that Pt also did play therapy for 2 years, beginning at age 9, for the ADHD in [place], which reduced her ADHD symptoms. Pt's mother reported that Pt had an IEP from [employer] through 7th grade for a sensory processing [...] cut her stomach, arms, and legs from [id number] but she has not had any thoughts [...] interfere with academic and interpersonal functioning. This data analyst report writer explained the treatment plan, family-oriented DBT skills training, to Pt andher parents and they agreed to the treatment plan. Pt's parents are supportive of Pt and they are willing to engage in Pt's treatment. Pt's parents reported that Pt currently takes 10 mg of Buspar, prescribed by Dr. Burns, psychiatrist at [facility]. DSM IV Diagnoses: AXIS I Generalized Anxiety [...] They plan to follow up with this data analyst report writer for video-deliveredfamily therapy. Patient understands the plan? Yes. documented in this encounter Plan of Treatment Not on file documented as of this encounter Visit Diagnoses Diagnosis Generalized anxiety disorder Depression, unspecified depression type documented in this encounter Care Teams Site Administrator Relationship Specialty Start Date End Date Markos Brewer DNP PCP - General Family Medicine 07/08/19 08/31/23 documented as of this encounter
--- OUTSIDE RECORDS SUMMARY | 2024-04-05 08:04 | XMS_ITS | Encounter Summary ---
Author Organization [facility] [place] [address] Care Team Providers Care Box Inspector Name Role Phone Markos Brewer DNP Primary Care Provider [phone] Encounter Details Date Type Department Care Team (Latest Contact Info) Description 12/29/2019 9:00 AM EDT TH Visit (TeleHealth) Psychiatry [place] [address] Gisselle Hauser, PhD AWILDA (generalized anxiety disorder); [...] 12/29/2019 9:00 AM EDT INDIVIDUAL??THERAPY PROGRESS NOTE [id number] ?? Location:?Video? Time Spent:??50??minutes ? SUBJECTIVE: ?? Chief Complaint and Diagnosis:??Pt is a 19 year old female with depression and anxiety that interferes with her interpersonal and academic functioning. ?? Interval History:?Pt reported that her mood has continued to improve and she enjoys spending time with her boyfriend.? OBJECTIVE: ?? Patient's verbal /interpersonal exchanges with??this report writer:??Pt??was responsive to this report writer's questions and she was engaged in the session.? Interventions and patient's??responses:??Pt processed her thoughts and feelings about??some stessors.??This report writer introduced some DBT emotion regulation skills and Pt demonstrated an understanding of how to use these skills during a practice exercise. This report writer reinforced Pt's use of the mindfulness [...] Lexapro, prescribed by Dr. Burns, psychiatrist at [facility]. ?? PLAN: Revised Goals: 1) Improve emotion regulation; and 2) Establish healthy boundaries? No change in estimated length of treatment. ?? Safety Risk Management:??Pt did not report any??thoughts of ,??suicidal thoughts or suicidal ideation in the session. Pt did not report any homicidal ideation in the session. Pt??did not report any thoughts of self-harm??or??self-harm in??the session.??In the 09/21/19 session, this report writer assisted Pt and Pt's parents in [...] Instruction/Education Provided:??Pt plans??to follow up with this report writer for therapy next week. ?? Attendee(s)??understand the plan???Yes. documented in this encounter Plan of Treatment Not on file documented as of this encounter Visit Diagnoses Diagnosis AWILDA (generalized anxiety disorder) Generalized anxiety disorder Depression, unspecified depression type documented in this encounter Care Teams Box Inspector Relationship Specialty Start Date End Date Markos Brewer DNP PCP - General Family Medicine 07/08/19 08/31/23 documented as of this encounter
--- OUTSIDE RECORDS SUMMARY | 2024-04-05 08:04 | XMS_ITS | Encounter Summary ---
Author Organization [facility] Address [address] [place] [address] Care Team Providers Care Child Adolescent Care Name Role Phone Scooby Powell MD, Lashonda Primary Care Provider [phone] Encounter Details Date Type Department Care Team (Late st Contact Info) Description 01/26/2024 Lab Requisition [facility] Pathology & Laboratory Medicine - [facility] [address] [place] [address] Micah Strong MD [address] [place] [address] Encounter for other general examination Social History Tobacco Use Types Packs/Day Years Used Date Smoking Tobacco: Never Smokeless Tobacco: Never Interpersonal Safety Answer Date Record ed Physically Hurt Never 12/19/2019 Verbally Threaten Not on file 12/19/2019 Comments Unknown Sex and Gender Information Value Date Recorded Sex Assigned at Not on file Legal Sex Female 18:30 EST Gender Identity Female 02/23/2021 10:29 EDT Sexual Orientation Not on file documented as of this encounter Plan of Treatment Not on file documented as of this encounter Procedures Procedure Name Priority Date/Time Associated Diagnosis Comments SURGICAL PATHOLOGY Today 01/23/2024 14 :37 EDT Encounter for other general examination documented in this encounter Results * SURGICAL PATHOLOGY (01/23/2024 14:37 EDT) Note to Patient The following pathology results have been interpreted by your pathologist and may be available to you before your health provider has had the opportunity to review them. Please allow time for your provider to receive these results and explore management options, if applicable. 01/28/2024 11:50 [facility] Final Diagnosis A. ? SYNOVIUM? , RIGHT ELBOW, BIOPSY: - Acute synovitis. (see comment) 01/28/2024 11:50 [facility] Diagnosis Comment Histologic examination reveals aggregates of reactive synovium, blood and fibrin debris. Within the synovium there is a mixed acute and chronic inflammation, with at least 5 neutrophils per 5 consecutive high-power garcia. In addition, within the fibrin debris, there is aggregates of neutrophils, forming abscess. Multiple deeper sections have been examined. The B&B (Gram), GMS and Manjula special stains fail to highlight microorganisms within the examined sections. Correlation with clinical and possible microbiology cultures is recommended. 01/28/2024 11:50 [facility] Attestation By the signature below, the attending physician certifies that they have 1) personally conducted a gross and/or microscopic examination of the described specimen(s), and/or personally interpreted the results of laboratory testing of the described specimen(s), and 2) personally rendered or confirmed the above diagnosis. 01/28/2024 11:50 [facility] at 1150 Clinical History Effusion R elbow, ? infectious vs rheumatoid disease 01/28/2024 11:50 [facility] Gross Description A. Received in formalin labelled with proper patient identification (initials B, G) and R elbow synovial tissue is an aggregate of bañuelos-white irregular rubbery tissues (1.3 x 0.9 x 0.3 cm). Submitted entirely in A1. GALA SNOW(ASCP) 01/26/2024 9:29 01/28/2024 11:50 [facility] Performing Lab [facility] 01/28/2024 11:50 [facility] Scanned Images 01/28/2024 11:50 [facility] Tissue STRUCTURE OF SYNOVIAL MEMBRANE OF JOINT / Unknown 01/23/2024 14:37 EDT 01/26/2024 8:19 EDT us Micah Strong MD PATHOLOGY ORDERABLES Final Resul t [facility] [address] [place] [address] documented in this encounter Visit Diagnoses Diagnosis Encounter for other general examination documented in this encounter Care Teams Child Adolescent Care Relationship Specialty Start Date End Date Lashonda Almodovar MD [address] [place] [address] PCP - General 02/11/14 documented as of this encounter
--- OUTSIDE RECORDS SUMMARY | 2024-04-05 08:04 | XMS_ITS | Encounter Summary ---
Author Organization [facility] Address [address] [place] [address] Care Team Providers Care Anodizer Name Role Phone Scooby Powell MD, Lashonda Primary Care Provider [phone] Reason for Visit * Reason Comments Pain Pain * Referral (Routine) - Closed Specialty Diagnoses / Procedures Referred By Jelly che Referred To Contact Orthopedic Surgery Diagnoses Ingrowing nail Ranjit Bowles, [facility] [address] [place] [address] [place] [address] Phone: tel: fax: [facility] Pod[facility] [address] [place] [address] Phone: tel: fax: Referral ID Status Reason Start Date Expiration Date Visits Re quested Visits Authorized [id number] Closed 1 1 Encounter Details Date Type Department Care Team (Late st Contact Info) Description 02/23/2021 10:30 EDT Office Visit [facility] Orthopedics & Podiatry [address] [place], [place] [id number] Susan Barros [facility] [address] [facility] [address] [place] [address] Ingrown nail of great toe [...] Progress Notes * Susan Barros, DPM - 02/23/2021 1030 EDT CHIEF COMPLAINT: Chief [...] tissue documented in this encounter Care Teams Anodizer Relationship Specialty Start Date End Date Lashonda Almodovar MD [address] [place] [address] PCP - General 02/11/14 documented as of this encounter
--- OUTSIDE RECORDS SUMMARY | 2024-04-05 08:04 | XMS_ITS | Encounter Summary ---
Author Organization [facility] Address [address] [place] [address] Care Team Providers Care Collar Trimmer Name Role Phone Scooby Powell MD, Lashonda Primary Care Provider [phone] Encounter Details Date Type Department Care Team [...] on filedocumented in this encounter Care Teams Collar Trimmer Relationship Specialty Start Date End Date Lashonda [place] [place] [address] PCP - General 02/11/14 documented as of this encounter
--- OUTSIDE RECORDS SUMMARY | 2024-04-05 08:04 | XMS_ITS | Encounter Summary ---
Author Organization [facility] [place] [address] Care Team Providers Care Production Planning Manager Name Role Phone Laura Henriquez APRN Primary Care Provider [phone] Encounter Details Date Type Department Care Team [...] on filedocumented in this encounter Care Teams Production Planning Manager Relationship Specialty Start Date End Date Laura Henriquez APRN [place] [address] PCP - General Family Medicine 09/01/23 documented as of this encounter
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
--- OUTSIDE RECORDS SUMMARY | 2024-04-05 08:04 | XMS_ITS | Encounter Summary ---
Author Organization [place] [address] Care Team Providers Care Drama Therapist Name Role Phone Laura Henriquez APRN Primary Care Provider [phone] Reason for Referral * Consultation (Routine) - Closed Specialty Diagnoses / Procedures Referred By Jelly che Referred To Contact Dermatology Diagnoses Generalized hyperhidrosis Laura Henrqiuez APRN [address] [place] [address] [facility] [address] [place] [address] Referral ID Status Reason Start Date Expiration Date V isits Requested Visits Authorized [id number] Closed Consult, Test & Treat PCP Updated and/or Approved 09/01/2023 08/31/2024 1 1 Encounter Details Date Type Department Care Team (Latest Contact Info) Description 09/01/2023 Transcribe Orders eDH Incoming Referrals [phone] Laura Henriquez APRN [address], [place] [id number] Generalized hyperhidrosis Social History Tobacco Use Types [...] hyperhidrosis documented in this encounter Care Teams Drama Therapist Relationship Specialty Start Date End Date Laura Henriquez [place] [address] PCP - General Family Medicine 09/01/23 documented as of this encounter
--- OUTSIDE RECORDS SUMMARY | 2024-04-05 08:04 | XMS_ITS | Encounter Summary ---
Author Organization [facility] [place] [address] Care Team Providers Care Analysis Or Research Safety Inspector Name Role Phone Markos Brewer DNP Primary Care Provider [phone] Encounter Details Date Type Department Care Team (Latest Contact Info) Description 10/05/2019 10:00 AM EDT TH Visit (TeleHealth) Psychiatry [place] [address] Gisselle Hauser, PhD Depression, unspecified depression type; [...] 10:00 AM EDT FAMILY THERAPY PROGRESS NOTE [id number] ?? Location:?[place]?Time Spent:??60??minutes ?? Attendee(s):?Pt and Pt's [...] they responded well to these interventions. This proposal lead writer introduced??more??DBT??mindfulness??skills,??and Pt demonstrated an understanding of how to use the skills??in conjunction with other mindfulness skills during practice exercises. Pt's??parents demonstrated an understanding of how to reinforce Pt's skill use.??This proposal lead writer reinforced Pt's continued use of the [...] Lexapro, prescribed by Dr. Burns, psychiatrist at [facility]. ?? PLAN: Revised Goals: 1) Improve emotion regulation; and 2) Establish healthy boundaries? No change in estimated length of treatment. ?? Safety Risk Management:??Pt did not report any??suicidal thoughts or suicidal ideation in the session. Pt did not report any homicidal ideation in the session. Pt??did not report any thoughts of self-harm??or self-harm in the session.??In the 09/21/19 session, this proposal lead writer assisted Pt and Pt's parentsin developing [...] Provided:??They plan to follow up with this proposal lead writer for family therapy. ?? Attendees understand the plan???Yes. documented in this encounter Plan of Treatment Not on file documented as of this encounter Visit Diagnoses Diagnosis Depression, unspecified depression type Anxiety Anxiety state, unspecified documented in this encounter Care Teams Analysis Or Research Safety Inspector Relationship Specialty Start Date End Date Markos Brewer DNP PCP - General Family Medicine 07/08/19 08/31/23 documented as of this encounter
--- OUTSIDE RECORDS SUMMARY | 2024-04-05 08:04 | XMS_ITS | Referral Summary ---
Author Organization [facility] Address [address] [place] [address] Care Team Providers Care Retail Sales Clerk Name Role Phone Scooby Powell MD, [place] Primary Care Provider [phone] Encounters Date Type Department Care Team Description 01/26/2024 Lab Requisition [facility] Pathology & Laboratory [address] [address] Micah Strong MD Encounter for other general examination 01/15/2024 Lab Requisition [facility] Pathology & Laboratory [address] [address] Outr Resulting Lab, Provider 01/13/2024 Lab Requisition [facility] Pathology Laboratory [address] [address] Outr Resulting Lab, Provider from Last 3 [...] :37 EDT Encounter for other general examination RHEUMATOID FACTOR Routine 01/15/2024 12: 55 EDT ANTI NUCLEAR AB (YUAN), IFA Routine 01/15/2024 12:55 EDT CCP ANTIBODIES Routine 01/15/2024 12:55 EDT LYME AB Routine 01/12/2024 13:41 EDT from Last 3 Months Results * SURGICAL PATHOLOGY (01/23/2024 14:37 EDT) Note to Patient The following pathology results have been interpreted by your pathologist and may be available to you before your health provider has had the opportunity to review them. Please allow time for your provider to receive these results and explore management options, if applicable. 01/28/2024 11:50 EDT [facility] Final Diagnosis A. ? SYNOVIUM? , RIGHT ELBOW, BIOPSY: - Acute synovitis. (see comment) 01/28/2024 11:50 EDT [facility] Diagnosis Comment Histologic examination reveals [...] possible microbiology cultures is recommended. 01/28/2024 11:50 [facility] Attestation By the signature below, the attending physician certifies that they have 1) personally conducted a gross and/or microscopic examination of the described specimen(s), and/or personally interpreted the results of laboratory testing of the described specimen(s), and 2) personally rendered or confirmed the above diagnosis. 01/28/2024 11:50 [facility] at 1150 Clinical History Effusion R elbow, ? infectious vs rheumatoid disease 01/28/2024 11:50 [facility] Gross Description A. Received in formalin labelled with proper patient identification (initials B, G) and R elbow synovial tissue is an aggregate of bañuelos-white irregular rubbery tissues (1.3 x 0.9 x 0.3 cm). Submitted entirely in A1. GALA SNOW(ASCP) 01/26/2024 9:29 01/28/2024 11:50 [facility] Performing Lab [facility] 01/28/2024 11:50 [facility] Scanned Images 01/28/2024 11:50 [facility] Tissue STRUCTURE OF SYNOVIAL MEMBRANE OF JOINT / Unknown 01/23/2024 14:37 EDT 01/26/2024 8:19 EDT us Micah Strong MD PATHOLOGY ORDERABLES Final Resul t [facility] [address] [place] [address] * CCP ANTIBODIES (01/15/2024 12:55 EDT) CCP Antibodies <2.5 <5.0 U/mL 01/16/2024 9:27 EDT [facility] Blood VENOUS BLOOD / Unknown 01/15/2024 12:55 EDT 01/15/2024 22:05 EDT us Provider Outr Resulting Lab IMMUNOLOGY AND SEROL OGY ORDERABLES Final Result Performing Organization Address [facility]/ZIP Co de Phone Number [facility] [address] [place], [place] [phone] * RHEUMATOID FACTOR (01/15/2024 12:55 EDT) Pathologist [facility] Rheumatoid Factor <8.6 <12.0 IU/mL 01/15/2024 22:37 EDT [facility] Blood VENOUS BLOOD / Unknown 01/15/2024 12:55 EDT 01/15/2024 22:05 EDT us Provider Outr Resulting Lab CHEMISTRY & BLOOD GA S ORDERABLES Final Result Performing Organization Address [facility] de Phone Number [facility] [address] [place] [id number] * ANTI NUCLEAR AB (YUAN), IFA (01/15/2024 12:55 EDT) [facility] YUAN Interpretation Negative Negative 2023 15:15 EDT [facility] Comment:No titer performed, YUAN Screen is negative. Blood VENOUS BLOOD / Unknown 01/15/2024 12:55 EDT 01/15/2024 22:05 EDT Narrative [facility] - 01/16/2024 15:15 EDT Results were obtained with the [employer]fen NOVA Lite HEp-2 YUAN Kit by indirect immunofluorescence. us Provider Outr Resulting Lab IMMUNOLOGY AND SEROL OGY ORDERABLES Final Result Performing Organization Address [facility] Co de Phone Number [facility] [address] [place] [phone] * LYME AB (01/12/2024 13:41 EDT) Pathologist [facility] Lyme Ab Negative Negative 01/14/2024 9:04 EDT [facility] Blood VENOUS BLOOD / Unknown 01/12/2024 13:41 EDT 01/13/2024 17:53 EDT us Provider Outr Resulting Lab IMMUNOLOGY AND SEROL OGY ORDERABLES Final Result Performing Organization Address City/State/[facility] de Phone Number [facility] [address] [place] [address] from Last 3 Months Insurance [facility] Care Teams Retail Sales Clerk Relationship Specialty Start Date End Date [place] [address] PCP - General 02/11/14
--- OUTSIDE RECORDS SUMMARY | 2024-04-05 08:04 | XMS_ITS | Encounter Summary ---
Author Organization [facility] Address [facility] [place] [address] Care Team Providers Care Mental Health Consultant Name Role Phone Lashonda Almodovar MD Primary Care Provider [phone] Encounter Details Date Type Department Care Team (Latest Contact Info) Description 08/13/2018 12:46 PM EDT - 08/13/2018 12:48 PM EDT Hospital Encounter XRay at [address] [place] [address] Kelly Nowak PA [address] [place] [address] Instability of right shoulder joint Discharge Disposition: [...] electronic medical record and allergies, as per [facility] protocol. The patient was [...] electronic medical record and allergies, as per [facility] protocol. The patient was [...] EDT documented in this encounter Care Teams Mental Health Consultant Relationship Specialty Start Date End Date Lashonda Almodovar MD [address] [place] [address] PCP - General 04/10/10 07/07/19 documented as of this encounter
--- OUTSIDE RECORDS SUMMARY | 2024-04-05 08:04 | XMS_ITS | Encounter Summary ---
Author Organization [facility] [place] [address] Care Team Providers Care Post Hole Digging Machine Operator Name Role Phone Markos Brewer DNP Primary Care Provider [phone] Encounter Details Date Type Department Care Team (Latest Contact Info) Description 09/22/2019 4:00 PM EDT TH Visit (TeleHealth) Psychiatry [place] [address] Gisselle Hauser, PhD Depression, unspecified depression type; [...] 4:00 PM EDT FAMILY THERAPY PROGRESS NOTE [id number] ?? Location:?[place]?Time Spent:??60minutes ?? Attendee(s):?Pt, Pt's mother [...] progress in using the TIPP skills. This sign writer letterer or painter reinforced the importance of Pt continuing to use the TIPP skills each night to prevent emotional outbursts. This sign writer letterer or painter introduced??more DBT mindfulness skills, and Pt demonstrated [...] Buspar, prescribed by Dr. Burns, psychiatrist at [facility]. ?? PLAN: Revised Goals: 1) Improve emotion [...] last session. In the 09/21/19 session, this sign writer letterer or painter assisted Pt and Pt's parents in developing [...] to follow up with this sign writer letterer or painter for family therapy. ?? Attendees understand the plan???Yes. documented in this encounter Plan of Treatment Not on file documented as of this encounter Visit Diagnoses Diagnosis Depression, unspecified depression type Anxiety Anxiety state, unspecified documented in this encounter Care Teams Post Hole Digging Machine Operator Relationship Specialty Start Date End Date Markos Brewer DNP PCP - General Family Medicine 07/08/19 08/31/23 documented as of this encounter
--- OUTSIDE RECORDS SUMMARY | 2024-04-05 08:04 | XMS_ITS | Encounter Summary ---
Author Organization [facility] Address [facility] [place] [address] Care Team Providers Care Tandem Mill Operator Name Role Phone Laura Henriquez APRN Primary Care Provider [phone] Reason for Visit * Reason Onset Date Comments Medication Refill 01/09/2024 Encounter Details Date Type Department Care Team (Late st Contact Info) Description 01/09/2024 Refill Dermatology at [address] [address] [facility] [place] [address] Hyperhidrosis Social History Tobacco Use Types Packs/Day [...] hyperhidrosis documented in this encounter Care Teams Tandem Mill Operator Relationship Specialty Start Date End Date Laura Henriquez APRN [address] [place] [address] PCP - General Family Medicine 09/01/23 documented as of this encounter
--- OUTSIDE RECORDS SUMMARY | 2024-04-05 08:04 | XMS_ITS | Encounter Summary ---
[place] [address] Care Team Providers Care Financial Service Rep Name Role Phone Lashonda Almodovar MD Primary Care Provider [phone] Encounter Details Date Type Department Care Team (Late st Contact Info) Description 06/15/2019 Telephone Psychiatry [place] [address] Lea Trujillo Social History Tobacco Use Types [...] of DBT therapists in her local area. [facility] stated that she already found a DBT therapist for this patient today in [place], [place]. [facility] stated she does not need any other assistance at this time. documented in this encounter Plan of Treatment Not on file documented as of this encounter Visit Diagnoses Not on filedocumented in this encounter Care Teams Financial Service Rep Relationship Specialty Start Date End Date Lashonda Almodovar MD [address] [place] [address] [place] [address] PCP - General 04/10/10 07/07/19 documented as of this encounter
--- OUTSIDE RECORDS SUMMARY | 2024-04-05 08:04 | XMS_ITS | Encounter Summary ---
Author Organization [facility] Address [facility] [place] [address] Care Team Providers Care Wire Winding Machine Operator Name Role Phone Markos Brewer DNP Primary Care Provider [phone] Encounter Details Date Type Department Care Team (Late st Contact Info) Description 10/28/2019 2:30 PM EDT TH Visit (TeleHealth) Psychiatry [place] [address] Sigifredo Burns MD [facility] [place] [address] Anxiety disorder, unspecified type Social History Tobacco [...] and ADOLESCENT PSYCHIATRY TELEHEALTH VISIT NOTE (CPT [id number], [id number], [id number]) [facility] 10/28/2019 Patient Name: Mariama Jarvis : 2000 Age: 19 y.o. 8 m.o. Address: [facility] [address] Legal Guardian: parents Primary Care Provider: Markos [...] visit. During this visit she was located [facility]. Mariama Jarvis is aware that for any urgent matter she can call [phone]. Mariama and the family report the following: [...] her therapist weekly -- Dr Hauser at [facility]. She has found therapyvery helpful and is [...] suicide. Psychometrics reviewed or newly obtained: Awaiting [place] scales from teachers. Review of Systems and [...] Prior Psychotherapy: Aysha Landaverde ?? Prior hospitalizations: [facility] hosp diversion program - two days [...] & Living Situation: ?? Mariama lives in [facility] [address] with her mom, dad, and 20 yr old brother. Peer Relationships: Spends time with boyfriend and another close friend. School History: School: [employer] Grade: Going into senior year 504/IEP: 504 [...] appropriate volume and prosody. Language fluent in Slovenian. Mood: I haven't been sad or depressed. [...] type documented in this encounter Care Teams Wire Winding Machine Operator Relationship Specialty Start Date End Date Markos Brewer DNP PCP - General Family Medicine 07/08/19 08/31/23 documented as of this encounter
--- OUTSIDE RECORDS SUMMARY | 2024-04-05 08:04 | XMS_ITS | Encounter Summary ---
Author Organization [facility] [place] [address] Care Team Providers Care Adventure Education Teacher Name Role Phone Markos Brewer DNP Primary Care Provider [phone] Encounter Details Date Type Department Care Team (Latest Contact Info) Description 12/15/2019 12:00 PM EDT TH Visit (TeleHealth) Psychiatry [place] [address] Gisselle Hauser, PhD AWILDA (generalized anxiety disorder); [...] 12/15/2019 12:00 PM EDT INDIVIDUAL??THERAPY PROGRESS NOTE [id number] ?? Location:?[place]? Time Spent:??40??minutes ? SUBJECTIVE: ?? [...] OBJECTIVE: ?? Patient's verbal /interpersonal exchanges with??this marketing copywriter:??Pt??was responsive to this marketing copywriter's questions and she was engaged in the session.? Interventions and patient's??responses:??Pt processed her thoughts and feelings about??the incidentwith the marijuana.??This marketing copywriter educated Pt about the harmful consequences of marijuana use and Ptreported that she will never smoke it again. Pt also reported that her parents have removed all marijuana from her and disposed of it. Pt reported that her parents grounded her and they are making her pay the ED bill, and Pt reported that she agrees with these consequences. This marketing copywriter reinforcedPt's use of the DBT skills, and [...] Lexapro, prescribed by Dr. Burns, psychiatrist at [facility]. After the 12/15/19 session, this marketing copywriter sent Dr. Burns a Staff Message to [...] self-harm??or??self-harm in??the session.??In the 09/21/19 session, this marketing copywriter assisted Pt and Pt's parents in [...] Instruction/Education Provided:??Pt plans??to follow up with this marketing copywriter for therapy. ?? Attendee(s)??understand the plan???Yes. documented in this encounter Plan of Treatment Not on file documented as of this encounter Visit Diagnoses Diagnosis AWILDA (generalized anxiety disorder) Generalized anxiety disorder Depression, unspecified depression type documented in this encounter Care Teams Adventure Education Teacher Relationship Specialty Start Date End Date Markos Brewer DNP PCP - General Family Medicine 07/08/19 08/31/23 documented as of this encounter
--- OUTSIDE RECORDS SUMMARY | 2024-04-05 08:04 | XMS_ITS | Encounter Summary ---
Author Organization [facility] Address [facility] [place] [address] Care Team Providers Care Concrete Tester Name Role Phone MartinezLaura Jennfier SMITH Primary Care Provider [phone] Encounter Details Date Type Department Care Team (Late st Contact Info) Description 01/09/[address] [facility] [address] [place] [address] Marcelo Galarza MD [facility] [place] [address] Social History Tobacco Use Types Packs/Day Years [...] on filedocumented in this encounter Care Teams Concrete Tester Relationship Specialty Start Date End Date Laura Henriquez, BURLAP MAN [address] [place] [address] PCP - General Family Medicine 09/01/23 documented as of this encounter
--- OUTSIDE RECORDS SUMMARY | 2024-04-05 08:04 | XMS_ITS | Encounter Summary ---
Author Organization [facility] Address [address] [place] [address] Care Team Providers Care Java J2Ee Software Engineer Name Role Phone Scooby Powell MD, [place] Primary Care Provider [phone] Encounter Details Date Type Department Care Team (Latest Contact Info) Description 11/21/2023 Lab Requisition [facility] Pathology & Laboratory Medicine - [facility] [address] [place] [address] Laura Henriquez FNP [address] [facility] [address] [place] [address] Encounter for screening for human [...] System with Manual Evaluation 11/25/2023 12:26 EDT [facility] Specimen Adequacy Satisfactory for Evaluation - transformation zone component present 11/25/2023 12:26 EDT [facility] General Categorization Negative for intraepithelial lesion or malignancy 11/25/2023 12:26 EDT [facility] Attestation . 11/25/2023 12:26 EDT [facility] at 1226 Clinical History See below 11/25/19 12:26 EDT [facility] Performing Lab [facility] 11/25/2023 12:26 EDT [facility] Scanned Images 11/25/2023 12:26 EDT [facility] Pap Test CERVIX UTERI STRUCTURE / Unknown 11/19/2023 10:20 EDT 11/21/2023 13:43 EDT us Laura Henriquez FURNITURE UPHOLSTERY MECHANIC PATHOLOGY ORDERABLES Final Re sult [facility] [address] [place], [place] [phone] documented in this encounter Visit Diagnoses Diagnosis Encounter for screening for human papillomavirus (HPV) Special screening examination for human papillomavirus (HPV) Encounter for screening for malignant neoplasm of cervix Screening for malignant neoplasm of the cervix Encounter for general adult medical examination without abnormal findings Unspecified general medical examination documented in this encounter Care Teams Java J2Ee Software Engineer Relationship Specialty Start Date End Date Lashonda Almodovar MD [address] [place] [address] PCP - General 02/11/14 documented as of this encounter
--- OUTSIDE RECORDS SUMMARY | 2024-04-05 08:04 | XMS_ITS | Encounter Summary ---
Author Organization [facility] [place] [address] Care Team Providers Care Lithographic Photographer Name Role Phone Markos Brewer DNP Primary Care Provider [phone] Encounter Details Date Type Department Care Team (Latest Contact Info) Description 09/21/2019 9:00 AM EDT TH Visit (TeleHealth) Psychiatry [place] [address] Gisselle Hauser, PhD Depression, unspecified depression type; [...] 9:00 AM EDT FAMILY THERAPY PROGRESS NOTE [id number] ?? Location:?[place]?Time Spent:??45minutes ?? Attendee(s):?Pt, Pt's mother [...] feelings about her recent emotional outburst. This magazine writer introduced the DBT crisis survival skills, [...] Buspar, prescribed by Dr. Burns, psychiatrist at [facility]. PLAN: Revised Goals: 1) Improve emotion [...] emotional outburst. In the 09/21/19 session, this magazine writer assisted Pt and Pt's parents in [...] local ED for a psychiatric evaluation. This magazine writer also contacted Pt's psychiatrist on , Dr. Burns, to let him know that Pt needs to be seen for a medication consultation and he agreed to see Pt this . ?? Assigned Homework:??Pt plans to use the TIPP skills and eliminate exposure to potential triggers toprevent emotional outbursts.?? Patient Instruction/Education Provided:??They plan to follow up with this magazine writer for family therapy. Attendees understand the plan???Yes. documented in this encounter Plan of Treatment Not on file documented as of this encounter Visit Diagnoses Diagnosis Depression, unspecified depression type AWILDA (generalized anxiety disorder) Generalized anxiety disorder documented in this encounter Care Teams Lithographic Photographer Relationship Specialty Start Date End Date Markos Brewer DNP PCP - General Family Medicine 07/08/19 08/31/23 documented as of this encounter
--- OUTSIDE RECORDS SUMMARY | 2024-04-05 08:04 | XMS_ITS | Encounter Summary ---
Author Organization [facility] Address [facility] [place] [address] Care Team Providers Care Leather Cartridge Belt Maker Name Role Phone Laura Henriquez LUIS Primary Care Provider [phone] Encounter Details Date Type Department Care Team (Late st Contact Info) Description 01/06/2024 4:00 PM EDT TH Visit (TeleHealth) Dermatology at [address] [address] Marcelo Galarza MD [facility] [place] [address] Hyperhidrosis Social History Tobacco Use Types Packs/Day [...] relevant family history N Social History 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 I performed the above scribed service and agree with the accuracy of the documentation in this encounter. Reviewed and signed by: Marcelo Galarza MD Dermatology [facility] Staff technical support consultant: Ira Altman MD Dermatology [facility] * Ira Altman MD - 01/06/2024 4:00 PM EDT I was the supervising physician working with the Dermatology resident, Marcelo Galarza MD, in the care of this Dermatology patient in person. For the purposes of billing, the resident provided the care. I have reviewed the encounter note details and level of service. Ira Altman MD Staff Cold Molding Press Operator Department of Dermatology [facility] documented in this encounter Plan of Treatment Not on file documented as of this encounter Visit Diagnoses Diagnosis Hyperhidrosis Primary focal hyperhidrosis documented in this encounter Care Teams Leather Cartridge Belt Maker Relationship Specialty Start Date End Date Laura Henriquez APRN [facility] [place] [address] PCP - General Family Medicine 09/01/23 documented as of this encounter
--- OUTSIDE RECORDS SUMMARY | 2024-04-05 08:04 | XMS_ITS | Encounter Summary ---
Author Organization [facility] Address [address] [place] [address] Care Team Providers Care Family Support Specialist Name Role Phone Scooby Powell MD, Lashonda Primary Care Provider [phone] Reason for Visit * Reason Comments Pain Encounter Details Date Type Department Care Team (Late st Contact Info) Description 02/28/2021 14:15 EDT Office Visit [facility] Orthopedics & Podiatry [address], [address] [place], [place] [id number] [facility] [address] [place] [address] Ingrown nail of great toe [...] in this encounter Ordered Prescriptions Prescription Sig Dispense Quantity Refills Last Filled Start Date End Date neomycin-polymyxin -hydrocortisone (CORTISPORIN) otic solution Place 1-2 Drops into affected ear(s) 2 times daily for [address] to affected area 3.8 mL 02/28/2021 1 sulfamethoxazole-t rimethoprim (BACTRIM/CO-TRIMOX AZOLE DS) 800-160 mg per tablet Take 1 Tablet by mouth 2 times daily for 5 days. 10 Tablet 02/28/2021 1 documented in this encounter Progress Notes * [...] under the proximal nail fold utilizing an [place] anvil. The offending ingrown portion of the [...] Medication Only Injection (02/28/2021 14:15 EDT) Narrative [facility] POINT OF CARE - 02/28/2021 14:15 EDT Susan Barros DPM ? 02/28/2021 14:58 Medication Only Injection on 02/28/2021 14:15 Medications: 4 mL bupivacaine (PF) 0.5% Susan Barros DPM PROCEDURE/MINOR SURGICAL OR DERABLES Final Result [facility] POINT OF CARE documented in this encounter [...] Fri02/28/21 at 1415, Until Fri02/28/21 at 1415, RoutineIndications:Ingrown nail of great toe of left foot Given 02/28/2021 14:15 EDT 4 mL documented in this encounter Care Teams Family Support Specialist Relationship Specialty Start Date End Date Lashonda Almodovar MD [address] [place] [address] PCP - General 02/11/14 documented as of this encounter
--- OUTSIDE RECORDS SUMMARY | 2024-04-05 08:04 | XMS_ITS | Encounter Summary ---
Author Organization [place] [address] Care Team Providers Care Financial Planner Name Role Phone Markos Brewer DNP Primary Care Provider [phone] Encounter Details Date Type Department Care Team (Late st Contact Info) Description 09/13/2019 TH Visit (TeleHealth) Psychiatry [place] [address] Gisselle Hauser, PhD Depression, unspecified depression type; [...] 10:47 AM EDT FAMILY THERAPY PROGRESS NOTE [id number] ?? Location: [facility] Time Spent: 50 minutes ?? Attendee(s): Pt [...] and feelings about her recentemotional outbursts. This engineering writer introduced more DBT mindfulness concepts and [...] Buspar, prescribed by Dr. Burns, psychiatrist at [facility]. PLAN: Revised Goals: 1) Improve emotion regulation; [...] They plan to follow up with this engineering writer for family therapy. Attendees understand the plan? Yes. documented in this encounter Plan of Treatment Not on file documented as of this encounter Visit Diagnoses Diagnosis Depression, unspecified depression type AWILDA (generalized anxiety disorder) Generalized anxiety disorder documented in this encounter Care Teams Financial Planner Relationship Specialty Start Date End Date Markos Brewer DNP PCP - General Family Medicine 07/08/19 08/31/23 documented as of this encounter
--- OUTSIDE RECORDS SUMMARY | 2024-04-05 08:04 | XMS_ITS | Encounter Summary ---
Author Organization [facility] Address [address] [place] [address] Care Team Providers Care Energy Operations Vice President Name Role Phone Scooby Powell MD, Lashonda Primary Care Provider [phone] Encounter Details Date Type Department Care Team (Late st Contact Info) Description 01/15/2024 Lab Requisition [facility] Pathology & Laboratory Medicine - [facility] [address] [place] [address] Outr Resulting Lab, Provider Social History Tobacco [...] Factor <8.6 <12.0 IU/mL 01/15/2024 22:37 EDT [facility] Blood VENOUS BLOOD / Unknown 01/15/2024 12:55 EDT 01/15/2024 22:05 EDT us Provider Outr Resulting Lab CHEMISTRY & BLOOD GA S ORDERABLES Final Result Performing Organization Address [facility]/ZIP Co de Phone Number [facility] [address] [place] [address] * ANTI NUCLEAR AB (YUAN), IFA (01/15/2024 12:55 EDT) YUAN Interpretation Negative Negative 2023 15:15 EDT [facility] Comment:No titer performed, YUAN Screen is negative. Blood VENOUS BLOOD / Unknown 01/15/2024 12:55 EDT 01/15/2024 22:05 EDT Narrative [facility] - 01/16/2024 15:15 EDT Results were obtained with the [employer] NOVA Lite HEp-2 UYAN Kit by indirect immunofluorescence. us Provider Outr Resulting Lab IMMUNOLOGY AND SEROL OGY ORDERABLES Final Result Performing Organization Address [facility] Co de Phone Number [facility] [address] [place] [phone] * CCP ANTIBODIES (01/15/2024 12:55 EDT) Pathologist [facility] CCP Antibodies <2.5 <5.0 U/mL 01/16/2024 9:27 EDT [facility] Blood VENOUS BLOOD / Unknown 01/15/2024 12:55 EDT 01/15/2024 22:05 EDT us Provider Outr Resulting Lab IMMUNOLOGY AND SEROL OGY ORDERABLES Final Result Performing Organization Address City/[facility]/ZIP Co de Phone Number [facility] [address] [place] [address] documented in this encounter Visit Diagnoses Not on filedocumented in this encounter Care Teams Energy Operations Vice President Relationship Specialty Start Date End Date Lashonda Almodovar MD [address] [place] [address] PCP - General 02/11/14 documented as of this encounter
--- OUTSIDE RECORDS SUMMARY | 2024-04-05 08:04 | XMS_ITS | Encounter Summary ---
Author Organization [facility] Address [facility] [place] [address] Care Team Providers Care Bridge Repair Crew Person Name Role Phone Markos Brewer DNP Primary Care Provider [phone] Encounter Details Date Type Department Care Team (Latest Contact Info) Description 09/07/2019 10:30 AM EDT TH Visit (TeleHealth) Psychiatry [place] [address] Gisselle Hauser, PhD Depression, unspecified depression type; [...] 10:30 AM EDT FAMILY THERAPY PROGRESS NOTE [id number] Location: [facility] Time Spent: 60 minutes Attendee(s): Pt and [...] and feelings about her recentemotional outbursts. This radio script writer introduced DBT mindfulness concepts and Pt [...] Buspar, prescribed by Dr. Burns, psychiatrist at [facility]. PLAN: Revised Goals: 1) Improve emotion [...] They plan to follow up with this radio script writer for family therapy. Attendees understand the plan? Yes. documented in this encounter Plan of Treatment Not on file documented as of this encounter Visit Diagnoses Diagnosis Depression, unspecified depression type AWILDA (generalized anxiety disorder) Generalized anxiety disorder documented in this encounter Care Teams Bridge Repair Crew Person Relationship Specialty Start Date End Date Markos Brewer DNP PCP - General Family Medicine 07/08/19 08/31/23 documented as of this encounter
--- OUTSIDE RECORDS SUMMARY | 2024-04-05 08:04 | XMS_ITS | Encounter Summary ---
[place] [address] Care Team Providers Care District Recruiter Name Role Phone Lashonda Almodovar MD Primary Care Provider [phone] Encounter Details Date Type Department Care Team (Late st Contact Info) Description 06/11/2019 Telephone Psychiatry [place] [phone] Corinne Ascencio, RN Social History Tobacco Use [...] on filedocumented in this encounter Care Teams District Recruiter Relationship Specialty Start Date End Date Lashonda Almodovar MD [address] [place] [address] [place] [address] PCP - General 04/10/10 07/07/19 documented as of this encounter
--- OUTSIDE RECORDS SUMMARY | 2024-04-05 08:04 | XMS_ITS | Encounter Summary ---
Author Organization [facility] [place] [address] Care Team Providers Care Metal Sprayer Production Name Role Phone Lashonda Almodovar MD Primary Care Provider [phone] Encounter Details Date Type Department Care Team (Late st Contact Info) Description 06/15/2019 [place] [address] [place] [address] Social History Tobacco Use Types Packs/Day Years [...] Additionally, Mariama will start weekly DBT in [place]. Plan: Increase Buspar to 10 mg BID F/u here on Jul 08 2019 documented in this encounter Plan of Treatment Not on file documented as of this encounter Visit Diagnoses Not on filedocumented in this encounter Care Teams Metal Sprayer Production Relationship Specialty Start Date End Date Lashonda Almodovar MD [address] [place] [address] PCP - General 04/10/10 07/07/19 documented as of this encounter
--- OUTSIDE RECORDS SUMMARY | 2024-04-05 08:04 | XMS_ITS | Encounter Summary ---
Author Organization [facility] [place] [address] Care Team Providers Care Threading Machine Feeder Automatic Name Role Phone Laura Henriquez APRN Primary Care Provider [phone] Encounter Details Date Type Department Care Team (Late st Contact Info) Description 01/15/2024 Ancillary Procedure Radiology Library at [facility] [place] [address] Laura Henriquez APRN [address] [place] [id number] Social History Tobacco Use Types Packs/Day Years Used Date Smoking Tobacco: Never Assessed Sex and Gender Information Value Date Recorded Sex Assigned at Not on file Gender Identity Not on file Sexual Orientation Not on file documented as of this encounter Plan of Treatment Not on file documented as of this encounter Procedures Procedure Name Priority Date/Time Associated Diagnosis Comments FILM LIBRARY STORAGE ONLY ELBOW Routine 01/15/2024 12:00 AM EDT documented in this encounter Results * Film Library- Storage Only MR Elbow (01/15/2024 12:00 AM EDT) Narrative VERÓNICA - 01/29/2024 4:42 PM EDT This exam is auto-finalizing. It's purpose is for storage only. Laura Henriquez APRN IMG FILM LIBRARY ORD ERABLES DH [place], [place] documented in this encounter Visit Diagnoses Not on filedocumented in this encounter Care Teams Threading Machine Feeder Automatic Relationship Specialty Start Date End Date Laura Henriquez, CHIEF PSYCHOLOGY [address] [place] [address] PCP - General Family Medicine 09/01/23 documented as of this encounter
--- OUTSIDE RECORDS SUMMARY | 2024-04-05 08:04 | XMS_ITS | Encounter Summary ---
Author Organization [facility] [place] [address] Care Team Providers Care Toe Lining Closer Name Role Phone Markos Brewer DNP Primary Care Provider [phone] Encounter Details Date Type Department Care Team (Latest Contact Info) Description 01/04/2020 9:00 AM EDT TH Visit (TeleHealth) Psychiatry [place] [address] Gisselle Hauser, PhD AWILDA (generalized anxiety disorder); [...] 01/04/2020 9:00 AM EDT INDIVIDUAL??THERAPY PROGRESS NOTE [id number] ?? Location:?Video? Time Spent:??16??minutes ??- Pt had [...] OBJECTIVE: ?? Patient's verbal /interpersonal exchanges with??this proposal lead writer:??Pt??was responsive to this proposal lead writer's questions and she was engaged in the session.? Interventions and patient's??responses:??Pt processed her thoughts and feelings about??her progress.??This proposal lead writer reinforced Pt's use of the mindfulness, [...] by Dr. Burns, psychiatrist at [facility].??Pt is making progress in successfully using [...] self-harm??or??self-harm in??the session.??In the 09/21/19 session, this proposal lead writer assisted Pt and Pt's parents in [...] Instruction/Education Provided:??Pt plans??to follow up with this proposal lead writer for therapy next week. ?? Attendee(s)??understand the plan???Yes. documented in this encounter Plan of Treatment Not on file documented as of this encounter Visit Diagnoses Diagnosis AWILDA (generalized anxiety disorder) Generalized anxiety disorder Depression, unspecified depression type documented in this encounter Care Teams Toe Lining Closer Relationship Specialty Start Date End Date Markos Brewer DNP PCP - General Family Medicine 07/08/19 08/31/23 documented as of this encounter
--- OUTSIDE RECORDS SUMMARY | 2024-04-05 08:04 | XMS_ITS | Encounter Summary ---
Author Organization [facility] Address [facility] [place] [address] Care Team Providers Care Inspector Integrated Circuits Name Role Phone Markos Brewer DNP Primary Care Provider Reason for Visit * Reason Comments Medication Refill Encounter Details Date Type Department Care Team (Late st Contact Info) Description 04/12/2020 Refill Psychiatry [place] [address] Sigifredo Burns MD [facility] [place] [address] Social History Tobacco Use Types Packs/Day Years Used Date Smoking Tobacco: Never Assessed Sex and Gender Information Value Date Recorded Sex Assigned at Not on file Gender Identity Not on file Sexual Orientation Not on file documented as of this encounter Plan of Treatment Not on file documented as of this encounter Visit Diagnoses Not on filedocumented in this encounter Care Teams Inspector Integrated Circuits Relationship Specialty Start Date End Date Markos Brewer DNP PCP - General Family Medicine 07/08/19 08/31/23 documented as of this encounter
--- OUTSIDE RECORDS SUMMARY | 2024-04-05 08:04 | XMS_ITS | Encounter Summary ---
Author Organization [facility] [place] [address] Care Team Providers Care Construction Producer Name Role Phone Laura Henriquez APRN Primary Care Provider [phone] Encounter Details Date Type Department Care Team (Late st Contact Info) Description 01/12/2024 Ancillary Procedure Radiology Library at [facility] [place] [address] Laura Henriquez APRN [address] [place] [id number] Social History Tobacco Use Types Packs/Day Years [...] Associated Diagnosis Comments FILM LIBRARY STORAGE ONLY DX ELBOW Routine 01/12/2024 12:00 AM EDT documented in this encounter Results * Film Library- Storage Only DX Elbow (01/12/2024 12:00 AM EDT) Narrative VERÓNICA - 01/29/2024 4:42 PM EDT This exam is auto-finalizing. It's purpose is for storage only. Laura Henriquez APRN IMG FILM LIBRARY ORD ERABLES DH [place], [place] documented in this encounter Visit Diagnoses Not on filedocumented in this encounter Care Teams Construction Producer Relationship Specialty Start Date End Date Laura Henriquez, COOKING TEACHER [address] [place] [address] PCP - General Family Medicine 09/01/23 documented as of this encounter
--- OUTSIDE RECORDS SUMMARY | 2024-04-05 08:04 | XMS_ITS | Encounter Summary ---
Author Organization [place] [address] Care Team Providers Care Light Coil Winder Name Role Phone Markos Brewer DNP Primary Care Provider [phone] Encounter Details Date Type Department Care Team (Latest Contact Info) Description 03/01/2020 4:00 PM EDT TH Visit (TeleHealth) Psychiatry [place] [address] Gisselle Hauser, PhD AWILDA (generalized anxiety disorder); [...] 03/01/2020 4:00 PM EDT INDIVIDUAL??THERAPY PROGRESS NOTE [id number] ?? Location:?Video? Time Spent:??65 minutes ?? Attendees: This clinical writer met with only Pt for about 50 minutes and then Pt's father joined the remaining 15 minutes of the session. ?? SUBJECTIVE: ?? Chief Complaint and Diagnosis:??Pt is an 20 year old female with depression and anxiety that interferes with her interpersonal and academic functioning. ?? Interval History:?Pt reported??that she met with Dr. Lisa Shaver [facility] psychiatrist, lastweek to discuss her eating disorders symptoms and that Dr. Shaver referred her to a photographic aide. Pt reported that she has not binged [...] OBJECTIVE: ?? Patient's verbal /interpersonal exchanges with??this clinical writer:??Pt??was responsive to this clinical writer's questions and she was engaged in the session.? Interventions and patient's??responses:??This clinical writer met with only Pt for 50 minutes. Pt processed her thoughts and feelings about some stressors. This clinical writer also encouraged Pt to use the DBT distress tolerance skills to reduce and eliminate urges to vomit after meals, and Pt agreed. This clinical writer reinforced Pt's use of the??mindfulness,??distress tolerance, and emotion regulation??DBT skills, andPt responded well to this intervention.??Pt completed her homework assignment. Pt's father joined the remaining 15 minutes of the session. Cognitive-behavioral family therapeutic interventions were used and they responded well to these interventions. This clinical writer reiterated the harmful consequences of cannabis [...] prescribed by Dr. Lisa Shaver, psychiatrist at [facility].??Pt is making progress in successfully using her coping skills and her mood has improved as a result of using these skills. 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 ?? Attendee(s)??understand the plan???Yes. documented in this encounter Plan of Treatment Not on file documented as of this encounter Visit Diagnoses Diagnosis AWILDA (generalized anxiety disorder) Generalized anxiety disorder Depression, unspecified depression type documented in this encounter Care Teams Light Coil Winder Relationship Specialty Start Date End Date Markos Brewer DNP PCP - General Family Medicine 07/08/19 08/31/23 documented as of this encounter
--- OUTSIDE RECORDS SUMMARY | 2024-04-05 08:04 | XMS_ITS | Encounter Summary ---
Author Organization [facility] Address [facility] [place] [address] Care Team Providers Care Facility Sales And Admin Name Role Phone Markos Brewer DNP Primary Care Provider [phone] Encounter Details Date Type Department Care Team (Latest Contact Info) Description 10/20/2019 4:00 PM EDT TH Visit (TeleHealth) Psychiatry [place] [address] Gisselle Hauser, PhD Depression, unspecified depression type; [...] 4:00 PM EDT INDIVIDUAL THERAPY PROGRESS NOTE [id number] ?? Location:?[place]?Time Spent:??60??minutes ? SUBJECTIVE: ?? Chief [...] ?? Patient's verbal /interpersonal exchanges with this handbook writer:??Pt was responsive to this handbook writer's questions and she was engaged in the session.? Interventions and patient's responses:??Pt processed her thoughts and feelings about her progress. This handbook writer introduced??the second set of DBT distress tolerance skills, and Pt demonstrated an understanding of these skills. This handbook writer also discussed the importance of Pt's [...] self-harm??or??self-harm in??the session.??In the 09/21/19 session, this handbook writer assisted Pt and Pt's parents in [...] Provided:??They plan to follow up with this handbook writer for family therapy. ?? Attendees understand the plan???Yes. documented in this encounter Plan of Treatment Not on file documented as of this encounter Visit Diagnoses Diagnosis Depression, unspecified depression type AWILDA (generalized anxiety disorder) Generalized anxiety disorder documented in this encounter Care Teams Facility Sales And Admin Relationship Specialty Start Date End Date Markos Brewer DNP PCP - General Family Medicine 07/08/19 08/31/23 documented as of this encounter
--- OUTSIDE RECORDS SUMMARY | 2024-04-05 08:04 | XMS_ITS | Encounter Summary ---
Author Organization [facility] Address [facility] [place] [address] Care Team Providers Care Bordereau Clerk Name Role Phone Markos Brewer DNP Primary Care Provider [phone] Reason for Visit * Psychiatric (Routine) - Closed Specialty Diagnoses / Procedures Referred By Jelly che Referred To Contact Psychiatry Diagnoses AWILDA (generalized anxiety disorder) Sigifredo Burns MD [facility] [place] [address] Mikhail Ray, PhD [facility] [place] [address] Referral ID Status Reason Start Date Expiration Date V isits Requested Visits Authorized [id number] Closed Consult, Test & Treat 06/14/2019 06/13/2020 1 1 Encounter Details Date Type Department Care Team (Latest Contact Info) Description 09/01/2019 9:00 AM EDT TH Visit (TeleHealth) Psychiatry and Behavioral Health at [place] [phone] Gisselle Hauser, PhD AWILDA (generalized anxiety disorder); [...] - 09/01/2019 9:00 AM EDT DIAGNOSTIC INTERVIEW [id number] THIS NOTE IS ALSO LOCATED IN THE 09/01/19 Unscheduled ENCOUNTER ? Location: [facility] Time Spent: 45 minutes School/Grade: [employer], 11th grade Information Source: Kana (Pt's father), Mahi (Pt's mother) and Pt ?? History of Present Illness: Pt is a 19 year old female with a history of ADHD and current diagnosisof Generalized Anxiety Disorder. Pt's parents reported that Pt was diagnosed with ADHD when she wasabout 9 years old by a pediatric psychiatrist in [place], Dr. Palmira Soler. Pt's parents reported that Pt took Ritalin for the ADHD for 2 years but discontinued because she did not think it was helpful. Pt's parents reported that Pt also received play therapy for ADHD in [place] for about 2 years, which also reduced [...] the degree that she had pseudo-seizures in [id number] following shoulder surgery and she fainted a few times, felt nauseas, and vomitted. Pt's mother reported that Pt was admitted to a [place] hospital diversion program for pseudo-seizures, self-harm (cutting arms, stomach, and legs), and suicidal thoughts in January 2019 for 1 day. Pt reported thatschool stress precipitated this admission in that peers were calling her mental on social media. Pt saw a DBT therapist, Andrae Garland, in [place], [place] twice for anxiety in Fall 2018. Prior to seeing Andrae, Pt saw Miley Dugan in [place] for a year for anxiety but Pt did not find benefit from the therapy. Pt reported that social functioning is hard because she doesn't have many friends and it is difficult for her to talk in classes because she is concerned the other students will dance therapist her. Pt rep orted having difficulty making friends and keeping friends. Pt reported that she thinks her friendsare fake and she buys them food and other things but she does not think her friends are there forher when she needs them. Pt reported having one close friend who she trusts and does not use her.Pt's father reported that she saw Dr. Burns at [facility] in June 2019 for anxiety and [...] and off for at least a year, [id number], but Pt reported that she has had [...] years old by a pediatric psychiatrist in [place], Dr. Palmira Solre. Pt's parents reported that Pt took Ritalin for the ADHD for 2 years but discontinued because she did not think this medication was helpful. Pt's parents reported that Pt also received play therapy for ADHD in [place] for about 2 years, beginning at age 9, which also reduced her symptoms. Pt's parents reported that Pt saw Dr. Favian Burns, psychiatrist, at [facility] for anxiety in June 2019 and that he prescribed Pt 10 mgof Buspar, twice per day, but Pt only takes it at night because it makes her tired and dizzy in the morning. Pt saw a DBT therapist, Andrae Garland, in [place], [place] twice for anxiety in Fall 2018. Prior to seeing Adnrae, Pt saw Miley Dugan in [place] for a year for anxiety but Pt [...] years old by Palmira Soler, psychiatrist in [place], and Pt took Ritalin for 2 years but discontinued it because she didn't think it worked. Pt's mother reported that Pt also did play therapy for 2 years, beginning at age 9, for the ADHD in [place], which reduced her ADHD symptoms. Pt's mother reported that Pt had an IEP from [employer] through 7th grade for a sensory processing [...] cut her stomach, arms, and legs from [id number] but she has not had any thoughts [...] interfere with academic and interpersonal functioning. This machine sign writer explained the treatment plan, family-oriented DBT skills training, to Pt andher parents and they agreed to the treatment plan. Pt's parents are supportive of Pt and they are willing to engage in Pt's treatment. Pt's parents reported that Pt currently takes 10 mg of Buspar, prescribed by Dr. Burns, psychiatrist at [facility]. ?? DSM IV Diagnoses: AXIS I Generalized [...] They plan to follow up with this machine sign writer for video-deliveredfamily therapy. ?? Patient understands [...] type documented in this encounter Care Teams Bordereau Clerk Relationship Specialty Start Date End Date Markos Brewer DNP PCP - General Family Medicine 07/08/19 08/31/23 documented as of this encounter
--- OUTSIDE RECORDS SUMMARY | 2024-04-05 08:04 | XMS_ITS | Encounter Summary ---
Author Organization [facility] Address [address] [place] [address] Care Team Providers Care Vat Operator Name Role Phone Scooby Powell MD, Lashonda Primary Care Provider [phone] Encounter Details Date Type Department Care Team (Late st Contact Info) Description 01/13/2024 Lab Requisition [facility] Pathology & Laboratory Medicine - [facility] [address] [place] [address] Outr Resulting Lab, Provider Social History Tobacco [...] Lyme Ab Negative Negative 01/14/2024 9:04 EDT [facility] Blood VENOUS BLOOD / Unknown 01/12/2024 13:41 EDT 01/13/2024 17:53 EDT us Provider Outr Resulting Lab IMMUNOLOGY AND SEROL OGY ORDERABLES Final Result [facility] [address] [place] [address] documented in this encounter Visit Diagnoses Not on filedocumented in this encounter Care Teams Vat Operator Relationship Specialty Start Date End Date Lashonda Almodovar MD [address] [place] [address] PCP - General 02/11/14 documented as of this encounter
--- OUTSIDE RECORDS SUMMARY | 2024-04-05 08:04 | XMS_ITS | Encounter Summary ---
Author Organization [facility] [place] [address] Care Team Providers Care Leacher Name Role Phone Markos Brewer DNP Primary Care Provider [phone] Encounter Details Date Type Department Care Team (Latest Contact Info) Description 02/15/2020 4:00 PM EDT TH Visit (TeleHealth) Psychiatry [place] [address] Gisselle Hauser, PhD AWILDA (generalized anxiety disorder); [...] 02/15/2020 4:00 PM EDT INDIVIDUAL??THERAPY PROGRESS NOTE [id number] ?? Location:?Video? Time Spent:??50??minutes ? SUBJECTIVE: ?? [...] Pt responded well to this intervention. This securities underwriter educated Pt on the harmful consequences of bulimia and Pt demonstrated an understanding of this information. This writeralso encouraged Pt to use the DBT distress tolerance skills to reduce and eliminate urges to vomit after meals, and Pt agreed. This securities underwriter reinforced Pt's use of the??mindfulness,??distress tolerance, [...] prescribed by Dr. Sigifredo Burns, psychiatrist at [facility].??Pt is making progress in successfully using her coping skills and her mood has improved as a result of using these skills. 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 In the 02/15/20 session, Pt disclosed bulimia symptoms and this securities underwriter sent Dr. Burns a Staff Message in [facility] about Pt's symptoms (e.g., includingthe voice that tells Pt to get rid of food) after the session and requested for him to contact Pt's parent(s) to schedule an appointment to review Pt's medication and per Pt's request, this securities underwriter requested for Dr. Burns to enter a referral for Pt to see a solar project engineer at [facility]. ?? PLAN: Revised Goals: 1) Improve emotion [...] a follow up appointment scheduled with this securities underwriter. ?? Attendee(s)??understand the plan???Yes. documented in this encounter Plan of Treatment Not on file documented as of this encounter Visit Diagnoses Diagnosis AWILDA (generalized anxiety disorder) Generalized anxiety disorder Depression, unspecified depression type documented in this encounter Care Teams Leacher Relationship Specialty Start Date End Date Markos Brewer DNP PCP - General Family Medicine 07/08/19 08/31/23 documented as of this encounter
--- OUTSIDE RECORDS SUMMARY | 2024-04-05 08:04 | XMS_ITS | Encounter Summary ---
Author Organization [facility] [place] [address] Care Team Providers Care Painting Instructor Name Role Phone Markos Brewer DNP Primary Care Provider [phone] Encounter Details Date Type Department Care Team (Latest Contact Info) Description 09/29/2019 4:00 PM EDT TH Visit (TeleHealth) Psychiatry [place] [address] Gisselle Hauser, PhD Anxiety; Depression, unspecified depression [...] 4:00 PM EDT FAMILY THERAPY PROGRESS NOTE [id number] ?? Location:?[place]?Time Spent:??60??minutes ?? Attendee(s):?Pt,?Pt's mother and [...] and they responded well to these interventions.??This copywriter introduced??more??DBT??mindfulness skills,??and Pt demonstrated an understanding of how to use the skills in conjunction with other mindfulness skills during practice exercises, and Pt's parents demonstrated an understanding of how to reinforce Pt's skill use.??This copywriter reinforced Pt's continued use of the TIPP [...] Burns, psychiatrist at [facility]. ?? PLAN: Revised Goals: 1) Improve emotion regulation; and 2) Establish healthy boundaries? No change in estimated length of treatment. ?? Safety Risk Management:??Pt did not report any??suicidal thoughts or suicidal ideation in the session. Pt did not report any homicidal ideation in the session. Pt??did not report any thoughts of self-harm or self-harm in the session. In the 09/21/19 session, this copywriter assisted Pt and Pt's parents in [...] Provided:??They plan to follow up with this copywriter for family therapy. ?? Attendees understand the plan???Yes. documented in this encounter Plan of Treatment Not on file documented as of this encounter Visit Diagnoses Diagnosis Anxiety Anxiety state, unspecified Depression, unspecified depression type documented in this encounter Care Teams Painting Instructor Relationship Specialty Start Date End Date Markos Brewer DNP PCP - General Family Medicine 07/08/19 08/31/23 documented as of this encounter
--- OUTSIDE RECORDS SUMMARY | 2024-04-05 08:04 | XMS_ITS | Encounter Summary ---
[place] [address] Care Team Providers Care Elevator Erector Name Role Phone Lashonda Almodovar MD Primary Care Provider [phone] Reason for Referral * Diagnostic Test (Routine) - Closed Specialty Diagnoses / Procedures Referred By Contac t Referred To Contact Radiology Diagnoses Instability of right shoulder joint Procedures MRI Arthrogram Shoulder Right MRI Shoulder w Contrast Right Kelly Nowak PA [address] [place] [address] [place] [address] Referral ID Status Reason Start Date Expiration Date V isits Requested Visits Authorized [id number] Closed Specialty Service Requested 08/04/2018 10/02/2018 1 1 Reason for Visit * Diagnostic Test (Routine) - Closed Specialty Diagnoses / Procedures Referred By Contac t Referred To Contact Radiology Diagnoses Instability of right shoulder joint Procedures MRI Arthrogram Shoulder Right MRI Shoulder w Contrast Right Kelly Nowak PA [address] [place] [address] [place] [address] Referral ID Status Reason Start Date Expiration Date V isits Requested Visits Authorized [id number] Closed Specialty Service Requested 08/04/2018 10/02/2018 1 1 Encounter Details Date Type Department Care Team (Latest Contact Info) Description 08/13/2018 12:49 PM EDT - 08/13/2018 11:59 PM EDT Hospital Encounter MRI at [facility] [place] [address] Kelly Nowak PA [address] [place] [address] Instability of right shoulder joint Discharge Disposition: [...] please contact the number below. Kelly [facility] MRI ORDERABLES documented in this encounter Visit Diagnoses Diagnosis Instability of right shoulder joint Other joint derangement, not elsewhere classified, shoulder region documented in this encounter Care Teams Elevator Erector Relationship Specialty Start Date End Date Lashonda Almodovar MD [address] [place] [address] PCP - General 04/10/10 07/07/19 documented as of this encounter
--- OUTSIDE RECORDS SUMMARY | 2024-04-05 08:04 | XMS_ITS | Encounter Summary ---
Author Organization [facility] Address [facility] [place] [address] Care Team Providers Care Service Engineer Name Role Phone Markos Brewer ROSA M Primary Care Provider [phone] Reason for Referral * Psychiatric (Routine) - Closed Specialty Diagnoses / Procedures Referred By Jelly che Referred To Contact Psychiatry Diagnoses AWILDA (generalized anxiety disorder) Sigifredo Burns MD [facility] [place] [address] [place] [address] Mikhail Ray, PhD [facility] [place] [address] Referral ID Status Reason Start Date Expiration Date V isits Requested Visits Authorized [id number] Closed Consult, Test & Treat 06/14/2019 06/13/2020 1 1 Encounter Details Date Type Department Care Team (Late st Contact Info) Description 06/14/2019 Orders Only Psychiatry [place] [phone] Sigifredo Burns MD [facility] [address] [place] [address] AWILDA (generalized anxiety disorder) (Primary Dx) Social [...] disorder documented in this encounter Care Teams Service Engineer Relationship Specialty Start Date End Date Markos Brewer DNP PCP - General Family Medicine 07/08/19 08/31/23 documented as of this encounter
--- OUTSIDE RECORDS SUMMARY | 2024-04-05 08:04 | XMS_ITS | Encounter Summary ---
Author Organization [facility] [place] [address] Care Team Providers Care Associate School Psychologist Name Role Phone Markos Brewer DNP Primary Care Provider [phone] Encounter Details Date Type Department Care Team (Latest Contact Info) Description 09/13/2019 9:00 AM EDT TH Visit (TeleHealth) Psychiatry [place] [address] Gisselle Hauser, PhD AWILDA (generalized anxiety disorder); [...] encounter and includes the same progress note. [id number] ?? Location:?[place]?Time Spent:??50minutes ?? Attendee(s):?Pt and Pt's [...] feelings about her recent emotional outbursts. This automobile and property underwriter introduced more DBT mindfulness concepts and [...] Buspar, prescribed by Dr. Burns, psychiatrist at [facility]. PLAN: Revised Goals: 1) Improve [...] Provided:??They plan to follow up with this automobile and property underwriter for family therapy. Attendees understand the plan???Yes. documented in this encounter Plan of Treatment Not on file documented as of this encounter Visit Diagnoses Diagnosis AWILDA (generalized anxiety disorder) Generalized anxiety disorder Depression, unspecified depression type documented in this encounter Care Teams Associate School Psychologist Relationship Specialty Start Date End Date Markos Brewer DNP PCP - General Family Medicine 07/08/19 08/31/23 documented as of this encounter
--- OUTSIDE RECORDS SUMMARY | 2024-04-05 08:04 | XMS_ITS | Encounter Summary ---
Author Organization [facility] Address [facility] [place] [address] Care Team Providers Care Um Rn Name Role Phone Markos Brewer DNP Primary Care Provider Encounter Details Date Type Department Care Team (Late st Contact Info) Description 07/08/2019 3:30 PM EST Office Visit Psychiatry [place] [address] Sigifredo Burns MD [facility] [place] [address] AWILDA (generalized anxiety disorder) Social History Tobacco [...] and ADOLESCENT PSYCHIATRY OFFICE VISIT NOTE (CPT 83231, [id number], [id number]) [facility] 07/08/2019 Patient Name: Mariama Jarvis : 2000 Age: 19 y.o. 4 m.o. Address: [facility] [address] Legal Guardian: parents Primary Care Provider: Markos [...] school after high school. 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 Mariama is not getting as sick anymore. No recent abd pain, nausea, vomiting or syncope. Currently on 504, which is being reviewed currently. Teachers still have [employer] scales; will have them faxed to [facility]. Psychometrics reviewed or newly obtained: Awaiting Ruiz [...] None ?? Prior Psychotherapy: [facility] in [place], [place] ?? Prior hospitalizations: [facility] hosp diversion program - two days [...] & Living Situation: ?? Mariama lives in [place] [address] with her mom, dad, and 20 yr old brother. Peer Relationships: One friend at school. Also a boyfriend. ?? School History: School: [employer] Grade: 11 504/IEP: 504 ?? Extracurriculars: Works at a [employer] ?? Trauma/Abuse History and Significant Life Stressors: [...] appropriate volume and prosody. Language fluent in Belarusian.Mood normal and affect mood congruent with appropriate [...] well. Teachers at the school have the [employer] scales, andparents will have them fax the completed forms to [facility], as we continue to consider the possibility [...] disorder documented in this encounter Care Teams Um Rn Relationship Specialty Start Date End Date Markos Brewer DNP PCP - General Family Medicine 07/08/19 08/31/23 documented as of this encounter
--- OUTSIDE RECORDS SUMMARY | 2024-04-05 08:04 | XMS_ITS | Encounter Summary ---
Author Organization [facility] [place] [address] Care Team Providers Care Shellfish Processing Laborer Name Role Phone Lashonda Almodovar MD Primary Care Provider [phone] Encounter Details Date Type Department Care Team (Late st Contact Info) Description 06/14/2019 Telephone Psychiatry [place] [address] Lea Trujillo Social History Tobacco Use Types [...] [place] and left a VM for this administrative underwriter on Friday, 06/11 in regards to resources. This administrative underwriter called and spoke to MO on Friday, 06/11. MOC stated that the patient saw Dr. Burns earlier this month and suggested that the patient receive DBT. MO also stated that Dr. Burns was going to put in a referral for a therapist here at [facility] in Child Psychiatry. MO stated that no one has called her about this. MO stated that they are looking for a therapist in the [place], [place] area. [facility] also stated that family has [employer] as insurance. This administrative underwriter informed [facility] she will comply a list of DBT therapists and call her back. documented in this encounter Plan of Treatment Not on file documented as of this encounter Visit Diagnoses Not on filedocumented in this encounter Care Teams Shellfish Processing Laborer Relationship Specialty Start Date End Date Lashonda Almdoovar MD [address] [place] [address] PCP - General 04/10/10 07/07/19 documented as of this encounter
--- OUTSIDE RECORDS SUMMARY | 2024-04-05 08:04 | XMS_ITS | Clinical Summary ---
Author Organization [facility] Address [address] [place] [address] Care Team Providers Care Housekeeping Cleaner Name Role Phone Scooby Powell MD, [place] Primary Care Provider [phone] Allergies No known active allergies Medications No known medications Active Problems Problem Noted Date Diagnosed Date Attention deficit hyperactivity disorder (ADHD) 02/23/2021 Dysmenorrhea in adolescent 02/22/2020 Menorrhagia with irregular cycle 02/22/2020 Migraine headache 02/22/2020 Depression with anxiety 09/26/2017 Encounters Date Type Department Care Team Description 01/26/2024 Lab Requisition [facility] Pathology & Laboratory [address] [address] Micah Strong MD Encounter for other general examination 01/15/2024 Lab Requisition [facility] Pathology & Laboratory [address] [address] Outr Resulting Lab, Provider 01/13/2024 Lab Requisition [facility] Pathology & Laboratory [address] [address] Outr Resulting Lab, Provider from Last 3 [...] - 19+ 3-dose series) 02/20 COVID-19 Vaccine ( season) 2024 Procedures Procedure Name Priority Date/Time Associated Diagnosis [...] management options, if applicable. 01/28/2024 11:50 EDT [facility] Final Diagnosis A. ? SYNOVIUM? , RIGHT ELBOW, BIOPSY: - Acute synovitis. (see comment) 01/28/2024 11:50 EDT [facility] Diagnosis Comment Histologic examination [...] possible microbiology cultures is recommended. 01/28/2024 11:50 [facility] Attestation By the signature below, the attending physician certifies that they have 1) personally conducted a gross and/or microscopic examination of the described specimen(s), and/or personally interpreted the results of laboratory testing of the described specimen(s), and 2) personally rendered or confirmed the above diagnosis. 01/28/2024 11:50 [facility] at 1150 Clinical History Effusion R elbow, ? infectious vs rheumatoid disease 01/28/2024 11:50 [facility] Gross Description A. Received in formalin labelled with proper patient identification (initials B, G) and R elbow synovial tissue is an aggregate of bañuelos-white irregular rubbery tissues (1.3 x 0.9 x 0.3 cm). Submitted entirely in A1. GALA SNOW(ASCP) 01/26/2024 9:29 01/28/2024 11:50 [facility] Performing Lab [facility] 01/28/2024 11:50 T [facility] Scanned Images 01/28/2024 11:50 [facility] Tissue STRUCTURE OF SYNOVIAL MEMBRANE OF JOINT / Unknown 01/23/2024 14:37 EDT 01/26/2024 8:19 EDT us iMcah Strong MD PATHOLOGY ORDERABLES Final Resul t [facility] [address] [place] [address] * CCP ANTIBODIES (01/15/2024 12:55 EDT) Pathologist [facility] CCP Antibodies <2.5 <5.0 U/mL 01/16/2024 9:27 EDT [facility] Blood VENOUS BLOOD / Unknown 01/15/2024 12:55 EDT 01/15/2024 22:05 EDT us Provider Outr Resulting Lab IMMUNOLOGY AND SEROL OGY ORDERABLES Final Result [facility] [address] [place] [address] * RHEUMATOID FACTOR (01/15/2024 12:55 EDT) Pathologist [facility] Rheumatoid Factor <8.6 <12.0 IU/mL 01/15/2024 22:37 EDT [facility] Blood VENOUS BLOOD / Unknown 01/15/2024 12:55 EDT 01/15/2024 22:05 EDT us Provider Outr Resulting Lab CHEMISTRY & BLOOD GA S ORDERABLES Final Result Performing Organization Address [facility] Co de Phone Number [facility] [address] [place] [id number] * ANTI NUCLEAR AB (YUAN), IFA (01/15/2024 12:55 EDT) [facility] YUAN Interpretation Negative Negative 2023 15:15 EDT [facility] Comment:No titer performed, YUAN Screen is negative. Blood VENOUS BLOOD / Unknown 01/15/2024 12:55 EDT 01/15/2024 22:05 EDT Narrative [facility] - 01/16/2024 15:15 EDT Results were obtained with the [employer]OPE[employer] NOVA Lite HEp-2 YUAN Kit by indirect immunofluorescence. us Provider Outr Resulting Lab IMMUNOLOGY AND SEROL OGY ORDERABLES Final Result Performing Organization Address [facility]/ZIP Co de Phone Number [facility] [address], [place] [address] * LYME AB (01/12/2024 13:41 EDT) Lyme Ab Negative Negative 01/14/2024 9:04 EDT [facility] Blood VENOUS BLOOD / Unknown 01/12/2024 13:41 EDT 01/13/2024 17:53 EDT us Provider Outr Resulting Lab IMMUNOLOGY AND SEROL OGY ORDERABLES Final Result [facility] [address] [place], [place] [id number] from Last 3 Months Insurance [facility] Care Teams Housekeeping Cleaner Relationship Specialty Start Date End Date Lashonda Almodovar MD [address] [place] [address] [place] [address] PCP - General 02/11/14
--- OUTSIDE RECORDS SUMMARY | 2024-04-05 08:04 | XMS_ITS | Encounter Summary ---
Author Organization [facility] Address [facility] [place] [address] Care Team Providers Care Pole Maker Name Role Phone Markos Brewer DNP Primary Care Provider [phone] Encounter Details Date Type Department Care Team (Late st Contact Info) Description 02/18/2020 9:00 AM EDT TH Visit (TeleHealth) Psychiatry [place] [address] Art Woodard MD [facility] [place] [address] AWILDA (generalized anxiety disorder) Social History Tobacco [...] and ADOLESCENT PSYCHIATRY TELEHEALTH VISIT NOTE (CPT 24058, 05737, 82815) [facility] 02/18/2020 Patient Name: Mariama Jarvis : 2000 Age: 20 y.o. Address: [facility] [address] Legal Guardian: parents Primary Care Provider: Markos Brewer APRN Examining Provider: Art Woodard MD (resident) Manisha Shaver MD (attending) Attendees: Mariaam mother CHIEF CONCERN Current Diagnoses/Problems: Generalized Anxiety [...] visit. During this visit she was located [facility]. Mariama Jarvis is aware that for any urgent matter she can call [phone]. Mariama and the family report the following: Mariama is a 19 year old female with a h/o ADHD, anxiety, and learning disability, presenting in follow up. 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 Mariama lives in [facility] [facility] [facility] [address] with her mom, dad, and 20 yr old brother. Peer Relationships: Spends time with boyfriend and another close friend. School History: School: [employer] Grade: Going into senior year 504/IEP: 504 ?? Extracurriculars: Works at a [employer] ?? Trauma/Abuse History and Significant Life Stressors: [...] appropriate volume and prosody. Language fluent in Citizen Of [place]. Mood: morestable. Affect mood congruent, bright, good [...] have encouraged Mariama to engage with a vacuum drier operator to work on improving her eating habits, [...] ?? Recommended to start treatment with a case investigator. Provided names of Yara Vega (preferred), Sarina [...] this visit the family was located in [place]. Psychiatric Medication Provider: [facility] PGY3 Child and Adolescent Psychiatry Clinic, Art [...] Denies SI and SIB. I met with Maraima's mother alone for an extended period of [...] and working with an eating disorder specialized case investigator. Plan: 1. Will increase escitalopram to 15mg [...] 4. Strongly recommended establishing care with a case investigator with expertise in eating disorder. Provided the names of several skilled dieticians in the area. 5. Additional parental resources provided including recommended books and websites. 6. Follow-up in 3-4 weeks. This visit was notable for interactive complexity due to high reactivity and family disagreement. CPT code (62469). documented in this encounter Miscellaneous Notes * Addendum Note - Manisha Shaver MD - 02/18/2020 9:00 AM EDTAddended by: MANISHA SHAVER on: 02/28/2020 11:11 AM Modules accepted: Level of Service documented in this encounter Plan of Treatment Not on file documented as of this encounter Visit Diagnoses Diagnosis AWILDA (generalized anxiety disorder) Generalized anxiety disorder documented in this encounter Care Teams Pole Maker Relationship Specialty Start Date End Date Markos Brewer DNP PCP - General Family Medicine 07/08/19 08/31/23 documented as of this encounter
--- OUTSIDE RECORDS SUMMARY | 2024-04-05 08:04 | XMS_ITS | Encounter Summary ---
Author Organization [facility] Address [facility] [place] [address] Care Team Providers Care Concrete Pump Operator Name Role Phone Markos Brewer DNP Primary Care Provider Encounter Details Date Type Department Care Team (Late st Contact Info) Description 09/23/2019 1:30 PM EDT TH Visit (TeleHealth) Psychiatry [place] [address] Sigifredo Burns MD [facility] [place] [address] Depression, unspecified depression type Social History Tobacco [...] and ADOLESCENT PSYCHIATRY TELEHEALTH VISIT NOTE (CPT 42033, 71182, 13909) [facility] 09/23/2019 Patient Name: Mariama Jarvis : 2000 Age: 19 y.o. 7 m.o. Address: [facility] [address] Legal Guardian: parents Primary Care Provider: Markos [...] for any urgent matter she can call [phone]. Mariama and the family report the following: [...] ebenable to keep up with her school it network engineer. She maintains a strong appetite but has [...] a new therapist, [place] [facility], and therapyhas been going well. Mariama [...] in increasing suicidal behaviors and [facility]. Mariama and her mom are open to considering pharmacologic options to target depression before things worsen further. Psychometrics reviewed or newly obtained: Awaiting [place] scales from teachers. Review of Systems and [...] Prior Psychotherapy: Aysha Landaverde ?? Prior hospitalizations: [facility] diversion program - two days in Jan [...] Mariama lives in [facility] [address] with her mom, dad, and 20 yr old brother. Peer Relationships: One friend at school--friendship recently dissolved. ?? School History: School: [employer] Grade: 11 504/IEP: 504 ?? Extracurriculars: Works at a [employer] (no longer working due to pandemic) ?? [...] a new therapsit, [place]. Haus[place] [facility]. Medical History: Yes none Family Profile [...] appropriate volume and prosody. Language fluent in [place]. Mood has been unhappy, sad, mad and [...] admission to a hospital diversion program at [facility]. We discussed risks and benefits of [...] Interventions ?? Cont with 504 Follow up [place] scales from teachers once school back in [...] During this visitthe family was located in [place]. Psychiatric Medication Provider: [facility] Child [facility] Adolescent Psychiatry Clinic, [...] type documented in this encounter Care Teams Concrete Pump Operator Relationship Specialty Start Date End Date Markos Brewer DNP PCP - General Family Medicine 07/08/19 08/31/23 documented as of this encounter
--- OUTSIDE RECORDS SUMMARY | 2024-04-05 08:04 | XMS_ITS | Encounter Summary ---
Author Organization [facility] [place] [address] Care Team Providers Care Fisher Dip Net Name Role Phone Markos Brewer DNP Primary Care Provider [phone] Encounter Details Date Type Department Care Team (Latest Contact Info) Description 04/26/2020 2:00 PM EST TH Visit (TeleHealth) Psychiatry [place] [address] Gisselle Hauser, PhD AWILDA (generalized anxiety disorder); [...] 04/26/2020 2:00 PM EST INDIVIDUAL??THERAPY PROGRESS NOTE [id number] ?? Location:?Video? Time Spent:??30??minutes ? SUBJECTIVE: ?? Chief Complaint and Diagnosis:??Pt is an??20??year old female with depression and anxiety that interferes with her interpersonal and academic functioning. ?? Interval History:?Pt reported??that??she has been eating healthy and has not purged since the last therapy session. Pt reported that she is no longer failing any classes.? OBJECTIVE: ?? Patient's verbal /interpersonal exchanges with??this staff writer:??Pt??was responsive to this staff writer's questions and she was engaged in the session.? Interventions and patient's??responses:??Pt processed her thoughts and feelings about??her progress. This staff writer reinforced Pt's use of the??DBT skills, [...] of Lexapro, prescribed by ??Lisa??Chhaya, psychiatrist at [facility].??Pt is making progress in successfully using her coping skills and her mood has improved as a result of using these skills. 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 PLAN: Revised Goals: 1) maintain emotion regulation; and 2) maintain healthy boundaries? No change in estimated length of treatment. ?? Safety Risk Management:??Pt did not report any??thoughts of ,??suicidal thoughts, or suicidal ideation in the session. Pt did not report any homicidal ideation in the session. Pt??did not reportany thoughts of self-harm??or??self-harm in??the session.??In the 09/21/19 session, this staff writer assisted Pt and Pt's parents in [...] a follow up appointment scheduled with this staff writer. ?? Attendee(s)??understand the plan???Yes. documented in this encounter Plan of Treatment Not on file documented as of this encounter Visit Diagnoses Diagnosis AWILDA (generalized anxiety disorder) Generalized anxiety disorder Depression, unspecified depression type documented in this encounter Care Teams Fisher Dip Net Relationship Specialty Start Date End Date Markos Brewer DNP PCP - General Family Medicine 07/08/19 08/31/23 documented as of this encounter
--- OUTSIDE RECORDS SUMMARY | 2024-04-05 08:04 | XMS_ITS | Encounter Summary ---
Author Organization [facility] [place] [address] Care Team Providers Care Last Puller Name Role Phone Lashonda Almodovar MD Primary Care Provider [phone] Reason for Visit * Consultation (Routine) - Closed Specialty Diagnoses / Procedures Referred By Jelly che Referred To Contact Psychiatry Diagnoses ANXIETY, DEPRESSION, SUICIDAL IDEATIONS Lashonda [place] [address] [facility] [address] [place] [address] Referral ID Status Reason Start Date Expiration Date V isits Requested Visits Authorized [id number] Closed Consult, Test & Treat Connection [facility] PCP Updated and/or Approved 02/10/2019 02/10/2020 1 1 Encounter Details Date Type Department Care Team (Late st Contact Info) Description 05/20/2019 2:15 PM EST Office Visit Psychiatry [place] [address] Sigifredo Burns MD [facility] [place] [address] AWILDA (generalized anxiety disorder) Social [...] PSYCHIATRIC DIAGNOSTIC EVALUATION WITH MEDICAL SERVICES (CPT 67128) [facility] Child Psychiatry Consultation and Evaluation [facility] 05/20/2019 Patient Name: Mariama Jarvis : 2000 Age: 19 y.o. 3 m.o. Address: [facility] [address] Guardian: Mother, Father Primary Care Provider: Lashonda [...] depressed moods. She was hospitalized briefly at [facility] in January with suicidal ideation, but developed several somatic symptoms -- including syncope -- and had to be evaluated in the local ER twice, culminating in her early discharge from [facility]. Since then SI has resolved, though [...] events. 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 with Mariama was in 4th grade. In [...] Parents are currently applying for a [place] waiver to see if Mariama can qualify [...] school she would like to be a vice chair. She reports she has one best friend [...] at which time she was hospitalized at [facility]. There are guns in the home, [...] Psychotherapy: None Prior Psychotherapy: [facility] in [place], [place] Prior hospitalizations: [facility] diversion program [...] acute serious illnesses or injuries. Development History: Pre-rox trauma: 1st trimester mom bit by a dog. 3rd trimester mom fell down stairs - started going into labor - on bed rest for several weeks. Mairama was born at term. and labor were complicated by above. In utero exposures or significant maternal illnesses during : See above Early developmental milestones, including first words, first sentences, walking, and toilet training, were all reached within normal limits: Yes. Though had some difficulty bonding early on. SOCIAL HISTORY Family Profile & Living Situation: Mariama lives in [facility] [address] with her mom, dad, and 20 yr old brother. Peer Relationships: One friend at school. Also a boyfriend. School History: School: [employer] Grade: 11 504/IEP: 504 Extracurriculars: Works at a [employer] Trauma/Abuse History and Significant Life Stressors: Mariama [...] ?? Judgment: fair SCREENING ASSESSMENTS Parent Responses: [place] Initial (Parent) 05/20/2019 PARENT: No. of questions [...] in questions 51 to 54 (performance) 3 [place] Initial (Parent) - Raw Scores 05/20/2019 Raw Scores 1-9 17 Raw Scores 10-18 13 Raw Scores 19-26 11 Raw Scores 27-40 Incomplete Raw Scores 41-47 18 Raw Scores 48-50 11 Raw Scores 51-54 16 No flowsheet data found. Short Mood and Feelings Response (Parent 1) 05/20/2019 SMFQ Score 5 Spooner miserable or unhappy Sometimes Didn't enjoy anything at all Sometimes Spooner tired; sat around and did nothing Sometimes Was very restless Not true Spooner s/he was no good any more Not true Cried a lot Not true Found it hard to think properly or concentrate Not true Hated him/herself Not true Spooner s/he was a bad person Not true Spooner lonely Not true Thought nobody really loves him/her Not true Thought s/he could never be as good as other kid True Spooner did everything wrong Not true Child/Adolescent Scores: [...] injurious behaviors, and a brief admission to [facility] in Jan 2019, though currently she [...] will make a referral for therapy at [facility] as well.She would likely benefit from DBT, [...] options in the community ?? Connect with resource manager forester - Sharon - for help finding additional resources, particularly for DBT, in the community ?? [place] rating scales to be dispensed to teachers 2. Medications ?? Buspar 5 mg BID -- can titrate as tolerated over time to 20 mg TID 3. Academic Interventions ?? Cont with 504 ?? [place] rating scales to be dispensed to teachers [...] disorder documented in this encounter Care Teams Last Puller Relationship Specialty Start Date End Date Lashonda Almodovar MD [address] [place] [address] [place] [address] PCP - General 04/10/10 07/07/19 documented as of this encounter
--- OUTSIDE RECORDS SUMMARY | 2024-04-05 08:04 | XMS_ITS | Encounter Summary ---
[place] [address] Care Team Providers Care Information Clerk Brokerage Name Role Phone Markos Brewer DNP Primary Care Provider [phone] Encounter Details Date Type Department Care Team (Late st Contact Info) Description 02/15/2020 Telephone Psychiatry [place] [address] Gisselle Hauser, PhD Social History Tobacco Use [...] on filedocumented in this encounter Care Teams Information Clerk Brokerage Relationship Specialty Start Date End Date Markos Breewr DNP PCP - General Family Medicine 07/08/19 08/31/23 documented as of this encounter
--- OUTSIDE RECORDS SUMMARY | 2024-04-05 08:04 | XMS_ITS | Encounter Summary ---
Author Organization [facility] [place] [address] Care Team Providers Care Human Resources Trainee Name Role Phone Markos Brewer DNP Primary Care Provider [phone] Encounter Details Date Type Department Care Team (Latest Contact Info) Description 11/10/2019 2:00 PM EDT TH Visit (TeleHealth) Psychiatry [place] [address] Gisselle Hauser, PhD AWILDA (generalized anxiety disorder); [...] 2:00 PM EDT INDIVIDUAL THERAPY PROGRESS NOTE [id number] ?? Location:?Video?Time Spent:??45??minutes ? SUBJECTIVE: ?? Chief [...] ?? Patient's verbal /interpersonal exchanges with this proposal lead writer:??Pt was responsive to this proposal lead writer's questions and she was engaged in the session.? Interventions and patient's responses:??Pt processed her thoughts and feelings about??some stressors and her progress. The DBT mindfulness and distress tolerance skills were reinforced and Pt responded well to these interventions.This proposal lead writer introduced??the firt set of DBT emotion [...] by Dr. Burns, psychiatrist at [facility]. ?? PLAN: Revised Goals: 1) Improve emotion [...] Provided:??Pt plans to follow up with this proposal lead writer for therapy next week. ?? Attendee(s) understand the plan???Yes. documented in this encounter Plan of Treatment Not on file documented as of this encounter Visit Diagnoses Diagnosis AWILDA (generalized anxiety disorder) Generalized anxiety disorder Depression, unspecified depression type documented in this encounter Care Teams Human Resources Trainee Relationship Specialty Start Date End Date Markos Brewer DNP PCP - General Family Medicine 07/08/19 08/31/23 documented as of this encounter
--- OUTSIDE RECORDS SUMMARY | 2024-04-05 08:04 | XMS_ITS | Encounter Summary ---
Author Organization [facility] [place] [address] Care Team Providers Care It Support Specialist Name Role Phone Markos Brewer DNP Primary Care Provider [phone] Encounter Details Date Type Department Care Team (Latest Contact Info) Description 10/13/2019 4:00 PM EDT TH Visit (TeleHealth) Psychiatry [place] [address] Gisselle Hauser, PhD AWILDA (generalized anxiety disorder); [...] 4:00 PM EDT FAMILY THERAPY PROGRESS NOTE [id number] ?? Location:?[place]?Time Spent:??60??minutes ?? Attendee(s):?Pt and Pt's [...] they responded well to these interventions. This instructional writer introduced??the first set of DBT distress tolerance skills, and Pt demo nstrated an understanding of these skills. This instructional writer also discussed the importance of Pt's using the DBT??mindfulness??skills in conjunction with the distress tolerance skills, and they demonstrated an understanding of this information. Pt's??mother demonstrated an understanding of how to reinforce Pt's skill use.??This instructional writer reinforced Pt's continued use of the [...] self-harm??or??self-harm in??the session.??In the 09/21/19 session, this instructional writer assisted Pt and Pt's parents in [...] Provided:??They plan to follow up with this instructional writer for family therapy. ?? Attendees understand the plan???Yes. documented in this encounter Plan of Treatment Not on file documented as of this encounter Visit Diagnoses Diagnosis AWILDA (generalized anxiety disorder) Generalized anxiety disorder Depression, unspecified depression type documented in this encounter Care Teams It Support Specialist Relationship Specialty Start Date End Date Markos Brewer DNP PCP - General Family Medicine 07/08/19 08/31/23 documented as of this encounter
--- OUTSIDE RECORDS SUMMARY | 2024-04-05 08:04 | XMS_ITS | Encounter Summary ---
Author Organization [facility] Address [address] [place] [address] Care Team Providers Care Production Weigher Name Role Phone Scooby Powell MD, Lashonda Primary Care Provider [phone] Encounter Details Date Type Department Care Team (Late st Contact Info) Description 11/19/2023 Lab Requisition [facility] Pathology & Laboratory Medicine - [facility] [address] [place] [address] Outr Resulting Lab, Provider Social History Tobacco [...] gonorrhoeae Result Negative Negative 11/20/2023 13:01 EDT [facility] Chlamydia trachomatis Result Negative Negative 11/20/2023 13:01 EDT [facility] Pap Test CERVIX UTERI STRUCTURE / Unknown 11/19/2023 10:20 EDT 11/20/2023 8:47 EDT us Provider Outr Resulting Lab MICROBIOLOGY - GENER AL ORDERABLES Final Result [facility] [address], [place] [id number] documented in this encounter Visit Diagnoses Not on filedocumented in this encounter Care Teams Production Weigher Relationship Specialty Start Date End Date Lashonda Almodovar MD [address] [place] [address] PCP - General 02/11/14 documented as of this encounter
--- OUTSIDE RECORDS SUMMARY | 2024-04-05 08:04 | XMS_ITS | Encounter Summary ---
Author Organization [facility] Address [address] [place] [address] Care Team Providers Care Credit Charge Authorizer Name Role Phone Scooby Powell MD, Lashonda Primary Care Provider [phone] Encounter Details Date Type Department Care Team [...] on filedocumented in this encounter Care Teams Credit Charge Authorizer Relationship Specialty Start Date End Date Lashonda Almodovar [place] [address] PCP - General 02/11/14 documented as of this encounter
--- OUTSIDE RECORDS SUMMARY | 2024-04-05 08:04 | XMS_ITS | Encounter Summary ---
Author Organization [facility] Address [facility] [place] [address] Care Team Providers Care Diabetes Trainer Name Role Phone Lashonda Almodovar MD Primary Care Provider [phone] Encounter Details Date Type Department Care Team (Late st Contact Info) Description 08/06/2018 Unscheduled Encounter XRay at [address] [place] [address] Jesenia Fischer Social History Tobacco Use Types [...] on filedocumented in this encounter Care Teams Diabetes Trainer Relationship Specialty Start Date End Date Lashonda Almodovar MD [address] [place] [address] [place] [address] PCP - General 04/10/10 07/07/19 documented as of this encounter
--- OUTSIDE RECORDS SUMMARY | 2024-04-05 08:04 | XMS_ITS | Encounter Summary ---
Author Organization [facility] [place] [address] Care Team Providers Care Clinical Lab Clerk Name Role Phone Markos Brewer DNP Primary Care Provider [phone] Encounter Details Date Type Department Care Team (Latest Contact Info) Description 02/01/2020 4:00 PM EDT TH Visit (TeleHealth) Psychiatry [place] [address] Gisselle Hauser, PhD AWILDA (generalized anxiety disorder); [...] 02/01/2020 4:00 PM EDT INDIVIDUAL??THERAPY PROGRESS NOTE [id number] ?? Location:?Video? Time Spent:??45??minutes ? SUBJECTIVE: ?? Chief Complaint and Diagnosis:??Pt is a 19 year old female with depression and anxiety that interferes with her interpersonal and academic functioning. ?? 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 Pt reported that she currently enrolled in all virtual classes at her high school with the exception of the cosmetology class that requires in-person attendance. ?? OBJECTIVE: ?? Patient's verbal /interpersonal exchanges with??this service writer advisor:??Pt??was responsive to this service writer advisor's questions and she was engaged in the session.? Interventions and patient's??responses:??Pt processed her thoughts and feelings about??her progress.??This service writer advisor reinforced Pt's use of the??mindfulness, distress tolerance, [...] by Dr. Burns, psychiatrist at [facility].??Pt is making progress in successfully using her coping skills and her mood has improved as a result of using these skills. 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 ?? PLAN: Revised Goals: 1) Improve emotion regulation; and 2) Establish healthy boundaries? No change in estimated length of treatment. ?? Safety Risk Management:??Pt did not report any??thoughts of ,??suicidal thoughts or suicidal ideation in the session. Pt did not report any homicidal ideation in the session. Pt??did not report any thoughts of self-harm??or??self-harm in??the session.??In the 09/21/19 session, this service writer advisor assisted Pt and Pt's parents in developing [...] a follow up appointment scheduled with this service writer advisor. ?? Attendee(s)??understand the plan???Yes. documented in this encounter Plan of Treatment Not on file documented as of this encounter Visit Diagnoses Diagnosis AWILDA (generalized anxiety disorder) Generalized anxiety disorder Depression, unspecified depression type documented in this encounter Care Teams Clinical Lab Clerk Relationship Specialty Start Date End Date Markos Brewer DNP PCP - General Family Medicine 07/08/19 08/31/23 documented as of this encounter
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
--- OUTSIDE RECORDS SUMMARY | 2024-04-05 08:04 | XMS_ITS | Encounter Summary ---
[place] [address] Care Team Providers Care Orthopaedic Surgeon Name Role Phone Markos Brewer DNP Primary Care Provider Encounter Details Date Type Department Care Team (Late st Contact Info) Description 02/15/2020 Telephone Psychiatry [place] [address] Gisselle Hauser, PhD Social History Tobacco Use [...] on filedocumented in this encounter Care Teams Orthopaedic Surgeon Relationship Specialty Start Date End Date Markos Brewer DNP PCP - General Family Medicine 07/08/19 08/31/23 documented as of this encounter
--- OUTSIDE RECORDS SUMMARY | 2024-04-05 08:04 | XMS_ITS | Encounter Summary ---
Author Organization [facility] Address [facility] [place] [address] Care Team Providers Care Automotive Window Tinter Name Role Phone Laura Henriquez APRN Primary Care Provider [phone] Reason for Visit * Consultation (Routine) - Closed Specialty Diagnoses / Procedures Referred By Jelly che Referred To Contact Dermatology Diagnoses Generalized hyperhidrosis Laura Henriquez APRN [address] [place] [address] [facility] Dermatology [address] [place] [address] Referral ID Status Reason Start Date Expiration Date V isits Requested Visits Authorized [id number] Closed Consult, Test & Treat PCP Updated and/or Approved 09/01/2023 08/31/2024 1 1 Encounter Details Date Type Department Care Team (Latest Contact Info) Description 10/31/2023 10:40 AM EDT Office Visit Dermatology at [facility] [address] [place] [address] Sukhdev Avila MD [facility] [address] [place] [address] Hyperhidrosis (Primary Dx) Social History [...] relevant family history N Social History Occupation: [employer] Hobbies: outside Other: here w/ Mother PRE-PROCEDURE [...] 2/3 months for Hyperhidrosis []Note routed to ward secretary []Recall placed in scheduling system [x]Appointment scheduled at checkout Scribe attestation: Negar Adler [facility] has performed the documentation for this encounter inthe presence of and acting as a scribe for Sukhdev Avila MD. I performed the above scribed service and agree with the accuracy of the documentation in this encounter. Reviewed and signed by: Sukhdev Avila MD Dermatology [facility] Staff test hole driller: Porsha Sanchez MD Dermatology [facility] * Porsha Sanchez MD - 10/31/2023 10:40 AM EDT I was the supervising physician working with the Dermatology resident, Sukhdev Avila MD, in the care of this Dermatology patient in person. For the purposes of billing, the resident provided the care. I have reviewed the encounter note details and level of service. PORSHA SANCHEZ MD Staff Non Profit Job Titles Department of Dermatology [facility] documented in this encounter Plan of Treatment Not on file documented as of this encounter Visit Diagnoses Diagnosis Hyperhidrosis- Primary Primary focal hyperhidrosis documented in this encounter Care Teams Automotive Window Tinter Relationship Specialty Start Date End Date Laura Henriquez, [place] [facility] [place] [address] PCP - General Family Medicine 09/01/23 documented as of this encounter
--- OUTSIDE RECORDS SUMMARY | 2024-04-05 08:05 | XMS_ITS | Encounter Summary ---
Author Organization [facility] Address [address] [place] [address] Care Team Providers Care Hearing Therapist Name Role Phone Scooby Powell MD, Lashonda Primary Care Provider [phone] Encounter Details Date Type Department Care Team (Late st Contact Info) Description 07/05/2020 Lab Requisition [facility] Pathology & Laboratory Medicine - [facility] [address] [place] [address] Outr Resulting Lab, Provider Social History Tobacco [...] gonorrhoeae Result Negative Negative 07/06/2020 14:16 EST [facility] Chlamydia trachomatis Result Negative Negative 07/06/2020 14:16 EST [facility] Swab ENTIRE VAGINA / Unknown 07/05/2020 11:00 EST 07/05/2020 21:27 EST us Provider Outr Resulting Lab MICROBIOLOGY - GENER AL ORDERABLES Final Result Performing Organization Address City/State/[facility] Co de Phone Number [facility] [address] [place] [address] documented in this encounter Visit Diagnoses Not on filedocumented in this encounter Care Teams Hearing Therapist Relationship Specialty Start Date End Date Lashonda Almodovar MD [address] [place] [address] PCP - General 02/11/14 documented as of this encounter
--- OUTSIDE RECORDS SUMMARY | 2024-04-05 08:05 | XMS_ITS | Encounter Summary ---
Author Organization [facility] Address [address] [place] [address] Care Team Providers Care Software Engineer Developer Name Role Phone Scooby Powell MD, Lashonda Primary Care Provider [phone] Reason for Visit * Reason Comments Loss of Consciousness Arrives accompanie d by parents with concern for syncope, nausea and vomitng. Seen in ED overnight for same symptoms with medical clearance performed, discharged with PRN medications back to [facility] institute. Dad informs patients symptoms persist, with another syncopal episode experienced (per staff). Requesting re-eval and clearance performed for higher level of care, as [facility] states they don't believe they can accomodate. Encounter Details Date Type Department Care Team (Late st Contact Info) Description 01/28/2019 11:33 EDT - 01/28/2019 19:23 EDT Emergency [facility] Emergency Department - Main [address] [id number] Melissa Ngo PA-C [address] [place] [phone] Asha Brnuer PA-C [address] [place] [phone] Emergency, MD Dania Syncope, unspecified syncope type (Primary Dx) Discharge Disposition: Home or Self Care Social History Tobacco Use Types Packs/Day Years Used Date Smoking Tobacco: Never Smokeless Tobacco: Never Comments Unknown Sex and Gender Information Value [...] 49.33% 01/28/2019 113 8 EDT Growth Chart: [facility] (Girls, 2- 20 Years) documented in this [...] discharge home. May call first call at [phone] at any time for worsening symptoms of [...] performed, discharged with PRN medications back to [facility] institute. Dad informs patients symptoms persist, [...] performed, discharged with PRN medications back to [facility] institute. Dad informs patients symptoms persist, [...] state that she is currently staying at [facility] after having had suicidal ideations. While at [facility] she developed nausea, vomiting, and generalizedabdominal [...] pain which was unremarkable. She returned to [facility] feeling improved, however did have one additional syncopal episode and was directed back to the ED. Mother states that the [facility] staff have told her that they [...] going to be able to return to [facility] Review of Systems Review of Systems [...] appears to be a good tracing. Attending chemical mixer not immediately available for acute interpretation. Radiology [...] the Emergency Department: Improved PCP: Lashonda Almodovar [facility] 02/01/2019 14:27 No flowsheet data found. * Shauna Bourgeois - 01/28/2019 1923 EDT Fullerette Initial Assessment Note Admit Date: 01/28/2019 Date of Consult: 01/28/2019 Suicidal Presenting Information: Mariama is a 18yo SWF presenting today after having syncopal episodes at [facility] for 2 days. [facility] reports that client has been vomitting and passing out for episodes. Client indicates that this is normal for her, and that when she is anxious, this occurs. She states that she was anxious at [facility] because I didn't want to be there. It is explained to this typewriter aligner that client wasbrought to [facility] ~one week ago, after reporting to [...] via cutting. She states that she feels I helped teach her new coping skills, and [...] Miley Zhao, more frequently at this time. Warehouse Trainer meets with [facility] father, Thor, separately. Kana explains that he Does not know why [facility] brought Mariama here, states that he does not want Mariama to go inpatient at or [facility] because he has heard bad things [...] communicated with Mariama's counselor, and will have 24/7 supervision. Warehouse Trainer states that this safety plan is strong. Warehouse Trainer agrees to communicate with psychiatry to persue a child psych referral to speed up the process (according to Kana). Warehouse Trainer then leaves a voicemail for Miley requesting an increase in support and provides first call and personal cell number for support as needed. Warehouse Trainer provides family with [facility] info and tips on keeping the home safe. Psychiatric team at [facility] agree with this plan. CT is D/C home with family. Substance Use (if applicable): none Relevant Psychosocial Information: charisma lives with her parents and pets. Mental [...] She endorses that during her stay at [facility], she feels she did learn coping skills and feels safe maintaining safety at home with her parents. SHe does not wish to return to [facility] (And they will not accept her back at this time due to her medical concerns), and she does not meet criteria for HLOC, nor is she or her parents voluntary. They wish to have a referral for child psychiatry, which typewriter aligner supports. Client will benefit from increasing her outpatient supports at this time. Plan: The plan for this patient is: Discharge from ED to Follow Up Provider and Discharge from ED with Outpatient Safety Plan Consultation with: MD JIN Horton Fullerette First Call for [facility] * Chantelle oGre RN - 01/28/2019 1920 EDT Pts father seems to be confused at what he plan is for his daughter that he and first call created together. First call informed and will be back in to speak with pt and father again. * Asha Villa PA-C - 01/28/2019 1728 EDT Received signout from GALA Ngo at 1600. Patient is 18-year-old female who presents from [facility], with 12 hours of nausea and vomiting now resolved now with 6 syncopal episodes in the last 24 hours. Seen initially last night and had reassuring labs, received IV hydration, and was discharged home. Had an additional syncopal episode this morning and [facility] returned her to the ED for evaluation and stated she was not medically safe to be at [facility]. Prior to signout patient had EKG and discussion withmom and states that patient frequently has syncopal episodes when acute stress or illness, and mother is not concerned about her symptoms. EKG reviewed by prior provider and attending Dr. Pope without any concerning findings. First call was consulted about placement given that she is no longer able to return to [facility]. Seen by first call, safety plan in place, discharged with dad home. * Chantelle Gore RN - 01/28/2019 1650 EDT Pt and father informed that pt needs to speak with crisis/first call to find placement and at this point pt is medically cleared. * Cahntelle Gore RN - 01/28/2019 1339 EDT 12 Lead EKG Performed by CHANTELLE GORE RN and shown to Melissa Ngo PA and shakeel Pope MD. * Heidy Sutton - 01/28/2019 1138 EDT Chief Complaint Patient presents with ??? Loss of Consciousness Arrives accompanied by parents with concern for syncope, nausea and vomitng. Seen in ED overnight for same symptoms with medical clearance performed, discharged with PRN medications back to [facility] institute. Dad informs patients symptoms persist, with another syncopal episode experienced (per staff). R equesting re-eval and clearance performed for higher level of care, as [facility] states they don't believe they can accomodate. documented in this encounter Plan of Treatment Not on file documented as of this encounter Procedures Procedure Name Priority Date/Time Associated Diagnosis Comments ECG REPORT - SCANNED 01/28/2019 18:03 EDT EKG 12-LEAD STAT 01/28/2019 13:36 EDT documented in this encounter Results * ECG REPORT - SCANNED (01/28/2019 18:03 EDT) 01/28/2019 18:0 3 EDT us Scan 2 Search Engine Optimization Specialist PROCEDURE/MINOR SURGICAL OR DERABLES Final Result * EKG 12-LEAD (01/28/2019 13:36 EDT) 01/28/2019 13:3 6 EDT Narrative [facility] EKG - 01/28/2019 18:00 EDT ? [facility] ? Test Date: ?2019-01-28 Pat Name: ? MARIAMA MARCIAL ? Department: ?? ED ? Room: ? GT24 Gender: ? Female ? Sports Fitness And Wellness Director: ?? [id number] : ?2000 ? Requested By: SAIRA Urbano Order Number: [id number] ? Reading MD: ?? ELI DUMONT MD ? Measurements Intervals ?Harris ? Rate: ? 51 ? P: ?57 ID: ? [id number] ?QRS: ?83 QRSD: ? 83 ? T: ?75 QT: ? 443 ? QTc: ?410 ? Interpretive Statements SINUS BRADYCARDIA WITH SINUS ARRHYTHMIA Normal Harris POSSIBLE RIGHT VENTRICULAR CONDUCTION DELAY Normal ECG for age. No previous ECG available for comparison I reviewed the tracing and have either agreed or edited the findings in this report. Electronically Signed On 01-28-2019 18:00:23 EDT by ELI DUMONT MD. Procedure Note Eli Dumont MD, MD - 01/28/2019 [facility] Test Date: 2019-01-28 Pat Name: MARIAMA MARCIAL Department: ED Room: [facility] Gender: Female Sports Fitness And Wellness Director: [id number] : 2000 Requested By: SAIRA Urbano Order Number: [id number] Reading MD: ELI DUMONT MD Measurements Intervals Harris Rate: 51 P: 57 ID: [id number] QRS: 83 QRSD: 83 T: 75 QT: 443 QTc: 410 Interpretive Statements SINUS BRADYCARDIA WITH SINUS ARRHYTHMIA Normal Harris POSSIBLE RIGHT VENTRICULAR CONDUCTION DELAY Normal ECG for age. No previous ECG available for comparison I reviewed the tracing and have either agreed or edited the findings inthis report. Electronically Signed On 01-28-2019 18:00:23 EDT by ELI MORROW. Melissa Ngo PA-C CARDIAC ECG ORDERABL ES Final Result [facility] EKG documented in this encounter Visit Diagnoses Diagnosis Syncope, unspecified syncope type- Primary documented in this encounter Orders Nursing Count Last Ordered Date First Orde red Date ORTHOSTATIC VITAL SIGNS 1 01/28/2019 documented in this encounter Care Teams Software Engineer Developer Relationship Specialty Start Date End Date Lashonda Almodovar MD [address] [place] [address] PCP - General 02/11/14 documented as of this encounter
--- OUTSIDE RECORDS SUMMARY | 2024-04-05 08:05 | XMS_ITS | Encounter Summary ---
Author Organization [facility] Address [address] [place] [address] Care Team Providers Care Granulating Blender Name Role Phone Scooby Powell MD, Lashonda Primary Care Provider [phone] Reason for Visit * Reason Comments Abdominal [...] 20:30 EDT - 01/28/2019 0:50 EDT Emergency [facility] Emergency Department - [address] [address] Mikhail Yeager, PA-C [address] [place] [address], [address] [place] [address] Emergency, MD Dania Lower abdominal [...] 0041 EDT Temperature 36.8 ??C (98.3 ??F) 01/28/201940 EDT Respiratory Rate 18 01/28/201939 EDT Oxygen Saturation 100% 01/28/201939 EDT Inhaled Oxygen Concentration - - Weight 65.8 kg (145 lb) 01/27/20192036 EDT Height 177.8 cm (5' 10) 01/27/20192036 EDT Body Mass Index 20.81 01/27/20192036 EDT Body Mass Index Percentile 49.34% 01/27/2019 203 7 EDT Growth Chart: [facility] (Girls, 2- 20 Years) documented in this [...] through Care Everywhere. * Abdominal Pain: Pediatric (Yakut) documented in this encounter Discharge Disposition Disposition Code Departure Means Destination Home or Self Care Car documented in this encounter ED Notes * Art Zaidi RN - 01/27/2019 2320 EDT Pt provided PO fluids at request of US and per provider OK. * Alda Mehta RN - 01/27/2019 2303 EDT Blood drawn via saline lock per protocol, [place] and lavender tube(s) sent to lab per order. * Mikhail Granger PA - 01/27/2019 220 EDT DOS: 01/27/2019 Chief Complaint Patient presents with ??? Abdominal Pain Pt arrives via EMS from [facility] (staff present at bedside) with complaints of LLQ pain that started yesterday and got worse tonight after eating pizza and salad she was naseous and vomited. Pt dry heaving in route per EMS. Pt denies past medical hx other than previous shoulder surgeries. HPI The history is provided by the patient, medical records and a parent (and [facility] staff). I, Fidelina Ibarra, am scribing for Mikhail Yeager PA while he/she is personally performing the service. Fidelina Ibarra 01/27/2019 22:06 Mariama Jarvis is a 18 y.o. female with no pertinent PMH who presents to the ED from [facility] (staff present at bedside on arrival) for LLQ abdominal pain. Patient reports that the pain started yesterday and worsened tonight after eating pizza and salad. She describes pain that is continuing now, has not improved, and is worse when pressing on the area and with motion. She endorses associated nausea and vomiting (per parents, emesis was observed by [facility] staff who described it as projectile vomiting), and was dry heaving per EMS (EMS note VSS en route). No one else around her was ill. Fatherreports that she was screened for SI yesterday before going to [facility], and at that time her temperature was [...] dizziness and weakness when sitting up. Per I staff member, patient had syncopal episodes 6 [...] CLINITEK UPT Result Neg Final Tech ID [id number] Final POCT URINE DIPSTICK, CLINITEK Color YELLOW Final Clarity, UA Clear Final Glucose Neg Final Bilirubin Neg Final Ketones Neg Final Specific [place] 1.020 Final Blood Neg Final pH 7.0 Final Protein Neg Final Urobilinogen 1.0 Final Nitrite Neg Final Leuk Esterase Neg Final Tech ID [id number] Final Procedures ED COURSE A medical screening exam was performed. Mariama Jarvis is a 18 y.o. female with no pertinent PMH who presents to the ED from [facility] (staff present at bedside on arrival) [...] the Emergency Department: Improved PCP: Lashonda Almodovar [facility] 01/27/2019 22:05 No flowsheet data found. [...] Siddiqui was available for supervision. * Art Zaidi, CHRISTINA - 01/27/2019 6886 EDT RN called to room by friend who states, Quick! She passed out again! Upon entry to room, pt was awake in bed. Friend states, She was just mid laugh and she said she had a cramp and went out like alight. When asked pt for her recall of events, pt states, I passed out again. A+Ox3, full recallof events, color normal. Alda VASQUEZ notified. Parents now in room. documented in [...] the findings. Procedure Note Enid Weaver MD, MD - 01/28/2019 RAD US PELVIS TRANSABDOMINAL WITH [...] findings. Mikhail Yeager PA-C IMG US ORDERABLES Final Resul t * C REACTIVE PROTEIN (01/27/2019 22:52 EDT) [facility] C Reactive Protein <7.0 <10.0 mg/L 01/27/2019 23:34 EDT [facility] Blood specimen (specimen) BLOOD SPECIMEN / Unknown 01/27/2019 22:52 EDT 01/27/2019 23:03 EDT Mikhail Yeager PA-C CHEMISTRY & BLOOD GAS ORDERAB LES Final Result [facility] [address] [place] [address] * (ABNORMAL) COMPREHENSIVE METABOLIC PANEL (CMP) (01/27/2019 22:52 EDT) [facility] Potassium 3.8 3.3 - 4.6 mEq/L 01/27/2019 23:34 T [facility] Sodium 138 136 - 145 mEq/L 01/27/2019 23:34 T [facility] Chloride 106 96 - 110 mEq/L 01/27/2019 23:34 [facility] CO2 23 22 - 32 mEq/L 01/27/2019 23:34 [facility] Total Alkaline Phosphatase 44(L) 45 - 116 U/L 01/27/2019 23:34 [facility] Bilirubin, Total 1.1(H) <1.0 mg/dl 01/28/20 19 23:34 [facility] AST 23 5 - 30 U/L 01/27/2019 23:34 [facility] ALT 19 <36 U/L 01/27/2019 23:34 [facility] Albumin 4.5 3.7 - 5.6 g/dl 01/27/2019 23:34 [facility] Total Protein 6.9 6.3 - 8.6 g/dl 01/27/2019 23:34 [facility] Creatinine 0.58 0.50 - 1.00 mg/dl 01/27/2019 23:34 [facility] GFR, Calculated Age <18 ml/min/1.7 3m2 01/27/2019 23:34 [facility] BUN 11 8 - 21 mg/dl 01/27/2019 23:34 [facility] Calcium 9.2 8.9 - 10.7 mg/dl 01/27/2019 23:34 [facility] Calculated Calcium 8.8(L) 8.9 - 10.7 mg/dl 01/27/2019 23:34 [facility] Glucose, Serum 87 70 - 100 mg/dl 01/27/2019 23:34 [facility] Fasting? Unknown 01/27/2019 23:03 [facility] Blood specimen (specimen) BLOOD SPECIMEN / Unknown 01/27/2019 22:52 EDT 01/27/2019 23:03 EDT us Mikhail Yeager PA-C CHEMISTRY & BLOOD GAS ORDERAB LES Final Result [facility] [address] [place] [address] * (ABNORMAL) COMPLETE BLOOD COUNT AND DIFFERENTIAL (01/27/2019 22:52 EDT) WBC 5.84 4.6 - 11.2 K/cmm 01/27/2019 23:12 [facility] RBC 4.08(L) 4.10 - 5.10 M/cmm 01/27/2019 23:12 [facility] Hemoglobin 12.8 12.0 - 16.0 gm/dl 01/27/2019 23:12 [facility] HCT 37.1 36.0 - 46.0 % 01/27/2019 23:12 [facility] MCV 91 78 - 102 fl 01/27/2019 23:12 [facility] MCH 31.4 pg 01/27/2019 23:12 [facility] MCHC 34.5 gm/dl 01/27/2019 23:12 [facility] RDW-CV 12.3 % 01/27/2019 23:12 [facility] RDW-SD 40.8 fl 01/27/2019 23:12 [facility] PLT 218 156 - 312 K/cm 01/27/2019 23:12 [facility] MPV 10.1 fl 01/27/2019 23:12 [facility] % Neutrophils 49.9 % 01/27/2019 23:12 [facility] % Lymphocytes 39.9 % 01/27/2019 23:12 [facility] % Monocytes 8.4 % 01/27/2019 23:12 [facility] % Eosinophils 0.9 % 01/27/2019 23:12 [facility] % Basophils 0.7 % 01/27/2019 23:12 [facility] % Immature Grans 0.2 % 01/27/2019 23:12 [facility] ABS Neutrophils 2.92 K/cmm 9 23:12 [facility] ABS Lymphs 2.33 K/cmm 01/27/2019 23:12 [facility] ABS Monocytes 0.49 K/cmm 01/27/2019 23:12 [facility] ABS Eosinophils 0.05 K/cmm 9 23:12 [facility] ABS Basophils 0.04 K/cmm 01/27/2019 23:12 [facility] ABS Immature Grans 0.01 K/cmm 01/27/2019 23:12 EDT [facility] Type of Diff: Automated 01/27/2019 23:12 EDT [facility] Blood specimen (specimen) BLOOD SPECIMEN / Unknown 01/27/2019 22:52 EDT 01/27/2019 23:03 EDT Mikhail Yeager PA-C PACKAGES & DNA PROBE ORDERABL ES Final Result Performing Organization Address City/[facility]/ZIP Co de Phone Number [facility] [address] [place] [address] * POCT TEST, CLINITEK (01/27/2019 22:29 EDT) UPT Result Neg Neg 01/27/2019 22:36 EDT [facility] admission nurse coordinator ID [id number] 01/27/2019 22:36 EDT [facility] Comment:Test performed at Em ergency Department Urine specimen (specimen) URINE / Unknown 01/27/2019 22:29 EDT 01/27/2019 22:36 EDT Mikhail Yeager PA-C POINT OF CARE TEST ORDERABLES Final Result Performing Organization Address [facility] Co de Phone Number [facility] [address] [place] [address] * POCT URINE DIPSTICK, CLINITEK (01/27/2019 22:26 EDT) Color YELLOW Yellow 01/27/2019 22:31 EDT [facility] Clarity, UA Clear Clear 01/27/2019 22:31 EDT [facility] Glucose Neg Neg 01/27/2019 22:31 EDT [facility] Bilirubin Neg Neg 01/27/2019 22:31 EDT [facility] Ketones Neg Neg 01/27/2019 22:31 EDT [facility] Specific [place] 1.020 1.001 - 1.035 01/27/2019 22:31 EDT [facility] Blood Neg Neg 01/27/2019 22:31 EDT [facility] pH 7.0 4.6 - 8.0 01/27/2019 22:31 EDT [facility] Protein Neg Neg 01/27/2019 22:31 EDT [facility] Urobilinogen 1.0 0.2 - 1.0 mg/dL 01/27/2019 22:31 EDT [facility] Nitrite Neg Neg 01/27/2019 22:31 EDT [facility] Leuk Esterase Neg Neg 01/27/2019 22:31 EDT [facility] admission nurse coordinator ID [id number] 01/27/2019 22:31 EDT [facility] Comment:Test performed at Em ergency Department Urine specimen (specimen) URINE / Unknown 01/27/2019 22:26 EDT 01/27/2019 22:31 EDT Mikhail Yeager PA-C POINT OF CARE TEST ORDERABLES Final Result Performing Organization Address City/State/[facility] Co de Phone Number [facility] [address] [place] [address] documented in this encounter Visit Diagnoses Diagnosis [...] STAT 2312 (Given - Provider: Alda Mehta, CHRISTINA) lactated ringers BOLUS 1,000 mL (COMPLETED) 1,000 mL, intravenous, NOW X1, 1 dose, On Fri01/27/19 at 2300, STAT 2303 (New Bag - Provider: Alda Mehta, CHRISTINA) 0021 (Completed - Provider: Delma Henriquez RN) ondansetron (PF) (ZOFRAN) injection 4 mg (COMPLETED) 4 mg, intravenous, NOW X1, 1 dose, On Fri01/27/19 at 2300, STAT 2313 (Given - Provider: Alda Mehta RN) ondansetron 4 mg ODT tab STARTER PACK (COMPLETED) 1 Package, oral, NOW X1, 1 dose, On Chantel 01/28/19 at 0045, STAT 0048 (Given - Provid er: Art Zaidi RN) documented in this encounter Care Teams Granulating Blender Relationship Specialty Start Date End Date Lashonda Almodovar MD [address] [place] [address] PCP - General 02/11/14 documented as of this encounter
--- OUTSIDE RECORDS SUMMARY | 2024-04-05 08:05 | XMS_ITS | Encounter Summary ---
Author Organization [facility] Address [address] [place] [address] Care Team Providers Care Board Runner Name Role Phone Scooby Powell MD, Lashonda Primary Care Provider [phone] Encounter Details Date Type Department Care Team (Late st Contact Info) Description 05/08/2020 Lab Requisition [facility] Pathology & Laboratory Medicine - [facility] [address] [place] [address] Outr Resulting Lab, Provider Social History Tobacco [...] in accordance with CLIA regulations, [employer] [place] [employer] (CAP) guidelines (Aug 05, 2019), and FDA guidance (Jul 17, 2019). This test is only for use under the Food and Drug Administration's Emergency Use Authorization. Swab ENTIRE NASOPHARYNX / Unknown 05/08/2020 12:25 EST 05/08/2020 20:47 EST us Provider Outr Resulting Lab MICROBIOLOGY - GENER AL ORDERABLES Final Result [facility] [place], [place] * COVID-19 TESTING (05/08/2020 12:25 EST) Pathologist [facility] COVID-19 rt-PCR Result NEGATIVE Negative 05/10/2020 12:50 EST [facility] Comment: 2019-novel Coronavirus (2019-nCoV) not detected [...] in accordance with CLIA regulations, [employer] [place] [employer] (CAP) guidelines (Aug 05, 2019), and FDA guidance (Jul 17, 2019). This test is only for use under the Food and Drug Administration's Emergency Use Authorization. Performing Lab [facility] 05/10/2020 12:50 EST [facility] Swab 05/08/2020 12:2 5 EST 05/08/2020 20:47 EST us Provider Outr Resulting Lab MICROBIOLOGY - GENER AL ORDERABLES Final Result [facility] [address] [place] [id number] [facility] [place], [place] documented in this encounter Visit Diagnoses Not on filedocumented in this encounter Care Teams Board Runner Relationship Specialty Start Date End Date Lashonda Almodovar MD [address] [place] [address] PCP - General 02/11/14 documented as of this encounter
--- OUTSIDE RECORDS SUMMARY | 2024-04-05 08:05 | XMS_ITS | Encounter Summary ---
Author Organization [facility] Address [address] [place] [address] Care Team Providers Care [employer] Salesperson Name Role Phone Unavailable Primary Care Provider Unavailabl e Encounter Details Date Type Department Care Team (Latest Contact Info) Description 2002 0:11 EDT - 2002 11:59 EDT Hospital Encounter [facility] Nursery Unit [address] [place], [place] [address] Aide Padgett MD [address] [place] [id number] Discharge Disposition: Home or Self Care Social History Tobacco Use Types Packs/Day Years Used Date Smoking Tobacco: Never Assessed Comments Unknown Sex and Gender Information Value [...]
--- OUTSIDE RECORDS SUMMARY | 2024-04-05 08:05 | XMS_ITS | Encounter Summary ---
Author Organization [facility] Address [address] [place] [address] Care Team Providers Care Dyeing Machine Tender Name Role Phone Scooby Powell MD, Lashonda Primary Care Provider [phone] Encounter Details Date Type Department Care Team (Latest Contact Info) Description 01/27/2019 Travel Social History Tobacco Use Types Packs/Day Years Used Date Smoking Tobacco: Never Comments Unknown Sex and Gender Information Value Date Recorded Sex Assigned at Not on file Legal Sex Female 18:30 EST Gender Identity Female 02/23/2021 10:29 EDT Sexual Orientation Not on file documented as of this encounter Plan of Treatment Not on file documented as of this encounter Visit Diagnoses Not on filedocumented in this encounter Care Teams Dyeing Machine Tender Relationship Specialty Start Date End Date Lashonda Almodovar MD [address] [place] [address] PCP - General 02/11/14 documented as of this encounter
--- OUTSIDE RECORDS SUMMARY | 2024-04-05 08:05 | XMS_ITS | Encounter Summary ---
Author Organization [facility] Address [address] [place] [address] Care Team Providers Care French Instructor Name Role Phone Scooby Powell MD, Lashonda Primary Care Provider [phone] Encounter Details Date Type Department Care Team (Late st Contact Info) Description 01/18/2020 Lab Requisition [facility] Pathology & Laboratory Medicine - [facility] [address] [place] [address] Outr Resulting Lab, Provider Social History Tobacco [...] DETECTION, PCR Negative Negative 01/19/2020 15:06 EDT [facility] Comment:This test was develo ped and its performance characteristics determined by [facility]. It has not been cleared [...] Unknown 01/17/2020 13:46 EDT 01/18/2020 17:21 EDT us Provider Outr Resulting Lab MICROBIOLOGY - GENER AL ORDERABLES Final Result Performing Organization Address City/[facility]/ZIP Co de Phone Number [facility] [address] [place] [address] * HERPES SIMPLEX VIRUS MOLECULAR DETECTION, PCR (01/17/2020 13:46 EDT) Herpes Simplex Virus Molecular Detection 1, PCR Negative Negative 01/19/2020 15:06 EDT [facility] Herpes Simplex Virus Molecular Detection 2, PCR Negative Negative 01/19/2020 15:06 EDT [facility] Swab ENTIRE [place] REGION / Unknown 01/17/2020 13:46 EDT 01/18/2020 17:21 EDT us Provider Outr Resulting Lab MICROBIOLOGY - GENER AL ORDERABLES Final Result Performing Organization Address City/[facility] Co de Phone Number [facility] [address] [place] [address] documented in this encounter Visit Diagnoses Not on filedocumented in this encounter Care Teams French Instructor Relationship Specialty Start Date End Date Lashonda Almodovar MD [address] [place] [address] PCP - General 02/11/14 documented as of this encounter
--- OUTSIDE RECORDS SUMMARY | 2024-04-05 08:05 | XMS_ITS | Encounter Summary ---
Author Organization [facility] Address [address] [place] [address] Care Team Providers Care Diagram Clerk Name Role Phone Scooby Powell MD, Lashonda Primary Care Provider [phone] Reason for Visit * Reason Comments Fever [...] 22:33 EDT - 02/12/2014 0:35 EDT Emergency [facility] Emergency Department - [address] [address] Omar Govea MD [address] [facility], Level [address] [place] [id number] Emergency, MD Dania Sore throat (Primary Dx) [...] sugar - this will help with nausea. [facility] Patient Instructions Sore Throat: After Your Child's [...] Where can you learn more? Go to www.airpim.net/fahc Enter V819 in the search box to learn more about Sore Throat: After Your Child's Visit. ?? [id number] [employer]. Care instructions adapted under license by [facility], [facility]. This care instruction is for use with your licensed healthcare professional. If you have questions about a medical condition or this instruction, always ask your healthcare professional. [employer] disclaims any warranty or liability for your use of this information. Content Version: [id number]; Last Revised: September 23, 2012 * Attachments The following attachments cannot be sent through Care Everywhere. * SORE THROAT : PEDIATRIC (LUXEMBOURGER) documented in this encounter Discharge Disposition Disposition Code Departure Means Destination Home or Self Care Wheelchair Home documented in this encounter ED Notes * Homero Schneider RN - 02/14/2014 0855 EDT Mom called [...] found. * Verito Sharif RN - 02/11/2014 0185 EDT Report received from CHRISTINA Coleman. Assumed care of pt. * Dontae Mayo MD - 02/11/2014 2311 EDT [facility] ED Note Mariama Jarvis 2002 11 [...] 8:01 EDT Dontae Mayo MD MICROBIOLOGY - GENERAL ORDERABLE S Final Result Performing Organization Address City/State/[facility] Co de Phone Number [facility] [address] [place] [address] documented in this encounter Visit Diagnoses Diagnosis [...] 0015, STAT 0020 (Given - Provid er: Verito Sharif RN) ondansetron (ZOFRAN-ODT) disintegrating tablet 4 mg (COMPLETED) 4 mg, oral, NOW X1, 1 dose, On 02/11/14 at 2315, STAT 2331 (Given - Provider: Verito Sharif RN) ondansetron 4 mg ODT tab STARTER PACK (COMPLETED) 1 Package, oral, NOW X1, 1 dose, On 02/12/14 at 0000, STAT 0019 (Given - Provid er: Verito Sharif RN) documented in this encounter Care Teams Diagram Clerk Relationship Specialty Start Date End Date Lashonda Almodovar MD [address] [place] [address] PCP - General 02/11/14 documented as of this encounter
--- NOTE | 2024-04-05 08:10 | ED.GENADUL_ITS ---
Discharge Plan Disposition Patient Disposition: Home Discharge Details Clinical Impression: Hx of falling Primary Care Provider: Laura Henriquez ED Provider: Favian Marr Home Meds and New Rx's Prescriptions: Continued escitalopram oxalate [Lexapro] 20 mg tablet 20 mg PO DAILY albuterol sulfate 90 mcg/actuation HFA aerosol inhaler 2 puff inhalation Q6H PRN (Reason: shortness of breath or wheezing) Qty: 8.5 0RF (DME) Aerochamber MV Spacer See Rx Instructions .Route Qty: 1 0RF Rx Instructions: As directed bupropion HCl [Wellbutrin XL] 300 mg tablet extended release 24 hr 300 mg PO QAM Discharge Instructions Additional Instructions: You are seen in the emergency department following your fall. Your CAT scan showed no sign of any bleeding in your head nor any signs of any fractures in your neck. As we discussed you may likely be more sore tomorrow. If you pass out or develop any burning when you urinate please return to the emergency department. For your pain please take medications as follows: 1. Take acetaminophen (Tylenol), 1,000 mg (two 500 mg tabs) every 6 hours [2. Take ibuprofen (Advil), 400 mg every 6 hours.] Stand Alone Forms: Work Release Discharge Data Discharge Date/Time-TO BE ENTERED AT DEPARTURE: 04/05/24 10:20 HPI General Date/Time Provider Initiated Documentation: 04/05/24 08:08 . HPI Narrative: MDM Primary survey intact. Reassuring shock index. On secondary survey patient has midline cervical spinal tenderness concerning for the possibility of fracture for which she will undergo CT scan. GCS 12: E4 , V2, M6. Given fall downstairs and decreased GCS will complete CT head chest abdomen pelvis with IV and T and L recons. Will also obtain ECG to assess for any dysrhythmia which could have precipitated the patient's fall. 8:55 PM CBC showing macrocytosis without anemia, similar to prior. No leukocytosis. No thrombocytopenia. Negative ethanol level. Patient metabolic panel lacks ANGELINA and hyperglycemia. No acute electrolyte abnormalities. 9:33 AM Trauma scan unremarkable.No significant incidental findings. I cleared patient cervical collar. We will she can ambulate and passed p.o. trial discharge. Further history revealed from patient that she tripped on a puppy at the top of the stairs causing her to fall. 04/06 Patient ambulated in the emergency department. She tolerated p.o. She had reassuring tertiary survey. We discussed that she may be more sore tomorrow. She was discharged with her fianc? and her mother. Chronic conditions affecting the care of the patient: History of depression History obtained from an outside historian: Paramedics External record review: [facility] Diagnostic interpretations performed by me: Per my independent interpretation EKG shows: Narrow complex normal sinus rhythm at a rate of 76. Normal axis. Intervals within normal limits. T wave version in aVL. No ST segment abnormalities. No acute injury pattern.Compared to prior dated 2 years ago T wave inversion in aVL is new. ]Medications: IV acetaminophen Social determinants of health affecting disposition: N/A Management discussed with: N/A Treatment/interventions considered: N/A Response to therapies provided: Improved symptoms in the ED HPI This is a 24-year-old female with a history of depression arriving to the e mergency department via EMS following a fall. Patient was in her usual state of health earlier this morning. She was reportedly seen normal by her ficasie? and subsequently approximately 5 minutes later she was found at the bottom of 10-12 steps. She has not been answering questions but had posterior neck pain per EMS. Fingerstick blood glucose within normal limits. Unable to obtain additional history secondary to the acuity of the patient's presentation. Exam General: Well-appearing in no acute distress Head: Normocephalic, atraumatic. Eye:[Pupils equal, round reactive to light.] Extraocular eye movements intact. No conjunctival injection. No scleral icterus. Ear, nose, mouth, throat: Grossly normal inspection. Handling secretions normally. Neck: Trachea midline. Midline posterior cervical spinal tenderness. Patient wearing a collar. Cardiovascular: Well-perfused distal extremities. Regular rate and rhythm. Strong central pulses. Respiratory: Nonlabored respiration. Clear lungs bilaterally. Gastrointestinal: Nondistended abdomen. Soft nontender. No signs of trauma. Back: No step-offs no deformities. No midline thoracic nor lumbar spinal tenderness. Musculoskeletal: No edema. Not able to follow commands in bilateral uppers and lowers. Nontender bilateral upper and lower extremities. Skin: Normal for age and race, grossly normal temperature and turgor. No acute rash. Neurologic: GCS 12: E4, V2, M6. Related Data Home Medications ?Medication ?Instructions ?Recorded ?Confirmed albuterol sulfate 90 mcg/actuation 2 puff inhalation Q6H PRN 04/17/23 02/04/24 aerosol inhaler shortness of breath or wheezing #8.5 grams escitalopram oxalate 20 mg tablet 20 mg PO DAILY 04/17/23 02/04/24 (Lexapro) inhalational spacing device #1 ea 04/17/23 02/04/24 (Aerochamber MV spacer) bupropion HCl 300 mg 24 hr tablet, 300 mg PO QAM 01/21/24 02/04/24 extended release (Wellbutrin XL) Previous Rx's ?Medication ?Instructions ?Recorded albuterol sulfate 90 mcg/actuation 2 puff inhalation Q6H PRN 04/17/23 aerosol inhaler shortness of breath or wheezing #8.5 grams inhalational spacing device #1 ea 04/17/23 (Aerochamber MV spacer) Allergies Allergy/AdvReac Type Severity Reaction Status Date / Time No Known Allergies Allergy Verified 02/04/24 14:18 General Stated Complaint: Trauma FIONA: 2 Course Vital Signs Vital signs: Vital Signs Temperature 36.2 C L 04/05/24 07:59 Pulse 60 04/05/24 07:59 Respiratory Rate 16 04/05/24 07:59 Blood Pressure 129/76 04/05/24 07:59 Pulse Oximetry 100 04/05/24 07:59 Temperature 36.2 C L 04/05/24 07:59 Temperature Source Temporal Artery Scan 04/05/24 07:59 Pulse 60 04/05/24 07:59 Respiratory Rate 16 04/05/24 07:59 Blood Pressure 129/76 04/05/24 07:59 Blood Pressure Position Supine 04/05/24 07:59 Pulse Oximetry 100 04/05/24 07:59 Oxygen Delivery Method Room Air 04/05/24 07:59 Oxygen Flow Rate 0 04/05/24 07:59 Medical Decision Making Quality:SDOH Health Related Social Needs: No Data to Display PFSH All Active Problems (Updated 04/05/24 @ 09:43 by Favian Marr MD) Hx of falling (Acute) Effusion of elbow joint, right (Acute) s/p Right elbow arthroscopy with synovial biopsy and limited debridement 01/23/24 Postural orthostatic tachycardia syndrome (Acute) Shoulder pain, right (Acute) Seizure-like activity (Acute) Hypermobile joints (Acute) Spells of decreased attentiveness (Acute) Attention deficit hyperactivity disorder (Acute 07/28/12) BMI (body mass index), pediatric, 5% to less than 85% for age (Acute 08/10/15) Depression with anxiety (Acute 09/26/17) Epistaxis (Acute 06/17/16) Routine child health exam (Acute 07/28/12) Well adolescent visit without abnormal findings (Acute 08/13/16) Dysmenorrhea in adolescent (Chronic) Menorrhagia with irregular cycle (Acute) given h/o migraine w/ aura need to consider alternatives to the common OCPs - pt may be interested in the nexplenon Migraine headache (Chronic) Medical History (Updated 04/05/24 @ 09:43 by Favian Marr MD) Migraine Depression Anxiety ADHD Surgical History (Updated 02/04/24 @ 14:21 by GALA Pittman) S/P arthroscopy of shoulder bilateral ORAL SURGERY 8 teeth removed Family History Mother Healthy adult on routine physical examination Anxiety Father Healthy adult on routine physical examination Brother Healthy adult on routine physical examination Social History Smoking/Tobacco Use Status: Current every day Tobacco Type: e-cigarettes Smoking risk assessment performed?: Yes Alcohol Intake: current Alcohol Intake frequency: holidays/special occasions only Drug use: Daily Substance use type: marijuana Details: daily mj use Housing: house Do you feel safe at home: Yes Do you feel safe in your relationship?: Yes POCUS Exam (ED) Efast Exam DATE OF EXAM: 04/05/24 TIME OF EXAM: 08:20 PROVIDER THAT PEFORMED THE STUDY: Favian Marr IS THIS A REPEAT EXAM DURING THIS ENCOUNTER: no REASON FOR EXAM: Other (Trauma) indication: Trauma VISUALIZED STRUCTURES: Hepatorneal space, Pelvis, Pericardium, Perisplenic space, Pleural space/left, Pleural space/right and Other structure: Bilateral lungs PERTINENT FINDINGS/IMPRESSION: no apparent free fluid, no pericardial effusion, no pleural effusion on the left side, no pleural effusion on the right side, no pneumothorax on left side and no pneumothorax on right side INCIDENTAL FINDINGS: Negative eFAST exam Limited Transthoracic Echo: Exam complete Limited Abdominal Exam: Exam complete Limited Retroperitoneal Exam: Exam complete
[2024-04-05 08:28] LABS: Abs Immature Grans 0.01 10^3/uL (0.0-0.06); Absolute Basophil Count 0.04 10^3/uL (0.0-0.2); Absolute Lymphocyte Count 1.57 10^3/uL (1.2-3.4); Absolute Monocyte Count 0.47 10^3/uL (0.1-0.8); Absolute Neutrophil Count 3.18 10^3/uL (1.2-6.7); Basophils % 0.7 %; Eosinophils % 3.7 %; HCT 40.6 % (36.0-46.0); HGB 13.4 g/dL (11.2-15.7); Immature Grans % 0.2 %; Lymphocytes % 28.7 %; MCH 31.7 pg (27.0-33.0); MCV 96 fL (80-95); MPV 9.8 fL (8.0-11.0); Monocytes % 8.6 %; Neutrophils % 58.1 %; Platelet Count 236 10^3/uL (130-400); RBC 4.23 10^6/uL (3.93-5.22); RDW 12.3 % (11.7-14.6); RDW-SD 43.2 fL; WBC 5.47 10^3/uL (4.4-10.8)
--- NOTE | 2024-04-05 08:29 | DI.CT_ITS ---
Exam(s) CT HEAD CERVICAL SPINE WO EXAM: CT HEAD CERVICAL SPINE WO CLINICAL HISTORY: Trauma. TECHNIQUE: Imaging Protocol: Axial computed tomography images with coronal and sagittal reformatted images were created and reviewed COMPARISON: CT CT HEAD WO from 04/20/2019 FINDINGS: BRAIN: There are no skull fractures nor fluid in the visualized paranasal sinuses. There is no evidence of intracranial hemorrhage, mass effect, or shift of midline structures. There are no extra-axial fluid collections. The ventricles are not enlarged or shifted and there is no blo od within the ventricular system nor within the basal cisterns. CERVICAL SPINE: There is no evidence of fracture nor listhesis. No significant prevertebral soft tissue swelling. There is no significant facet joint malalignment. No significant osseous lesions evident. IMPRESSION: No acute intracranial findings on this noninfused CT scan of the brain. No evidence of cervical spine fracture, malalignment, nor acute compromise of the cervical spinal can al. RADIATION DOSE DELIVERED: 1,303.56mGy.cm Total DLP DATA REPOSITORY: All CT scans at this facility are submitted to the National Radiology Data Registry (NRDR) Dose Index Registry (DIR) with the [employer] (ACR). RADIATION OPTIMIZATION: All CT scans at this facility use at least one of these dose optimization te chniques: automated exposure control; mA and/or kV adjustment per patient size (includes targeted exa ms where dose is matched to clinical indication); or iterative reconstruction.
[2024-04-05] MEDS: Normal Saline - Diluent 50 ML VIAL IJ (08:35)
--- NOTE | 2024-04-05 08:35 | DI.CT_ITS ---
Exam(s) CT CHEST/ABD/PEL W EXAM: CT CHEST/ABD/PEL W CLINICAL HISTORY: Trauma. TECHNIQUE: Imaging Protocol: Axial computed tomography images with coronal and sagittal reformatted images were created and reviewed CONTRAST MATERIAL: Intravenous: Omnipaque 350 Contrast volume:100 ml Oral: None COMPARISON: CT CT THORACIC LUMBAR SPINE REC from 04/05/2024 FINDINGS: CHEST: LUNGS: No infiltrates nor lung contusion. No pleural effusions. No pneumothorax. No significant no dules.. MEDIASTINUM: No evidence of sternal fracture nor mediastinal hematoma. No adenopathy. CARDIAC: Heart size is normal. There is no pericardial effusion.Caliber of the thoracic aorta is wit hin normal limits. No dissection. OSSEOUS: No fractures. No significant osseous lesions.. ABDOMEN: There is no ascites. No evidence of mesenteric nor bowel wall hematoma. LIVER: Unremarkable. No lacerations. No incidental lesions. GALLBLADDER/BILIARY: No obvious gallbladder pathology. CBD is not dilated. PANCREAS: No evidence of pancreatic mass nor dilatation of the pancreatic duct. SPLEEN: Intact. Normal size. No lacerations. No lesions. Splenic and portal veins are patent. ADRENALS: There are no significant adrenal masses. KIDNEYS: No significant focal renal findings. No lacerations nor subcapsular hematomas. Small benig n cyst in the lateral cortex right kidney noted which measures less than 1 cm and does not require fu rther workup.. No calculi nor hydronephrosis. ABDOMINAL AORTA: Unremarkable. Aortoiliac segments also unremarkable. LYMPH NODES: There is no retroperitoneal nor paraaortic adenopathy. ABDOMINAL WALL: No evidence of significant anterior abdominal wall nor inguinal hernia. GI: There is no evidence of bowel obstruction.No evidence of bowel wall hematoma PELVIS: LYMPH NODES: There is no intrapelvic nor inguinal adenopathy. GI: No evidence of appendicitis.No evidence of sigmoid diverticulitis. URINARY BLADDER: No calculi nor masses evident. No intraluminal clots. REPRODUCTIVE: Uterus and ovaries appear unremarkable. No free fluid in the pelvis. OSSEOUS: No fractures. No significant osseous lesions. IMPRESSION: 1. No significant acute trauma findings in the chest, abdomen, and pelvis. 2. No significant incidental findings. Called by myself to ER physician 12/04/2023 9:10 a.m. RADIATION DOSE DELIVERED: 662.98mGy.cm Total DLP DATA REPOSITORY: All CT scans at this facility are submitted to the National Radiology Data Registry (NRDR) Dose Index Registry (DIR) with the [employer] (ACR). RADIATION OPTIMIZATION: All CT scans at this facility use at least one of these dose optimization te chniques: automated exposure control; mA and/or kV adjustment per patient size (includes targeted exa ms where dose is matched to clinical indication); or iterative reconstruction.
[2024-04-05] MEDS: Omnipaque 350 MG/ML 500 ML BTL-Imaging package 100 ML IJ (08:36)
--- NOTE | 2024-04-05 08:40 | DI.CT_ITS ---
Exam(s) CT THORACIC LUMBAR SPINE REC EXAM: CT THORACIC LUMBAR SPINE REC CLINICAL HISTORY: Trauma TECHNIQUE: COMPARISON: No exams were available for comparison FINDINGS: THORACIC SPINAL COLUMN: No evidence of fracture or listhesis. No disc space narrowing. No facet mal alignment. No acute compromise of the canal evident. LUMBOSACRAL SPINAL COLUMN: No evidence of fracture or listhesis nor disc space narrowing. Facet join ts unremarkable. No facet malalignment. No acute compromise of the lumbosacral spinal canal. Sacro iliac joints appear unremarkable. No obvious sacral fractures evident. IMPRESSION: No fractures evident in the thoracic and lumbosacral spinal columns. No significant incidental osseous lesions evident.
[2024-04-05 08:43] LABS: HCG Qual (Serum) Negative
[2024-04-05 08:49] LABS: Anion Gap 7.2 mmol/L (3-11); BUN 14 mg/dL (7-18); CO2 29.8 mmol/L (21.0-32.0); CREATININE 0.9 mg/dL (0.55-1.02); Calcium 8.8 mg/dL (8.5-10.1); Chloride 108 mmol/L (98-107); Glucose 93 mg/dL (74-106); Potassium 3.8 mmol/L (3.5-5.1); Sodium 145 mmol/L (136-145)
[2024-04-05] MEDS: ACETAMINOPHEN 1,000 MG/100 ML BAG 400 MG IVPB (08:50)
[2024-04-05 08:51] LABS: Acetaminophen < 2 ug/mL (10-30); ETHANOL BLOOD < 3.0 mg/dL (<10)
[2024-04-05] MEDS: Ketorolac 15 MG/ML VIAL IVP (09:39)
[2024-04-05 09:48] LABS: Bilirubin Negative (Negative); Blood Moderate (Negative); Clarity Clear (Clear); Glucose Negative (Negative); Ketones Negative (Negative); Leukocyte Esterase Negative (Negative); Nitrite Negative (Negative); Specific Gravity 1.015 (1.005-1.025); Urobilinogen 0.2 mg/dL (Up to 0.2); pH 8.5 (5-8)
[2024-04-05 10:04] LABS: Bacteria Few HPF (Negative); C & S Indicated? No; Casts Negative LPF (Negative); Crystals Negative HPF (Negative); Epithelial Cells Rare HPF (Negative); Mucus Negative (Negative); WBC 0-2 HPF (0-5)
== END 2024-04-05 10:20 | disposition home or self-care (01) ==
PROVIDERS: Emergency Provider Emergency Medicine; PCP Nurse Practitioner Family
DX: M54.2 Cervicalgia (principal); G43.909 Migraine, unspecified, not intractable, without status migrainosus; F32.A Depression, unspecified; F41.9 Anxiety disorder, unspecified; F90.9 Attention-deficit hyperactivity disorder, unspecified type; F17.290 Nicotine dependence, other tobacco product, uncomplicated; Z79.899 Other long term (current) drug therapy; W10.9XXA Fall (on) (from) unspecified stairs and steps, initial encounter; R40.2420 Glasgow coma scale score 9-12, unspecified time
CPT/HCPCS: 36415; 74177; 76604; 76705; 76857; 80048; 93005; 96365; 96375; 99285; 70450; 71260; 72125; 80320; 80329; 81003; 81015; 84703; 85025; 93010; J0131; J1885

== ENCOUNTER 2024-05-10 10:14 | Outpatient (CLI) | payer BC, SELFPAY ==
--- NOTE | 2024-05-10 10:00 | RT.EKG_ITS ---
APPROVED REPORT Exam: Resting ECG Reason for Exam: chest discomfort Patient Location: O HR:56 bpm ECG Measurements Heart Rate 56 AXIS [place] 201 P 54 QRSd 95 QRS 75 QT 434 T 78 QTc 419 Conclusion Sinus rhythm...normal P axis, V-rate 50- 99 Probable left atrial enlargement...P >50mS, <-0.10mV V1 RSR' in V1 or V2, probably normal variant...small R' only Nonspecific T abnrm, anterolateral leads...T <-0.10mV, I aVL V2-V6
== END 2024-05-10 10:15 | disposition home or self-care (01) ==
LOC: DI.CM 10:14
PROVIDERS: PCP Nurse Practitioner Family; Visit Provider Nurse Practitioner Family
DX: R07.89 Other chest pain (principal)
CPT/HCPCS: 93010

== ENCOUNTER 2024-06-20 17:47 | Emergency (ER) | payer BC, SELFPAY ==
[2024-06-20 17:53] VITALS: BP 120/72; PULSE 86; RESP 15; TEMP 36.4; O2SAT 98
[2024-06-20] MEDS: Oxymetazolone 0.05% SPRAY 15 ML BTL NS (18:44)
--- NOTE | 2024-06-20 20:11 | ED.GENADUL_ITS ---
Discharge Plan Disposition Patient Disposition: Home Condition: Stable Discharge Details Clinical Impression: Epistaxis Primary Care Provider: Laura Henriquez ED Provider: Eli Alvarado Home Meds and New Rx's Prescriptions: No Action glycopyrrolate 2 mg tablet 2 mg PO DAILY Patient Comments: TAKE ONE TABLET BY MOUTH TWICE A DAY escitalopram oxalate [Lexapro] 20 mg tablet 20 mg PO DAILY (DME) Aerochamber MV Spacer See Rx Instructions .Route Qty: 1 0RF Rx Instructions: As directed bupropion HCl [Wellbutrin XL] 300 mg tablet extended release 24 hr 300 mg PO QAM albuterol sulfate 90 mcg/actuation HFA aerosol inhaler 2 puff inhalation Q6H PRN (Reason: shortness of breath or wheezing) Qty: 8.5 0RF Discharge Instructions Instructions: Nosebleeds Additional Instructions: Use the Afrin twice daily for the next 3 days in both sides of your nose Please also start to use nasal saline regularly the nasal saline gel is especially nice, you can also put Aquaphor in your nose. Given your medication and the weather conditions at this time of year, your nose will try out pretty significantly which will lead to recurrent bleeding. It is very important that you keep your nasal mucosa moist Utilize the clamps as needed for recurrent bleeding A referral for ENT has been placed and they should contact you for your follow- up appointment Discharge Data Discharge Date/Time-TO BE ENTERED AT DEPARTURE: 06/20/24 18:53 HPI General Date/Time Provider Initiated Documentation: 06/20/24 18:31 . Limitations to Documentation: no limitations . Information obtained by: patient . HPI Narrative: 24-year-old female with past medical history of hyperhidrosis on glycopyrrolate presents for evaluation of recurrent nosebleed. She reports that she has had 3 episodes in the last 2 days of nosebleed. She requires holding pressure. Not relieved with ice pack. Did have to get cauterized as a child. She does not use any nasal saline or other moisturizing medications. Related Data Home Medications ?Medication ?Instructions ?Recorded ?Confirmed escitalopram oxalate 20 mg tablet 20 mg PO DAILY 04/17/23 06/20/24 (Lexapro) inhalational spacing device #1 ea 04/17/23 06/20/24 (Aerochamber MV spacer) bupropion HCl 300 mg 24 hr tablet, 300 mg PO QAM 01/21/24 06/20/24 extended release (Wellbutrin XL) albuterol sulfate 90 mcg/actuation 2 puff inhalation Q6H PRN 04/16/24 06/20/24 aerosol inhaler shortness of breath or wheezing #8.5 grams glycopyrrolate 2 mg tablet 2 mg PO DAILY 06/05/24 06/20/24 Previous Rx's ?Medication ?Instructions ?Recorded inhalational spacing device #1 ea 04/17/23 (Aerochamber MV spacer) albuterol sulfate 90 mcg/actuation 2 puff inhalation Q6H PRN 04/16/24 aerosol inhaler shortness of breath or wheezing #8.5 grams Allergies Allergy/AdvReac Type Severity Reaction Status Date / Time No Known Allergies Allergy Verified 06/20/24 18:12 General Stated Complaint: Epistaxis FIONA: 4 Exam Narrative Exam Narrative: Review of Systems: All systems reviewed & are unremarkable except as noted in HPI and below Well-developed, no acute distress NCAT PERRL, normal conjunctiva Dried blood in bilateral nare noted, no active bleeding appreciated RRR Unlabored respiratory effort Course Vital Signs Vital signs: Vital Signs Temperature 36.4 C L 06/20/24 17:53 Pulse 86 06/20/24 17:53 Respiratory Rate 15 06/20/24 17:53 Blood Pressure 120/72 06/20/24 17:53 Pulse Oximetry 98 06/20/24 17:53 Temperature 36.4 C L 06/20/24 17:53 Pulse 86 06/20/24 17:53 Respiratory Rate 15 06/20/24 17:53 Blood Pressure 120/72 06/20/24 17:53 Pulse Oximetry 98 06/20/24 17:53 Pain Level 0 06/20/24 17:53 Medical Decision Making Emergent evaluation of recurrent epistaxis. Patient had clamp placed by triage and on my evaluation, there is no continued bleeding. Suspect that she has dry nasal mucosa secondary to the glycopyrrolate and is not appropriately using nasal moisturizer particularly given this time of year. I recommend Afrin for the next few days to prevent recurrent bleeding. But afterwards I recommend nasal saline Aquaphor or Vaseline to keep the mucosa moist. I have placed a referral to ENT for reevaluation given recurrence and prior history requiring cautery. Discharged in good condition. Quality:SDOH Health Related Social Needs: No Data to Display PFSH All Active Problems Effusion of elbow joint, right (Acute) s/p Right elbow arthroscopy with synovial biopsy and limited debridement 01/23/24 Postural orthostatic tachycardia syndrome (Acute) Shoulder pain, right (Acute) Seizure-like activity (Acute) Hypermobile joints (Acute) Spells of decreased attentiveness (Acute) Attention deficit hyperactivity disorder (Acute 07/28/12) BMI (body mass index), pediatric, 5% to less than 85% for age (Acute 08/10/15) Depression with anxiety (Acute 09/26/17) Epistaxis (Acute 06/17/16) Routine child health exam (Acute 07/28/12) Well adolescent visit without abnormal findings (Acute 08/13/16) Dysmenorrhea in adolescent (Chronic) Menorrhagia with irregular cycle (Acute) given h/o migraine w/ aura need to consider alternatives to the common OCPs - pt may be interested in the nexplenon Migraine headache (Chronic) Medical History Migraine Depression Anxiety ADHD Surgical History S/P arthroscopy of shoulder bilateral ORAL SURGERY 8 teeth removed Family History Mother Healthy adult on routine physical examination Anxiety Father Healthy adult on routine physical examination Brother Healthy adult on routine physical examination Social History Smoking/Tobacco Use Status: Current every day Tobacco Type: e-cigarettes Smoking risk assessment performed?: Yes Alcohol Intake: current Alcohol Intake frequency: holidays/special occasions only Drug use: Daily Substance use type: marijuana Details: daily mj use Housing: house Do you feel safe at home: Yes Do you feel safe in your relationship?: Yes
== END 2024-06-20 18:53 | disposition home or self-care (01) ==
PROVIDERS: Emergency Provider Emergency Medicine; PCP Nurse Practitioner Family
DX: R04.0 Epistaxis (principal)
CPT/HCPCS: 99282; 99283

== ENCOUNTER 2024-11-16 04:07 | Outpatient (CLI) | payer BC, SELFPAY ==
[2024-11-18 17:14] LABS: HCG Qual (Urine) Positive
[2024-11-18 18:03] LABS: HCG Quant, Pregnancy 5035 mIU/mL (1-3)
== END 2024-11-16 04:08 | disposition home or self-care (01) ==
PROVIDERS: PCP Nurse Practitioner Family; Visit Provider Student in an Organized Health Care Education/Training Program
DX: G40.309 Generalized idiopathic epilepsy and epileptic syndromes, not intractable, without status epilepticus (principal)
CPT/HCPCS: 36415; 80177; 81025; 84702

== ENCOUNTER 2024-11-26 09:53 | Emergency (ER) | payer BC, SELFPAY ==
[2024-11-26] VITALS (12 sets, daily range): BP systolic 111–141; BP diastolic 53–84; PULSE 60–115; RESP 12–27; TEMP 36.8; O2SAT 99–100
--- NOTE | 2024-11-26 10:00 | DI.CT_ITS ---
Exam(s) CT HEAD CERVICAL SPINE WO EXAM: CT HEAD CERVICAL SPINE WO CLINICAL HISTORY: Fall head strike. TECHNIQUE: Imaging Protocol: Axial computed tomography images with coronal and sagittal reformatted images were created and reviewed COMPARISON: CT CT HEAD CERVICAL SPINE WO from 04/05/2024 FINDINGS: BRAIN: There are no skull fractures nor fluid in the visualized paranasal sinuses. There is no evidence of intracranial hemorrhage, mass effect, or shift of midline structures. There are no extra-axial fluid collections. The ventricles are not enlarged or shifted and there is no blood within the ventricular system nor within the basal cisterns. CERVICAL SPINE: There is no evidence of fracture nor listhesis. No significant prevertebral soft tissue swelling. There is no significant facet joint malalignment. No significant osseous lesions evident. IMPRESSION: No acute intracranial findings on this noninfused CT scan of the brain. No evidence of cervical spine fracture, malalignment, nor acute compromise of the cervical spinal canal. RADIATION DOSE DELIVERED: 1,336.38mGy.cm Total DLP DATA REPOSITORY: All CT scans at this facility are submitted to the National Radiology Data Registry (NRDR) Dose Index Registry (DIR) with the [employer] (A[employer]). RADIATION OPTIMIZATION: All CT scans at this facility use at least one of these dose optimization techniques: automated exposure control; mA and/or kV adjustment per patient size (includes targeted exams where dose is matched to clinical indication); or iterative reconstruction.
[2024-11-26 10:08] LABS: BE (Venous) -1 mmol/L (-2-3); HCO3 (Venous) 25 mmol/L (23-28); O2 Sat (Venous) 59 %; TCO2 (Venous) 23 mmol/L (24-29); pCO2 (Venous) 44 mmHg (41-51); pO2 (Venous) 33 mmHg
[2024-11-26 10:09] LABS: Abs Immature Grans 0.02 10^3/uL (0.0-0.06); HCT 35.8 % (36.0-46.0); HGB 12.2 g/dL (11.2-15.7); Immature Grans % 0.3 %; MCH 30.7 pg (27.0-33.0); MCHC 34.1 % (32.0-36.0); MCV 90 fL (80-95); MPV 9.7 fL (8.0-11.0); Platelet Count 214 10^3/uL (130-400); RBC 3.97 10^6/uL (3.93-5.22); RDW 12.5 % (11.7-14.6); RDW-SD 41.3 fL; WBC 6.96 10^3/uL (4.4-10.8)
[2024-11-26 10:20] LABS: INR 1.0 (0.9-1.1); Prothrombin Time 10.1 sec (9.1-11.1)
[2024-11-26] MEDS: Normal Saline 100 ML (10:29)
--- NOTE | 2024-11-26 10:44 | NUR.NOTE ---
Nursing Note: PT continues to have multiple episodes of seizure like activity with apneic episodes of 5-10 seconds with activity
[2024-11-26 11:00] LABS: ALT 20 U/L (14-59); AST 22 U/L (15-37); Albumin 3.6 g/dL (3.4-5.0); Alkaline Phosphatase 49 U/L (46-116); Anion Gap 9.2 mmol/L (3-11); BUN 7 mg/dL (7-18); Bilirubin, Total 1.0 mg/dL (0.2-1.0); CO2 25.8 mmol/L (21.0-32.0); Calcium 8.4 mg/dL (8.5-10.1); Chloride 103 mmol/L (98-107); Estimated GFR 130.07 (mL/min/1.73m2); Glucose 89 mg/dL (74-106); Magnesium 1.8 mg/dL (1.8-2.4); Potassium 4.2 mmol/L (3.5-5.1); Sodium 138 mmol/L (136-145); Total Protein 6.7 g/dL (6.4-8.2)
--- NOTE | 2024-11-26 11:13 | ED.GENADUL_ITS ---
Discharge Plan Disposition Patient Disposition: Home Discharge Details Clinical Impression: Convulsions, First trimester , Hx of falling Primary Care Provider: Laura Henriquez ED Provider: Favian Marr Home Meds and New Rx's Prescriptions: New doxylamine-pyridoxine (vit B6) 20-20 mg tablet,IR,delayed rel,biphasic 1 tab PO BID Qty: 20 0RF ondansetron 4 mg tablet,disintegrating 4 mg PO BID 5 Days Qty: 10 0RF Continued glycopyrrolate 2 mg tablet 2 mg PO DAILY Patient Comments: TAKE ONE TABLET BY MOUTH TWICE A DAY (DME) Aerochamber MV Spacer See Rx Instructions .Route Qty: 1 0RF Rx Instructions: As directed albuterol sulfate 90 mcg/actuation HFA aerosol inhaler 2 puff inhalation Q6H PRN (Reason: shortness of breath or wheezing) Qty: 8.5 0RF levetiracetam 750 mg tablet 750 mg PO BID Patient Comments: TAKE ONE AND ONE-HALF TABLETS BY MOUTH TWICE A DAY FOR 30 DAYS Discharge Instructions Additional Instructions: You are seen in the emergency department following your fall. Your CAT scan showed no sign of any bleeding in your head. As we discussed please take doxylamine and pyridoxine for nausea and vomiting. Please take ondansetron as needed if these first 2 medications do not work. As we discussed ondansetron has been thought to possibly cause cardiac damage during . Please limit your exposure to ondansetron but take as needed. Please follow-up with your [facility] provider. Please continue taking your levetiracetam (Keppra) 1-1/2 of the 750 mg tablets twice a day. Please call the neurology clinic for follow- up: [phone] If you develop fevers or chills or shortness of breath please return to the emergency department. Your ultrasound was reassuring showing that you are at approximately 6 weeks: Single viable intrauterine gestation which is approximately 6 weeks and 1 day gestational age by crown rump length measurement, implying DAVE of 07/21/2025. Discharge Data Discharge Date/Time-TO BE ENTERED AT DEPARTURE: 11/26/24 14:51 HPI General Date/Time Provider Initiated Documentation: 11/26/24 10:21 . HPI Narrative: MDM Patient arrives via EMS following reported fall downstairs. She had a reassuring shock index. Her airway breathing and circulation were intact. She has negative extended FAST exam. Given and lack of thoracicoabdominal trauma I elected to obtain a CT scan of the patient's head and cervical spine. These were fortunately reassuring against any acute traumatic injuries. She had intermittent convulsions but was intermittently lucid and conversational. Given her repetitive convulsions I was initially concerned about the possibility of status epilepticus. Patient had received 15 mg of midazolam. I was planning on intubating the patient however she subsequently became conversant. She had no tonic-clonic activity. No tongue biting. She continued to improve. She was seen by neurology and initial recommendation was to transfer for continuous EEG. Subsequently I spoke with [facility] neurology who knew the patient well, Dr. Cabrales. They were suspicious that she may have been subtherapeutic on her levetiracetam given her history of recent nausea in the setting of her first trimester . She received a 2 g levetiracetam load. Neurology advised against transfer given that she was back to baseline and had received her levetiracetam. She ambulated and tolerated p.o. challenge in the ED. She had a reassuring chest x-ray and hip x-ray. She had a reassuring first trimester transvaginal ultrasound showing a single viable intrauterine gestation at approximately 6 weeks. She has outpatient follow-up with [facility] in [place]. We discussed that she should return if she developed any fevers chills vaginal bleeding or any gush of fluids. She reports having an adequate supply of her levetiracetam. I discharged her with pyridoxine and doxylamine. We also discussed that she should take as needed ondansetron. We discussed the theoretical risks of cardiac defects during early . Given her significant history of epilepsy and nonepileptic convulsions I felt that the benefits of maintaining therapeutic levels of her ondansetron out with the theoretical risks of antiemetics. She understood her return indications. Patient's mom and dad were both intermittently present throughout multiple reassessments in the ED. HPI This is a female with a history of epilepsy presenting with seizures. History provided by EMS. The patient was found unresponsive at the bottom of the stairs at home by her father. She has been experiencing vomiting and seizures this morning, with a total of 6 to 7 brief seizures despite administration of 10 mg of midazolam. It is suspected that she was unable to retain her Keppra medication due to vomiting and may not have taken it this morning. The patient is approximately 5 to 6 weeks . Her seizures are difficult to visually detect but are evident on scans. She has been observed overnight, during which her seizures sometimes resemble grand mal seizures and other times appear similar to her current state. After starting Keppra, a significant decrease in seizure activity was noted. However, she did not receive her dose this morning and vomited after her last dose, so it is unclear if she retained the medication. She was able to confirm that she did not take her medicine this morning by nodding her head, but she was not making any verbal communication. She has been intermittently lucid, able to speak briefly before returning to an unresponsive state. She has been intermittently ventilated due to apneic hyperventilation post-seizure. Her vital signs have remained stable, with sinus tachycardia. A fingerstick glucose test showed a level of 94. Exam General: Well-appearing in no acute distress intermittently convulsing with her face with apneic periods and subsequently conversant inquiring about intubation Head: Normocephalic, atraumatic. Eye:[Pupils equal, round reactive to light.] Extraocular eye movements intermittently roving and subsequently intact. No conjunctival injection. No scleral icterus. Ear, nose, mouth, throat: Grossly normal inspection. Neck: Trachea midline. No midline cervical spinal tenderness Cardiovascular: Well-perfused distal extremities. Regular rate and rhythm Respiratory: Nonlabored respiration. Clear lungs bilaterally equal breath sounds Gastrointestinal: Nondistended abdomen. Soft. Nontender. No rebound. No guarding Musculoskeletal: Moving all 4 extremities spontaneously. No signs of trauma to bilateral upper or lower extremities Skin: Normal for age and race, grossly normal temperature and turgor. No acute rash. Neurologic: Intermittently alert. Subsequently twitching activity in face. No tongue biting. No tonic-clonic activity. Variable GCS. Initial GCS 7: E2, V1, M4. Subsequently GCS 15. Related Data Home Medications ?Medication ?Instructions ?Recorded ?Confirmed inhalational spacing device #1 ea 04/17/23 06/23/24 (Aerochamber MV spacer) albuterol sulfate 90 mcg/actuation 2 puff inhalation Q 6H PRN 04/16/24 11/26/24 aerosol inhaler shortness of breath or wheez ing #8.5 grams glycopyrrolate 2 mg tablet 2 mg PO DAILY 06/05/2411/16 doxylamine 20 mg-pyridoxine 20 mg 1 tab PO BID #20 tab s 11/26/24 tablet,immediate and delayed release levetiracetam 750 mg tablet 750 mg PO BID 11/26/2404/12 ondansetron 4 mg disintegrating 4 mg PO BID 5 days #10 tabs 11/26/24 tablet Previous Rx's ?Medication ?Instructions ?Recorded inhalational spacing device #1 ea 04/17/23 (Aerochamber MV spacer) albuterol sulfate 90 mcg/actuation 2 puff inhalation Q 6H PRN 04/16/24 aerosol inhaler shortness of breath or wheez ing #8.5 grams doxylamine 20 mg-pyridoxine 20 mg 1 tab PO BID #20 tab s 11/26/24 tablet,immediate and delayed release ondansetron 4 mg disintegrating 4 mg PO BID 5 days #10 tabs 11/26/24 tablet Allergies Allergy/AdvReac Type Severity Reaction Status Date / Time No Known Allergies Allergy Verified 11/26/24 10:53 General Stated Complaint: Seizure FIONA: 2 Course Vital Signs Vital signs: Vital Signs Pulse 65 11/26/24 09:51 Respiratory Rate 14 11/26/24 09:51 Pulse Oximetry 100 11/26/24 09:51 Pulse 62 11/26/24 11:01 Pulse 65 11/26/24 11:01 Respiratory Rate 19 11/26/24 11:01 Respiratory Effort Normal 11/26/24 10:26 Respiratory Depth Normal 11/26/24 10:26 Respiratory Pattern Normal 11/26/24 10:26 Blood Pressure 125/67 11/26/24 11:01 Blood Pressure Mean 84 11/26/24 11:01 Pulse Oximetry 100 11/26/24 11:01 Respiratory End-tidal CO2 30 11/26/24 11:01 Oxygen Delivery Method Nasal Cannula 11/26/24 09:51 Oxygen Flow Rate 2 11/26/24 09:51 Lab/Test Results Lab/Test Results: Laboratory Tests Range/Units 11/26/24 10:01 WBC (4.4-10.8) 10^3/uL 6.96 RBC (3.93-5.22) 10^6/uL 3.97 Hgb (11.2-15.7) g/dL 12.2 Hct (36.0-46.0) % 35.8 L MCV (80-95) fL 90 MCH (27.0-33.0) pg 30.7 MCHC (32.0-36.0) % 34.1 RDW (11.7-14.6) % 12.5 Plt Count (130-400) 10^3/uL 214 MPV (8.0-11.0) fL 9.7 Immature Gran % % 0.3 Neutrophils % % 72.7 Lymphocytes % % 16.8 Monocytes % % 7.8 Eosinophils % % 2.0 Basophils % % 0.4 Nucleated RBC % (0.0-0.3) % 0.0 Absolute Neutrophils (1.2-6.7) 10^3/uL 5.06 Absolute Lymphocytes (1.2-3.4) 10^3/uL 1.17 L Absolute Monocytes (0.1-0.8) 10^3/uL 0.54 Absolute Eosinophils (0.0-0.7) 10^3/uL 0.14 Absolute Basophils (0.0-0.2) 10^3/uL 0.03 PT (9.1-11.1) sec 10.1 INR (0.9-1.1) 1.0 VBG pH (7.31-7.41) 7.36 VBG pCO2 (41-51) mmHg 44 VBG pO2 mmHg 33 VBG HCO3 (23-28) mmol/L 25 VBG Total CO2 (24-29) mmol/L 23 L VBG O2 Saturation % 59 VBG Base Excess (-2-3) mmol/L -1 VBG Lactate (<or=2.0) mmol/L 1.0 Sodium (136-145) mmol/L 138 Potassium (3.5-5.1) mmol/L 4.2 Chloride (98-107) mmol/L 103 Carbon Dioxide (21.0-32.0) mmol/L 25.8 Anion Gap (3-11) mmol/L 9.2 BUN (7-18) mg/dL 7 Creatinine (0.55-1.02) mg/dL 0.6 Est GFR (CKD-EPI 2020) (mL/min/1.73m2) 130.07 Glucose (74-106) mg/dL 89 Calcium (8.5-10.1) mg/dL 8.4 L Magnesium (1.8-2.4) mg/dL 1.8 Total Bilirubin (0.2-1.0) mg/dL 1.0 AST (15-37) U/L 22 ALT (14-59) U/L 20 Alkaline Phosphatase (46-116) U/L 49 Total Protein (6.4-8.2) g/dL 6.7 Albumin (3.4-5.0) g/dL 3.6 Beta HCG, Quant (1-3) mIU/mL 48566 H PFSH All Active Problems (Updated 11/26/24 @ 14:10 by Favian Marr MD) Hx of falling (Acute) First trimester (Acute) Convulsions (Acute) Effusion of elbow joint, right (Acute) s/p Right elbow arthroscopy with synovial biopsy and limited debridement 01/23/24 Postural orthostatic tachycardia syndrome (Acute) Shoulder pain, right (Acute) Seizure-like activity (Acute) Hypermobile joints (Acute) Spells of decreased attentiveness (Acute) Attention deficit hyperactivity disorder (Acute 07/28/12) BMI (body mass index), pediatric, 5% to less than 85% for age (Acute 08/10/15) Depression with anxiety (Acute 09/26/17) Epistaxis (Acute 06/17/16) Routine child health exam (Acute 07/28/12) Well adolescent visit without abnormal findings (Acute 08/13/16) Dysmenorrhea in adolescent (Chronic) Menorrhagia with irregular cycle (Acute) given h/o migraine w/ aura need to consider alternatives to the common OCPs - pt may be interested in the nexplenon Migraine headache (Chronic) Medical History Migraine Depression Anxiety ADHD Surgical History S/P arthroscopy of shoulder bilateral ORAL SURGERY 8 teeth removed Family History Mother Healthy adult on routine physical examination Anxiety Father Healthy adult on routine physical examination Brother Healthy adult on routine physical examination Social History Smoking/Tobacco Use Status: Current every day Tobacco Type: e-cigarettes Smoking risk assessment performed?: Yes Alcohol Intake: current Alcohol Intake frequency: holidays/special occasions only Drug use: Daily Substance use type: marijuana Details: daily mj use Housing: house Do you feel safe at home: Yes Do you feel safe in your relationship?: Yes
--- NOTE | 2024-11-26 11:16 | DI.RAD_ITS ---
Exam(s) XR PORTABLE CHEST AP EXAM: XR PORTABLE CHEST AP CLINICAL HISTORY: trauma. TECHNIQUE: 2D digital imaging was performed. COMPARISON: No exams were available for comparison FINDINGS: Single AP portable view. Heart size is upper normal. The mediastinum is not widened. Lungs are clear. No infiltrates nor obvious pleural effusions. IMPRESSION: No acute pulmonary findings on this single AP portable view of the chest. DATA REPOSITORY: RADIATION DOSE DELIVERED:
--- NOTE | 2024-11-26 11:17 | DI.RAD_ITS ---
Exam(s) XR PELVIS AP EXAM: XR PELVIS AP CLINICAL HISTORY: trauma. TECHNIQUE: 2D digital imaging was performed. COMPARISON: No exams were available for comparison FINDINGS: Single AP view of the pelvis No evidence of pelvic nor hip fracture. Bone density normal. No osseous lesions. IMPRESSION: No acute osseous findings in the pelvis and hips. DATA REPOSITORY: RADIATION DOSE DELIVERED:
[2024-11-26 11:18] LABS: Creatine Kinase 76 U/L (26-192)
[2024-11-26] MEDS: Normal Saline 500 ML IV (12:44)
--- NOTE | 2024-11-26 13:00 | DI.US_ITS ---
Exam(s) US OB 1ST TRIMESTER EXAM: US OB 1ST TRIMESTER CLINICAL HISTORY: pregant. TECHNIQUE: First trimester obstetrical ultrasound was performed. COMPARISON: US POCUS EXAM from 11/26/2024 FINDINGS: There is an intrauterine gestational sac which contains a yolk sac (3 mm diameter) and viable pole which exhibits heart rate of 130 bpm. [place]-rump length measurement is 4 mm, corresponding to 6 weeks and 1 day gestational age. There is no evidence of subchorionic hemorrhage. Maternal ovaries: Right ovary measures 2.2 x 2.3 x 3.2 cm a contains a corpus luteal cyst measuring 2 x 2 x 1.9 cm Left ovary measures 2 x 1.3 x 1.5 cm No significant findings. There is no fluid in the cul-de-sac and adnexal regions. IMPRESSION:: Single viable intrauterine gestation which is approximately 6 weeks and 1 day gestational age by crown rump length measurement, implying DAVE of 07/21/2025. There is no evidence of obvious subchorionic hemorrhage. Corpus luteal cyst noted in right ovary There is no free fluid evident in the cul-de-sac. DATA REPOSITORY:
[2024-11-26] MEDS: Ondansetron 4 MG/2 ML VIAL IVP (15:45)
== END 2024-11-26 14:51 | disposition home or self-care (01) ==
PROVIDERS: Emergency Provider Emergency Medicine; PCP Nurse Practitioner Family
DX: O99.351 Diseases of the nervous system complicating pregnancy, first trimester (principal); G40.802 Other epilepsy, not intractable, without status epilepticus; O99.331 Smoking (tobacco) complicating pregnancy, first trimester; F17.290 Nicotine dependence, other tobacco product, uncomplicated
CPT/HCPCS: 76604; 76705; 80053; 82550; 82805; 82962; 86850; 86900; 86901; 93308; 96361; 96374; 99285; 70450; 71045; 72125; 72170; 76801; 83605; 83735; 84702; 85025; 85610; J1953; J2405

== ENCOUNTER 2025-01-04 19:29 | Emergency (ER) | payer BC, SELFPAY ==
[2025-01-04 19:37] VITALS: BP 131/61; PULSE 83; RESP 24; O2SAT 100
--- NOTE | 2025-01-04 19:38 | W.ED.GENAD ---
Discharge Plan Disposition Patient Disposition: Home Condition: Stable Discharge Details Clinical Impression: Seizure-like activity, Hypokalemia Primary Care Provider: Laura Henriquez ED Provider: Victor M Johnson Home Meds and New Rx's Prescriptions: Continued glycopyrrolate 2 mg tablet 2 mg PO DAILY Patient Comments: TAKE ONE TABLET BY MOUTH TWICE A DAY (DME) Aerochamber MV Spacer See Rx Instructions .Route Qty: 1 0RF Rx Instructions: As directed albuterol sulfate 90 mcg/actuation HFA aerosol inhaler 2 puff inhalation Q6H PRN (Reason: shortness of breath or wheezing) Qty: 8.5 0RF levetiracetam 750 mg tablet 750 mg PO BID Patient Comments: TAKE ONE AND ONE-HALF TABLETS BY MOUTH TWICE A DAY FOR 30 DAYS doxylamine-pyridoxine (vit B6) 20-20 mg tablet,IR,delayed rel,biphasic 1 tab PO BID Qty: 20 0RF Discharge Instructions Additional Instructions: Your blood work showed your potassium was mildly low otherwise did not show any concerning findings at this time. Follow-up with your neurologist and [facility] [employer] [facility]. If you feel significantly more ill, have high fevers or persistent vomiting return to the emergency department for reevaluation. HPI General Mode of arrival: EMS. Date/Time Provider Initiated Documentation: 01/04/25 19:36. Information obtained by: EMS. History of Present Illness 24 year old F presents to the emergency department with the chief complaint of seizure like activity, described as moderate, Patient started experiencing this hour(s) (1) and it has been intermittent. No relieving factors improve symptom(s), No exacerbating factors reported . Patient notes denies chest pain, fever/chills and shortness of breath. Patient did receive the following treatments prior to arrival, other (5mg versed) Related Data Home Medications ?Medication ?Instructions ?Recorded ?Confirmed inhalational spacing device #1 ea 04/17/23 06/23/24 (Aerochamber MV spacer) albuterol sulfate 90 mcg/actuation 2 puff inhalation Q6H PRN 04/16/24 11/26/24 aerosol inhaler shortness of breath or wheezing #8.5 grams glycopyrrolate 2 mg tablet 2 mg PO DAILY 06/05/24 11/26/24 doxylamine 20 mg-pyridoxine 20 mg 1 tab PO BID #20 tabs 11/26/24 tablet,immediate and delayed release levetiracetam 750 mg tablet 750 mg PO BID 11/26/24 11/26/24 Previous Rx's ?Medication ?Instructions ?Recorded inhalational spacing device #1 ea 04/17/23 (Aerochamber MV spacer) albuterol sulfate 90 mcg/actuation 2 puff inhalation Q6H PRN 04/16/24 aerosol inhaler shortness of breath or wheezing #8.5 grams doxylamine 20 mg-pyridoxine 20 mg 1 tab PO BID #20 tabs 11/26/24 tablet,immediate and delayed release Allergies Allergy/AdvReac Type Severity Reaction Status Date / Time No Known Allergies Allergy Verified 11/26/24 10:53 General Stated Complaint: Seizure FIONA: 3 Review of Systems Unobtainable due to mental status Exam [facility] Head: normal to inspection Ears: external ears normal General nose exam: external nose normal Mouth: moist mucous membranes Eyes General: appearance normal, both eyes and all related structures Neck Neck: normal visual inspection Resp Effort & Inspection: normal respiratory effort Auscultation: clear to auscultation bilaterally Cardio Rate: regular rate GI Palpation: soft, not firm and no guarding Skin General skin exam: no rashes or lesions noted Neuro Cranial Nerves: PERRL Extrem General: normal to inspection Psych Mental Status: mental status grossly normal Course Vital Signs Vital signs: Vital Signs Pulse 83 01/04/25 19:37 Respiratory Rate 24 01/04/25 19:37 Blood Pressure 131/61 01/04/25 19:37 Pulse Oximetry 100 01/04/25 19:37 Pulse 83 01/04/25 19:37 Respiratory Rate 24 01/04/25 19:37 Respiratory Effort Normal 01/04/25 19:34 Respiratory Depth Normal 01/04/25 19:34 Respiratory Pattern Normal 01/04/25 19:34 Blood Pressure 131/61 01/04/25 19:37 Blood Pressure Mean 84 01/04/25 19:37 Blood Pressure Position Supine 01/04/25 19:30 Pulse Oximetry 100 01/04/25 19:37 Oxygen Delivery Method Room Air 01/04/25 19:37 Oxygen Flow Rate 0 01/04/25 19:37 Medical Decision Making 24-year-old female who is reportedly 11 weeks with a history of either seizures or psychogenic nonepileptic seizures and is on Keppra comes in with EMS after having seizures. They gave her 5 mg total of IV Versed and on arrival she is thrusting her hips and shaking her arms, she was has no drooling, no signs of tongue biting, no signs of trauma, this is occurred for approximately 2 minutes and stopped and then she was able to start answering questions without a significant postictal phase. she was seen in November for similar symptoms and was given Keppra at that point because she was post be taking it but was having issues with vomiting due to . I am going to order 2 g of IV Keppra in case she has not been taking it though the seem to be more consistent with psychogenic nonepileptic seizures. Will check a CBC CMP mag and lactate and reassess. FHR is 150. Patient within a few minutes of her seizure like activity here was awake and oriented which seems atypical for a postictal period with the 3 total seizures she had. I suspect this is likely psychogenic. She denies any abdominal pain, vaginal bleeding, alcohol or drug use. She says she does remember the seizures happening. Lactate is 1.0 which is more consistent with nonepileptic seizures. Will continue to monitor. Patient sitting in bed using her phone and is asymptomatic. Potassium 3.0 otherwise labs unremarkable, given lactate was 1.0 I suspect this was not true seizures but I advised to follow-up with her neurologist and return precautions given Differential Diagnosis Differential Diagnosis: Seizure, psychogenic nonepileptic seizures Lab Data Lab results reviewed: Yes I reviewed the patient's lab results. PFSH All Active Problems (Updated 01/04/25 @ 21:12 by Victor M Johnson MD) Hypokalemia (Acute) Effusion of elbow joint, right (Acute) s/p Right elbow arthroscopy with synovial biopsy and limited debridement 01/23/24 Postural orthostatic tachycardia syndrome (Acute) Shoulder pain, right (Acute) Seizure-like activity (Acute) Hypermobile joints (Acute) Spells of decreased attentiveness (Acute) Attention deficit hyperactivity disorder (Acute 07/28/12) BMI (body mass index), pediatric, 5% to less than 85% for age (Acute 08/09/) Depression with anxiety (Acute 09/26/17) Epistaxis (Acute 06/17/16) Routine child health exam (Acute 07/28/12) Well adolescent visit without abnormal findings (Acute 08/13/16) Dysmenorrhea in adolescent (Chronic) Menorrhagia with irregular cycle (Acute) given h/o migraine w/ aura need to consider alternatives to the common OCPs - pt may be interested in the nexplenon Migraine headache (Chronic) Medical History Migraine Depression Anxiety ADHD Surgical History S/P arthroscopy of shoulder bilateral ORAL SURGERY 8 teeth removed Family History Mother Healthy adult on routine physical examination Anxiety Father Healthy adult on routine physical examination Brother Healthy adult on routine physical examination Social History Smoking/Tobacco Use Status: Current every day Tobacco Type: e-cigarettes Smoking risk assessment performed?: Yes Alcohol Intake: current Alcohol Intake frequency: holidays/special occasions only Drug use: Daily Substance use type: marijuana Details: daily mj use Housing: house Do you feel safe at home: Yes Do you feel safe in your relationship?: Yes
[2025-01-04] MEDS: levETIRAcetam 2,000 MG in Normal Saline 100 ML 400 MG IVPB (19:43)
[2025-01-04] MEDS: Normal Saline 1,000 ML 1000 ML IV (19:44)
[2025-01-04 19:46] LABS: Abs Immature Grans 0.03 10^3/uL (0.0-0.06); HCT 33.6 % (36.0-46.0); HGB 11.3 g/dL (11.2-15.7); Immature Grans % 0.4 %; MCH 30.3 pg (27.0-33.0); MCHC 33.6 % (32.0-36.0); MCV 90 fL (80-95); MPV 9.2 fL (8.0-11.0); Platelet Count 236 10^3/uL (130-400); RBC 3.73 10^6/uL (3.93-5.22); RDW 12.7 % (11.7-14.6); RDW-SD 41.6 fL; WBC 6.81 10^3/uL (4.4-10.8)
[2025-01-04 20:06] LABS: ALT 13 U/L (14-59); AST 10 U/L (15-37); Albumin 2.8 g/dL (3.4-5.0); Alkaline Phosphatase 36 U/L (46-116); Anion Gap 10.3 mmol/L (3-11); BUN 7 mg/dL (7-18); Bilirubin, Total 0.5 mg/dL (0.2-1.0); CO2 22.7 mmol/L (21.0-32.0); Calcium 7.1 mg/dL (8.5-10.1); Chloride 109 mmol/L (98-107); Estimated GFR 143.42 (mL/min/1.73m2); Glucose 72 mg/dL (74-106); Magnesium 1.7 mg/dL (1.8-2.4); Potassium 3.0 mmol/L (3.5-5.1); Sodium 142 mmol/L (136-145); Total Protein 5.7 g/dL (6.4-8.2)
[2025-01-04] MEDS: Potassium Chloride 20 MEQ TABCR 40 MEQ PO (20:27)
[2025-01-04 21:38] LABS: Cannabinoids THC Negative (Negative); METHADONE URINE SCREEN Negative (Negative)
== END 2025-01-04 21:20 | disposition home or self-care (01) ==
PROVIDERS: Emergency Provider Emergency Medicine; PCP Nurse Practitioner Family
DX: R56.9 Unspecified convulsions (principal); E87.6 Hypokalemia
CPT/HCPCS: 80053; 80307; 96365; 99284; 80320; 83605; 83735; 85025; J1953

== ENCOUNTER 2025-01-19 10:58 | Emergency (ER) | payer BC, SELFPAY ==
[2025-01-19] VITALS (28 sets, daily range): BP systolic 107–128; BP diastolic 61–78; PULSE 66–88; RESP 12–19; TEMP 36.9–37.2; O2SAT 95–100
--- NOTE | 2025-01-19 11:04 | ED.GENADUL_ITS ---
Discharge Plan Disposition Patient Disposition: Home Discharge Details Clinical Impression: Convulsions Primary Care Provider: Laura Henriquez ED Provider: Favian Marr Home Meds and New Rx's Prescriptions: Continued (DME) Aerochamber MV Spacer See Rx Instructions .Route Qty: 1 0RF Rx Instructions: As directed albuterol sulfate 90 mcg/actuation HFA aerosol inhaler 2 puff inhalation Q6H PRN (Reason: shortness of breath or wheezing) Qty: 8.5 0RF levetiracetam 750 mg tablet 750 mg PO BID Patient Comments: TAKE ONE AND ONE-HALF TABLETS BY MOUTH TWICE A DAY FOR 30 DAYS doxylamine-pyridoxine (vit B6) 20-20 mg tablet,IR,delayed rel,biphasic 1 tab PO BID Qty: 20 0RF Discharge Instructions Additional Instructions: You are seen in the emergency department for your episode of convulsions. Your previous heart rate was reassuring. Your blood counts are within normal limits. Your kidneys are working well. As we discussed if you develop any vaginal bleeding take any falls or lose consciousness please return to the emergency department. Otherwise please follow-up with your primary care provider. Stand Alone Forms: Work Release Discharge Data Discharge Date/Time-TO BE ENTERED AT DEPARTURE: 01/19/25 13:52 HPI General Date/Time Provider Initiated Documentation: 01/19/25 11:02 . HPI Narrative: MDM Primary survey intact. Reassuring shock index. Secondary survey patient has no acute tenderness. She did have 3 episodes of convulsion. She has not missed any medications. She had a reassuring fingerstick blood glucose at 100. She has been adherent with her levetiracetam. She follows with OB and is 16 weeks . She has no pain on proportion to suggest necrotizing soft tissue infection. No ongoing convulsions nor tongue biting or loss of bowel or bladder control to suggest status epilepticus so we will defer benzodiazepines at this point in time. Given no trauma to head will defer CT head based on patient age and her prior CT scan this year and last year. No abnormal lung sounds to suggest pneumonia. Soft nontender abdomen so I am not suspicious for appendicitis. heart rate per patient's nurse from [place] was 145 bpm. No nuchal rigidity to suggest meningitis and no indication for lumbar puncture. Not altered to suggest encephalitis. She has had no vaginal bleeding to suggest spontaneous . No chest pain to suggest ACS. No dysuria no frequency to suggest UTI. Will observe patient in the emergency department. EMS reported that patient had several episodes of convulsion less than 10 seconds. No midline cervical spinal tenderness no distracting injury based on Nexus criteria no indication for CT cervical spine. Per Nexus criteria, cervical CT not obtained. The patient had no c-spine midline tenderness, no evidence of intoxication, was AAOx3, had no focal neurological deficits, and no painful distracting injuries. No signs of thoracoabdominal trauma will defer cross-sectional imaging. 11:56 AM CBC lacks anemia thrombocytopenia leukocytosis. Comprehensive metabolic panel showing no ANGELINA. No anion gap. No acute electrolyte abnormalities. Patient requesting food. 1:15 PM I met with the patient. She had passed ambulatory trial. She also passed a p.o. trial. She requested discharge. She did not need any refills on her medications. Reassuring repeat vitals at time of discharge. HPI The patient presents for evaluation of headaches. Two days ago, she experienced an incident where she hit her head on the armrest of the couch. This resulted in soreness that persisted for a couple of days. This morning, she accidentally hit her head against the wall, causing a dent. She has been experiencing headaches, bilateral pain, nausea, and intermittent light disorientation. Despite these symptoms, she was able to communicate effectively upon returning home this morning. She is currently 15 to 16 weeks and has been under the care of an OB-[facility] REC[employer] CONSULTANT. Exam General: Well-appearing in no acute distress speaking in complete sentences. Head: Normocephalic, atraumatic. Eye:[Pupils equal, round reactive to light.] Extraocular eye movements intact. No conjunctival injection. No scleral icterus. Ear, nose, mouth, throat: Grossly normal inspection. Normal voice, handling secretions normally. No hemotympanum bilaterally. No septal hematoma. Neck: Trachea midline. Cardiovascular: Well-perfused distal extremities. Respiratory: Nonlabored respiration. Clear lungs bilaterally. Gastrointestinal: Nondistended abdomen. Soft nontender. Musculoskeletal: No edema. Moving all 4 extremities spontaneously. Nontender bilateral upper and lower extremities no signs of trauma. Skin: Normal for age and race, grossly normal temperature and turgor. No acute rash. Neurologic: Alert and appropriate, no apparent acute deficits. GCS 15. Related Data Home Medications ?Medication ?Instructions ?Recorded ?Confirmed inhalational spacing device #1 ea 04/17/23 01/19/25 (Aerochamber MV spacer) albuterol sulfate 90 mcg/actuation 2 puff inhalation Q 6H PRN 04/16/24 01/19/25 aerosol inhaler shortness of breath or wheez ing #8.5 grams doxylamine 20 mg-pyridoxine 20 mg 1 tab PO BID #20 tab s 11/26/24 01/19/25 tablet,immediate and delayed release levetiracetam 750 mg tablet 750 mg PO BID 11/26/2408/10 Previous Rx's ?Medication ?Instructions ?Recorded inhalational spacing device #1 ea 04/17/23 (Aerochamber MV spacer) albuterol sulfate 90 mcg/actuation 2 puff inhalation Q 6H PRN 04/16/24 aerosol inhaler shortness of breath or wheez ing #8.5 grams doxylamine 20 mg-pyridoxine 20 mg 1 tab PO BID #20 tab s 11/26/24 tablet,immediate and delayed release Allergies Allergy/AdvReac Type Severity Reaction Status Date / Time No Known Allergies Allergy Verified 01/19/25 11:26 General Stated Complaint: Seizure FIONA: 3 Course Vital Signs Vital signs: Vital Signs Temperature 37.2 C 01/19/25 10:59 Pulse 73 01/19/25 10:59 Respiratory Rate 16 01/19/25 10:59 Blood Pressure 126/74 01/19/25 10:59 Pulse Oximetry 100 01/19/25 10:59 Temperature 37.2 C 01/19/25 10:59 Temperature Source Oral 01/19/25 10:59 Pulse 73 01/19/25 10:59 Respiratory Rate 16 01/19/25 10:59 Blood Pressure 126/74 01/19/25 10:59 Blood Pressure Position Sitting 01/19/25 10:59 Pulse Oximetry 100 01/19/25 10:59 Oxygen Delivery Method Room Air 01/19/25 10:59 Oxygen Flow Rate 0 01/19/25 10:59 Pain Level 5 01/19/25 10:59 PFSH All Active Problems (Updated 01/19/25 @ 11:34 by Favian Marr MD) Convulsions (Acute) Hypokalemia (Acute) Effusion of elbow joint, right (Acute) s/p Right elbow arthroscopy with synovial biopsy and limited debridement 01/23/24 Postural orthostatic tachycardia syndrome (Acute) Shoulder pain, right (Acute) Seizure-like activity (Acute) Hypermobile joints (Acute) Spells of decreased attentiveness (Acute) Attention deficit hyperactivity disorder (Acute 07/28/12) BMI (body mass index), pediatric, 5% to less than 85% for age (Acute 08/10/15) Depression with anxiety (Acute 09/26/17) Epistaxis (Acute 06/17/16) Routine child health exam (Acute 07/28/12) Well adolescent visit without abnormal findings (Acute 08/13/16) Dysmenorrhea in adolescent (Chronic) Menorrhagia with irregular cycle (Acute) given h/o migraine w/ aura need to consider alternatives to the common OCPs - pt may be interested in the nexplenon Migraine headache (Chronic) Medical History Migraine Depression Anxiety ADHD Surgical History S/P arthroscopy of shoulder bilateral ORAL SURGERY 8 teeth removed Family History Mother Healthy adult on routine physical examination Anxiety Father Healthy adult on routine physical examination Brother Healthy adult on routine physical examination Social History Smoking/Tobacco Use Status: Current every day Tobacco Type: e-cigarettes Smoking risk assessment performed?: Yes Alcohol Intake: current Alcohol Intake frequency: holidays/special occasions only Drug use: Daily Substance use type: marijuana Details: daily mj use Housing: house Do you feel safe at home: Yes Do you feel safe in your relationship?: Yes
[2025-01-19] MEDS: Normal Saline 1,000 ML 1000 ML IV (11:30)
[2025-01-19 11:39] LABS: Abs Immature Grans 0.04 10^3/uL (0.0-0.06); HCT 39.4 % (36.0-46.0); HGB 13.3 g/dL (11.2-15.7); Immature Grans % 0.5 %; MCH 30.9 pg (27.0-33.0); MCHC 33.8 % (32.0-36.0); MCV 91 fL (80-95); MPV 9.9 fL (8.0-11.0); Platelet Count 220 10^3/uL (130-400); RBC 4.31 10^6/uL (3.93-5.22); RDW 13.0 % (11.7-14.6); RDW-SD 43.1 fL; WBC 7.32 10^3/uL (4.4-10.8)
[2025-01-19 11:50] LABS: Anion Gap 8.3 mmol/L (3-11); BUN 10 mg/dL (7-18); CO2 27.7 mmol/L (21.0-32.0); Calcium 8.9 mg/dL (8.5-10.1); Chloride 102 mmol/L (98-107); Estimated GFR 130.07 (mL/min/1.73m2); Glucose 78 mg/dL (74-106); Potassium 3.7 mmol/L (3.5-5.1); Sodium 138 mmol/L (136-145)
== END 2025-01-19 13:52 | disposition home or self-care (01) ==
PROVIDERS: Emergency Provider Emergency Medicine; PCP Nurse Practitioner Family
DX: R56.9 Unspecified convulsions (principal)
CPT/HCPCS: 36415; 80048; 96360; 99284; 85025; 99283

== ENCOUNTER 2025-03-10 12:51 | Emergency (ER) | payer BC, SELFPAY ==
[2025-03-10 12:51] VITALS: BP 119/79; PULSE 93; RESP 15; TEMP 36.7; O2SAT 98
--- NOTE | 2025-03-10 13:59 | W.OBCONSULT ---
Date of service: 03/10/25 Time of Service: 13:59 Assessment and Plan Assessment and plan (1) HRP (high risk ): Status: Acute Assessment and plan: G1, P0 at approximately 20 weeks. care by [facility] in conjunction with [facility]. Patient also has a neurologist at [facility]. Encouraged her to either continue her care and evaluations at [facility], or transfer care to an [facility] if continuing to utilize emergency and obstetric services. (2) Yeast vaginitis: Status: Acute Assessment and plan: Pinkish spotting with cervix that is closed, thick, posterior. Evidence of yeast vaginitis. Monistat sent to the pharmacy (3) Seizure disorder: Status: Chronic History of Present Illness History of Present Illness Chief Complaint: Increasing seizures Narrative: Patient is a 25-year-old primigravida female who gets care at [facility], in conjunction with maternal- medicine at [facility]. She has a known seizure disorder and has a neurologist at [facility] as well. More recently, she has had an increased number of her seizures and when she called her initial providers, she was told to present to the nearest emergency department. She is seen and evaluated today due to some scant vaginal spotting. She reports an increase in discharge. Overall baby's been moving. She is scheduled for her routine care. We discussed with both her and her father that continued care and continuity with her providers of choice would be important. I encouraged her to continue to have ongoing care with [facility], and a few other emergency department, and if this is more convenient, transfer of care to our hospital and organization would also be appropriate. Review of Systems All systems reviewed & are unremarkable except as noted in HPI and below Eyes Eyes: Reports as per HPI and Reports system reviewed and no additional complaints, except as documented ENT Ears, Nose, Mouth, and Throat: Reports system reviewed and no additional complaints, except as documented and Reports as per HPI Cardiovascular Cardiovascular: Reports system reviewed and no additional complaints, except as documented, Denies chest pain and Denies irregular heart rhythm Respiratory Respiratory: Reports system reviewed and no additional complaints, except as documented, Denies chest congestion and Denies cough Gastrointestinal Gastrointestinal: Reports system reviewed and no additional complaints, except as documented Genitourinary Genitourinary: Reports system reviewed and no additional complaints, except as documented Neurologic Neurologic: Reports system reviewed and no additional complaints, except as documented PFSH All Active Problems (Updated 03/10/25 @ 14:21 by Jordyn Elizalde DO) Seizure disorder (Chronic) Yeast vaginitis (Acute) HRP (high risk ) (Acute) Effusion of elbow joint, right (Acute) s/p Right elbow arthroscopy with synovial biopsy and limited debridement 01/23/24 Postural orthostatic tachycardia syndrome (Acute) Shoulder pain, right (Acute) Seizure-like activity (Acute) Hypermobile joints (Acute) Spells of decreased attentiveness (Acute) Attention deficit hyperactivity disorder (Acute 07/28/12) BMI (body mass index), pediatric, 5% to less than 85% for age (Acute 08/10/15) Depression with anxiety (Acute 09/26/17) Epistaxis (Acute 06/17/16) Routine child health exam (Acute 07/28/12) Well adolescent visit without abnormal findings (Acute 08/13/16) Dysmenorrhea in adolescent (Chronic) Menorrhagia with irregular cycle (Acute) given h/o migraine w/ aura need to consider alternatives to the common OCPs - pt may be interested in the nexplenon Migraine headache (Chronic) Medical History Migraine Depression Anxiety ADHD Surgical History S/P arthroscopy of shoulder bilateral ORAL SURGERY 8 teeth removed Family History Mother Healthy adult on routine physical examination Anxiety Father Healthy adult on routine physical examination Brother Healthy adult on routine physical examination Social History Smoking/Tobacco Use Status: Former Tobacco Use Smoking risk assessment performed?: Yes Alcohol Intake: former Drug use: Current Sobriety Substance use type: marijuana Details: none while Housing: house Do you feel safe at home: Yes Do you feel safe in your relationship?: Yes Exam Const General: cooperative, healthy appearing, comfortable and no acute distress Nutritional Appearance: average body habitus Eyes General: appearance normal, both eyes and all related structures Resp Effort & Inspection: normal respiratory effort, no audible wheezes and no cough GI Inspection: normal to inspection Other: Cervical exam. Cervix is closed thick high, posterior. Significant vaginal discharge consistent with yeast vaginitis. Prescription sent to the pharmacy. Results Last Vital Signs Temp 98.0 F 03/10/25 12:51 Pulse 93 H 03/10/25 12:51 Resp 15 03/10/25 12:51 BP 119/79 03/10/25 12:51 Pulse Ox 98 03/10/25 12:51 Labs 03/10/25 13:18
[2025-03-10 14:12] VITALS: BP 114/53; PULSE 87; RESP 16; O2SAT 97
[2025-03-10 14:13] VITALS: PULSE 89; RESP 16; O2SAT 97
[2025-03-10 14:17] LABS: Glucose Negative (Negative)
[2025-03-10 14:32] VITALS: BP 111/58; PULSE 78; O2SAT 98
--- NOTE | 2025-03-10 15:26 | ED.GENADUL_ITS ---
Discharge Plan Disposition Patient Disposition: Home Condition: Stable Discharge Details Clinical Impression: Spotting affecting in second trimester, Seizure disorder Primary Care Provider: Laura Henriquez ED Provider: Ed Hutton Home Meds and New Rx's Prescriptions: New miconazole nitrate [Monistat 3] 4 % (200 mg)- 2 % (9 gram) comb pack,prefill appl, cream 1 appful vaginal DAILY 3 Days Qty: 24 1RF Rx Instructions: as vaginal cream Continued (DME) Aerochamber MV Spacer See Rx Instructions .Route Qty: 1 0RF Rx Instructions: As directed albuterol sulfate 90 mcg/actuation HFA aerosol inhaler 2 puff inhalation Q6H PRN (Reason: shortness of breath or wheezing) Qty: 8.5 0RF levetiracetam 750 mg tablet 1,500 mg PO BID Patient Comments: TAKE ONE AND ONE-HALF TABLETS BY MOUTH TWICE A DAY FOR 30 DAYS Discharge Instructions Additional Instructions: You were seen in the emergency department for your vaginal spotting during secon d trimester and were consulted and cleared by BLOCK ENGRAVER. Please follow-up with your OB provider at [facility]. You were also seen by teleneurology due to your cluster of nonepileptic seizures, they make no recommendation to change your Keppra regimen and recommend you [place] [facility]. Take the Monistat as prescribed, please return to the emergency department for any worsening or emergent concerns Referrals: Laura Henriquez [Primary Care Provider, Medicine] Discharge Data Discharge Date/Time-TO BE ENTERED AT DEPARTURE: 03/10/25 16:41 HPI General Date/Time Provider Initiated Documentation: 03/10/25 12:59 . HPI Narrative: This 25-year-old female with a history of epileptiform and nonepileptiform seizures presents with 20+ nonepileptiform seizures today. No report of tonic- clonic activity. 20 weeks . States that there was no trauma but she had some scant pink discharge when she wiped after urinating. She denies any significant abdominal pain but has had some cramping in her back denies chest pain or shortness of breath. Denies recent illness. Father states that he thinks patient is tired and that this is likely triggering this response. Denies any drug use or alcohol consumption. Denies any current headache. Related Data Home Medications ?Medication ?Instructions ?Recorded ?Confirmed inhalational spacing device #1 ea 04/17/23 03/10/25 (Aerochamber MV spacer) albuterol sulfate 90 mcg/actuation 2 puff inhalation Q 6H PRN 04/16/24 03/10/25 aerosol inhaler shortness of breath or wheez ing #8.5 grams levetiracetam 750 mg tablet 1,500 mg PO BID 11/26/24 1 miconazole nitrate 4 % (200 mg)-2 1 appful vaginal JESSA LY 3 days #24 03/10/25 % (9 gram)vaginal,prefill grams appl,cream (Monistat 3) Previous Rx's ?Medication ?Instructions ?Recorded inhalational spacing device #1 ea 04/17/23 (Aerochamber MV spacer) albuterol sulfate 90 mcg/actuation 2 puff inhalation Q 6H PRN 04/16/24 aerosol inhaler shortness of breath or wheez ing #8.5 grams miconazole nitrate 4 % (200 mg)-2 1 appful vaginal JSESA LY 3 days #24 03/10/25 % (9 gram)vaginal,prefill grams appl,cream (Monistat 3) Allergies Allergy/AdvReac Type Severity Reaction Status Date / Time No Known Allergies Allergy Verified 03/10/25 12:56 General Stated Complaint: Seizure FIONA: 3 Exam Narrative Exam Narrative: Alert and oriented 25-year-old female in no acute distress answering questions appropriately no visible sign of trauma heart rate 170, no abdominal tenderness no CVA tenderness pupils are equal round reactive to light and commendation able to follow basic commands, hand grasp intact bilaterally strength and sensation intact all 4 extremities ambulatory with steady gait, vaginal exam deferred to OB, please see documentation Course Vital Signs Vital signs: Vital Signs Temperature 36.7 C 03/10/25 12:51 Pulse 93 H 03/10/25 12:51 Respiratory Rate 15 03/10/25 12:51 Blood Pressure 119/79 03/10/25 12:51 Pulse Oximetry 98 03/10/25 12:51 Temperature 36.7 C 03/10/25 12:51 Temperature Source Oral 03/10/25 12:51 Pulse 78 03/10/25 14:32 Respiratory Rate 16 03/10/25 14:13 Respiratory Effort Normal 03/10/25 13:59 Blood Pressure 111/58 L 03/10/25 14:32 Blood Pressure Mean 75 03/10/25 14:32 Blood Pressure Position Sitting 03/10/25 12:51 Pulse Oximetry 98 03/10/25 14:32 Oxygen Delivery Method Room Air 03/10/25 14:32 Oxygen Flow Rate 0 03/10/25 14:32 Pain Level 5 03/10/25 12:51 Lab/Test Results Lab/Test Results: Laboratory Tests Range/Units 03/10/25 14:05 Urine Color (Yellow) Yellow Urine Clarity (Clear) Cloudy Urine pH (5-8) 6.5 Ur Specific [place] (1.005-1.025) 1.025 Urine Protein (Neg-Trace) mg/dL Negative Urine Ketones (Negative) mg/dL Negative Urine Blood (Negative) Negative Urine Nitrite (Negative) Negative Urine Bilirubin (Negative) Negative Urine Urobilinogen (Up to 0.2) mg/dL 0.2 Ur Leukocyte Esterase (Negative) Negative Urine Glucose (Negative) mg/dL Negative Medical Decision Making Results: Urinalysis does not show acute abnormality, blood pressure is stable, no proteinuria, pending CBC CMP and mag. Pending teleneuro consultation OB evaluates patient and feel she is stable for discharge home cervix is closed reviewed heart rate and vitals do not feel patient has preeclampsia Assessment and plan: Patient complex high risk with history of nonepileptiform and epileptic seizures taking Keppra. She is on 1500 mg twice a day. I will not give an additional dose at this time secondary to risk of . She is not had any visualized seizures during this encounter but states that in the room she has had approximately 10 small seizures. Father states they are nonepileptiform. I am having teleneuro weigh in and diagnosis and treatment plan. Patient will likely be stable for discharge home if there is no adjustment to Keppra needed. She is encouraged to follow-up with OB and neurology at [facility]. Signed out pending teleneuro assessment to Eleno Hutton. [facility] All Active Problems (Updated 03/10/25 @ 15:31 by GALA Briggs) Seizure disorder (Chronic) Spotting affecting in second trimester (Acute) Seizure disorder (Chronic) Yeast vaginitis (Acute) HRP (high risk ) (Acute) Effusion of elbow joint, right (Acute) s/p Right elbow arthroscopy with synovial biopsy and limited debridement 01/23/24 Postural orthostatic tachycardia syndrome (Acute) Shoulder pain, right (Acute) Seizure-like activity (Acute) Hypermobile joints (Acute) Spells of decreased attentiveness (Acute) Attention deficit hyperactivity disorder (Acute 07/28/12) BMI (body mass index), pediatric, 5% to less than 85% for age (Acute 08/10/15) Depression with anxiety (Acute 09/26/17) Epistaxis (Acute 06/17/16) Routine child health exam (Acute 07/28/12) Well adolescent visit without abnormal findings (Acute 08/13/16) Dysmenorrhea in adolescent (Chronic) Menorrhagia with irregular cycle (Acute) given h/o migraine w/ aura need to consider alternatives to the common OCPs - pt may be interested in the nexplenon Migraine headache (Chronic) Medical History Migraine Depression Anxiety ADHD Surgical History S/P arthroscopy of shoulder bilateral ORAL SURGERY 8 teeth removed Family History Mother Healthy adult on routine physical examination Anxiety Father Healthy adult on routine physical examination Brother Healthy adult on routine physical examination Social History Smoking/Tobacco Use Status: Former Tobacco Use Smoking risk assessment performed?: Yes Alcohol Intake: former Drug use: Current Sobriety Substance use type: marijuana Details: none while Housing: house Do you feel safe at home: Yes Do you feel safe in your relationship?: Yes
[2025-03-10 15:27] LABS: Abs Immature Grans 0.10 10^3/uL (0.0-0.06); HCT 35.1 % (36.0-46.0); HGB 11.5 g/dL (11.2-15.7); Immature Grans % 1.0 %; MCH 30.8 pg (27.0-33.0); MCHC 32.8 % (32.0-36.0); MCV 94 fL (80-95); MPV 9.3 fL (8.0-11.0); Platelet Count 242 10^3/uL (130-400); RBC 3.73 10^6/uL (3.93-5.22); RDW 12.9 % (11.7-14.6); RDW-SD 44.5 fL; WBC 9.53 10^3/uL (4.4-10.8)
[2025-03-10 15:36] LABS: Magnesium 2.0 mg/dL (1.8-2.4)
[2025-03-10 15:47] LABS: ALT 21 U/L (14-59); AST 12 U/L (15-37); Albumin 3.0 g/dL (3.4-5.0); Alkaline Phosphatase 60 U/L (46-116); Anion Gap 9.2 mmol/L (3-11); BUN 12 mg/dL (7-18); Bilirubin, Total 0.4 mg/dL (0.2-1.0); CO2 25.8 mmol/L (21.0-32.0); Calcium 8.8 mg/dL (8.5-10.1); Chloride 103 mmol/L (98-107); Estimated GFR 135.07 (mL/min/1.73m2); Glucose 83 mg/dL (74-106); Potassium 3.9 mmol/L (3.5-5.1); Sodium 138 mmol/L (136-145); Total Protein 6.8 g/dL (6.4-8.2)
[2025-03-10 16:03] VITALS: BP 126/78; PULSE 79; O2SAT 97
--- NOTE | 2025-03-10 16:13 | ED.PROG_ITS ---
Date of service: 03/10/25 Time of Service: 16:14 Medical Decision Making This dictation utilizes [id number] dictation software and may contain unedited grammatical errors. Patient seen in signout from Meme Leon PA-C, please see her complete note. Essentially, this 25-year-old female presents with 20+ nonepileptic seizures on long-term Keppra use as well as some vaginal spotting in the setting of 20 weeks gestation. She has been cleared for discharge by FIELD PIPE LINES SUPERVISOR, she is currently undergoing telemetry neurology consult with possible treatment recommendations for changing her antiepileptic medication. Diagnostic studies of: -reviewed prior studies as below. Interventions of: -Spoke with Dr. Duran of [facility] [place] @ [phone] - states no change to Keppra regimen, no concern for the fetus with non-epileptic seizures and they are following up with [facility] [place] Neuro. ED Course/Assessment/Plan: 25-year-old female at 20 weeks gestation presents with some spotting this morning as well as multiple days of having some brief nonepileptic seizures which is her baseline getting these clusters of nonepileptic seizure activity, she had FIELD PIPE LINES SUPERVISOR consult from Dr. Elizalde who cleared for discharge, she gets her care at [facility]. I spoke with teleneurology and they had no recommendations to change her Keppra regimen and to follow-up with [facility] [place], I counseled the patient to return to the emergency department for any emergent concerns. Findings not consistent with epileptic seizures, placenta previa or abruption, threatened miscarriage. Disposition of Spotting affecting in second trimester, Seizure disorder. Patient verbalized understanding of the plan and return to ED criteria and engaged in shared decision making. Medical Records Medical records reviewed: Yes I reviewed the patient's medical records. Imaging Data Radiologic Study: Attestation: I personally reviewed and interpreted this imaging study as follows: Imaging: Ultrasound Radiologist's impression: EXAM: US OB 1ST TRIMESTER CLINICAL HISTORY: pregant. TECHNIQUE: First trimester obstetrical ultrasound was performed. COMPARISON: US POCUS EXAM from 11/26/2024 FINDINGS: There is an intrauterine gestational sac which contains a yolk sac (3 mm diameter) and viable pole which exhibits heart rate of 130 bpm. [place]-rump length measurement is 4 mm, corresponding to 6 weeks and 1 day gestational age. There is no evidence of subchorionic hemorrhage. Maternal ovaries: Right ovary measures 2.2 x 2.3 x 3.2 cm a contains a corpus luteal cyst measuring 2 x 2 x 1.9 cm Left ovary measures 2 x 1.3 x 1.5 cm No significant findings. There is no fluid in the cul-de-sac and adnexal regions. IMPRESSION:: Single viable intrauterine gestation which is approximately 6 weeks and 1 day gestational age by crown rump length measurement, implying DAVE of 07/21/2025. There is no evidence of obvious subchorionic hemorrhage. Corpus luteal cyst noted in right ovary There is no free fluid evident in the cul-de-sac. Radiologic Study #2: Attestation: I personally reviewed and interpreted this imaging study as follows: Imaging: X-Ray Radiologist's impression: EXAM: XR PORTABLE CHEST AP CLINICAL HISTORY: trauma. TECHNIQUE: 2D digital imaging was performed. COMPARISON: No exams were available for comparison FINDINGS: Single AP portable view. Heart size is upper normal. The mediastinum is not widened. Lungs are clear. No infiltrates nor obvious pleural effusions. IMPRESSION: No acute pulmonary findings on this single AP portable view of the chest. Radiologic Study #3: Attestation: I personally reviewed and interpreted this imaging study as follows: Imaging: X-Ray Radiologist's impression: EXAM: XR PELVIS AP CLINICAL HISTORY: trauma. TECHNIQUE: 2D digital imaging was performed. COMPARISON: No exams were available for comparison FINDINGS: Single AP view of the pelvis No evidence of pelvic nor hip fracture. Bone density normal. No osseous lesions. IMPRESSION: No acute osseous findings in the pelvis and hips. Lab Data Lab results reviewed: Yes I reviewed the patient's lab results. Labs: Laboratory Tests Range/Units 03/10/25 03/10/25 14:05 15:21 WBC (4.4-10.8) 10^3/uL 9.53 RBC (3.93-5.22) 10^6/uL 3.73 L Hgb (11.2-15.7) g/dL 11.5 Hct (36.0-46.0) % 35.1 L MCV (80-95) fL 94 MCH (27.0-33.0) pg 30.8 MCHC (32.0-36.0) % 32.8 RDW (11.7-14.6) % 12.9 Plt Count (130-400) 10^3/uL 242 MPV (8.0-11.0) fL 9.3 Immature Gran % % 1.0 Neutrophils % % 75.4 Lymphocytes % % 15.5 Monocytes % % 6.9 Eosinophils % % 0.8 Basophils % % 0.4 Nucleated RBC % (0.0-0.3) % 0.0 Absolute Neutrophils (1.2-6.7) 10^3/uL 7.17 H Absolute Lymphocytes (1.2-3.4) 10^3/uL 1.48 Absolute Monocytes (0.1-0.8) 10^3/uL 0.66 Absolute Eosinophils (0.0-0.7) 10^3/uL 0.08 Absolute Basophils (0.0-0.2) 10^3/uL 0.04 Sodium (136-145) mmol/L 138 Potassium (3.5-5.1) mmol/L 3.9 Chloride (98-107) mmol/L 103 Carbon Dioxide (21.0-32.0) mmol/L 25.8 Anion Gap (3-11) mmol/L 9.2 BUN (7-18) mg/dL 12 Creatinine (0.55-1.02) mg/dL 0.5 L Est GFR (CKD-EPI 2020) (mL/min/1.73m2) 135.07 Glucose (74-106) mg/dL 83 Calcium (8.5-10.1) mg/dL 8.8 Magnesium (1.8-2.4) mg/dL 2.0 Total Bilirubin (0.2-1.0) mg/dL 0.4 AST (15-37) U/L 12 L ALT (14-59) U/L 21 Alkaline Phosphatase (46-116) U/L 60 Total Protein (6.4-8.2) g/dL 6.8 Albumin (3.4-5.0) g/dL 3.0 L Urine Color (Yellow) Yellow Urine Clarity (Clear) Cloudy Urine pH (5-8) 6.5 Ur Specific [place] (1.005-1.025) 1.025 Urine Protein (Neg-Trace) mg/dL Negative Urine Ketones (Negative) mg/dL Negative Urine Blood (Negative) Negative Urine Nitrite (Negative) Negative Urine Bilirubin (Negative) Negative Urine Urobilinogen (Up to 0.2) mg/dL 0.2 Ur Leukocyte Esterase (Negative) Negative Urine Glucose (Negative) mg/dL Negative Discharge Plan Disposition Patient Disposition: Home Condition: Stable Discharge Details Clinical Impression: Spotting affecting in second trimester, Seizure disorder Primary Care Provider: Laura Henriquez ED Provider: Ed Hutton Home Meds and New Rx's Prescriptions: New miconazole nitrate [Monistat 3] 4 % (200 mg)- 2 % (9 gram) comb pack,prefill appl, cream 1 appful vaginal DAILY 3 Days Qty: 24 1RF Rx Instructions: as vaginal cream Continued (DME) Aerochamber MV Spacer See Rx Instructions .Route Qty: 1 0RF Rx Instructions: As directed albuterol sulfate 90 mcg/actuation HFA aerosol inhaler 2 puff inhalation Q6H PRN (Reason: shortness of breath or wheezing) Qty: 8.5 0RF levetiracetam 750 mg tablet 1,500 mg PO BID Patient Comments: TAKE ONE AND ONE-HALF TABLETS BY MOUTH TWICE A DAY FOR 30 DAYS Discharge Instructions Additional Instructions: You were seen in the emergency department for your vaginal spotting during second trimester and were consulted and cleared by FIELD PIPE LINES SUPERVISOR. Please follow-up with your OB provider at [facility]. You were also seen by teleneurology due to your cluster of nonepileptic seizures, they make no recommendation to change your Keppra regimen and recommend you follow-up with [facility] [place]. Take the Monistat as prescribed, please return to the emergency department for any worsening or emergent concerns Referrals: Laura Henriquez [Primary Care Provider, Medicine] Discharge Data Discharge Date/Time-TO BE ENTERED AT DEPARTURE: 03/10/25 16:41
[2025-03-10 16:38] VITALS: BP 126/78; PULSE 85; TEMP 36.6; O2SAT 99
== END 2025-03-10 16:41 | disposition home or self-care (01) ==
PROVIDERS: Physician Assistant; Emergency Provider Physician Assistant; PCP Nurse Practitioner Family
DX: B37.31 Acute candidiasis of vulva and vagina; G40.909 Epilepsy, unspecified, not intractable, without status epilepticus; O26.852 Spotting complicating pregnancy, second trimester
CPT/HCPCS: 99283; 99284; 00123; 80053; 81003; 83735; 85025

== ENCOUNTER 2025-05-07 11:59 | Observation (INO) | payer BC, SELFPAY ==
[2025-05-07] VITALS (14 sets, daily range): BP systolic 104–130; BP diastolic 65–106; PULSE 71–114; RESP 13–22; TEMP 36.6–36.8; O2SAT 97–100
--- NOTE | 2025-05-07 12:15 | DI.CT_ITS ---
Exam(s) CT HEAD CERVICAL SPINE WO EXAM: CT HEAD CERVICAL SPINE WO CLINICAL HISTORY: fall, unknown head strike. TECHNIQUE: Imaging Protocol: Axial computed tomography images with coronal and sagittal reformatted images were created and reviewed COMPARISON: CT CT HEAD WO from 04/20/[address] HEAD CERVICAL SPINE WO from 04/05/[address] HEAD CERVICAL SPINE WO from 11/26/2024 FINDINGS: CT Head: Ventricles and Extra axial spaces: Normal in size and morphology for the patient's age. Hemorrhage: None. Cerebral parenchyma: There is no evidence of an acute territorial infarct or mass effect. Midline shift: None. Brainstem/Cerebellum: Normal. Calvarium: Normal. Visualized Paranasal sinuses/Mastoids: Clear. Soft Tissues: Unremarkable. Pituitary gland: The pituitary gland appears mildly prominent with a convex superior border. CT Cervical Spine: Bones: No acute fracture or subluxation. There is straightening of the normal cervical lordosis. This may be due to muscle spasm or patient positioning. Soft Tissues: Unremarkable. Lung Apices: Clear. IMPRESSION: 1. No acute intracranial process. 2. Question of an enlarged pituitary gland. Please correlate clinically. Nonemergent MRI of the pituitary gland without and with contrast should be considered. 3. No acute fracture or subluxation in the cervical spine. 4. The preliminary [facility] report was reviewed. RADIATION DOSE DELIVERED: 1,349.02mGy.cm Total DLP DATA REPOSITORY: All CT scans at this facility are submitted to the National Radiology Data Registry (NRDR) Dose Index Registry (DIR) with the [employer] ([employer]). RADIATION OPTIMIZATION: All CT scans at this facility use at least one of these dose optimization techniques: automated exposure control; mA and/or kV adjustment per patient size (includes targeted exams where dose is matched to clinical indication); or iterative reconstruction.
[2025-05-07] MEDS: ACETAMINOPHEN 1,000 MG/100 ML BAG 400 MG IVPB (12:30)
[2025-05-07 12:33] LABS: Abs Immature Grans 0.14 10^3/uL (0.0-0.06); HCT 32.9 % (36.0-46.0); HGB 10.9 g/dL (11.2-15.7); Immature Grans % 1.4 %; MCH 30.7 pg (27.0-33.0); MCHC 33.1 % (32.0-36.0); MCV 93 fL (80-95); MPV 9.3 fL (8.0-11.0); Platelet Count 233 10^3/uL (130-400); RBC 3.55 10^6/uL (3.93-5.22); RDW 12.5 % (11.7-14.6); RDW-SD 42.3 fL; WBC 10.30 10^3/uL (4.4-10.8)
--- NOTE | 2025-05-07 12:48 | ED.GENADUL_ITS ---
Discharge Plan Disposition Patient Disposition: Home Condition: Stable Discharge Details Clinical Impression: Fall (on) (from) other stairs and steps, initial encounter, Abdominal pain during , Seizure-like activity Primary Care Provider: Laura Henriquez ED Provider: Shelly Osborne Home Meds and New Rx's Prescriptions: No Action (DME) Aerochamber MV Spacer See Rx Instructions .Route Qty: 1 0RF Rx Instructions: As directed levetiracetam 750 mg tablet 1,500 mg PO BID Patient Comments: TAKE ONE AND ONE-HALF TABLETS BY MOUTH TWICE A DAY FOR 30 DAYS promethazine 12.5 mg tablet 12.5 mg PO Q4H PRN Patient Comments: TAKE 1-2 TABLETS BY MOUTH EVERY 4 HOURS NEEDED FOR NAUSEA AND VOMITING folic acid 1 mg tablet 2 mg PO DAILY Flintstones with Extra Iron 18 mg iron tablet,chewable 1 tab PO DAILY Vitamin See Rx Instructions PO DAILY Rx Instructions: UNKNOWN Concentration orally daily; Takes 2 OTC gummies. Natures Promise. Unknown dose Discharge Instructions Instructions: Abdominal Pain, Adult ED Additional Instructions: You were seen in the emergency department today for evaluation after a fall. In our department you do full physical examination performed, and you had laboratory studies that were quite reassuring, with no signs of anemia, electrolyte abnormality, or infection in your urine. You had a CT scan of your brain and C-spine and this did not show any sign of injury from your fall today. Regarding your abdominal pain and your low back pain, anytime somebody sustains injury to this area during we need to have you go to the labor and delivery department to have your monitored to ensure that there is no complication from the fall. Regarding your convulsive activity, you should follow-up with your scheduled appointment to have your Keppra level drawn and follow all recommendations from your outpatient LANDSCAPE ARCHITECT and neurology team. Certainly if anything changes or worsens, you develop new or worsening pain or sustain other injury should return to the closest emergency department for reevaluation. Please follow-up with your primary care provider in the next few days to discuss this visit and any symptoms that change, worsen, or persist. Thank you for allowing us to be part of your care. Stand Alone Forms: Portal Information HPI General Mode of arrival: EMS . Date/Time Provider Initiated Documentation: 05/07/25 12:18 . Limitations to Documentation: no limitations . Information obtained by: patient, family, EMS and old records reviewed . HPI Narrative: This is a 25-year-old female patient with a history of PNES, 29 weeks gestation, with a history of depression, anxiety, ADHD, and migraines, presenting for evaluation after a fall. The patient has had a notable increase in her seizure frequency over the past several days, works with [facility] as well as [place] [employer] ARCHIT[employer], no complications anticipated with this and no history of preeclampsia. She has been taking her Keppra as prescribed, 1500 mg twice daily. The patient is not sure what made her fall, she was descending the stairs, was experiencing a migraine headache prior to this event, states that she missed the last 2-4 steps and fell, landing at the bottom of the stairs. The patient was out of it and does not recall if she hit her head. The patient has been experiencing a cluster of nonepileptiform seizure activities, with as many as 6 episodes per hour over the last few days. After the fall, the patient was able to get up and ambulate. She was experiencing pain in her right elbow which has since improved significantly, she can now range it without difficulty. Is endorsing some low back and lower abdominal discomfort, and some left hip pain. Was transported by EMS, was noted to be hemodynamically appropriate, no interventions prior to arrival. Related Data Home Medications ?Medication ?Instructions ?Recorded ?Confirmed inhalational spacing device #1 ea 04/17/23 05/07/25 (Aerochamber MV spacer) levetiracetam 750 mg tablet 1,500 mg PO BID 11/26/24 1 07/08/24 Vitamin See Rx Instructions PO DAILY 05/07/25 05/07/25 folic acid 1 mg tablet 2 mg PO DAILY 05/07/2505/07 pediatric multivitamin 1 tab PO DAILY 05/07/2504/19 no.226-ferrous sulfate 18 mg chewable tablet (Flintstones with Extra Iron) promethazine 12.5 mg tablet 12.5 mg PO Q4H PRN 5 05/07/25 Previous Rx's ?Medication ?Instructions ?Recorded inhalational spacing device #1 ea 04/17/23 (Aerochamber MV spacer) Allergies Allergy/AdvReac Type Severity Reaction Status Date / Time No Known Allergies Allergy Verified 12/20/25 12:58 General Stated Complaint: Seizure FIONA: 2 Exam Narrative Exam Narrative: Gen: Awake and alert, in no apparent distress. HEENT: Non-icteric sclera, PERRL. Scalp atraumatic, midface stable, teeth and tongue uninjured. Neck: Supple, full range of motion spontaneously, no midline cervical spine step-offs, does have some discomfort just around C7 without overlying skin change Lungs: No apparent respiratory distress, normal respiratory effort. CV: Appears well perfused, heart with regular rate and rhythm, strong distal pulses Abdomen: Gravid, soft, nontender to palpation without rigidity, rebound, or guarding. Uterus palpable just above the umbilicus MSK: Moves 4 extremities without apparent limitation in ROM. T-spine nontender without step-offs, patient does have some lower back discomfort with no L-spine step-offs or overlying skin changes. Pelvis stable to AP compression, patient does have some soreness overlying the lateral left hip. Bilateral lower extremities are atraumatic, left upper extremity atraumatic, patient reports that the pain in her right elbow has subsided, no traumatic findings at this joint on exam. Skin: Visualized skin without rashes, cyanosis. Neuro: Symmetrical face, clear speech, no unilateral weakness or sensory deficits. No saddle anesthesia. The patient does experience eye fluttering and change in responsiveness lasting approximately 10 seconds per episode with a rapid return to awareness. Per family member, these are consistent with her nonepileptiform events. Psych: Appropriate for situation. Course Vital Signs Vital signs: Vital Signs Pulse 80 05/07/25 12:00 Respiratory Rate 14 05/07/25 12:00 Blood Pressure 123/106 H 05/07/25 12:00 Pulse Oximetry 99 05/07/25 12:00 Pulse 80 05/07/25 12:00 Respiratory Rate 14 05/07/25 12:00 Blood Pressure 123/106 H 05/07/25 12:00 Blood Pressure Position Supine 05/07/25 12:00 Pulse Oximetry 99 05/07/25 12:00 Oxygen Delivery Method Room Air 05/07/25 12:00 Oxygen Flow Rate 0 05/07/25 12:00 Lab/Test Results Lab/Test Results: Laboratory Tests Range/Units 05/07/25 12:26 WBC (4.4-10.8) 10^3/uL 10.30 RBC (3.93-5.22) 10^6/uL 3.55 L Hgb (11.2-15.7) g/dL 10.9 L Hct (36.0-46.0) % 32.9 L MCV (80-95) fL 93 MCH (27.0-33.0) pg 30.7 MCHC (32.0-36.0) % 33.1 RDW (11.7-14.6) % 12.5 Plt Count (130-400) 10^3/uL 233 MPV (8.0-11.0) fL 9.3 Immature Gran % % 1.4 Neutrophils % % 73.7 Lymphocytes % % 16.1 Monocytes % % 7.5 Eosinophils % % 0.8 Basophils % % 0.5 Nucleated RBC % (0.0-0.3) % 0.0 Absolute Neutrophils (1.2-6.7) 10^3/uL 7.60 H Absolute Lymphocytes (1.2-3.4) 10^3/uL 1.66 Absolute Monocytes (0.1-0.8) 10^3/uL 0.77 Absolute Eosinophils (0.0-0.7) 10^3/uL 0.08 Absolute Basophils (0.0-0.2) 10^3/uL 0.05 Medical Decision Making This is a 25-year-old female patient presenting for evaluation after a fall. My differential includes but is not limited to traumatic injuries, including intracranial hemorrhage, skull fracture, cervical spine fracture. Reassuringly, from an MSK standpoint, the patient has full range of motion of her right elbow, no neurovascular deficits distal and I have a low concern for fracture, dislocation, or significant sprain/strain of this joint. The patient has mild low back pain without neurodeficit, step-offs, I did consider lumbar spine strain, less likely fracture given the patient's ability to ambulate and the reassuring exam. Similarly low risk for pelvic fracture. I certainly considered medical etiologies as the cause of her fall, including nonepileptiform activity, metabolic electrolyte derangements, dehydration, kidney injury, anemia. No hypertension but I certainly considered eclampsia and preeclampsia. I did shared decision-making conversation with the patient regarding imaging given her developing breast tissue and status. Given that the patient is well beyond her first trimester I think the risk of radiation to the fetus is quite low, ultimately we will proceed with a CT of the brain and C-spine and hold on further x-ray imaging at this time. I will obtain labs to include CBC, CMP, magnesium, and urinalysis. Keppra levels are a send out lab here, the patient does have an appointment to have a Keppra level sent on and is desiring to wait to this appointment. I will provide the patient with a dose of Tylenol for management of her discomfort. I will consult [facility]SCAPE ARCHITECT for monitoring. At this time, given that the patient's nonepileptiform seizure activity is largely at her reported baseline, is not associated with any postictal stages, and she has not missed any doses of medication I will hold on empiric consultation of neurology. My review of the neurology notes at [facility] shows that they do not feel that any additional medical intervention is warranted at this time. - I reviewed the patient's laboratory studies, which show no leukocytosis, the patient has a stable and mild anemia at 10.9, no thrombocytopenia. Chemistry panel without electrolyte derangement, kidney injury or evidence of liver dysfunction. Urinalysis is without infectious findings nor protein to suggest preeclampsia. CT head and C-spine reviewed by myself, showing no intracranial hemorrhage, skull fracture, or cervical spine fracture. I discussed this case with LANDSCAPE ARCHITECT and they recommend that the patient be taken to labor and delivery for 4-hour monitoring given the abdominal and low back pain during after trauma. I shared all of the findings with the patient and her fianc?, and counseled them to keep their outpatient appointments, they have an LANDSCAPE ARCHITECT appointment coming up on , and will need to contact their neurologist for an ED follow-up appointment. They had an opportunity to have all questions answered, and the patient left our facility to go to labor and delivery without incident. Her blood pressures remained with in normal limits without hypertension throughout her time under my care. All further care per LANDSCAPE ARCHITECT. Shelly Osborne MD [facility] All Active Problems (Updated 05/07/25 @ 13:26 by Shelly Osborne MD) Abdominal pain during (Acute) Fall (on) (from) other stairs and steps, initial encounter (Acute) Seizure disorder (Chronic) Yeast vaginitis (Acute) HRP (high risk ) (Acute) Effusion of elbow joint, right (Acute) s/p Right elbow arthroscopy with synovial biopsy and limited debridement 01/23/24 Postural orthostatic tachycardia syndrome (Acute) Shoulder pain, right (Acute) Seizure-like activity (Acute) Hypermobile joints (Acute) Spells of decreased attentiveness (Acute) Attention deficit hyperactivity disorder (Acute 07/28/12) BMI (body mass index), pediatric, 5% to less than 85% for age (Acute 08/10/15) Depression with anxiety (Acute 09/26/17) Epistaxis (Acute 06/17/16) Routine child health exam (Acute 07/28/12) Well adolescent visit without abnormal findings (Acute 08/13/16) Dysmenorrhea in adolescent (Chronic) Menorrhagia with irregular cycle (Acute) given h/o migraine w/ aura need to consider alternatives to the common OCPs - pt may be interested in the nexplenon Migraine headache (Chronic) Medical History Migraine Depression Anxiety ADHD Surgical History S/P arthroscopy of shoulder bilateral ORAL SURGERY 8 teeth removed Family History Mother Healthy adult on routine physical examination Anxiety Father Healthy adult on routine physical examination Brother Healthy adult on routine physical examination Social History Smoking/Tobacco Use Status: Former Tobacco Use Smoking risk assessment performed?: Yes Alcohol Intake: former Drug use: Current Sobriety Substance use type: marijuana Details: none while Housing: house Do you feel safe at home: Yes Do you feel safe in your relationship?: Yes POCUS Exam (ED) Limited OB Exam DATE OF EXAM:: 05/07/25 TIME OF EXAM:: 12:00 PROVIDER THAT PERFORMED THE STUDY: Shelly Osborne IS THIS A REPEAT EXAM DURING THIS ENCOUNTER: No Type of Exam: Pelvic OB Trans Abdominal REASON FOR EXAM: Trauma VISUALIZED STRUCTURES: Poll and Uterus PERTINENT FINDINGS/IMPRESSION: cardiac activity Exam Complete.
[2025-05-07 12:51] LABS: Magnesium 1.7 mg/dL (1.6-2.6)
[2025-05-07 12:52] LABS: ALT 25 U/L (10-49); AST 19 U/L (<34); Albumin 3.9 g/dL (3.2-5.0); Alkaline Phosphatase 79 U/L (46-116); Anion Gap 9.2 mmol/L (3-11); BUN 10 mg/dL (9-23); Bilirubin, Total 0.6 mg/dL (0.2-1.2); CO2 23.8 mmol/L (20.0-31.0); Calcium 8.6 mg/dL (8.3-10.6); Chloride 108 mmol/L (98-107); Glucose 81 mg/dL (74-106); Potassium 3.8 mmol/L (3.5-5.1); Sodium 141 mmol/L (136-145); Total Protein 6.7 g/dL (5.7-8.2)
[2025-05-07 13:06] LABS: Glucose Negative (Negative)
--- NOTE | 2025-05-07 13:19 | DI.VRAD_ITS ---
PROCEDURE INFORMATION: Exam: CT Head Without Contrast Exam date and time: 05/07/2025 12:47 PM Age: 25 years old Clinical indication: Injury or trauma; Other: Fall, unknown head strike TECHNIQUE: Imaging protocol: Computed tomography of the head without contrast. COMPARISON: CT HEAD CERVICAL SPINE WO 11/26/2024 10:14 AM FINDINGS: Brain: Normal. No hemorrhage. Unremarkable white matter. No mass effect. Cerebral ventricles: No ventriculomegaly. Paranasal sinuses: Visualized sinuses are unremarkable. No fluid levels. Mastoid air cells: Visualized mastoid air cells are well aerated. Bones: Subtle nondisplaced fracture of the left nasal bone suspected open (44 series 4), unchanged. Soft tissues: Unremarkable. IMPRESSION: No acute intracranial abnormalities. PROCEDURE INFORMATION: Exam: CT Cervical Spine Without Contrast Exam date and time: 05/07/2025 12:47 PM Age: 25 years old Clinical indication: Injury or trauma; Other: Fall, unknown head strike TECHNIQUE: Imaging protocol: Computed tomography of the cervical spine without contrast. COMPARISON: CT HEAD CERVICAL SPINE WO 11/26/2024 10:14 AM FINDINGS: Bones: No acute fracture. Normal alignment. Straightening of cervical lordosis. Mild levoscoliosis of the cervical spine. No significant disc bulge or herniation. No severe spinal canal stenosis. No significant neural foraminal narrowing. Lungs: Lung apices are normal. Soft tissues: Unremarkable. IMPRESSION: No acute cervical spine fracture. Dictated and Authenticated by: Anirudh Marie MD. Orderin [facility] Marquise Bravo MD
--- NOTE | 2025-05-07 14:37 | W.OBCONSULT ---
Date of service: 05/07/25 Time of Service: 14:37 Assessment and Plan Assessment and plan (1) Fall (on) (from) other stairs and steps, initial encounter: Status: Acute Assessment and plan: Pt is a 25yo P0 @29.2wks who came to our ED via ambulance after a fall down a few stairs that was thought to be due to a Psychogenic nonepileptic seizure. No visible injuries. Cleared by ED prior to arrival on L&D. monitoring reassuring >6hrs after fall. Rh neg but just got rhogam 04/28/25. Discussed possible utility of KB to r/o more significant fetomaternal hemorrhage and she declines having it drawn today, low suspicion for necessity given exam. (2) Seizure disorder: Status: Chronic Assessment and plan: Pt with psychogenic nonepileptic seizures. Being followed by [facility]. On Keppra with repeat level scheduled this week. (3) HRP (high risk ): Status: Acute Assessment and plan: Has f/u visit with her Ob on . History of Present Illness History of Present Illness Chief Complaint: fall Narrative: Pt is a 25yo P0 @29.2wks who came to our ED via ambulance after a fall down a few stairs that was thought to be due to a Psychogenic nonepileptic seizure. The fall was not witnessed but her partner and her mom heard her fall and were there soon afterwards and found her lying on her side at the bottom of the stairs. They say she fell on her left side but she hit her right elbow and her watkins. She denies significant remaining pain or limitation of motion. She denies any bruising or pain on her belly. She feels normal movement. She denies vaginal bleeding, loss of fluid or unusual discharge. In the ED she had a CT head and bedside sono with +FHR and no clear abnormalities. She had normal labs and vital signs. She has a h/o psychogenic seizures with increased frequency recently. She is followed by [facility] neurology. She was placed on Keppra though without any documented epileptic seizures so they opted to not increase her dose from where it is. She has a planned repeat level next week and elected not to repeat it in the ED today since it has to be sent out and takes a bit to come back. She has been seen in our ED 5 times during this for seizures. She is Rh negative and just got her 28wk rhogam on 04/28/25. She denies alcohol and tobacco use. She has a medical hx significant for Rheumatoid arthritis, seizure disorder, depression/anxiety with h/o suicide attempts. Ob records from [facility] reviewed. reportedly dated by 1st trimester ultrasound but sono report not included in records. Review of Systems Constitutional Constitutional: Reports system reviewed and no additional complaints, except as documented Gastrointestinal Gastrointestinal: Denies nausea and Denies vomiting Genitourinary Genitourinary: Reports system reviewed and no additional complaints, except as documented Musculoskeletal Comments: No regular contractions PFSH All Active Problems (Updated 05/07/25 @ 16:02 by Laura Slaughter MD) Fall (on) (from) other stairs and steps, initial encounter (Acute) Seizure disorder (Chronic) HRP (high risk ) (Acute) Effusion of elbow joint, right (Acute) s/p Right elbow arthroscopy with synovial biopsy and limited debridement 01/23/24 Postural orthostatic tachycardia syndrome (Acute) Shoulder pain, right (Acute) Seizure-like activity (Acute) Hypermobile joints (Acute) Attention deficit hyperactivity disorder (Acute 07/28/12) Depression with anxiety (Acute 09/26/17) Epistaxis (Acute 06/17/16) Migraine headache (Chronic) Medical History (Updated 05/07/25 @ 16:02 by Laura Slaughter MD) Yeast vaginitis Menorrhagia with irregular cycle given h/o migraine w/ aura need to consider alternatives to the common OCPs - pt may be interested in the nexplenon Depression Surgical History S/P arthroscopy of shoulder bilateral ORAL SURGERY 8 teeth removed Family History Mother Healthy adult on routine physical examination Anxiety Father Healthy adult on routine physical examination Brother Healthy adult on routine physical examination Social History Smoking/Tobacco Use Status: Former Tobacco Use Smoking risk assessment performed?: Yes Alcohol Intake: former Drug use: Current Sobriety Substance use type: marijuana Details: none while Housing: house Do you feel safe at home: Yes Do you feel safe in your relationship?: Yes History History 1 Para Hx # Term Pregnancies Multiple births Hx # Pregnancies Ectopic pregnancies AB induced Hx Number of Living Children AB spontaneous Exam Const General: cooperative, healthy appearing and no acute distress HENMT Head: normocephalic and atraumatic Ears: hearing grossly normal bilaterally Resp Effort & Inspection: normal respiratory effort and able to speak in complete sentences GI Other: Abdomen: gravid, nontender to palpation. Slight tenderness to palpation on lower left back. Other: SSE: Minimal white discharge, no blood. Cervix visually appears long and closed. Neuro General: patient alert and patient awake Psych Appearance: grossly normal Mental Status: mental status grossly normal Speech and Movement: speech and movement normal Affect: normal affect Attitude: cooperative Thought Process: normal Thought Content: normal Results Last Vital Signs Temp 98.3 F 05/07/25 13:52 Pulse 86 05/07/25 13:52 Resp 16 05/07/25 13:52 BP 118/68 05/07/25 13:52 Pulse Ox 100 05/07/25 13:52 Labs 05/07/25 12:26 05/07/25 12:26 Labs: Laboratory Results - last 24 hr 05/07/25 05/07/25 12:26 12:36 WBC 10.30 RBC 3.55 L Hgb 10.9 L Hct 32.9 L MCV 93 MCH 30.7 MCHC 33.1 RDW 12.5 Plt Count 233 MPV 9.3 Immature Gran % 1.4 Neutrophils % 73.7 Lymphocytes % 16.1 Monocytes % 7.5 Eosinophils % 0.8 Basophils % 0.5 Nucleated RBC % 0.0 Absolute Neutrophils 7.60 H Absolute Lymphocytes 1.66 Absolute Monocytes 0.77 Absolute Eosinophils 0.08 Absolute Basophils 0.05 Sodium 141 Potassium 3.8 Chloride 108 H Carbon Dioxide 23.8 Anion Gap 9.2 BUN 10 Creatinine 0.63 Est GFR (CKD-EPI 2020) 116.89 Glucose 81 Calcium 8.6 Magnesium 1.7 Total Bilirubin 0.6 AST 19 ALT 25 Alkaline Phosphatase 79 Total Protein 6.7 Albumin 3.9 Urine Color Yellow Urine Clarity Sl Cloudy Urine pH 7.0 Ur Specific [place] 1.015 Urine Protein Negative Urine Ketones Negative Urine Blood Negative Urine Nitrite Negative Urine Bilirubin Negative Urine Urobilinogen 0.2 Ur Leukocyte Esterase Negative Urine Glucose Negative
--- NOTE | 2025-05-07 17:10 | DSE_ITS ---
Date of service: 05/07/25 Time of Service: 17:11 DS: Diagnosis Discharge Diagnosis (1) Fall (on) (from) other stairs and steps, initial encounter: Status: Acute Asessment and Plan: Pt is a 25yo P0 @29.2wks who came to our ED via ambulance after a fall down a few stairs that was thought to be due to a Psychogenic nonepileptic seizure. Reassuring testing and feeling well. (2) Seizure disorder: Status: Chronic (3) HRP (high risk ): Status: Acute Discharge Plan Disposition Condition: Stable Discharge Details Reason For Visit: [place]/Seizure Admit Date/Time: 05/07/25 13:47 Admit Provider: Laura Slaughter Attending Provider: Laura Slaughter Primary Care Provider: Laura Henriquez Hospital Course Hospital Course: Pt is a 25yo P0 @29.2wks who came to our ED via ambulance after a fall down a few stairs that was thought to be due to a Psychogenic nonepileptic seizure. monitoring >6hrs s/p fall reassuring. Labs, imaging, exam and vital signs all wnl. Home Meds and New Rx's Prescriptions: No Action (DME) Aerochamber MV Spacer See Rx Instructions .Route Qty: 1 0RF Rx Instructions: As directed levetiracetam 750 mg tablet 1,500 mg PO BID Patient Comments: TAKE ONE AND ONE-HALF TABLETS BY MOUTH TWICE A DAY FOR 30 DAYS promethazine 12.5 mg tablet 12.5 mg PO Q4H PRN Patient Comments: TAKE 1-2 TABLETS BY MOUTH EVERY 4 HOURS NEEDED FOR NAUSEA AND VOMITING folic acid 1 mg tablet 2 mg PO DAILY Flintstones with Extra Iron 18 mg iron tablet,chewable 1 tab PO DAILY Vitamin See Rx Instructions PO DAILY Rx Instructions: UNKNOWN Concentration orally daily; Takes 2 OTC gummies. Natures Promise. Unknown dose Discharge Instructions Instructions: Abdominal Pain, Adult ED Additional Instructions: You were seen in the emergency department today for evaluation after a fall. In our department you do full physical examination performed, and you had laboratory studies that were quite reassuring, with no signs of anemia, electrolyte abnormality, or infection in your urine. You had a CT scan of your brain and C-spine and this did not show any sign of injury from your fall today. Regarding your abdominal pain and your low back pain, anytime somebody sustains injury to this area during we need to have you go to the labor and delivery department to have your monitored to ensure that there is no complication from the fall. Regarding your convulsive activity, you should follow-up with your scheduled appointment to have your Keppra level drawn and follow all recommendations from your outpatient [employer] and neurology team. Certainly if anything changes or worsens, you develop new or worsening pain or sustain other injury should return to the closest emergency department for reevaluation. Please follow-up with your primary care provider in the next few days to discuss this visit and any symptoms that change, worsen, or persist. Thank you for allowing us to be part of your care. Stand Alone Forms: Portal Information Activity:: Activity as Tolerated Activity:: Activity as Tolerated Diet:: As Tolerated DS: Summary Time Spent with Patient providing and/or coordinating discharge services: Less than 30 minutes Status at Discharge Functional status at discharge: independent ambulation Overall status at discharge: patient is back to baseline Mental Status: mental status grossly normal Speech and Movement: speech and movement normal Mood: congruent mood Affect: normal affect Exam Psych Mental Status: mental status grossly normal Speech and Movement: speech and movement normal Mood: congruent mood Affect: normal affect DS: Data Vitals/I&O Vitals and I&O: Vital Signs Temperature 97.8 F 05/07/25 16:08 Temperature Source Oral 05/07/25 16:08 Pulse 77 05/07/25 16:08 Pulse Rhythm Regular 05/07/25 13:52 Pulse 86 05/07/25 13:30 Respiratory Rate 16 05/07/25 13:52 Respiratory Effort Normal 05/07/25 12:51 Respiratory Depth Normal 05/07/25 13:52 Respiratory Pattern Normal 05/07/25 12:51 Blood Pressure 121/70 05/07/25 16:08 Blood Pressure Mean 87 05/07/25 16:08 Blood Pressure Position Supine 05/07/25 12:00 Pulse Oximetry 100 05/07/25 13:52 Respiratory End-tidal CO2 33 05/07/25 13:30 Oxygen Delivery Method Room Air 05/07/25 13:52 Oxygen Flow Rate 0 05/07/25 13:52 Comment pt reports pain in lower back that is constant 05/07/25 13:52 Intake & Output 05/06/25 05/07/2525 23:59 11:59 23:59 Intake Total 100 / 100 Balance 100 / 100 Weight 216 lb 0.848 oz Intake: IV 100 / 100 Data Completed and Pending Pending Labs at Discharge: 05/07/25 05/07/25 05/07/25 12:26 12:36 Unknown WBC 10.30 RBC 3.55 L Hgb 10.9 L Hct 32.9 L MCV 93 MCH 30.7 MCHC 33.1 RDW 12.5 Plt Count 233 MPV 9.3 Immature Gran % 1.4 Neutrophils % 73.7 Lymphocytes % 16.1 Monocytes % 7.5 Eosinophils % 0.8 Basophils % 0.5 Nucleated RBC % 0.0 Absolute Neutrophils 7.60 H Absolute Lymphocytes 1.66 Absolute Monocytes 0.77 Absolute Eosinophils 0.08 Absolute Basophils 0.05 Volume Blood Pending Kleihauer-Betke F Hgb Pending Doses of RhIG Required Pending Sodium 141 Potassium 3.8 Chloride 108 H Carbon Dioxide 23.8 Anion Gap 9.2 BUN 10 Creatinine 0.63 Est GFR (CKD-EPI 2020) 116.89 Glucose 81 Calcium 8.6 Magnesium 1.7 Total Bilirubin 0.6 AST 19 ALT 25 Alkaline Phosphatase 79 Total Protein 6.7 Albumin 3.9 Urine Color Yellow Urine Clarity Sl Cloudy Urine pH 7.0 Ur Specific [place] 1.015 Urine Protein Negative Urine Ketones Negative Urine Blood Negative Urine Nitrite Negative Urine Bilirubin Negative Urine Urobilinogen 0.2 Ur Leukocyte Esterase Negative Urine Glucose Negative Urine Opiates Screen Pending Urine Fentanyl Screen Pending Ur Barbiturates Screen Pending Ur Tricyclics Screen Pending Ur Amphetamines Screen Pending U Benzodiazepines Scrn Pending Urine Cocaine Screen Pending U Cannabinoids Screen Pending Preliminary micro results at discharge 05/07/25 16:00 Vaginal Vaginitis Screen - Pending [facility] All Active Problems (Updated 05/07/25 @ 16:02 by Laura Slaughter MD) Fall (on) (from) other stairs and steps, initial encounter (Acute) Seizure disorder (Chronic) HRP (high risk ) (Acute) Effusion of elbow joint, right (Acute) s/p Right elbow arthroscopy with synovial biopsy and limited debridement 01/23/24 Postural orthostatic tachycardia syndrome (Acute) Shoulder pain, right (Acute) Seizure-like activity (Acute) Hypermobile joints (Acute) Attention deficit hyperactivity disorder (Acute 07/28/12) Depression with anxiety (Acute 09/26/17) Epistaxis (Acute 06/17/16) Migraine headache (Chronic) Medical History (Updated 05/07/25 @ 16:02 by Laura Slaughter MD) Yeast vaginitis Menorrhagia with irregular cycle given h/o migraine w/ aura need to consider alternatives to the common OCPs - pt may be interested in the nexplenon Depression Surgical History S/P arthroscopy of shoulder bilateral ORAL SURGERY 8 teeth removed Family History Mother Healthy adult on routine physical examination Anxiety Father Healthy adult on routine physical examination Brother Healthy adult on routine physical examination Social History Smoking/Tobacco Use Status: Former Tobacco Use Smoking risk assessment performed?: Yes Alcohol Intake: former Drug use: Current Sobriety Substance use type: marijuana Details: none while Housing: house Do you feel safe at home: Yes Do you feel safe in your relationship?: Yes History History 1 Para Hx # Term Pregnancies Multiple births Hx # Pregnancies Ectopic pregnancies AB induced Hx Number of Living Children AB spontaneous Time Spent with Patient Time Spent with Patient: <45 minutes Time was spent: preparing to see the patient(eg.review tests), obtaining and/or reviewing separately otained hiistory, ordering medications,tests, procedures, i ndepentently interpreting results and counseling the patient
[2025-05-07 17:16] LABS: Cannabinoids THC Negative (Negative); Fentanyl Scr w/Rflx to Conf, U Negative (Negative)
== END 2025-05-07 17:15 | disposition home or self-care (01) ==
LOC: ER 13:26 → OBS 13:54
PROVIDERS: Admitting Provider Obstetrics & Gynecology; Emergency Provider Emergency Medicine; PCP Nurse Practitioner Family; Visit Provider Obstetrics & Gynecology
DX: O99.353 Diseases of the nervous system complicating pregnancy, third trimester (principal); Z3A.29 29 weeks gestation of pregnancy; G40.909 Epilepsy, unspecified, not intractable, without status epilepticus; W10.8XXA Fall (on) (from) other stairs and steps, initial encounter; O99.013 Anemia complicating pregnancy, third trimester; D64.9 Anemia, unspecified; O99.343 Other mental disorders complicating pregnancy, third trimester; F41.8 Other specified anxiety disorders; G43.909 Migraine, unspecified, not intractable, without status migrainosus; F90.9 Attention-deficit hyperactivity disorder, unspecified type; O26.893 Other specified pregnancy related conditions, third trimester; Z67.91 Unspecified blood type, Rh negative; M06.9 Rheumatoid arthritis, unspecified; Z91.51 Personal history of suicidal behavior; Z04.3 Encounter for examination and observation following other accident
CPT/HCPCS: 36415; 76815; 80053; 80307; 96365; 99285; 70450; 72125; 81003; 83735; 85025; 87480; 87510; 87660; G0378; J0131